=== PATIENT | female | born 1955 | race Caucasian/White ===

== ENCOUNTER 2016-04-22 08:25 | Inpatient (IN) | payer BC, OTHER ==
[2016-04-22] VITALS (8 sets, daily range): BP systolic 134–181; BP diastolic 78–86; PULSE 88–134; TEMP 36.4–37; O2SAT 93–100; BMI 46.9
[~2016-04-22] VITALS: Ht 162.6 cm; Wt 125.3 kg
[~2016-04-22 08:25] MED LIST: ALLO100T PO; ASPEC81 PO; ATOR-22 PO; ATV5 PO; BECL0.3A INH; CALC500T9 PO; CYCL10TA6 PO; CZR50 PO; DILT1TAB58 PO; ERGO1CAP35 PO; GLC/500 PO; GLUCTES; IPRASOL4 INH; LEVO50TA6 PO; LSX/40 PO; METO2.5T PO; MOME50SP5; NRN300 PO; PARO1TAB29 PO; POTA10CA28 PO; PRFINS INH; [UNRECOGNIZED DRUG - OTHER] NAE
[2016-04-22] MEDS ORDERED: ALBUT/IPRATROP 3MG/0.5MG NEB 3 ML VIAL INH ONE ×2 (10:00→11:45)
--- NOTE | 2016-04-22 10:11 | DIAGNOSTIC IMAGING REPORT ---
CHEST 2 VIEWS ROUTINE HISTORY: Cough. Short of breath. COMPARISON: Chest 02/29/2016. FINDINGS: No focal lung consolidations to suggest pneumonia. No evidence for pulmonary edema. Calcified left hilar lymph nodes are again noted. Left subclavian Port-A-Cath terminates in the proximal SVC. The heart is normal in size. No pleural effusions. No pneumothorax. Surgical clips at the epigastric region. IMPRESSION: No acute process. Electronically signed by: Darrius Sanchez M.D. 04/22/2016 10:09 AM Dictated Date/Time: 04/22/2016 10:08 AM
[2016-04-22 10:33] LABS: BASO % 0.3 %; BASO ABS # 0.03 K/uL (0-0.2); COMPLETE YES; EOS % 4.3 %; HEMATOCRIT 32.7 % (37-47); IG% 0.3 %; LYMPH % 21.4 %; LYMPH ABS # 1.97 K/uL (1.2-3.4); MEAN CELL VOLUME 89.8 fL (80-100); MEAN CORPUSCULAR HEMOGLOBIN 29.9 pg (25-34); MEAN CORPUSCULAR HGB CONC 33.3 g/dl (32-36); MEAN PLATELET VOLUME 10.1 fL (7.4-10.4); NEUT % 67.7 %; PLATELET COUNT 280 K/uL (130-400); RED BLOOD COUNT 3.64 M/uL (4.2-5.4)
[2016-04-22 10:51] LABS: BUN/CREATININE RATIO 25.4 (10-20); CALCIUM 8.8 mg/dl (8.5-10.1); CREATININE 1.1 mg/dl (0.60-1.20); POTASSIUM 2.7 mmol/L (3.5-5.1)
[2016-04-22 10:55] LABS: ALB/GLOB RATIO 1.1 (0.9-2)
[2016-04-22] MEDS ORDERED: SODIUM CHLORIDE 0.9% 1000ML 1,000 ML IV STA (11:40)
[2016-04-22] MEDS ORDERED: POTASSIUM CHLR 20 MEQ / WTR 20 MEQ in PREMIXED WATER 100 ML IV STA (11:40)
[2016-04-22] MEDS ORDERED: METHYLPREDNISOLONE IV 80 MG in SYRINGE 0 ML IV ONE ×2 (11:45→12:15)
[2016-04-22] MEDS ORDERED: POTASSIUM CHLR 20MEQ / WTR IV ONE (12:15)
--- NOTE | 2016-04-22 12:22 | EMERGENCY ROOM VISIT NOTE ---
ED Visit Note First contact with patient: 09:42 60-year-old female with shortness of breath was fully evaluated by Jimmy Asencio PA-C. Please see his note. I also independently evaluated the patient. She remains extremely short of breath despite albuterol treatment. The patient will require further evaluation by the hospitalist for extended evaluation and treatment in the hospital. The patient was awaiting admission and became extremely short of breath. The patient was further evaluated by the PA who called me to see the patient. She complained of extreme tightness in her throat. The patient was moved to room A1 because of her extreme shortness of breath. The patient was in atrial fibrillation at that time but despite her rapid rate she was given a racemic epi treatment which did help. The patient was also evaluated by Dr. Escobar. I reevaluated the patient multiple times while here in the ED. I believe the patient has some component of adult croup in addition to her asthma. I have personally spent greater than 35 minutes of critical care time in the direct management of this patient. This includes bedside care, interpretation of diagnostic studies, and testing, discussion with consultants, patient, and family members, and other required patient management activities. This 35 minutes is in excess of all separately billable procedures. IMPRESSION: COPD with Exacerbation Adult Croup Atrial Fibrillation
[2016-04-22] MEDS ORDERED: POTASSIUM CHLORIDE 10 MEQ TABCR PO STA (12:50)
[2016-04-22] MEDS ORDERED: POTASSIUM CHLORIDE 10 MEQ TABCR ONE ×2 (12:56→15:04)
[2016-04-22] MEDS ORDERED: MAGNESIUM HYDROXIDE SUSP 30 ML UDC PO PRN (13:00)
[2016-04-22] MEDS ORDERED: ALUMINUM/MAGNESIUM/SIMETH (MAALOX MAX) 30 ML UDC PO PRN (13:00)
[2016-04-22] MEDS ORDERED: ACETAMINOPHEN 325 MG TAB PO PRN (13:00)
[2016-04-22] MEDS ORDERED: ONDANSETRON INJ 2 MG/ML 2 ML VIAL IV PRN (13:00)
[2016-04-22] MEDS ORDERED: CYCLOBENZAPRINE HCL 10 MG TAB PO PRN (13:00)
--- NOTE | 2016-04-22 13:00 | History and Physical ---
History & Physical Date & Time of Service: Apr 22, 2016 at 12:59 Chief Complaint: Cough, Sob Primary Care Physician: Godfrey Batista PA-C History of Present Illness Source: patient Pt is a 60 yo female who presents to the ER with complaints of shortness of breath and cough that is present for the past 3 days. Pt reports progressively worse sob and a dry hacking cough. Pt states no fevers or chills, chest pain, runny nose, headaches, or other cold symptoms. Pt denies any sick contacts. Pt states compliance with her inhalers including QVAR , perforomist and nebulizer treatments which she states she has been using around the clock. Pt is not on any home O2. Pt has a hx of COPD in which she sees Dr Rubi. Last visit was roughly a few weeks ago. Upon arrival to ER, pt noted to be wheezing and given O2 via nasal cannula in addition to a duoneb treatment. Pt has been admitted several times in past few months for COPD/CHF exacerbations. Past Medical/Surgical History Medical Problems: (1) Asthma Status: Chronic (2) Benign hypertension Status: Chronic (3) Bronchitis Status: Chronic (4) Deep venous thrombosis Status: Chronic (5) Diabetes mellitus Status: Chronic (6) Pneumonia Status: Chronic (7) Pulmonary embolism Status: Chronic (8) Pulmonary emphysema Status: Chronic Family History Depression FH: gallbladder disease FH: heart disease FH: lung disease Hypertension Kidney stones Social History Smoking Status: Never Smoker Smokeless Tobacco Use: No Alcohol Use: none Drug Use: none Marital Status: Housing status: lives with family Occupational Status: retired Immunizations History of Influenza Vaccine: Yes Influenza Vaccine Date: Dec 26, 2012 History of Tetanus Vaccine?: Unknown History of Pneumococcal: Yes Pneumococcal Date: Aug 01, 2001 History of Hepatitis B Vaccine: Unknown Multi-Drug Resistant Organisms History of MDRO: Yes Type of MDRO: MRSA Allergies Coded Allergies: Sulfa Antibiotics (Verified Allergy, Intermediate, HIVES, RASH, 04/22/16) Oxybutynin (Verified Allergy, Mild, HIVES, 04/22/16) Adhesives (Verified Allergy, Unknown, skin irritation, 04/22/16) Cephalosporins (Verified Allergy, Unknown, CEFOXITIN-HIVES, TOLERATED ROCEPHIN 09/11/07, 04/22/16) Home Medications Scheduled Allopurinol (Zyloprim), 100 MG PO QAM Aspirin (Aspirin EC Low Dose), 81 MG PO QAM Atorvastatin (Lipitor), 20 MG PO HS Beclomethasone Dipropionate (Qvar), 2 PUFFS INH BID Calcium Carbonate-Vitamin D (Oysco 500+D), 2 TAB PO QAM Diltiazem Hcl Coated Beads (Cardizem La), 2 CAP PO QPM Ergocalciferol (Vitamin D Cap), 50,000 INTER.UNIT PO WK Formoterol Fumarate (Perforomist), 20 MCG INH BIDR Furosemide (Lasix), 40 MG PO BID Gabapentin (Gabapentin), 300 MG PO HS Levothyroxine Sodium (Levothyroxine Sodium), 1 TAB PO QAM Losartan Potassium (Losartan Potassium), 50 MG PO QAM Metformin Hcl (Glucophage), 2 TAB PO BID Metolazone (Zaroxolyn), 2.5 MG PO 3XWK Mometasone Furoate (Nasonex), 1 SPRAY NA QAM Paroxetine (Paxil), 40 MG PO QAM Potassium Chloride (Micro-K Ext Rel), 20 MEQ PO BID [Gentamicin Saline], 2 SPRAY GEOFF TID Scheduled PRN Cyclobenzaprine Hcl (Flexeril), 1 TAB PO TID PRN for Muscle Spasms Ipratropium-Albuterol (Duoneb), 1 TREATMENT INH Q4H PRN for Shortness of Breath Lorazepam (Lorazepam), 0.5 MG PO HS PRN for Anxiety Miscellaneous Medications Glucose Blood ([employer] Contour Blood Gluco) Review of Systems Constitutional: No chills, No fever Respiratory: + cough, + dyspnea at rest, + dyspnea on exertion, + shortness of breath, + wheezing, No sputum Cardiovascular: + edema, No chest pain, No orthopnea Abdomen: No diarrhea, No nausea, No pain, No vomiting Musculoskeletal: No joint pain, No muscle pain Genitourinary - Female: No dysuria, No urinary frequency, No urinary urgency Psychiatric: No anhedonism, No depression symptoms Integumentary: No itch, No rash Physical Exam Vital Signs Date Time Temp Pulse Resp B/P Pulse Ox O2 Delivery O2 Flow Rate FiO2 04/22/16 12:00 115 18 94 Nasal Cannula 2.0 04/22/16 11:59 116 26 156/80 90 Nasal Cannula 2.0 04/22/16 10:18 106 20 148/76 93 Nasal Cannula 2.0 04/22/16 10:15 89 18 98 Nasal Cannula 2.0 04/22/16 10:14 90 04/22/16 10:14 97 Nasal Cannula 04/22/16 09:21 97 Nasal Cannula 2.0 04/22/16 08:32 Room Air 04/22/16 08:29 36.8 101 18 172/72 96 Room Air General Appearance: WD/WN, no apparent distress, + obese Head: normocephalic, atraumatic Eyes: PERRL, EOMI Neck: supple, no adenopathy Respiratory/Chest: chest non-tender, + wheezing Cardiovascular: no gallop, no JVD, + tachycardia Abdomen/GI: non tender, soft Back: normal inspection, no CVA tenderness Extremities/Musculoskelatal: normal inspection, non-tender Neurologic/Psych: alert, oriented x 3 Skin: warm/dry, no rash Diagnostics Laboratory Results Results Past 24 Hours Test 04/22/16 10:15 04/22/16 12:50 Range/Units White Blood Count 9.20 4.8-10.8 K/uL Red Blood Count 3.64 4.2-5.4 M/uL Hemoglobin 10.9 12.0-16.0 g/dL Hematocrit 32.7 37-47 % Mean Corpuscular Volume 89.8 80-100 fL Mean Corpuscular Hemoglobin 29.9 25-34 pg Mean Corpuscular Hemoglobin Concent 33.3 32-36 g/dl Platelet Count 280 130-400 K/uL Mean Platelet Volume 10.1 7.4-10.4 fL Neutrophils (%) (Auto) 67.7 % Lymphocytes (%) (Auto) 21.4 % Monocytes (%) (Auto) 6.0 % Eosinophils (%) (Auto) 4.3 % Basophils (%) (Auto) 0.3 % Neutrophils # (Auto) 6.22 1.4-6.5 K/uL Lymphocytes # (Auto) 1.97 1.2-3.4 K/uL Monocytes # (Auto) 0.55 0.11-0.59 K/uL Eosinophils # (Auto) 0.40 0-0.5 K/uL Basophils # (Auto) 0.03 0-0.2 K/uL RDW Standard Deviation 44.5 36.4-46.3 fL RDW Coefficient of Variation 13.5 11.5-14.5 % Immature Granulocyte % (Auto) 0.3 % Immature Granulocyte # (Auto) 0.03 0.00-0.02 K/uL Sodium Level 140 136-145 mmol/L Potassium Level 2.7 3.5-5.1 mmol/L Chloride Level 94 98-107 mmol/L Carbon Dioxide Level 36 21-32 mmol/L Anion Gap 10.0 3-11 mmol/L Blood Urea Nitrogen 28 7-18 mg/dl Creatinine 1.10 0.60-1.20 mg/dl Est Creatinine Clear Calc Drug Dose 69.9 ml/min Estimated GFR () 62.8 Estimated GFR (Non- 54.1 BUN/Creatinine Ratio 25.4 10-20 Random Glucose 99 70-99 mg/dl Calcium Level 8.8 8.5-10.1 mg/dl Total Bilirubin 0.4 0.2-1 mg/dl Aspartate Amino Transf (AST/SGOT) 26 15-37 U/L Alanine Aminotransferase (ALT/SGPT) 29 12-78 U/L Alkaline Phosphatase 91 45-117 U/L Pro-B-Type Natriuretic Peptide 415 0-900 pg/ml Total Protein 6.9 6.4-8.2 gm/dl Albumin 3.6 3.4-5.0 gm/dl Globulin 3.3 2.5-4.0 gm/dl Albumin/Globulin Ratio 1.1 0.9-2 Influenza Type A Antigen Neg for Influ A NEG Influenza Type B Antigen Neg for Influ B NEG Impression Assessment and Plan 60 yo female who presents with worsening sob x 3 days Acute COPD exacerbation - Start on solu-medrol 60 TID - Duoneb q 4 h nebulizers - No indication for antibiotics at this time - Cont home inhalers and O2 therapy - Incentive spirometry - CXR did not determine any infiltrates or effusions Chronic diastolic CHF - Continue diuretics, no worsening edema or CXR findings to denote exacerbation - Daily weight, I/O monitoring CKD Stage III - Cr 1.1; currently at her baseline Type II Diabetes Mellitus - Start sliding scale Obstructive Sleep Apnea - Set up for nighttime BiPAP Hypothyroidism - Continue levothyroxine DVT prophylaxis - Heparin 5000 SC q8hr Code - Level I Code VTE Prophylaxis VTE Risk Assessment Done? Y/N: Yes Risk Level: Moderate
[2016-04-22] MEDS ORDERED: RACEPINEPHRINE 2.25% NEBU SOLN 0.5 ML VIAL INH STA (13:38)
[2016-04-22] MEDS ORDERED: DILTIAZEM BOLUS / DRIP IV STA (13:38)
[2016-04-22] MEDS ORDERED: GLUCOSE 40% GEL 15 GM TUBE PO PRN (13:45)
[2016-04-22] MEDS ORDERED: DEXTROSE 50% 50 ML SYR IV PRN (13:45)
[2016-04-22] MEDS ORDERED: GLUCOSE 10 TABS/TUBE PO PRN (13:45)
[2016-04-22] MEDS ORDERED: GLUCAGON FOR INJ 1 MG VIAL SQ PRN (13:45)
[2016-04-22] MEDS ORDERED: DILTIAZEM HCL 5 MG/ML 5 ML VIAL IV SCH (14:15)
[2016-04-22] MEDS: DILTIAZEM HCL INJ 125 MG in DEXTROSE 5% 100ML IV PRN ×3 (14:45→17:57)
--- NOTE | 2016-04-22 14:45 | Progress Note ---
Progress Note Shortly after initial evaluation, pt went into Afib with RVR and noted to have tightness in her throat. Pt was given epi and noted some improvement in breathing and throat tightness. Pt was placed on cardizem drip as well. Will hold off on albuterol tx a this time as pt has had elev HR and SOB. [facility] for further evaluation and care.
[2016-04-22] MEDS ORDERED: ALBUT/IPRATROP 3MG/0.5MG NEB 3 ML VIAL INH SCH (16:00)
[2016-04-22] MEDS ORDERED: NURSING VERBAL MED ORDER ONE (16:30)
[2016-04-22] MEDS: FUROSEMIDE 40 MG TAB PO SCH (16:34)
[2016-04-22] MEDS ORDERED: INSULIN ASPART 100 UNITS/ML 3 ML PEN SC ONE (17:00)
[2016-04-22] MEDS ORDERED: INSULIN GLARGINE SOLOSTAR 100 UNITS/ML 3 ML PEN SC ONE ×2 (17:00→21:15)
[2016-04-22] MEDS: INSULIN ASPART 100 UNITS/ML 3 ML PEN SC SCH ×2 (17:17→21:32)
[2016-04-22] MEDS: FORMOTEROL FUMA NEBULIZER SOLN 20 MCG/2 ML VIAL INH SCH (19:33)
[2016-04-22] MEDS ORDERED: DILTIAZEM HCL COATED BEADS PO SCH (21:00)
[2016-04-22] MEDS ORDERED: PHARMACY GLYCEMIC MGMT CONSULT PRN (21:09)
[2016-04-22] MEDS: BECLOMETHASONE DIP HFA 80 MCG 8.7G INH INH SCH (21:24)
[2016-04-22] MEDS: METHYLPREDNISOLONE IV 60 MG in SYRINGE 0 ML IV SCH (21:24)
[2016-04-22] MEDS: GABAPENTIN 300 MG CAP PO SCH (21:25)
[2016-04-22] MEDS: POTASSIUM CHLORIDE 10 MEQ TABCR PO SCH (21:26)
[2016-04-22] MEDS: ATORVASTATIN 20 MG TAB PO SCH (21:27)
[2016-04-22] MEDS: GUAIFENESIN 600 MG TABCR PO SCH (21:28)
[2016-04-22] MEDS: HEPARIN SOD 5000 UNIT/0.5 ML CARP SQ SCH (21:33)
[2016-04-23] VITALS (10 sets, daily range): BP systolic 122–156; BP diastolic 66–73; PULSE 75–105; TEMP 36.4–36.9; O2SAT 90–98; Ht 162.6 cm; Wt 125.3 kg
[2016-04-23] MEDS: INSULIN ASPART 100 UNITS/ML 3 ML PEN SC SCH ×6 (00:19→20:17)
[2016-04-23] MEDS: DILTIAZEM HCL INJ 125 MG in DEXTROSE 5% 100ML IV PRN ×2 (00:20→08:22)
[2016-04-23] MEDS: LORAZEPAM 0.5 MG TAB PO PRN ×2 (01:27→16:12)
[2016-04-23] MEDS: METHYLPREDNISOLONE IV 60 MG in SYRINGE 0 ML IV SCH ×2 (04:35→12:42)
[2016-04-23] MEDS: LEVOTHYROXINE 50 MCG TAB PO SCH (04:35)
[2016-04-23] MEDS: HEPARIN SOD 5000 UNIT/0.5 ML CARP SQ SCH ×3 (04:39→20:16)
[2016-04-23 06:45] LABS: BASO % 0.1 %; BASO ABS # 0.01 K/uL (0-0.2); COMPLETE YES; HEMATOCRIT 32.3 % (37-47); IG% 0.5 %; LYMPH % 12.8 %; LYMPH ABS # 1.95 K/uL (1.2-3.4); MEAN CELL VOLUME 88.5 fL (80-100); MEAN CORPUSCULAR HEMOGLOBIN 30.4 pg (25-34); MEAN CORPUSCULAR HGB CONC 34.4 g/dl (32-36); MEAN PLATELET VOLUME 10.2 fL (7.4-10.4); MONO % 1.1 %; NEUT % 85.5 %; PLATELET COUNT 300 K/uL (130-400); RED BLOOD COUNT 3.65 M/uL (4.2-5.4); WHITE BLOOD COUNT 15.26 K/uL (4.8-10.8)
[2016-04-23] MEDS: FORMOTEROL FUMA NEBULIZER SOLN 20 MCG/2 ML VIAL INH SCH ×2 (06:57→18:51)
[2016-04-23 07:21] LABS: BUN/CREATININE RATIO 22.8 (10-20); CALCIUM 9.2 mg/dl (8.5-10.1); POTASSIUM 3.3 mmol/L (3.5-5.1)
[2016-04-23 07:33] LABS: CREATININE 1.7 mg/dl (0.60-1.20)
[2016-04-23] MEDS: METOLAZONE 2.5 MG TAB PO SCH (07:41)
[2016-04-23] MEDS: GUAIFENESIN 600 MG TABCR PO SCH ×2 (07:41→19:56)
[2016-04-23] MEDS: ALLOPURINOL 100 MG TAB PO SCH (07:41)
[2016-04-23] MEDS: ASPIRIN 81 MG ECTAB PO SCH (07:41)
[2016-04-23] MEDS: POTASSIUM CHLORIDE 10 MEQ TABCR PO SCH ×2 (07:42→19:57)
[2016-04-23] MEDS: FUROSEMIDE 40 MG TAB PO SCH ×2 (07:42→16:13)
[2016-04-23] MEDS: LOSARTAN POTASSIUM 50 MG TAB PO SCH (07:42)
[2016-04-23] MEDS: PAROXETINE 20 MG TAB PO SCH (07:42)
[2016-04-23] MEDS: BECLOMETHASONE DIP HFA 80 MCG 8.7G INH INH SCH (07:43)
[2016-04-23] MEDS: INSULIN GLARGINE SOLOSTAR 100 UNITS/ML 3 ML PEN SC SCH ×2 (08:26→20:17)
--- NOTE | 2016-04-23 10:25 | Clinical Documentation Query ---
Dr. HO[facility] : CLINICAL DOCUMENTATION QUERY Patient is a 60 year old female admitted for an acute COPD exacerbation. Admission BUN, creatinine, and estimated GFR were 28 mg/dl, 1.10 mg/dl, and 54 ml/min, consistent with documented CKD stage 3. Repeat testing this a.m. demonstrated values of 39 mg/dl, 1.70 mg/dl, and 32 ml/min. In your clinical opinion is this patient being managed for: ( x ) Acute kidney failure ( ) Other explanation of clinical findings (Please Explain) ( ) Unable to determine (Please Define) ( ) Need to Discuss ( ) Not Agree The medical record reflects the following clinical findings, treatment, and risk factors. Clinical Indicators: Rise in serum creatinine in 24 hours with concomitant decline in estimated GFR by 40%. Treatment: Serial chemistries Risk Factors: Afib with RVR/reduced cardiac output, Lasix Please clarify and document your clinical opinion in the progress notes and discharge summary. Terms such as "probable", "suspected", "likely", "questionable", "possible", or "still to be ruled out" are acceptable. IF IN AGREEMENT, YOU MUST DOCUMENT ABOVE DIAGNOSTIC STATEMENT IN DAILY PROGRESS NOTES AND DISCHARGE SUMMARY. This document is not part of the patient's record. Thank You, Rigo Frias, DIPTI [phone]
[2016-04-23] MEDS ORDERED: BUDESONIDE 0.5 MG/2 ML VIAL (PULMICORT) INH ONE (11:20)
[2016-04-23] MEDS ORDERED: GUAIFENESIN 600 MG TABCR PO ONE (11:20)
[2016-04-23] MEDS ORDERED: POTASSIUM CHLR 20 MEQ / WTR 20 MEQ in PREMIXED WATER 100 ML IV STA (11:53)
--- NOTE | 2016-04-23 12:46 | Medical Student: [facility] ---
Med Student Progress Note Date of Service Apr 23, 2016. Subjective Pt is a 60 year old female with a history of diastolic CHF with EF 60-65% on echocardiogram, COPD, PE with IVC filter in place, and DM Type II who is admitted for dyspnea for the last 2-3 days. Pt reports that she has had continued dry cough and dyspnea throughout last night, but the dyspnea has improved somewhat. Cold air worsened her cough. She reports subjective fever and sweats, but no objective fever while admitted. She had one brief episode of L lower chest pain after coughing, which resolved spontaneously and she has had no further chest pain. She denies palpitations. She also c/o orthopnea, which she has chronically, requiring her to sleep in her Lazy Boy at home most nights. She has had mild leg swelling, at baseline, as well as some mild eyelid swelling. She c/o pounding frontal VILLA secondary to cough. She denies recent sick contacts.She reports being UTD on influenza and pneumonia vaccinations. She has had multiple recent admissions for CHF/COPD exacerbations, most recently in February, during which time she diuresed 7 L. She had been doing well on home Lasix 40 mg bid and metolazone 2.5 mg 3x/week (MWF), with no recent weight gain or increased leg swelling. She reports watching her fluid and salt intake at home. 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 Home Medications Scheduled Allopurinol (Zyloprim), 100 MG PO QAM Aspirin (Aspirin EC Low Dose), 81 MG PO QAM Atorvastatin (Lipitor), 20 MG PO HS Beclomethasone Dipropionate (Qvar), 2 PUFFS INH BID Calcium Carbonate-Vitamin D (Oysco 500+D), 2 TAB PO QAM Diltiazem Hcl Coated Beads (Cardizem La), 2 CAP PO QPM Ergocalciferol (Vitamin D Cap), 50,000 INTER.UNIT PO WK Formoterol Fumarate (Perforomist), 20 MCG INH BIDR Furosemide (Lasix), 40 MG PO BID Gabapentin (Gabapentin), 300 MG PO HS Levothyroxine Sodium (Levothyroxine Sodium), 1 TAB PO QAM Losartan Potassium (Losartan Potassium), 50 MG PO QAM Metformin Hcl (Glucophage), 2 TAB PO BID Metolazone (Zaroxolyn), 2.5 MG PO 3XWK Mometasone Furoate (Nasonex), 1 SPRAY NA QAM Paroxetine (Paxil), 40 MG PO QAM Potassium Chloride (Micro-K Ext Rel), 20 MEQ PO BID [Gentamicin Saline], 2 SPRAY GEOFF TID Scheduled PRN Cyclobenzaprine Hcl (Flexeril), 1 TAB PO TID PRN for Muscle Spasms Ipratropium-Albuterol (Duoneb), 1 TREATMENT INH Q4H PRN for Shortness of Breath Lorazepam (Lorazepam), 0.5 MG PO HS PRN for Anxiety Miscellaneous Medications Glucose Blood ([employer] Contour Blood Gluco) Review of Systems Constitutional: + see HPI Respiratory: + see HPI Cardiac: No palpitations Abdomen: No constipation, No diarrhea, No nausea, No pain, No vomiting All Other Systems: Reviewed and Negative Objective Vital Signs Date Time Temp Pulse Resp B/P Pulse Ox O2 Delivery O2 Flow Rate FiO2 04/23/16 08:00 Nasal Cannula 04/23/16 07:39 36.7 79 24 134/72 95 Nasal Cannula 3.0 Humidified Oxygen 04/23/16 06:57 77 18 94 Nasal Cannula 3.0 04/23/16 04:00 Nasal Cannula 04/23/16 03:36 36.4 84 20 149/72 92 Nasal Cannula 3.0 04/23/16 00:01 Nasal Cannula 04/22/16 23:58 37.0 96 20 134/86 93 Nasal Cannula 3.0 04/22/16 20:00 Nasal Cannula 04/22/16 19:33 105 20 96 Nasal Cannula 5.0 04/22/16 19:08 36.4 103 20 175/82 95 Nasal Cannula 6.0 04/22/16 15:30 36.9 88 22 181/78 97 Room Air 04/22/16 15:08 113 20 116/95 95 Nasal Cannula 6.0 04/22/16 14:47 112 22 132/92 94 Nasal Cannula 6.0 04/22/16 14:28 124 25 136/62 96 Nasal Cannula 6.0 04/22/16 14:01 132 28 117/80 95 Nasal Cannula 6.0 04/22/16 13:57 97 Nasal Cannula 7.0 04/22/16 13:48 134 22 100 Nasal Cannula 6.0 04/22/16 13:43 131 30 164/88 99 Non-Rebreather 15.0 04/22/16 12:55 94 Nasal Cannula 2.0 04/22/16 12:00 115 18 94 Nasal Cannula 2.0 04/22/16 11:59 116 26 156/80 90 Nasal Cannula 2.0 Physical Exam General Appearance: WD/WN, + pertinent finding (Pt is sleeping upon entering the room, awakens easily to voice. She becomes dyspneic with any movement. Frequent dry cough noted. Speaking in 4-5 word sentences. ) Eyes: bilateral eyes EOMI ENT: hearing grossly normal Neck: supple, no adenopathy Respiratory/Chest: chest non-tender, no respiratory distress, + pertinent finding (Inspiratory and expiratory wheezing in the upper lobes with prolonged expiratory phase. No rales or rhonchi. Decreased air movement. Port-A-Cath in place in L chest. ) Cardiovascular: regular rate, rhythm, no gallop, no JVD, no murmur Abdomen: normal bowel sounds, non tender, soft, + pertinent finding (Obese) Extremities: no calf tenderness, + pedal edema (1+ to mid tibia), + pertinent finding (Chronic venous stasis changes of BLE) Neurologic/Psychiatric: roller inspector II-XII nml as tested, no motor/sensory deficits, alert, oriented x 3 Skin: normal color, warm/dry, no rash Comments: EKG from 04/22/16 at 1329: Afib with RVR at 167 bpm. Normal QRS axis and transition. LBBB. ST depressions in I and V2-V6. No STEMI or Q waves. FINDINGS: No focal lung consolidations to suggest pneumonia. No evidence for pulmonary edema. Calcified left hilar lymph nodes are again noted. Left subclavian Port-A-Cath terminates in the proximal SVC. The heart is normal in size. No pleural effusions. No pneumothorax. Surgical clips at the epigastric region. IMPRESSION: No acute process. Laboratory Results Last 24 Hours Test 04/22/16 16:20 04/22/16 20:17 04/23/16 00:09 04/23/16 04:25 Bedside Glucose 415 mg/dl 357 mg/dl 336 mg/dl 304 mg/dl Test 04/23/16 06:20 04/23/16 06:42 White Blood Count 15.26 K/uL Red Blood Count 3.65 M/uL Hemoglobin 11.1 g/dL Hematocrit 32.3 % Mean Corpuscular Volume 88.5 fL Mean Corpuscular Hemoglobin 30.4 pg Mean Corpuscular Hemoglobin Concent 34.4 g/dl Platelet Count 300 K/uL Mean Platelet Volume 10.2 fL Neutrophils (%) (Auto) 85.5 % Lymphocytes (%) (Auto) 12.8 % Monocytes (%) (Auto) 1.1 % Eosinophils (%) (Auto) 0.0 % Basophils (%) (Auto) 0.1 % Neutrophils # (Auto) 13.06 K/uL Lymphocytes # (Auto) 1.95 K/uL Monocytes # (Auto) 0.17 K/uL Eosinophils # (Auto) 0.00 K/uL Basophils # (Auto) 0.01 K/uL RDW Standard Deviation 43.6 fL RDW Coefficient of Variation 13.4 % Immature Granulocyte % (Auto) 0.5 % Immature Granulocyte # (Auto) 0.07 K/uL Sodium Level 135 mmol/L Potassium Level 3.3 mmol/L Chloride Level 92 mmol/L Carbon Dioxide Level 31 mmol/L Anion Gap 12.0 mmol/L Blood Urea Nitrogen 39 mg/dl Creatinine 1.70 mg/dl Est Creatinine Clear Calc Drug Dose 45.2 ml/min Estimated GFR () 37.1 Estimated GFR (Non- 32.0 BUN/Creatinine Ratio 22.8 Random Glucose 250 mg/dl Calcium Level 9.2 mg/dl Bedside Glucose 278 mg/dl Medications Medications Administered Medications (Trade) Dose Ordered Sig/Jesus Route Start Time Stop Time Status Last Admin Dose Admin Albuterol/ Ipratropium (Duoneb) 12 ml ONE ONCE INH 04/22/16 10:00 04/22/16 10:04 DC 04/22/16 10:15 12 ML Albuterol/ Ipratropium 12 ml 12 ml ONE ONCE INH 04/22/16 11:45 04/22/16 11:46 DC 04/22/16 11:54 12 ML Sodium Chloride 1,000 ml @ 150 mls/hr Q6H40M STAT IV 04/22/16 11:40 04/22/16 15:38 DC 04/22/16 11:40 150 MLS/HR Potassium Chloride 20 meq/ Prmx 100 ml @ 50 mls/hr TODAY@1215 ONCE IV 04/22/16 12:15 04/22/16 14:14 DC 04/22/16 12:29 50 MLS/HR Methylprednisolone Sodium Succinate/ Syringe (Solu-Medrol IV/ Syringe) 1.28 ml @ 1.5 mls/min TODAY@1215 ONCE IV 04/22/16 12:15 04/22/16 12:16 DC 04/22/16 12:29 1.5 MLS/MIN Heparin Sodium (Porcine) (Heparin Sq 5000 Unit/0.5ml) 5,000 unit Q8 SQ 04/22/16 22:00 05/22/16 21:59 04/23/16 04:39 5,000 UNIT Ondansetron HCl (Zofran Inj) 4 mg Q6H PRN IV 04/22/16 13:00 05/22/16 12:59 04/22/16 17:13 4 MG Guaifenesin 600 mg 600 mg Q12 PO 04/22/16 21:00 05/22/16 20:59 04/23/16 07:41 600 MG Methylprednisolone Sodium Succinate/ Syringe (Solu-Medrol IV/ Syringe) 0.96 ml @ 1.5 mls/min Q8@0400,1200,2000 IV 04/22/16 20:00 05/22/16 19:59 04/23/16 04:35 1.5 MLS/MIN Allopurinol (Zyloprim Tab) 100 mg QAM PO 04/23/16 09:00 05/23/16 08:59 04/23/16 07:41 100 MG Aspirin (Ecotrin Tab) 81 mg QAM PO 04/23/16 09:00 05/23/16 08:59 04/23/16 07:41 81 MG Atorvastatin Calcium (Lipitor Tab) 20 mg HS PO 04/22/16 21:00 05/22/16 20:59 04/22/16 21:27 20 MG Beclomethasone Dipropionate (Qvar 80 Mcg Hfa Inhaler) 2 puffs BID INH 04/22/16 21:00 05/22/16 20:59 Future Hold 04/23/16 07:43 2 PUFFS Formoterol Fumarate (Perforomist 20MCG/2ML Neb Soln) 20 mcg BIDR INH 04/22/16 20:00 05/22/16 19:59 04/23/16 06:57 20 MCG Furosemide (Lasix tab) 40 mg BID17 PO 04/22/16 17:00 05/22/16 16:59 04/23/16 07:42 40 MG Gabapentin (Neurontin Cap) 300 mg HS PO 04/22/16 21:00 05/22/16 20:59 04/22/16 21:25 300 MG Levothyroxine Sodium (Synthroid Tab) 50 mcg DAILYBB PO 04/23/16 06:00 05/23/16 05:59 04/23/16 04:35 50 MCG Lorazepam (Ativan Tab) 0.5 mg HS PRN PO 04/22/16 13:00 05/22/16 12:59 04/23/16 01:27 0.5 MG Losartan Potassium (coZAAR TAB) 50 mg QAM PO 04/23/16 09:00 05/23/16 08:59 04/23/16 07:42 50 MG Metolazone (Zaroxolyn Tab) 2.5 mg MoWeFr@0830 PO 04/23/16 08:30 05/23/16 08:29 04/23/16 07:41 2.5 MG Paroxetine HCl (pAXil TAB) 40 mg QAM PO 04/23/16 09:00 05/23/16 08:59 04/23/16 07:42 40 MG Potassium Chloride (Klor-Con M10) 20 meq BID PO 04/22/16 21:00 05/22/16 20:59 04/23/16 07:42 20 MEQ Insulin Aspart (novoLOG ASPART) SLIDING SCALE If C... ACHS SC 04/22/16 16:15 05/22/16 16:14 04/23/16 08:25 20 UNITS Racepinephrine (Raccemic Epinephrine 2.25% 0.5ML Neb) 0.5 ml NOW STAT INH 04/22/16 13:38 04/22/16 13:40 DC 04/22/16 13:48 0.5 ML Diltiazem HCl 20 mg 20 mg TODAY@1415 IV 04/22/16 14:15 04/22/16 14:16 DC 04/22/16 14:30 20 MG Diltiazem HCl/ Dextrose (Cardizem Inj/D5 100ml) 125 ml @ 5 mls/hr Q24H PRN IV 04/22/16 14:15 05/22/16 14:14 04/23/16 08:22 5 MLS/HR Potassium Chloride (Klor-Con M10) 40 meq STK-MED ONCE .ROUTE 04/22/16 15:04 04/22/16 15:05 DC 04/22/16 15:07 40 MEQ Insulin Glargine (Lantus Solostar Pen) 10 unit NOW ONCE SC 04/22/16 17:00 04/22/16 17:01 DC 04/22/16 16:39 10 UNIT Insulin Aspart (novoLOG ASPART) 10 units NOW ONCE SC 04/22/16 17:00 04/22/16 17:01 DC 04/22/16 16:36 10 UNITS Insulin Glargine (Lantus Solostar Pen) 15 unit NOW ONCE SC 04/22/16 21:15 04/22/16 21:16 DC 04/22/16 21:32 15 UNIT Insulin Aspart (novoLOG ASPART) SLIDING SCALE TODAY@0000,0400 SC 04/23/16 00:00 04/23/16 04:01 DC 04/23/16 04:34 11 UNITS Insulin Glargine (Lantus Solostar Pen) 15 unit BID SC 04/23/16 09:00 05/23/16 08:59 04/23/16 08:26 15 UNIT Assessment and Plan Assessment and Plan: Pt is a 60 year old female with a history of diastolic CHF with EF 60-65% on echocardiogram, COPD, PE with IVC filter in place, and DM Type II who is admitted for dyspnea for the last 2-3 days. Exam is significant for coarse lung sounds with inspiratory and expiratory wheezing. No evidence to suggest fluid overload. She was on 6 L O2 NC last night, which has been decreased to 3 L, after which SpO2 has been stable around 92-95%. CXR showed no acute process and no evidence of PNA. Clinical picture is most consistent with COPD exacerbation. WBC is elevated today in the setting of Solu-Medrol. 1. COPD exacerbation - FEV1 during 03/28/16 pulmonology visit was 72%. - Continue Solu-Medrol. - Continue Duoneb Tx q4h. - Will Tx with pulmicourt nebulizer, as pt has significant cough and is likely not able to tolerate inhalers. - Will continue 3 L O2 NC. - Will Tx with Mucinex. - Continue incentive spirometry. 2. Diastolic HF - No evidence to suggest acute CHF exacerbation. Net I/O is +74 since admission, net -452 since yesterday. Cardiac catheterization from showed normal coronary arteries. - Will continue home diuretics, Lasix 40 mg bid and Metolazone (Zaroxolyn), 2.5 MG PO 3XWK. - Continue to monitor weight and I/O. 3. Atrial fibrillation w/ RVR - Pt converted to NSR with diltiazem drip. HR has been in the 70-80s in NSR. - Plan to wean off of diltiazem drip and initiate PO diltiazem. - Will repeat EKG. 4. Obstructive sleep apnea - Continue BIPAP at night. 5. Diabetes Mellitus, Type II - Blood sugar has been elevated as high as 336. - Will increase Lantus and continue Novolog sliding scale. 6. CKD, Stage III - Creatinine currently 1.7, up from her baseline of 1.1 7. Hypothyroidism -Continue levothyroxine 8. DVT prophylaxis - Heparin 5000 units SQ q8h DVT prophylaxis - Heparin 5000 SC q8hr
--- NOTE | 2016-04-23 14:12 | Pharmacy Progress Note ---
Glycemic Control Intl Consult Date of Service Apr 23, 2016. Scope Glycemic Pharmacist consulted by Dr Le on 04/22/16 for glycemic control and to write orders per [facility] inpatient glycemic control protocol Objective Weight (Kilograms): 124.000 Accuchecks BSG (last 24hrs): Test 04/22/16 16:20 04/22/16 20:17 04/23/16 00:09 04/23/16 04:25 Bedside Glucose 415 mg/dl (70-90) 357 mg/dl (70-90) 336 mg/dl (70-90) 304 mg/dl (70-90) Test 04/23/16 06:20 04/23/16 06:42 04/23/16 11:00 Random Glucose 250 mg/dl (70-99) Bedside Glucose 278 mg/dl (70-90) 322 mg/dl (70-90) Laboratory Data (last 24hrs) Test 04/23/16 06:20 Anion Gap 12.0 mmol/L BUN/Creatinine Ratio 22.8 Blood Urea Nitrogen 39 mg/dl Creatinine 1.70 mg/dl Potassium Level 3.3 mmol/L Sodium Level 135 mmol/L White Blood Count 15.26 K/uL Red Blood Count 3.65 M/uL Hemoglobin 11.1 g/dL Hematocrit 32.3 % Mean Corpuscular Volume 88.5 fL Mean Corpuscular Hemoglobin 30.4 pg Mean Corpuscular Hemoglobin Concent 34.4 g/dl Platelet Count 300 K/uL Mean Platelet Volume 10.2 fL Neutrophils (%) (Auto) 85.5 % Lymphocytes (%) (Auto) 12.8 % Monocytes (%) (Auto) 1.1 % Eosinophils (%) (Auto) 0.0 % Basophils (%) (Auto) 0.1 % Neutrophils # (Auto) 13.06 K/uL Lymphocytes # (Auto) 1.95 K/uL Monocytes # (Auto) 0.17 K/uL Eosinophils # (Auto) 0.00 K/uL Basophils # (Auto) 0.01 K/uL HbA1c 02/24/16 Hgb A1c 6.9 % Recent Pertinent Medications Outpatient Anti-diabetic Regimen: * Novolog pump, basal rate 1.2 units/hr, Metformin 1 Gm bid * A1c = 6.9 % 02/24/16 The patient is currently receiving: * Basal insulin: Lantus one-time doses of 10 units and 15 units * Correctional Insulin: Novolog Correction per scale ACHS, also BSG checks 00,04 Goal Range: Low 100 mg/dL - High 140 mg/dL Correction Factor: 15 mg/dL/unit * Prandial insulin: Per carb ratio of 1 unit per 6 grams CHO consumed * Oral Agents: none Risk Factors for Insulin Resistance: * Steroids: Solumedrol 80 mg x 1, then 60 mg q8h * Infection: no * Pressors: no * IVF: Cardizem drip mixed in D5W, to be dc'd this evening * Recent Surgery: no * Diet: type 1 diabetic * Mechanical Ventilation: no Assessment & Plan ASSESSMENT: * ADA & AACE recommend a goal blood sugar range 140-180 mg/dl for the majority of critically ill & non-critically ill patients. However, more stringent targets may be selected in individual cases. * 60 yo type 2 diabetic fairly well-controlled on Novolog pump and metformin. BSG's rising when pump turned off, and due to steroids. Will start basal insulin at a daily dose similar to her pump, and weight-based Novolog. PLAN FOR INPATIENT GLYCEMIC CONTROL: * Holding outpatient oral diabetes medications * Basal insulin with LANTUS 15 units SQ BID, give 1/2 dose if BSG is less than 100 * Correctional Insulin with NOVOLOG per scale ACHS or Q6hrs while NPO * Goal Range: Low 100 mg/dL - High 140 mg/dL * Correction Factor: 10 mg/dL/unit * Nutritional / Prandial insulin per carb ratio of 1 unit per 5 grams CHO consumed * Please note that the plan above was derived based on current level of insulin resistance and hospital stress. These recommendations are appropriate for inpatient admission only. Plan of care upon discharge will need to be reassessed to avoid potential outpatient hypo/hyperglycemia. Thank you.
--- NOTE | 2016-04-23 15:18 | Pulmonary Consultation ---
History General Date of Service: Apr 23, 2016. Stated Complaint: SOB, sore throat HPI The patient is a 60 year old female who presents to [facility] with complaints of SOB. The patient's primary care provider is Godfrey Batista PA-C. 60y/o female well know n to me presented to the ED with complaints of SOB and cough for 3 days. She notes a progression of her SOB and dry cough over those three says. She also notes increasing sore throat with associated dysphagia. After presenting to the emergency room she noted increasing shortness of breath associated with an episode of, "I think a want to ." This appears about the time she was noted to be in rapid atrial fibrillation with a rate of 167. During the hospital stay rhythm strip also showed a atrial fibrillation in the patient noted to have that time shortness of breath as well. Over the last 3-4 days she denies: Fever, chills, pleurisy, classic cardiac chest pain, productive sputum. [facility] she's been treated with budesonide nebulized, methylprednisolone IV, formoterol as well as Lasix. Out Patient Evaluation at [facility] (MD [place] Fuchs) No signs of PAH: combination diastolic heart failure, Obesity, mild COPD V/Q Lung Scan (03/01/2016) Low probability of pulmonary emboli Cardiac Catherization (02/01/2016) Dictated Pressures: My review of the tracing RA: 27 PCW: 52/55/46 PCW: 40-62 MPA: 59/39/49 MPA: 59/39/46 RV: 61/19/31 RV: 63/30/41 RA: / Ao: 133/74/100 LV: 148/16/30 148/26/67 (normal LVEDP: 3-12) PVR: [id number] (37-250) Significant past history: 1. Recurrent PE with IVC filter not on anticoagulation therapy 2. Previous inferior vena cava claudication 3. IVC Filter placement: 05/19/2012 Pulmonary function test 09/23/2014 FEV 1/FVC: 69% FEV1: 1.59/72% FVC: 2.31/86% T.63/84% FVC: 2.55/95% DLCO: 65% DLCO/VA: 122% CTA performed 01/02/2016 no signs of central emboli Bilateral lower extremity DVT Dopplers: 01/02/2016 -no signs of lower extremity DVTs Overnight pulse oximetry study: 01/05/2016 1. High assessed PO2: 98% 2. Low assessed PO2: 95% Bronchoscopy: 05/10/2012 1. Copious amounts of sputum for the right middle and right lower lobes 2. Right bronchial tree showing chronic inflammatory state 3. Copious mucopurulent sputum noted to be in the lingula and left lower lobe Stress Echo-cardiogram: 03/07/2015 1. Non-sustained VT/PVCs with elevated heart rates 2. Hypertensive response to infusion 3. [address] depression with elevated heart rates 4. Left ventricular ejection fraction: 60% Echocardiogram 02/29/2016 1. Left ventricular ejection fraction 60% 2. Diastolic dysfunction 3. Normal pulmonary arterial systolic pressure Chronic IVC filter complications: 1. Recurrent DVT 2. Post thrombotic syndrome 3. Occlusion of the vena cava 5 years 4. Recurrent pulmonary emboli Historian: patient, caregiver, EMS Review of Systems Constitutional: reports: weakness Eyes: reports: no symptoms, tearing ENT: reports: sore throat, throat swelling Cardiovascular: reports: chest tightness Respiratory: reports: shortness of breath, stridor, wheezing Gastrointestinal: reports: other (dysphagia) Genitourinary - Female: reports: no symptoms Musculoskeletal: reports: myalgias Integumentary: reports: no symptoms Neurologic: reports: no symptoms Psychiatric: reports: anxiety Endocrine: no symptoms Hematologic / Lymphatic: no symptoms Allergic / Immunologic: no symptoms Past Medical History Past Medical History: 1)Allergic rhinitis 2)Anticoagulant long-term use 3)Arthritis 4)Asthma (not based of PFT/Clinically) 5)COPD (FEV1: 72%) 6)Breast mass, left 7)Chronic diastolic heart failure 8)CKD stage III (Cr: 1.2) 9)Chronic sinusitis 10)Cor pulmonale 11)Depression 12)Diabetes mellitus 13)Diabetic autonomic neuropathy 14)Dyslipidemia 15)Edema 16)Gastroparesis 17)Gout 18)Hypertension 19)Hypothyroidism 20)Iron deficiency anemia 21)Lumbar canal stenosis 22)Lumbar radiculopathy 23)Meniscus tear 24)Nocturnal oxygen desaturation 25)Obesity 26)Obstructive sleep apnea (CPAP: 03/21) 27)Peptic ulcer 28)Pulmonary embolism 29)Pulmonary hypertension 30)Restless legs syndrome 31)Retinopathy 32)Vitamin D deficiency Past Medical History: asthma, deep vein thrombosis, depression, diabetes, hypertension, osteoarthritis, osteoporosis, pulmonary embolism, other Past Surgical History: 1)Anal Fissurectomy 2)Cholecystectomy 3)Colonoscopy For Polyp Removal 4)Hernia Repair 5)Hysterectomy 6)Inferior Vena Cava [place]ja Filter Placement 7)Repair Of Paraesophageal Hiatus Hernia 8)Shoulder Arthroplasty/ Total Shoulder Replacement 9)Tonsillectomy 10)Ankle Fracture 11)Tubal Ligation Past Surgical History: appendectomy, cholecystectomy, hysterectomy, orthopedic surgery, tonsillectomy, other Family History Depression FH: gallbladder disease FH: heart disease FH: lung disease Hypertension Kidney stones Social History Hx Tobacco Use In Past Year?: No Smoking Status: Never Smoker Alcohol: socially Marital status: Housing status: lives with family Occupational Status: retired Immunizations History of Influenza Vaccine: Yes Influenza Vaccine Date: Dec 26, 2012 History of Tetanus Vaccine?: Unknown History of Pneumococcal: Yes Pneumococcal Date: Aug 01, 2001 History of Hepatitis B Vaccine: Unknown History of MDRO History of MDRO: Yes Type of MDRO: MRSA Allergies Coded Allergies: Sulfa Antibiotics (Verified Allergy, Intermediate, HIVES, RASH, 04/22/16) Oxybutynin (Verified Allergy, Mild, HIVES, 04/22/16) Adhesives (Verified Allergy, Unknown, skin irritation, 04/22/16) Cephalosporins (Verified Allergy, Unknown, CEFOXITIN-HIVES, TOLERATED ROCEPHIN 09/11/07, 04/22/16) Current Medications Reported Home Medications Medications Dose Route/Sig Max Daily Dose Days Date Category Dose Instructions Lasix (Furosemide) 40 Mg Tab 40 Mg PO BID 03/04/16 Rx Zaroxolyn (Metolazone) 2.5 Mg Tab 2.5 Mg PO 3XWK 03/04/16 Rx take on Mon/Wed/Fri in the morning 30 minutes prior to morning Lasix dose for maximal effect Micro-K Ext Rel (Potassium Chloride) 10 Meq Capcr 20 Meq PO BID 03/04/16 Rx Gabapentin 300 Mg Cap 300 Mg PO HS 03/04/16 Rx Losartan Potassium 50 Mg Tab 50 Mg PO QAM 03/04/16 Rx CLOUD SYSTEMS Contour Blood Gluco (Glucose Blood) 1 Debby Debby 02/01/16 Reported Flexeril (Cyclobenzaprine Hcl) 10 Mg Tab 1 Tab PO TID PRN 30 02/01/16 Reported Lorazepam 0.5 Mg Tab 0.5 Mg PO HS PRN 01/10/16 Rx Perforomist (Formoterol Fumarate) 20 Mcg/2 Ml Nebu 20 Mcg INH BIDR 30 01/10/16 Rx Qvar (Beclomethasone Dipropionate) 80 Mcg/ Aer 2 Puffs INH BID 30 08/17/15 Reported Paxil (Paroxetine HCl) 40 Mg Tab 40 Mg PO QAM 08/17/15 Reported Oysco 500+D (Calcium Carbonate-Vitamin D) 1 Tab Tab 2 Tab PO QAM 08/17/15 Reported Glucophage (Metformin Hcl) 500 Mg Tab 2 Tab PO BID 08/17/15 Reported Levothyroxine Sodium 50 Mcg Tab 1 Tab PO QAM 90 08/17/15 Reported [Gentamicin Saline] 2 [place] GEOFF TID 08/17/15 Reported Vitamin D Cap (Ergocalciferol) 50,000 Interunit Cap 50,000 Inter.unit PO WK 08/17/15 Reported WEDNESDAYS Duoneb (Ipratropium-Albuterol) 3 Ml Nebu 1 Treatment INH Q4H PRN 08/17/15 Reported Zyloprim (Allopurinol) 100 Mg Tab 100 Mg PO QAM 08/17/15 Reported Aspirin EC Low Dose (Aspirin) 81 Mg Ectab 81 Mg PO QAM 30 03/09/15 Rx Cardizem La (Diltiazem Hcl Coated Beads) 120 Mg Tab 2 Cap PO QPM 03/07/15 Reported Nasonex (Mometasone Furoate) [place] 1 [place] NA QAM 09/08/14 Reported Lipitor (Atorvastatin Calcium) 20 Mg Tab 20 Mg PO HS 09/08/14 Reported Physical Physical Exam Vital Signs: Date Time Temp Pulse Resp B/P Pulse Ox O2 Delivery O2 Flow Rate FiO2 04/23/16 13:35 36.4 75 20 122/67 98 Nasal Cannula 3.0 Humidified Oxygen 04/23/16 12:00 Nasal Cannula 04/23/16 08:00 Nasal Cannula 04/23/16 07:39 36.7 79 24 134/72 95 Nasal Cannula 3.0 Humidified Oxygen 04/23/16 06:57 77 18 94 Nasal Cannula 3.0 04/23/16 04:00 Nasal Cannula 04/23/16 03:36 36.4 84 20 149/72 92 Nasal Cannula 3.0 04/23/16 00:01 Nasal Cannula 04/22/16 23:58 37.0 96 20 134/86 93 Nasal Cannula 3.0 04/22/16 20:00 Nasal Cannula 04/22/16 19:33 105 20 96 Nasal Cannula 5.0 04/22/16 19:08 36.4 103 20 175/82 95 Nasal Cannula 6.0 04/22/16 15:30 36.9 88 22 181/78 97 Room Air 04/22/16 15:08 113 20 116/95 95 Nasal Cannula 6.0 General Appearance: mild distress Head: NORMOCEPHALIC, ATRAUMATIC Eyes: PERRLA, NO DISCHARGE, EOMI, SCLERAE NORMAL ENT: tonsillar exudates, tonsillar erythema Neck: NORMAL RANGE OF MOTION, lateral tenderness, other (upper airway rhonchi not stridor) Respiratory: rhonchi, wheezing Cardiovasular: REGULAR RATE/RHYTHM, NORMAL S1S2, NO M/G/R Abdomen: NON TENDER, NORMAL BOWEL SOUNDS, NO REBOUND, NO MASSES, NO GUARDING, NO ORGANOMEGALY Genitourinary - Female: EXTERNAL GENITALIA NORMAL Back: NORMAL INSPECTION, NO MIDLINE TENDERNESS, NO CVA TENDERNESS, NO PARAVERTEBRAL TTP Upper Extremities: NO EDEMA Lower Extremities: edema Edema: Bilateral LE (1+) Pulses: carotid (R) (1+), carotid (L) (1+), dorsalis pedis (R) (1+), dorsalis pedis (L) (1+) Neuro: ALERT, ORIENTED x 3, NORMAL MOTOR EXAM, NORMAL SENSATION, NORMAL CEREBELLAR EXAM Reflexes: biceps (R) (2+), bicpes (L) (2+) Babinski Testing: right (downgoing), left (downgoing) Psychiatric: NORMAL AFFECT, NO SUICIDAL IDEATION Diagnostics Labs Results Past 24 Hours Test 04/22/16 16:20 04/22/16 20:17 04/23/16 00:09 04/23/16 04:25 Range/Units Bedside Glucose 415 357 336 304 70-90 mg/dl Test 04/23/16 06:20 04/23/16 06:42 04/23/16 11:00 Range/Units White Blood Count 15.26 4.8-10.8 K/uL Red Blood Count 3.65 4.2-5.4 M/uL Hemoglobin 11.1 12.0-16.0 g/dL Hematocrit 32.3 37-47 % Mean Corpuscular Volume 88.5 80-100 fL Mean Corpuscular Hemoglobin 30.4 25-34 pg Mean Corpuscular Hemoglobin Concent 34.4 32-36 g/dl Platelet Count 300 130-400 K/uL Mean Platelet Volume 10.2 7.4-10.4 fL Neutrophils (%) (Auto) 85.5 % Lymphocytes (%) (Auto) 12.8 % Monocytes (%) (Auto) 1.1 % Eosinophils (%) (Auto) 0.0 % Basophils (%) (Auto) 0.1 % Neutrophils # (Auto) 13.06 1.4-6.5 K/uL Lymphocytes # (Auto) 1.95 1.2-3.4 K/uL Monocytes # (Auto) 0.17 0.11-0.59 K/uL Eosinophils # (Auto) 0.00 0-0.5 K/uL Basophils # (Auto) 0.01 0-0.2 K/uL RDW Standard Deviation 43.6 36.4-46.3 fL RDW Coefficient of Variation 13.4 11.5-14.5 % Immature Granulocyte % (Auto) 0.5 % Immature Granulocyte # (Auto) 0.07 0.00-0.02 K/uL Sodium Level 135 136-145 mmol/L Potassium Level 3.3 3.5-5.1 mmol/L Chloride Level 92 98-107 mmol/L Carbon Dioxide Level 31 21-32 mmol/L Anion Gap 12.0 3-11 mmol/L Blood Urea Nitrogen 39 7-18 mg/dl Creatinine 1.70 0.60-1.20 mg/dl Est Creatinine Clear Calc Drug Dose 45.2 ml/min Estimated GFR () 37.1 Estimated GFR (Non- 32.0 BUN/Creatinine Ratio 22.8 10-20 Random Glucose 250 70-99 mg/dl Calcium Level 9.2 8.5-10.1 mg/dl Bedside Glucose 278 322 70-90 mg/dl Radiology Interpretation: CXR NORMAL EKG Atrial fibrillation rate 164 Impression Assessment and Plan 60-year-old female with multiple medical problems admitted for respiratory insufficiency, atrial fibrillation, pharyngitis: #1 ACOS: ATS standards patient has mild obstructive ventilatory disease with no signs of reversibility but clinically most likely has asthma. Suggest we switch to prednisone and taper over a 10 day window at this time. Also continue outpatient MDIs. #2 pulmonary emboli: Patient with previous history of pulmonary emboli and IVC filter in place. I she is currently in paroxysmal atrial fibrillation most likely acute in nature and is a high risk a she has IVC filter in place and little mobility suggest we initiate anticoagulation with factor Xa inhibitor. With discuss with pharmacy prior to initiation as patient has a decreased creatinine clearance. #3 pharyngitis: [place] antimicrobial guide suggest that we initiate Z-Rajiv at this time this patient has had paroxysmal atrial fibrillation mild ST depression recently well speak to primary team. #4 RACHELLE: Patient with a history of obstructive sleep apnea currently treated with BiPAP for obesity hypoventilation. We'll continue on BiPAP 03/21.
--- NOTE | 2016-04-23 17:49 | Family Medicine Progress Note ---
Progress Note Date of Service Apr 23, 2016. Subjective Pt evaluation today including: conversation w/ patient, physical exam, chart review, lab review Pain: None Voiding: no voiding problems, no incontinence Patient continues to have shortness of breath today No episode of feeling throat closing Feels she is trying to cough up phlegm but unable to No other acute events overnight Medications Current Inpatient Medications Medications (Trade) Dose Ordered Sig/Jesus Route Start Time Stop Time Status Last Admin Dose Admin Heparin Sodium (Porcine) (Heparin Sq 5000 Unit/0.5ml) 5,000 unit Q8 SQ 04/22/16 22:00 05/22/16 21:59 04/23/16 16:50 5,000 UNIT Acetaminophen (Tylenol Tab) 650 mg Q4H PRN PO 04/22/16 13:00 05/22/16 12:59 Al Hydrox/Mg Hydrox/Simethicone (Maalox Max Susp) 15 ml Q4H PRN PO 04/22/16 13:00 05/22/16 12:59 Magnesium Hydroxide (Milk Of Magnesia Susp) 30 ml Q12H PRN PO 04/22/16 13:00 05/22/16 12:59 Ondansetron HCl (Zofran Inj) 4 mg Q6H PRN IV 04/22/16 13:00 05/22/16 12:59 04/22/16 17:13 4 MG Guaifenesin 600 mg 600 mg Q12 PO 04/22/16 21:00 05/22/16 20:59 04/23/16 07:41 600 MG Methylprednisolone Sodium Succinate/ Syringe (Solu-Medrol IV/ Syringe) 0.96 ml @ 1.5 mls/min Q8@0400,1200,2000 IV 04/22/16 20:00 04/23/16 19:59 04/23/16 12:42 1.5 MLS/MIN Allopurinol (Zyloprim Tab) 100 mg QAM PO 04/23/16 09:00 05/23/16 08:59 04/23/16 07:41 100 MG Aspirin (Ecotrin Tab) 81 mg QAM PO 04/23/16 09:00 05/23/16 08:59 04/23/16 07:41 81 MG Atorvastatin Calcium (Lipitor Tab) 20 mg HS PO 04/22/16 21:00 05/22/16 20:59 04/22/16 21:27 20 MG Beclomethasone Dipropionate (Qvar 80 Mcg Hfa Inhaler) 2 puffs BID INH 04/22/16 21:00 05/22/16 20:59 Future Hold 04/23/16 07:43 2 PUFFS Cyclobenzaprine HCl (Flexeril Tab) 10 mg TID PRN PO 04/22/16 13:00 05/22/16 12:59 Formoterol Fumarate (Perforomist 20MCG/2ML Neb Soln) 20 mcg BIDR INH 04/22/16 20:00 05/22/16 19:59 04/23/16 06:57 20 MCG Furosemide (Lasix tab) 40 mg BID17 PO 04/22/16 17:00 05/22/16 16:59 04/23/16 16:13 40 MG Gabapentin (Neurontin Cap) 300 mg HS PO 04/22/16 21:00 05/22/16 20:59 04/22/16 21:25 300 MG Levothyroxine Sodium (Synthroid Tab) 50 mcg DAILYBB PO 04/23/16 06:00 05/23/16 05:59 04/23/16 04:35 50 MCG Lorazepam (Ativan Tab) 0.5 mg HS PRN PO 04/22/16 13:00 05/22/16 12:59 04/23/16 16:12 0.5 MG Losartan Potassium (coZAAR TAB) 50 mg QAM PO 04/23/16 09:00 05/23/16 08:59 04/23/16 07:42 50 MG Metolazone (Zaroxolyn Tab) 2.5 mg MoWeFr@0830 PO 04/23/16 08:30 05/23/16 08:29 04/23/16 07:41 2.5 MG Paroxetine HCl (pAXil TAB) 40 mg QAM PO 04/23/16 09:00 05/23/16 08:59 04/23/16 07:42 40 MG Potassium Chloride (Klor-Con M10) 20 meq BID PO 04/22/16 21:00 05/22/16 20:59 04/23/16 07:42 20 MEQ Insulin Aspart (novoLOG ASPART) SLIDING SCALE If C... ACHS SC 04/22/16 16:15 05/22/16 16:14 04/23/16 16:51 17 UNITS Glucose (Glucose 40% Gel) 15-30 GRAMS 15 GRAMS... UD PRN PO 04/22/16 13:45 05/22/16 13:44 Glucose (Glucose Chew Tab) 4-8 Tablets 4 Tabl... UD PRN PO 04/22/16 13:45 05/22/16 13:44 Dextrose (Dextrose 50% 50ML Syringe) 25-50ML OF 50% DW IV FOR... UD PRN IV 04/22/16 13:45 05/22/16 13:44 Glucagon 1 mg 1 mg UD PRN SQ 04/22/16 13:45 05/22/16 13:44 Diltiazem HCl/ Dextrose (Cardizem Inj/D5 100ml) 125 ml @ 5 mls/hr Q24H PRN IV 04/22/16 14:15 04/23/16 21:00 04/23/16 08:22 5 MLS/HR Miscellaneous Information (Consult Glycemic Management Pharmacy) 1 ea UD PRN N/A 04/22/16 21:09 05/22/16 21:08 Insulin Glargine (Lantus Solostar Pen) 15 unit BID SC 04/23/16 09:00 05/23/16 08:59 04/23/16 08:26 15 UNIT Budesonide (Pulmicort Respules 0.5MG/ 2ML Neb Soln) 0.5 mg BIDR INH 04/23/16 20:00 05/23/16 19:59 Guaifenesin (Mucinex Contr Rel Tab) 600 mg Q12 PO 04/23/16 21:00 05/23/16 20:59 Diltiazem HCl (TIAzac CAP) 360 mg HS PO 04/23/16 21:00 05/23/16 20:59 Miscellaneous 1 ea 1 ea ONE ONCE N/A 04/23/16 21:00 04/23/16 21:01 Methylprednisolone Sodium Succinate/ Syringe (Solu-Medrol IV/ Syringe) 0.64 ml @ 1.5 mls/min BID IV 04/23/16 21:00 05/23/16 20:59 Insulin Aspart (novoLOG ASPART) SLIDING SCALE If C... 0200 SC 04/24/16 02:00 04/24/16 02:01 Objective Vital Signs Date Time Temp Pulse Resp B/P Pulse Ox O2 Delivery O2 Flow Rate FiO2 04/23/16 16:03 105 18 90 Nasal Cannula 3.0 04/23/16 15:54 36.8 76 22 123/66 96 Nasal Cannula 4.0 Humidified Oxygen 04/23/16 13:35 36.4 75 20 122/67 98 Nasal Cannula 3.0 Humidified Oxygen 04/23/16 12:00 Nasal Cannula 04/23/16 08:00 Nasal Cannula 04/23/16 07:39 36.7 79 24 134/72 95 Nasal Cannula 3.0 Humidified Oxygen 04/23/16 06:57 77 18 94 Nasal Cannula 3.0 04/23/16 04:00 Nasal Cannula 04/23/16 03:36 36.4 84 20 149/72 92 Nasal Cannula 3.0 04/23/16 00:01 Nasal Cannula 04/22/16 23:58 37.0 96 20 134/86 93 Nasal Cannula 3.0 04/22/16 20:00 Nasal Cannula 04/22/16 19:33 105 20 96 Nasal Cannula 5.0 04/22/16 19:08 36.4 103 20 175/82 95 Nasal Cannula 6.0 Physical Exam General Appearance: WD/WN, no apparent distress, + obese (morbid) Eyes: normal inspection, EOMI ENT: hearing grossly normal Neck: supple, no JVD, + pertinent finding (marked soft tissue mass in neck) Respiratory/Chest: + wheezing, + pertinent finding (expiratory wheezing diffusely) Cardiovascular: regular rate, rhythm, no gallop, no murmur Abdomen: normal bowel sounds, non tender, soft Extremities: non-tender, no pedal edema Neurologic/Psychiatric: alert, normal mood/affect, oriented x 3 Skin: normal color, warm/dry, no rash Lymphatic: no adenopathy Laboratory Results Last 24 Hours Test 04/22/16 20:17 04/23/16 00:09 04/23/16 04:25 04/23/16 06:20 Bedside Glucose 357 mg/dl 336 mg/dl 304 mg/dl White Blood Count 15.26 K/uL Red Blood Count 3.65 M/uL Hemoglobin 11.1 g/dL Hematocrit 32.3 % Mean Corpuscular Volume 88.5 fL Mean Corpuscular Hemoglobin 30.4 pg Mean Corpuscular Hemoglobin Concent 34.4 g/dl Platelet Count 300 K/uL Mean Platelet Volume 10.2 fL Neutrophils (%) (Auto) 85.5 % Lymphocytes (%) (Auto) 12.8 % Monocytes (%) (Auto) 1.1 % Eosinophils (%) (Auto) 0.0 % Basophils (%) (Auto) 0.1 % Neutrophils # (Auto) 13.06 K/uL Lymphocytes # (Auto) 1.95 K/uL Monocytes # (Auto) 0.17 K/uL Eosinophils # (Auto) 0.00 K/uL Basophils # (Auto) 0.01 K/uL RDW Standard Deviation 43.6 fL RDW Coefficient of Variation 13.4 % Immature Granulocyte % (Auto) 0.5 % Immature Granulocyte # (Auto) 0.07 K/uL Sodium Level 135 mmol/L Potassium Level 3.3 mmol/L Chloride Level 92 mmol/L Carbon Dioxide Level 31 mmol/L Anion Gap 12.0 mmol/L Blood Urea Nitrogen 39 mg/dl Creatinine 1.70 mg/dl Est Creatinine Clear Calc Drug Dose 45.2 ml/min Estimated GFR () 37.1 Estimated GFR (Non- 32.0 BUN/Creatinine Ratio 22.8 Random Glucose 250 mg/dl Calcium Level 9.2 mg/dl Test 04/23/16 06:42 04/23/16 11:00 04/23/16 16:04 Bedside Glucose 278 mg/dl 322 mg/dl 212 mg/dl Assessment and Plan 60 yo female with acute COPD exacerbation. Acute exacerbation of ACOS (Asthma COPD overlap syndrome) - Patient noted to have multiple exacerbation requiring emergency visits - Patient to be weaned quickly off solumedrol due to hyperglycemia risks Will decrease dose to 40 BID PO today Will taper by 10 mg every 3 days - Continue Duoneb q 4 h nebulizers - Continue Formoterol - Patient unable to take deep breath. 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 - Incentive spirometry encouraged - Patient have significant hacking cough today - Will check or Pertussis and treat empirically with azithromycin Chronic diastolic CHF - Continue Lasix 40 mg BID - Continue Metolazone - No right side dysfunction on recent echo Atrial Fibrillation with RVR now back in NSR - Patient noted to have gone into Afib on arrival - Possibly related to epinephrine - Cardizem drip started and patient reverted to sinus Cardizem PO has been re-started - Would consider starting anticoagulation for stroke prevention SPARKLE on CKD Stage III - Cr 1.7 today, slightly elevated from baseline - Will continue to monitor daily BMP Type II Diabetes Mellitus - Start sliding scale - Lantus 15 BID - Patient glucose slowly trending down. - Dropped steroid dose which will hopefully help bring glucose down further - Will not change orders at this time. Will add 2 am glucose check for SSI cover to help with AM glucose Obstructive Sleep Apnea - Nighttime BiPAP Hypothyroidism - Continue levothyroxine Depression - Continue Paroxetine DVT prophylaxis - Heparin 5000 SC q8hr Code - Level I Code Disposition - Telemetry - PT/OT ordered Reviewed: Pt Seen/Exam by Me History cough +. Constitutional: denies: fever Respiratory: positive: cough, negative: short of breath Cardiovascular: denies chest pain Gastrointestinal/Abdominal: negative: abdominal pain General Appearance: no apparent distress (sitting in chair) Respiratory: no respiratory distress, decreased breath sounds, rhonchi Cardiovascular: regular rate, rhythm Neurologic/Psychiatric: alert, oriented x 3 Skin Characteristics: warm/dry Assessment/Plan I have reviewed the medical record and performed a history and physical examination of this patient today. I have discussed the case with Dr. Dow. The above note reflects my findings, conclusions, and recommendations.
--- NOTE | 2016-04-23 17:56 | CARDIOLOGY CONSULTATION REPORT ---
DATE OF CONSULTATION: 04/23/2016 REASON FOR CONSULTATION: New onset aFib with RVR. HISTORY OF PRESENT ILLNESS: Ms. Torres is a very pleasant 60-year-old morbidly obese white female with a history of severe COPD, asthma, cor pulmonale, obstructive sleep apnea on BIPAP, prior history of pulmonary embolism status post IVC filter, hypertension, dyslipidemia, longstanding type 2 diabetes mellitus, LV diastolic dysfunction, and likely a history of combined right sided and diastolic CHF, who presented acutely to [facility] on 04/22/2016 complaining of increased shortness of breath x3 days, dry cough, and a sensation that her throat was closing. She had been using her inhalers at home as well as nebulizer treatments. In the Emergency Room, she was noted to be markedly hypokalemic (serum magnesium level 2.7 mmol/liter), and had evidence of ongoing bronchospasm. The patient was treated with continuous nebulizers x2 hours, followed by epinephrine. Shortly, thereafter she went into rapid atrial fibrillation. The patient was started on diltiazem drip and subsequently converted back to a normal sinus rhythm on her own last evening at approximately 1930. She appears to have had a few brief episodes since that time, but no more sustained episodes. The patient underwent a negative dobutamine stress echocardiogram 09/28/2014. She had a repeat dobutamine stress echocardiogram February 2015 showing an LVEF of 60%, diastolic dysfunction, and no evidence of myocardial ischemia, 98% MPHR. Additionally, the patient had a cardiac catheterization on 02/01/2016. This showed normal coronary anatomy, right heart cath revealed a cardiac output by Thermodilution of 7.3 liters per minute. Pulmonary artery pressures 59/39/49. Pulmonary capillary wedge 52/55 and 46. RV pressure 61/19/31. MEDICATIONS: 1. NovoLog sliding scale insulin. 2. Guaifenesin 600 mg p.o. q. 12 hours. 3. Diltiazem drip. 4. Methylprednisolone 40 mg IV b.i.d. 5. Pulmicort Respules nebulizer solution b.i.d. 6. Allopurinol 100 mg q.a.m. 7. Aspirin 81 mg a day. 8. Cozaar 50 mg daily. 9. Paxil 40 mg daily. 10. Lantus insulin 15 units subcutaneus injection b.i.d. 11. Metolazone 2.5 mg every Saturday, Saturday, and Saturday. 12. Levothyroxine 50 mcg daily. 13. Subcutaneous heparin 5000 units subcutaneus injection q. 8 hours. 14. Lipitor 20 mg at bedtime. 15. Gabapentin 600 mg q. 12 hours. 16. KCL 20 mEq b.i.d. 17. DuoNeb nebulizer. 18. Tylenol p.r.n. 19. Maalox Max p.r.n. 20. Milk of magnesia p.r.n. 21. Zofran 4 mg IV q. 6 hours p.r.n. 22. Cyclobenzaprine 10 mg p.o. t.i.d. 23. Lorazepam 0.5 mg at bedtime p.r.n. ALLERGIES: 1. CEPHALOSPORINS. 2. OXYBUTYNIN. 3. SULFA. 4. ADHESIVES. PAST MEDICAL HISTORY: 1. Asthma/severe COPD. 2. Cor pulmonale. 3. Obstructive sleep apnea on BIPAP. 4. History of prior DVTs and pulmonary embolism status post IVC filter. 5. Longstanding type 2 diabetes mellitus since 1990. 6. Hypertension. 7. Dyslipidemia. 8. Morbid obesity. 9. DJD. 10. Normal coronary arteries on cardiac catheterization in January 2016. 11. Negative dobutamine stress echocardiograms 2014. 12. History of CHF, likely right sided and diastolic failure. 13. She specifically denies any history of myocardial infarction, CAD, rheumatic fever, or prior cardiac dysrhythmias. No history of stroke or mini stroke. 14. History of depression. 15. Diabetic polyneuropathy. 16. Hypothyroidism on replacement. 17. History of iron deficiency anemia. 18. Chronic renal insufficiency. 19. LV diastolic dysfunction. 20. History of anal fissurectomy. 21. History of cholecystectomy. 22. History of complete colonoscopy for polyp removal. 23. History of hernia repair. 24. History of hysterectomy. 25. IVC filter placement. 26. History of repair of paraesophageal hiatal hernia. 27. History of a total shoulder arthroplasty. 28. Status post tonsillectomy. 29. History of ankle fracture. 30. History of tubal ligation. FAMILY HISTORY: Significant for asthma, heart disease, hypertension, and mini strokes. PHYSICAL EXAMINATION: VITAL SIGNS: Temperature 36.4 degrees Celsius, pulse is 75 and regular, respiratory rate is 20, blood pressure is 122/67, and SpO2 is 98% on 3 liters of oxygen via nasal cannula, humidified. GENERAL: Morbidly obese white female, in no acute distress. HEENT: Head is atraumatic and normocephalic. EOMs intact. Sclerae are anicteric. Facies symmetric. No perioral cyanosis. Mucous membranes are moist. NECK: Without thyromegaly, adenopathy or JVD. Carotids upstrokes are +2 bilaterally without obvious bruits. Jugular venous pressure was very difficult to evaluate due to body habitus. No obvious JVD. CHEST AND LUNGS: With bronchial breath sounds, prolonged expiratory phase with inspiratory and expiratory wheezes noted. CARDIOVASCULAR: S1 and S2 are regular, distant, without obvious murmur, gallop, or rub. PMI is nonpalpable. No lifts, heaves, or thrills. No abdominal aortic or renal bruits. ABDOMINAL: Bowel sounds present. No masses, organomegaly or tenderness. EXTREMITIES: No clubbing or cyanosis. Trace pitting edema bilaterally to mid tibia. Pigmentation changes consistent with chronic venous insufficiency. NEUROLOGIC: The patient is awake, alert and oriented. Pleasant and cooperative. Answers questions appropriately. Speech is clear. Normal movement in all 4 extremities. Gait pattern not assessed. Telemetry monitoring currently shows a normal sinus rhythm. EKG on 04/22/2016 at 13:29 shows rapid atrial fibrillation with a V rate of 165 beats per minute, inferolateral ST-segment depression is noted, nonspecific intraventricular conduction delay, appears to be an incomplete RBBB as evidence by RSR' complex in lead V1. LABORATORIES: White blood cell count is 15.26, hemoglobin is 11.1 g/dL, hematocrit 32.3%, and platelet count 300,000. Sodium is 135 mmol/L, potassium 3.3 mmol/L, BUN is 39 mg/dL and 1.70 mg/dL, random glucose is 322 mg/dL. Serum magnesium level 1.9 mg/dL on admission. Influenza A and influenza B are negative. ASSESSMENT: 1. New onset Atrial Fibrillation with rapid ventricular rate, likely precipitated by the stress of acute illness, continuous nebulizers with beta agonist and a dose of epinephrine in the presence of marked hypokalemia (serum potassium level 2.7 mmol/L). 2. She has reverted back to a normal sinus rhythm. 3. History of cor pulmonale, right side heart failure, also left ventricular diastolic dysfunction. 4. Normal coronary anatomy on cardiac catheterization, January 2016. 5. Negative dobutamine stress echos x2, 2014. 6. Morbid obesity. 7. Obstructive sleep apnea on BIPAP. 8. History of prior deep vein thrombosis and pulmonary embolism status post inferior vena cava filter. 9. Severe chronic obstructive pulmonary disease/asthma. 10. Longstanding type 2 diabetes mellitus. 11. Hypertension. 12. Dyslipidemia. 13. Diagnoses as mentioned above. PLAN: 1. The patient has reverted back to a normal sinus rhythm. 2. I had a very long discussion with the patient today regarding what atrial fibrillation is, the risk associated with atrial fibrillation, and treatment strategies. We have also discussed the likely triggers for this episode including acute illness, marked hypokalemia, beta agonist nebulizers and a dose of epinephrine. 3. Discussed management strategies including residential anticoagulation. At this point, it is not indicated solely for her atrial fibrillation, but Dr. Rubi has a variety of reasons for restarting her on this -- including prior history of DVT and PE, IVC filter, etc. She will be started on Xarelto. 4. Recommend increasing Diltiazem CD to 360 mg each evening at bedtime. 5. Based on her pulmonary status, beta blockers are not an option at this point. 6. Continue giving supplemental potassium to correct her underlying hypokalemia. 7. Ongoing treatment of underlying respiratory illness. 8. We will continue to follow along while hospitalized. 9. We will make arrangements for her to see Dr. Villa in our [place] office. The patient was scheduled to see him tomorrow, but she will be unable to make that appointment due to her current hospitalization. RADHA
[2016-04-23] MEDS ORDERED: AZITHROMYCIN 250 MG TAB PO ONE (18:00)
[2016-04-23] MEDS ORDERED: NURSING VERBAL MED ORDER ONE (18:00)
[2016-04-23] MEDS: GUAIFENESIN/CODEINE 100MG/10MG 5ML UDC PO PRN (18:46)
[2016-04-23] MEDS: ALBUT/IPRATROP 3MG/0.5MG NEB 3 ML VIAL INH SCH (18:52)
[2016-04-23] MEDS: BUDESONIDE 0.5 MG/2 ML VIAL (PULMICORT) INH SCH (18:52)
[2016-04-23] MEDS ORDERED: LORAZEPAM 0.5 MG TAB PO PRN (19:00)
[2016-04-23] MEDS: DILTIAZEM HCL 120 MG EXT REL CAP PO SCH (19:56)
[2016-04-23] MEDS: GABAPENTIN 300 MG CAP PO SCH (19:58)
[2016-04-23] MEDS: ATORVASTATIN 20 MG TAB PO SCH (19:58)
[2016-04-23] MEDS ORDERED: [UNRECOGNIZED DRUG - REMARK] ONE (21:00)
[2016-04-23] MEDS ORDERED: GUAIFENESIN 600 MG TABCR PO SCH (21:00)
[2016-04-23] MEDS ORDERED: METHYLPREDNISOLONE IV 40 MG in SYRINGE 0 ML IV SCH (21:00)
[2016-04-24] VITALS (14 sets, daily range): BP systolic 119–164; BP diastolic 67–87; PULSE 72–84; TEMP 36.3–37.1; O2SAT 93–98
[2016-04-24] MEDS: ALBUT/IPRATROP 3MG/0.5MG NEB 3 ML VIAL INH SCH ×3 (01:20→11:18)
[2016-04-24] MEDS: GUAIFENESIN/CODEINE 100MG/10MG 5ML UDC PO PRN ×2 (01:27→20:33)
[2016-04-24] MEDS ORDERED: INSULIN ASPART 100 UNITS/ML 3 ML PEN SC SCH (02:00)
[2016-04-24] MEDS: LEVOTHYROXINE 50 MCG TAB PO SCH (05:56)
[2016-04-24] MEDS: HEPARIN SOD 5000 UNIT/0.5 ML CARP SQ SCH ×2 (06:03→14:37)
[2016-04-24] MEDS: FORMOTEROL FUMA NEBULIZER SOLN 20 MCG/2 ML VIAL INH SCH ×2 (07:15→18:56)
[2016-04-24] MEDS: BUDESONIDE 0.5 MG/2 ML VIAL (PULMICORT) INH SCH ×2 (07:15→18:56)
[2016-04-24 07:31] LABS: BASO ABS # 0.01 K/uL (0-0.2); COMPLETE YES; HEMATOCRIT 30.4 % (37-47); IG% 0.4 %; LYMPH % 10.2 %; LYMPH ABS # 2.12 K/uL (1.2-3.4); MEAN CELL VOLUME 89.1 fL (80-100); MEAN CORPUSCULAR HEMOGLOBIN 29.6 pg (25-34); MEAN CORPUSCULAR HGB CONC 33.2 g/dl (32-36); MEAN PLATELET VOLUME 10.2 fL (7.4-10.4); MONO % 3.8 %; NEUT % 85.6 %; PLATELET COUNT 281 K/uL (130-400); RED BLOOD COUNT 3.41 M/uL (4.2-5.4); WHITE BLOOD COUNT 20.81 K/uL (4.8-10.8)
[2016-04-24] MEDS: GUAIFENESIN 600 MG TABCR PO SCH ×2 (07:58→19:29)
[2016-04-24] MEDS: PAROXETINE 20 MG TAB PO SCH (07:58)
[2016-04-24] MEDS: ALLOPURINOL 100 MG TAB PO SCH (07:59)
[2016-04-24] MEDS: ASPIRIN 81 MG ECTAB PO SCH (07:59)
[2016-04-24] MEDS: LOSARTAN POTASSIUM 50 MG TAB PO SCH (08:00)
[2016-04-24] MEDS: POTASSIUM CHLORIDE 10 MEQ TABCR PO SCH ×2 (08:00→19:29)
[2016-04-24] MEDS: AZITHROMYCIN 250 MG TAB PO SCH (08:00)
[2016-04-24] MEDS: FUROSEMIDE 40 MG TAB PO SCH ×2 (08:01→17:33)
[2016-04-24 08:02] LABS: CALCIUM 8.9 mg/dl (8.5-10.1); CREATININE 1.4 mg/dl (0.60-1.20); POTASSIUM 3.4 mmol/L (3.5-5.1)
[2016-04-24] MEDS: INSULIN ASPART 100 UNITS/ML 3 ML PEN SC SCH ×4 (08:07→20:29)
[2016-04-24] MEDS: INSULIN GLARGINE SOLOSTAR 100 UNITS/ML 3 ML PEN SC SCH ×2 (08:08→20:29)
[2016-04-24] MEDS ORDERED: POTASSIUM CHLR 20 MEQ / WTR 20 MEQ in PREMIXED WATER 100 ML IV SCH (10:00)
--- NOTE | 2016-04-24 10:12 | CARDIOLOGY PROGRESS NOTE ---
DATE: 04/24/2016 HISTORY OF PRESENT ILLNESS: Mrs. Torres was admitted recently with an acute exacerbation of COPD/asthma, acute pharyngitis, and a persistent cough and a sensation that her throat was closing. She was using her inhalers and nebulizers at home. In the Emergency Room, she was noted to be markedly hypokalemic with a serum potassium level of 2.7 mmol/L, and had ongoing evidence of bronchospasm. She was treated with continuous nebulizers x2 hours, followed by a dose of epinephrine. Shortly thereafter, she went into rapid atrial fibrillation. The patient converted back to a normal sinus rhythm on 04/22/2016 at 1930. Thereafter, she had a couple of brief episodes of atrial fibrillation, but it has truly settled out. The patient continues to have a lot of coughing, and required a breathing treatment during the nighttime. She denies any chest pain, heaviness, tightness, or pressure. Still feels somewhat short of breath and is wheezing. She does note some brief episodes of palpitations, particularly after paroxysms of cough. However, these are very brief episodes. She denies any severe near syncope. No orthopnea or PND. PHYSICAL EXAMINATION: VITAL SIGNS: Temperature is 37.1 degrees Celsius, pulse is 76 and regular, respiratory rate is 20 and unlabored, blood pressure is 164/88 and SPO2 is 94% on 4 liters of oxygen via nasal cannula. I's and O's -600 mL overnight. GENERAL: The patient is in no acute distress. HEENT: Head is atraumatic, normocephalic. EOMs intact. Sclerae are anicteric. Facies symmetric. No perioral cyanosis. Mucous membranes moist. NECK: Without thyromegaly, adenopathy or JVD. JVP is very difficult to assess, however, does not appear to be elevated. CHEST AND LUNGS: With bronchial breath sounds, prolonged expiratory phase with both inspiratory and expiratory wheezes noted. CARDIOVASCULAR: S1 and S2 are regular, distant, without obvious murmur, gallop or rub. PMI is nonpalpable. No lifts, heaves, or thrills. No abdominal, aortic or renal bruits. ABDOMEN: Bowel sounds present. EXTREMITIES: With trace pitting edema to the mid tibia. NEUROLOGIC: The patient is awake, alert and oriented. Pleasant and cooperative. Answers questions appropriately. Speech is clear. She is sitting upright in the bedside chair. Current telemetry monitoring reveals normal sinus rhythm. LABORATORIES: White blood cell count is 20.81. Hemoglobin 10.1 g/dl, hematocrit 30.4%, platelet count is 281,000. Sodium is 136 mmol/L, potassium 3.4 mmol/L. BUN is 56 mg/dL. Creatinine 1.40 mg/dL. Random glucose 256 mg/dL. Pertussis PCRs are pending. ASSESSMENT: 1. New onset rapid Atrial Fibrillation, likely secondary to the stress of acute illness, hypokalemia, continuous beta agonist nebulizers x2 hours, followed by a dose of epinephrine. 2. Chronic obstructive pulmonary disease/asthma with exacerbation. 3. Obstructive sleep apnea, on BiPAP. 4. History of prior pulmonary embolism status post inferior vena cava filter. 5. Hypertension. 6. Dyslipidemia. 7. Type 2 diabetes mellitus. 8. Left ventricular diastolic dysfunction. 9. History of combined right-sided and diastolic congestive heart failure, appears to be compensated. PLAN: 1. Continued treatment of underlying respiratory illness. 2. Continue supplemental oxygen and nocturnal BiPAP. 3. Her episode of atrial fibrillation resolved, she has had a few brief runs since then, but they are becoming less frequent. 4. Continue oral Diltiazem CD 360 mg at bedtime. 5. Beta blockers contraindicated due to her underlying respiratory status. 6. The patient has been started on anticoagulation per Dr. Rubi for multiple reasons, including history of PE, IVC filter, and paroxysmal atrial fibrillation. 7. Continue to work towards correction of hypokalemia. 8. We will continue to follow along while hospitalized. The patient will then establish followup care with Dr. Villa in our [place] office. RADHA
--- NOTE | 2016-04-24 13:18 | Pharmacy Progress Note ---
Glycemic Control: Progress Nt Date of Service Apr 24, 2016. Scope Glycemic Pharmacist consulted by Dr Le on 04/22/16 for glycemic control and to write orders per [facility] inpatient glycemic control protocol. Objective Accuchecks BSG (last 24hrs): Test 04/23/16 16:04 04/23/16 20:01 04/24/16 02:04 04/24/16 06:47 Bedside Glucose 212 mg/dl (70-90) 364 mg/dl (70-90) 271 mg/dl (70-90) 267 mg/dl (70-90) Test 04/24/16 06:48 04/24/16 11:08 Random Glucose 256 mg/dl (70-99) Bedside Glucose 294 mg/dl (70-90) Laboratory Data (last 24hrs) Test 04/24/16 06:48 Anion Gap 11.0 mmol/L BUN/Creatinine Ratio 40.0 Blood Urea Nitrogen 56 mg/dl Creatinine 1.40 mg/dl Potassium Level 3.4 mmol/L Sodium Level 136 mmol/L White Blood Count 20.81 K/uL Red Blood Count 3.41 M/uL Hemoglobin 10.1 g/dL Hematocrit 30.4 % Mean Corpuscular Volume 89.1 fL Mean Corpuscular Hemoglobin 29.6 pg Mean Corpuscular Hemoglobin Concent 33.2 g/dl Platelet Count 281 K/uL Mean Platelet Volume 10.2 fL Neutrophils (%) (Auto) 85.6 % Lymphocytes (%) (Auto) 10.2 % Monocytes (%) (Auto) 3.8 % Eosinophils (%) (Auto) 0.0 % Basophils (%) (Auto) 0.0 % Neutrophils # (Auto) 17.81 K/uL Lymphocytes # (Auto) 2.12 K/uL Monocytes # (Auto) 0.79 K/uL Eosinophils # (Auto) 0.00 K/uL Basophils # (Auto) 0.01 K/uL Recent Pertinent Medications Outpatient Anti-diabetic Regimen: * Novolog pump, basal rate 1.2 units/hr, Metformin 1 Gm bid * A1c = 6.9 % 02/24/16 The patient is currently receiving: * Basal insulin: Lantus 15 units every 12 hours * Correctional Insulin: Novolog Correction per scale ACHS, also BSG checks ,04 Goal Range: Low 100 mg/dL - High 140 mg/dL Correction Factor: 10 mg/dL/unit * Prandial insulin: Per carb ratio of 1 unit per 5 grams CHO consumed Risk Factors for Insulin Resistance: * Steroids * Diet Assessment & Plan ASSESSMENT: * 04/23/16: 60 yo type 2 diabetic fairly well-controlled on Novolog pump and metformin. BSG's rising when pump turned off, and due to steroids. Will start basal insulin at a daily dose similar to her pump, and weight-based Novolog. * 04/24/16: Pt received 125 units of insulin over the past 24 hours. BSGs remain in the high 200's. IV steroids cut and PO prednisone given this AM. Despite change in steroids, BSGs continue to remain elevated. Plan will be to tighten Novolog and increase Lantus. We may need to back off tomorrow but have to get BSGs under control today. * ADA & AACE recommend a goal blood sugar range 140-180 mg/dl for the majority of critically ill & non-critically ill patients. However, more stringent targets may be selected in individual cases. PLAN FOR INPATIENT GLYCEMIC CONTROL: * Increase to LANTUS 20 units SQ BID * Tighten Correctional Insulin with NOVOLOG per scale ACHS * Goal Range: Low 100 mg/dL - High 140 mg/dL * Correction Factor: 10 mg/dL/unit * Nutritional / Prandial insulin per carb ratio of 1 unit per 3 grams CHO consumed * Please note that the plan above was derived based on current level of insulin resistance and hospital stress. These recommendations are appropriate for inpatient admission only. Plan of care upon discharge will need to be reassessed to avoid potential outpatient hypo/hyperglycemia. Thank you.
--- NOTE | 2016-04-24 14:17 | Pulmonology Progress Note ---
Pulmonary Progress Note Date of Service Apr 24, 2016. Attending Dr. Jp Rubi Subjective Patient notably still short of breath but appears to be with coughing episodes she notes associated with tachycardia. Objective Patient is to Using accessory muscles and review of telemetry tracings does suggest episode of atrial fibrillation last evening. Vital signs: Patient's tachypnea during our conversation minimally using accessory muscles Vital signs Heart rate: 72-105 Respiratory rate:16-20 SaO2: 90-97 (4Lnc-BiPAP) MAXIMUM TEMPERATURE: 36.9 Respiratory: Minimal air movement with expiratory wheezing appreciated Cardiac: S1-S2 distant heart sounds regular rhythm/rate Extremities: 2+ pitting edema bilateral lower WBC count 21,000 Creatinine: 1.4 BUN:: 56 Glucose: 294 Assessment & Plan 60-year-old female with RACHELLE/OHPV, diastolic dysfunction, respiratory insufficiency, pharyngitis/bronchitis and new onset atrial fibrillation/ paradoxical: #1ACOS: At this time we'll continue current steroid dosing, continue budesonide nebulizers, and I've switched albuterol to Xopenex at this time with continuation of Atrovent. #2 pulmonary emboli: Patient continues to have episodes of paradoxical atrial fibrillation. Once again believe she is high risk for pulmonary embolization with IVC filter in place and decreased motion/moving chronically. She has been placed on factor Xa inhibitor. We'll continue to monitor. #3 pharyngitis: Patient on day 2 of Z-Rajiv with decreasing pharyngitis. #4 RACHELLE: Patient with a history of obstructive sleep apnea/OHV the we'll continue BiPAP at 12/7 Data Medications: Current Inpatient Medications Medications (Trade) Dose Ordered Sig/Jesus Route Start Time Stop Time Status Last Admin Dose Admin Heparin Sodium (Porcine) (Heparin Sq 5000 Unit/0.5ml) 5,000 unit Q8 SQ 04/22/16 22:00 05/22/16 21:59 04/24/16 06:03 5,000 UNIT Acetaminophen (Tylenol Tab) 650 mg Q4H PRN PO 04/22/16 13:00 05/22/16 12:59 Al Hydrox/Mg Hydrox/Simethicone (Maalox Max Susp) 15 ml Q4H PRN PO 04/22/16 13:00 05/22/16 12:59 Magnesium Hydroxide (Milk Of Magnesia Susp) 30 ml Q12H PRN PO 04/22/16 13:00 05/22/16 12:59 Ondansetron HCl (Zofran Inj) 4 mg Q6H PRN IV 04/22/16 13:00 05/22/16 12:59 04/22/16 17:13 4 MG Guaifenesin (Mucinex Contr Rel Tab) 600 mg Q12 PO 04/22/16 21:00 05/22/16 20:59 04/24/16 07:58 600 MG Allopurinol (Zyloprim Tab) 100 mg QAM PO 04/23/16 09:00 05/23/16 08:59 04/24/16 07:59 100 MG Aspirin (Ecotrin Tab) 81 mg QAM PO 04/23/16 09:00 05/23/16 08:59 04/24/16 07:59 81 MG Atorvastatin Calcium (Lipitor Tab) 20 mg HS PO 04/22/16 21:00 05/22/16 20:59 04/23/16 19:58 20 MG Beclomethasone Dipropionate (Qvar 80 Mcg Hfa Inhaler) 2 puffs BID INH 04/22/16 21:00 05/22/16 20:59 Future Hold 04/23/16 07:43 2 PUFFS Cyclobenzaprine HCl (Flexeril Tab) 10 mg TID PRN PO 04/22/16 13:00 05/22/16 12:59 04/24/16 07:59 10 MG Formoterol Fumarate (Perforomist 20MCG/2ML Neb Soln) 20 mcg BIDR INH 04/22/16 20:00 05/22/16 19:59 04/24/16 07:15 20 MCG Furosemide (Lasix tab) 40 mg BID17 PO 04/22/16 17:00 05/22/16 16:59 04/24/16 08:01 40 MG Gabapentin (Neurontin Cap) 300 mg HS PO 04/22/16 21:00 05/22/16 20:59 04/23/16 19:58 300 MG Levothyroxine Sodium (Synthroid Tab) 50 mcg DAILYBB PO 04/23/16 06:00 05/23/16 05:59 04/24/16 05:56 50 MCG Losartan Potassium (coZAAR TAB) 50 mg QAM PO 04/23/16 09:00 05/23/16 08:59 04/24/16 08:00 50 MG Metolazone (Zaroxolyn Tab) 2.5 mg MoWeFr@0830 PO 04/23/16 08:30 05/23/16 08:29 04/23/16 07:41 2.5 MG Paroxetine HCl (pAXil TAB) 40 mg QAM PO 04/23/16 09:00 05/23/16 08:59 04/24/16 07:58 40 MG Potassium Chloride (Klor-Con M10) 20 meq BID PO 04/22/16 21:00 05/22/16 20:59 04/24/16 08:00 20 MEQ Insulin Aspart (novoLOG ASPART) SLIDING SCALE If C... ACHS SC 04/22/16 16:15 05/22/16 16:14 04/24/16 12:22 36 UNITS Glucose (Glucose 40% Gel) 15-30 GRAMS 15 GRAMS... UD PRN PO 04/22/16 13:45 05/22/16 13:44 Glucose (Glucose Chew Tab) 4-8 Tablets 4 Tabl... UD PRN PO 04/22/16 13:45 05/22/16 13:44 Dextrose (Dextrose 50% 50ML Syringe) 25-50ML OF 50% DW IV FOR... UD PRN IV 04/22/16 13:45 05/22/16 13:44 Glucagon (Glucagon Inj) 1 mg UD PRN SQ 04/22/16 13:45 05/22/16 13:44 Miscellaneous Information (Consult Glycemic Management Pharmacy) 1 ea UD PRN N/A 04/22/16 21:09 05/22/16 21:08 Budesonide (Pulmicort Respules 0.5MG/ 2ML Neb Soln) 0.5 mg BIDR INH 04/23/16 20:00 05/23/16 19:59 04/24/16 07:15 0.5 MG Diltiazem HCl (TIAzac CAP) 360 mg HS PO 04/23/16 21:00 05/23/16 20:59 04/23/16 19:56 360 MG Prednisone (PredniSONE TAB) 40 mg DAILY PO 04/24/16 09:00 05/24/16 08:59 04/24/16 07:59 40 MG Azithromycin (Zithromax Tab) 250 mg QAM PO 04/24/16 09:00 04/27/16 09:01 04/24/16 08:00 250 MG Codeine Phosphate/ Guaifenesin (Robitussin-AC Sugar Free Syrup) 5 ml Q6H PRN PO 04/23/16 18:30 05/23/16 18:29 04/24/16 01:27 5 ML Lorazepam (Ativan Tab) 0.5 mg Q6H PRN PO 04/23/16 19:00 05/23/16 18:59 Albuterol/ Ipratropium (Duoneb) 3 ml QIDR INH 04/23/16 20:00 05/23/16 19:59 04/24/16 11:18 3 ML Insulin Glargine (Lantus Solostar Pen) 20 unit BID SC 04/24/16 09:00 05/24/16 08:59 04/24/16 08:08 20 UNIT Insulin Aspart (novoLOG ASPART) SLIDING SCALE If C... 0200 SC 04/25/16 02:00 05/25/16 01:59 I & O: 24-Hour Column 04/24/16 08:00 Intake Total 2035 ml Output Total 2065 ml Balance -30 ml Vital Signs: Date Time Temp Pulse Resp B/P Pulse Ox O2 Delivery O2 Flow Rate FiO2 04/24/16 12:23 36.5 78 16 126/72 97 3.0 04/24/16 12:00 Nasal Cannula 3.0 04/24/16 11:18 75 18 95 Nasal Cannula 4.0 04/24/16 08:00 Nasal Cannula 3.0 04/24/16 07:36 37.1 76 20 164/87 94 4.0 04/24/16 07:15 72 18 95 Nasal Cannula 3.0 04/24/16 04:00 Nasal Cannula 3.0 04/24/16 03:56 36.8 72 20 152/81 93 BiPAP 04/24/16 01:40 84 94 3.0 04/24/16 01:20 84 18 94 Nasal Cannula 3.0 04/23/16 23:59 Nasal Cannula 3.0 04/23/16 23:59 36.9 79 20 130/68 95 Nasal Cannula 3.0 04/23/16 22:37 80 94 3.0 04/23/16 20:00 Nasal Cannula 4.0 Humidified Oxygen 04/23/16 19:43 36.8 79 20 156/73 93 Nasal Cannula Humidified Oxygen 04/23/16 18:52 76 18 94 Nasal Cannula 3.0 04/23/16 16:03 105 18 90 Nasal Cannula 3.0 04/23/16 16:00 Nasal Cannula 4.0 Humidified Oxygen 04/23/16 15:54 36.8 76 22 123/66 96 Nasal Cannula 4.0 Humidified Oxygen Laboratory Results: Last 24 Hours Test 04/23/16 16:04 04/23/16 20:01 04/24/16 02:04 04/24/16 06:47 Bedside Glucose 212 mg/dl 364 mg/dl 271 mg/dl 267 mg/dl Test 04/24/16 06:48 04/24/16 11:08 White Blood Count 20.81 K/uL Red Blood Count 3.41 M/uL Hemoglobin 10.1 g/dL Hematocrit 30.4 % Mean Corpuscular Volume 89.1 fL Mean Corpuscular Hemoglobin 29.6 pg Mean Corpuscular Hemoglobin Concent 33.2 g/dl Platelet Count 281 K/uL Mean Platelet Volume 10.2 fL Neutrophils (%) (Auto) 85.6 % Lymphocytes (%) (Auto) 10.2 % Monocytes (%) (Auto) 3.8 % Eosinophils (%) (Auto) 0.0 % Basophils (%) (Auto) 0.0 % Neutrophils # (Auto) 17.81 K/uL Lymphocytes # (Auto) 2.12 K/uL Monocytes # (Auto) 0.79 K/uL Eosinophils # (Auto) 0.00 K/uL Basophils # (Auto) 0.01 K/uL RDW Standard Deviation 44.4 fL RDW Coefficient of Variation 13.8 % Immature Granulocyte % (Auto) 0.4 % Immature Granulocyte # (Auto) 0.08 K/uL Sodium Level 136 mmol/L Potassium Level 3.4 mmol/L Chloride Level 95 mmol/L Carbon Dioxide Level 30 mmol/L Anion Gap 11.0 mmol/L Blood Urea Nitrogen 56 mg/dl Creatinine 1.40 mg/dl Est Creatinine Clear Calc Drug Dose 54.7 ml/min Estimated GFR () 46.9 Estimated GFR (Non- 40.5 BUN/Creatinine Ratio 40.0 Random Glucose 256 mg/dl Calcium Level 8.9 mg/dl Bedside Glucose 294 mg/dl
[2016-04-24] MEDS ORDERED: LEVALBUTEROL 1.25MG/0.5ML NEB INH PRN (15:00)
[2016-04-24] MEDS ORDERED: LEVALBUTEROL/IPRATROPIUM NEB INH SCH ×2 (15:00)
[2016-04-24] MEDS ORDERED: RIVAROXABAN 10 MG TAB PO ONE (18:31)
--- NOTE | 2016-04-24 18:50 | Family Medicine Progress Note ---
Progress Note Date of Service Apr 24, 2016. Subjective Pt evaluation today including: conversation w/ patient, physical exam, chart review, lab review Pain: Pain under ribs PO Intake: Good Voiding: no voiding problems, no incontinence Teary this morning Afraid of her prognosis as her father at age 60 Feels her breathing is improving slightly Throat not as sore as yesterday Medications Current Inpatient Medications Medications (Trade) Dose Ordered Sig/Jesus Route Start Time Stop Time Status Last Admin Dose Admin Heparin Sodium (Porcine) (Heparin Sq 5000 Unit/0.5ml) 5,000 unit Q8 SQ 04/22/16 22:00 05/22/16 21:59 04/24/16 14:37 5,000 UNIT Acetaminophen (Tylenol Tab) 650 mg Q4H PRN PO 04/22/16 13:00 05/22/16 12:59 Al Hydrox/Mg Hydrox/Simethicone (Maalox Max Susp) 15 ml Q4H PRN PO 04/22/16 13:00 05/22/16 12:59 Magnesium Hydroxide (Milk Of Magnesia Susp) 30 ml Q12H PRN PO 04/22/16 13:00 05/22/16 12:59 Ondansetron HCl (Zofran Inj) 4 mg Q6H PRN IV 04/22/16 13:00 05/22/16 12:59 04/22/16 17:13 4 MG Guaifenesin (Mucinex Contr Rel Tab) 600 mg Q12 PO 04/22/16 21:00 05/22/16 20:59 04/24/16 07:58 600 MG Allopurinol (Zyloprim Tab) 100 mg QAM PO 04/23/16 09:00 05/23/16 08:59 04/24/16 07:59 100 MG Aspirin (Ecotrin Tab) 81 mg QAM PO 04/23/16 09:00 05/23/16 08:59 04/24/16 07:59 81 MG Atorvastatin Calcium (Lipitor Tab) 20 mg HS PO 04/22/16 21:00 05/22/16 20:59 04/23/16 19:58 20 MG Beclomethasone Dipropionate (Qvar 80 Mcg Hfa Inhaler) 2 puffs BID INH 04/22/16 21:00 05/22/16 20:59 Future Hold 04/23/16 07:43 2 PUFFS Cyclobenzaprine HCl (Flexeril Tab) 10 mg TID PRN PO 04/22/16 13:00 05/22/16 12:59 04/24/16 07:59 10 MG Formoterol Fumarate (Perforomist 20MCG/2ML Neb Soln) 20 mcg BIDR INH 04/22/16 20:00 05/22/16 19:59 04/24/16 07:15 20 MCG Furosemide (Lasix tab) 40 mg BID17 PO 04/22/16 17:00 05/22/16 16:59 04/24/16 17:33 40 MG Gabapentin (Neurontin Cap) 300 mg HS PO 04/22/16 21:00 05/22/16 20:59 04/23/16 19:58 300 MG Levothyroxine Sodium (Synthroid Tab) 50 mcg DAILYBB PO 04/23/16 06:00 05/23/16 05:59 04/24/16 05:56 50 MCG Losartan Potassium (coZAAR TAB) 50 mg QAM PO 04/23/16 09:00 05/23/16 08:59 04/24/16 08:00 50 MG Metolazone (Zaroxolyn Tab) 2.5 mg MoWeFr@0830 PO 04/23/16 08:30 05/23/16 08:29 04/23/16 07:41 2.5 MG Paroxetine HCl (pAXil TAB) 40 mg QAM PO 04/23/16 09:00 05/23/16 08:59 04/24/16 07:58 40 MG Potassium Chloride (Klor-Con M10) 20 meq BID PO 04/22/16 21:00 05/22/16 20:59 04/24/16 08:00 20 MEQ Insulin Aspart (novoLOG ASPART) SLIDING SCALE If C... ACHS SC 04/22/16 16:15 05/22/16 16:14 04/24/16 17:37 23 UNITS Glucose (Glucose 40% Gel) 15-30 GRAMS 15 GRAMS... UD PRN PO 04/22/16 13:45 05/22/16 13:44 Glucose (Glucose Chew Tab) 4-8 Tablets 4 Tabl... UD PRN PO 04/22/16 13:45 05/22/16 13:44 Dextrose (Dextrose 50% 50ML Syringe) 25-50ML OF 50% DW IV FOR... UD PRN IV 04/22/16 13:45 05/22/16 13:44 Glucagon (Glucagon Inj) 1 mg UD PRN SQ 04/22/16 13:45 05/22/16 13:44 Miscellaneous Information (Consult Glycemic Management Pharmacy) 1 ea UD PRN N/A 04/22/16 21:09 05/22/16 21:08 Budesonide (Pulmicort Respules 0.5MG/ 2ML Neb Soln) 0.5 mg BIDR INH 04/23/16 20:00 05/23/16 19:59 04/24/16 07:15 0.5 MG Diltiazem HCl (TIAzac CAP) 360 mg HS PO 04/23/16 21:00 05/23/16 20:59 04/23/16 19:56 360 MG Prednisone (PredniSONE TAB) 40 mg DAILY PO 04/24/16 09:00 05/24/16 08:59 04/24/16 07:59 40 MG Azithromycin (Zithromax Tab) 250 mg QAM PO 04/24/16 09:00 04/27/16 09:01 04/24/16 08:00 250 MG Codeine Phosphate/ Guaifenesin (Robitussin-AC Sugar Free Syrup) 5 ml Q6H PRN PO 04/23/16 18:30 05/23/16 18:29 04/24/16 01:27 5 ML Lorazepam (Ativan Tab) 0.5 mg Q6H PRN PO 04/23/16 19:00 05/23/16 18:59 Insulin Glargine (Lantus Solostar Pen) 20 unit BID SC 04/24/16 09:00 05/24/16 08:59 04/24/16 08:08 20 UNIT Insulin Aspart (novoLOG ASPART) SLIDING SCALE If C... 0200 SC 04/25/16 02:00 05/25/16 01:59 Levalbuterol (Xopenex 1.25MG/ 0.5ML Neb) 1.25 mg Q2H PRN INH 04/24/16 15:00 05/24/16 14:[address] [place] (Atrovent 0.02% 0.5MG/2.5ML Neb) 0.5 mg Q6R INH 04/24/16 21:00 05/24/16 20:59 Levalbuterol (Xopenex 1.25MG/ 0.5ML Neb) 1.25 mg Q6R INH 04/24/16 21:00 05/24/16 20:59 Rivaroxaban (Xarelto Tab) 20 mg QDD PO 04/25/16 16:45 05/25/16 16:44 UNV Rivaroxaban (Xarelto Tab) 20 mg 1831 ONCE PO 04/24/16 18:31 04/24/16 18:32 UNV Objective Vital Signs Date Time Temp Pulse Resp B/P Pulse Ox O2 Delivery O2 Flow Rate FiO2 04/24/16 16:00 Nasal Cannula 3.0 04/24/16 15:22 36.5 84 20 119/67 96 Nasal Cannula 4.0 Humidified Oxygen 04/24/16 12:23 36.5 78 16 126/72 97 3.0 04/24/16 12:00 Nasal Cannula 3.0 04/24/16 11:18 75 18 95 Nasal Cannula 4.0 04/24/16 08:00 Nasal Cannula 3.0 04/24/16 07:36 37.1 76 20 164/87 94 4.0 04/24/16 07:15 72 18 95 Nasal Cannula 3.0 04/24/16 04:00 Nasal Cannula 3.0 04/24/16 03:56 36.8 72 20 152/81 93 BiPAP 04/24/16 01:40 84 94 3.0 04/24/16 01:20 84 18 94 Nasal Cannula 3.0 04/23/16 23:59 Nasal Cannula 3.0 04/23/16 23:59 36.9 79 20 130/68 95 Nasal Cannula 3.0 04/23/16 22:37 80 94 3.0 04/23/16 20:00 Nasal Cannula 4.0 Humidified Oxygen 04/23/16 19:43 36.8 79 20 156/73 93 Nasal Cannula Humidified Oxygen 04/23/16 18:52 76 18 94 Nasal Cannula 3.0 Physical Exam General Appearance: WD/WN, + mild distress (tearful) Eyes: normal inspection, EOMI ENT: hearing grossly normal Neck: supple, no adenopathy, no JVD Respiratory/Chest: lungs clear, no respiratory distress, + pertinent finding ( improved wheezing but remains present bilaterally) Cardiovascular: regular rate, rhythm, no gallop, no murmur Abdomen: normal bowel sounds, non tender, soft Extremities: non-tender, no pedal edema Neurologic/Psychiatric: alert, normal mood/affect, oriented x 3 Skin: normal color, warm/dry, no rash Lymphatic: no adenopathy Laboratory Results Last 24 Hours Test 04/23/16 20:01 04/24/16 02:04 04/24/16 06:47 04/24/16 06:48 Bedside Glucose 364 mg/dl 271 mg/dl 267 mg/dl White Blood Count 20.81 K/uL Red Blood Count 3.41 M/uL Hemoglobin 10.1 g/dL Hematocrit 30.4 % Mean Corpuscular Volume 89.1 fL Mean Corpuscular Hemoglobin 29.6 pg Mean Corpuscular Hemoglobin Concent 33.2 g/dl Platelet Count 281 K/uL Mean Platelet Volume 10.2 fL Neutrophils (%) (Auto) 85.6 % Lymphocytes (%) (Auto) 10.2 % Monocytes (%) (Auto) 3.8 % Eosinophils (%) (Auto) 0.0 % Basophils (%) (Auto) 0.0 % Neutrophils # (Auto) 17.81 K/uL Lymphocytes # (Auto) 2.12 K/uL Monocytes # (Auto) 0.79 K/uL Eosinophils # (Auto) 0.00 K/uL Basophils # (Auto) 0.01 K/uL RDW Standard Deviation 44.4 fL RDW Coefficient of Variation 13.8 % Immature Granulocyte % (Auto) 0.4 % Immature Granulocyte # (Auto) 0.08 K/uL Sodium Level 136 mmol/L Potassium Level 3.4 mmol/L Chloride Level 95 mmol/L Carbon Dioxide Level 30 mmol/L Anion Gap 11.0 mmol/L Blood Urea Nitrogen 56 mg/dl Creatinine 1.40 mg/dl Est Creatinine Clear Calc Drug Dose 54.7 ml/min Estimated GFR () 46.9 Estimated GFR (Non- 40.5 BUN/Creatinine Ratio 40.0 Random Glucose 256 mg/dl Calcium Level 8.9 mg/dl Test 04/24/16 11:08 04/24/16 15:45 Bedside Glucose 294 mg/dl 182 mg/dl Assessment and Plan 60 yo female with acute COPD exacerbation with concurrent asthma. Subjectively notes minimal change in her conditions. Acute exacerbation of ACOS (Asthma COPD overlap syndrome) - Patient noted to have multiple exacerbation requiring emergency visits - Patient on PO taper of Solu-medrol 40 mg PO today; 30 mg starts tomorrow - Stop Duoneb Per Dr. Rubi nebs changed to Xopenex and Atrovent nebs - Continue Formoterol and Pulmicort nebulizers - Incentive spirometry encouraged - Pertussis PCR pending Anxiety - Patient get concurrent anxiety attacks with SOB; makes SOB worse and cycle repeats - Ativan was on HS; will make q6h pRN - Will monitor closely due to concurrent use with SSRI Chronic diastolic CHF - Based on initial - Continue Lasix 40 mg BID - Continue Metolazone M, W, F - Daily standing weights before food - Daily I/O monitoring Atrial Fibrillation with RVR - Resolved; patient in NSR - Triggers to precipitate: acute illness (COPD), epinephrine - Possibly related to epinephrine - Resumed PO Cardizem - Patient to be started on Xarelto due to high risk of DVT/PE; will provide added stroke prophylaxis for Atrial fibrillation SPARKLE on CKD Stage III - Cr 1.4 improved from 1.7 yesterday - Will continue to monitor daily BMP Type II Diabetes Mellitus - Pharmacy consult appreciated - Lantus increased to 20 BID - Sliding scale parameters: Goal 140-180: CF 10; Carb ratio 3 - Attempting to wean down steroids quickly - Patient noted to have incorrect diet (had type I DM diet instead of type 2); diet changed Obstructive Sleep Apnea - Nighttime BiPAP Hypothyroidism - Continue levothyroxine Mild Hypokalemia - K 3.4 today - 20 mEq KCL IV today Depression - Continue Paroxetine DVT prophylaxis - Patient has previous history of DVT/PE and is high risk for recurrence - Should be anticoagulated in outpatient setting for future prevention - Will start Xarelto 20 mg with meals and stop Heparin Code - Level I Code Disposition - Telemetry - PT/OT ordered Reviewed: Pt Seen/Exam by Me Constitutional: denies: fever Respiratory: positive: short of breath Cardiovascular: denies chest pain Gastrointestinal/Abdominal: negative: abdominal pain General Appearance: no apparent distress Respiratory: no respiratory distress, decreased breath sounds Cardiovascular: regular rate, rhythm Gastrointestinal: normal bowel sounds, non tender, soft Neurologic/Psychiatric: alert, oriented x 3, other (anxious) Skin Characteristics: warm/dry Assessment/Plan I have reviewed the medical record and performed a history and physical examination of this patient today. I have discussed the case with Dr. Dow. The above note reflects my findings, conclusions, and recommendations.
[2016-04-24] MEDS: LEVALBUTEROL 1.25MG/0.5ML NEB INH SCH (18:57)
[2016-04-24] MEDS: IPRATROPIUM BROMIDE NEB SOLN 0.02% 2.5 ML VIAL INH SCH (18:57)
[2016-04-24] MEDS: GABAPENTIN 300 MG CAP PO SCH (19:29)
[2016-04-24] MEDS: ATORVASTATIN 20 MG TAB PO SCH (19:29)
[2016-04-24] MEDS: DILTIAZEM HCL 120 MG EXT REL CAP PO SCH (20:25)
[2016-04-25] VITALS (12 sets, daily range): BP systolic 153–184; BP diastolic 72–83; PULSE 73–116; TEMP 36.5–36.8; O2SAT 92–97
[2016-04-25] MEDS ORDERED: INSULIN ASPART 100 UNITS/ML 3 ML PEN SC SCH (02:00)
[2016-04-25] MEDS: LEVALBUTEROL 1.25MG/0.5ML NEB INH SCH ×3 (02:08→20:39)
[2016-04-25] MEDS: IPRATROPIUM BROMIDE NEB SOLN 0.02% 2.5 ML VIAL INH SCH ×3 (02:08→20:39)
[2016-04-25] MEDS: LEVOTHYROXINE 50 MCG TAB PO SCH (05:22)
[2016-04-25 06:40] LABS: BASO % 0.1 %; BASO ABS # 0.02 K/uL (0-0.2); COMPLETE YES; HEMATOCRIT 30.5 % (37-47); IG% 0.5 %; LYMPH % 27.1 %; LYMPH ABS # 4.48 K/uL (1.2-3.4); MEAN CORPUSCULAR HEMOGLOBIN 29.8 pg (25-34); MEAN CORPUSCULAR HGB CONC 33.1 g/dl (32-36); MONO % 7.1 %; NEUT % 65.2 %; PLATELET COUNT 278 K/uL (130-400); RED BLOOD COUNT 3.39 M/uL (4.2-5.4); WHITE BLOOD COUNT 16.56 K/uL (4.8-10.8)
[2016-04-25 07:06] LABS: BUN/CREATININE RATIO 42.4 (10-20); CALCIUM 9.1 mg/dl (8.5-10.1); CREATININE 1.1 mg/dl (0.60-1.20); POTASSIUM 2.9 mmol/L (3.5-5.1)
[2016-04-25] MEDS: FORMOTEROL FUMA NEBULIZER SOLN 20 MCG/2 ML VIAL INH SCH ×2 (07:25→20:38)
[2016-04-25] MEDS: BUDESONIDE 0.5 MG/2 ML VIAL (PULMICORT) INH SCH ×2 (07:25→20:38)
[2016-04-25] MEDS: GUAIFENESIN 600 MG TABCR PO SCH ×2 (08:56→20:54)
[2016-04-25] MEDS: FUROSEMIDE 40 MG TAB PO SCH ×2 (08:56→17:24)
[2016-04-25] MEDS: AZITHROMYCIN 250 MG TAB PO SCH (08:57)
[2016-04-25] MEDS: POTASSIUM CHLORIDE 10 MEQ TABCR PO SCH ×2 (08:57→20:54)
[2016-04-25] MEDS: LOSARTAN POTASSIUM 50 MG TAB PO SCH (08:58)
[2016-04-25] MEDS: PAROXETINE 20 MG TAB PO SCH (08:59)
[2016-04-25] MEDS: ASPIRIN 81 MG ECTAB PO SCH (08:59)
[2016-04-25] MEDS: ALLOPURINOL 100 MG TAB PO SCH (09:00)
[2016-04-25] MEDS: METOLAZONE 2.5 MG TAB PO SCH (09:00)
[2016-04-25] MEDS: INSULIN ASPART 100 UNITS/ML 3 ML PEN SC SCH ×4 (09:04→20:57)
[2016-04-25] MEDS: INSULIN GLARGINE SOLOSTAR 100 UNITS/ML 3 ML PEN SC SCH ×2 (09:05→20:58)
--- NOTE | 2016-04-25 10:14 | Medical Student: [facility] ---
Med Student Progress Note Date of Service Apr 25, 2016. Subjective Pt evaluation today including: conversation w/ patient, physical exam, chart review, lab review, review of studies Voiding: no voiding problems [address] [place] [address] Pt is a 60 year old female with a history of diastolic CHF with EF 60-65% on echocardiogram, COPD, PE with IVC filter in place, and DM Type II who is admitted for dyspnea and cough. Pt reports that she has had continued dry cough and dyspnea throughout last night, but it is improved this morning. She states that the cough and dyspnea seem to worsen in the evenings. She reports some palpitations secondary to cough, but none otherwise. No chest pain. She also c/ o orthopnea, which she has chronically, requiring her to sleep in her Lazy Boy at home most nights. She has had mild leg swelling, which she has had at baseline. She also c/o dry mouth and white patches on her tongue. She has been rinsing her mouth out after breathing treatments. Home Medications Scheduled Allopurinol (Zyloprim), 100 MG PO QAM Aspirin (Aspirin EC Low Dose), 81 MG PO QAM Atorvastatin (Lipitor), 20 MG PO HS Beclomethasone Dipropionate (Qvar), 2 PUFFS INH BID Calcium Carbonate-Vitamin D (Oysco 500+D), 2 TAB PO QAM Diltiazem Hcl Coated Beads (Cardizem La), 2 CAP PO QPM Ergocalciferol (Vitamin D Cap), 50,000 INTER.UNIT PO WK Formoterol Fumarate (Perforomist), 20 MCG INH BIDR Furosemide (Lasix), 40 MG PO BID Gabapentin (Gabapentin), 300 MG PO HS Levothyroxine Sodium (Levothyroxine Sodium), 1 TAB PO QAM Losartan Potassium (Losartan Potassium), 50 MG PO QAM Metformin Hcl (Glucophage), 2 TAB PO BID Metolazone (Zaroxolyn), 2.5 MG PO 3XWK Mometasone Furoate (Nasonex), 1 SPRAY NA QAM Paroxetine (Paxil), 40 MG PO QAM Potassium Chloride (Micro-K Ext Rel), 20 MEQ PO BID [Gentamicin Saline], 2 SPRAY GEOFF TID Scheduled PRN Cyclobenzaprine Hcl (Flexeril), 1 TAB PO TID PRN for Muscle Spasms Ipratropium-Albuterol (Duoneb), 1 TREATMENT INH Q4H PRN for Shortness of Breath Lorazepam (Lorazepam), 0.5 MG PO HS PRN for Anxiety Miscellaneous Medications Glucose Blood (Privlo Contour Blood Gluco) Review of Systems Constitutional: + see HPI Respiratory: + see HPI Cardiac: No chest pain. Abdomen: No constipation, No diarrhea, No nausea, No pain, No vomiting All Other Systems: Reviewed and Negative Objective Vital Signs Date Time Temp Pulse Resp B/P Pulse Ox O2 Delivery O2 Flow Rate FiO2 04/25/16 09:17 87 22 184/83 92 Nasal Cannula 4.0 04/25/16 04:23 36.5 75 22 163/72 92 BiPAP 4.0 04/25/16 04:00 92 BiPAP 04/25/16 02:09 78 96 4.0 04/25/16 02:08 78 18 96 BiPAP/CPAP 4.0 04/25/16 00:01 94 BiPAP 04/24/16 23:43 36.4 77 21 142/76 94 BiPAP 4.0 04/24/16 22:54 80 98 4.0 04/24/16 22:45 81 18 96 Nasal Cannula 4.0 04/24/16 20:00 98 Nasal Cannula 4.0 Humidified Oxygen 04/24/16 19:13 36.3 78 20 133/73 98 Nasal Cannula 4.0 Humidified Oxygen 04/24/16 18:57 82 18 96 Nasal Cannula 4.0 04/24/16 16:00 Nasal Cannula 3.0 04/24/16 15:22 36.5 84 20 119/67 96 Nasal Cannula 4.0 Humidified Oxygen 04/24/16 12:23 36.5 78 16 126/72 97 3.0 04/24/16 12:00 Nasal Cannula 3.0 04/24/16 11:18 75 18 95 Nasal Cannula 4.0 Physical Exam General Appearance: WD/WN, no apparent distress, + pertinent finding (Pt is sitting comfortably in bed, speaking in full sentences. NC in place with 4 L O2. Frequent dry cough noted. ) Eyes: bilateral eyes PERRL, bilateral eyes normal inspection ENT: hearing grossly normal, pharynx normal, + pertinent finding (Dry mucous membranes with some thin white plaque on the tongue. No posterior pharyngeal erythema or exudates. Hoarse voice. ) Neck: supple, no JVD, trachea midline Respiratory/Chest: no respiratory distress, no accessory muscle use, + pertinent finding (Diffuse inspiratory and expiratory wheeze with prolonged expiratory phase. Bibasilar rales. Rhonchi in upper lobes, which cleared with cough. Moderate air movement. ) Cardiovascular: regular rate, rhythm, no gallop, no JVD, no murmur, + pertinent finding (Trace edema in BLE. ) Abdomen: normal bowel sounds, non tender, soft, + pertinent finding (Obese) Extremities: + pertinent finding (Trace edema in BLE. ) Neurologic/Psychiatric: no motor/sensory deficits, alert, normal mood/affect, oriented x 3 Skin: normal color, warm/dry Laboratory Results Last 24 Hours Test 04/24/16 11:08 04/24/16 15:45 04/24/16 20:10 04/25/16 01:56 Bedside Glucose 294 mg/dl 182 mg/dl 166 mg/dl 131 mg/dl Test 04/25/16 06:21 04/25/16 06:22 White Blood Count 16.56 K/uL Red Blood Count 3.39 M/uL Hemoglobin 10.1 g/dL Hematocrit 30.5 % Mean Corpuscular Volume 90.0 fL Mean Corpuscular Hemoglobin 29.8 pg Mean Corpuscular Hemoglobin Concent 33.1 g/dl Platelet Count 278 K/uL Mean Platelet Volume 10.0 fL Neutrophils (%) (Auto) 65.2 % Lymphocytes (%) (Auto) 27.1 % Monocytes (%) (Auto) 7.1 % Eosinophils (%) (Auto) 0.0 % Basophils (%) (Auto) 0.1 % Neutrophils # (Auto) 10.81 K/uL Lymphocytes # (Auto) 4.48 K/uL Monocytes # (Auto) 1.17 K/uL Eosinophils # (Auto) 0.00 K/uL Basophils # (Auto) 0.02 K/uL RDW Standard Deviation 45.6 fL RDW Coefficient of Variation 13.8 % Immature Granulocyte % (Auto) 0.5 % Immature Granulocyte # (Auto) 0.08 K/uL Sodium Level 140 mmol/L Potassium Level 2.9 mmol/L Chloride Level 98 mmol/L Carbon Dioxide Level 32 mmol/L Anion Gap 10.0 mmol/L Blood Urea Nitrogen 47 mg/dl Creatinine 1.10 mg/dl Est Creatinine Clear Calc Drug Dose 70.3 ml/min Estimated GFR () 62.8 Estimated GFR (Non- 54.1 BUN/Creatinine Ratio 42.4 Random Glucose 137 mg/dl Calcium Level 9.1 mg/dl Bedside Glucose 140 mg/dl Medications Medications Administered Medications (Trade) Dose Ordered Sig/Jesus Route Start Time Stop Time Status Last Admin Dose Admin Albuterol/ Ipratropium (Duoneb) 12 ml ONE ONCE INH 04/22/16 10:00 04/22/16 10:04 DC 04/22/16 10:15 12 ML Albuterol/ Ipratropium 12 ml 12 ml ONE ONCE INH 04/22/16 11:45 04/22/16 11:46 DC 04/22/16 11:54 12 ML Sodium Chloride 1,000 ml @ 150 mls/hr Q6H40M STAT IV 04/22/16 11:40 04/22/16 15:38 DC 04/22/16 11:40 150 MLS/HR Potassium Chloride 20 meq/ Prmx 100 ml @ 50 mls/hr TODAY@1215 ONCE IV 04/22/16 12:15 04/22/16 14:14 DC 04/22/16 12:29 50 MLS/HR Methylprednisolone Sodium Succinate/ Syringe (Solu-Medrol IV/ Syringe) 1.28 ml @ 1.5 mls/min TODAY@1215 ONCE IV 04/22/16 12:15 04/22/16 12:16 DC 04/22/16 12:29 1.5 MLS/MIN Heparin Sodium (Porcine) (Heparin Sq 5000 Unit/0.5ml) 5,000 unit Q8 SQ 04/22/16 22:00 05/22/16 21:59 Future Hold 04/24/16 14:37 5,000 UNIT Ondansetron HCl (Zofran Inj) 4 mg Q6H PRN IV 04/22/16 13:00 05/22/16 12:59 04/22/16 17:13 4 MG Guaifenesin 600 mg 600 mg Q12 PO 04/22/16 21:00 05/22/16 20:59 04/25/16 08:56 600 MG Methylprednisolone Sodium Succinate/ Syringe (Solu-Medrol IV/ Syringe) 0.96 ml @ 1.5 mls/min Q8@0400,1200,2000 IV 04/22/16 20:00 04/23/16 19:59 DC 04/23/16 12:42 1.5 MLS/MIN Allopurinol (Zyloprim Tab) 100 mg QAM PO 04/23/16 09:00 05/23/16 08:59 04/25/16 09:00 100 MG Aspirin (Ecotrin Tab) 81 mg QAM PO 04/23/16 09:00 05/23/16 08:59 04/25/16 08:59 81 MG Atorvastatin Calcium (Lipitor Tab) 20 mg HS PO 04/22/16 21:00 05/22/16 20:59 04/24/16 19:29 20 MG Beclomethasone Dipropionate (Qvar 80 Mcg Hfa Inhaler) 2 puffs BID INH 04/22/16 21:00 05/22/16 20:59 Future Hold 04/23/16 07:43 2 PUFFS Cyclobenzaprine HCl (Flexeril Tab) 10 mg TID PRN PO 04/22/16 13:00 05/22/16 12:59 04/24/16 07:59 10 MG Formoterol Fumarate (Perforomist 20MCG/2ML Neb Soln) 20 mcg BIDR INH 04/22/16 20:00 05/22/16 19:59 04/24/16 18:56 20 MCG Furosemide (Lasix tab) 40 mg BID17 PO 04/22/16 17:00 05/22/16 16:59 04/25/16 08:56 40 MG Gabapentin (Neurontin Cap) 300 mg HS PO 04/22/16 21:00 05/22/16 20:59 04/24/16 19:29 300 MG Levothyroxine Sodium (Synthroid Tab) 50 mcg DAILYBB PO 04/23/16 06:00 05/23/16 05:59 04/25/16 05:22 50 MCG Lorazepam (Ativan Tab) 0.5 mg HS PRN PO 04/22/16 13:00 04/23/16 18:40 DC 04/23/16 16:12 0.5 MG Losartan Potassium (coZAAR TAB) 50 mg QAM PO 04/23/16 09:00 05/23/16 08:59 04/25/16 08:58 50 MG Metolazone (Zaroxolyn Tab) 2.5 mg MoWeFr@0830 PO 04/23/16 08:30 05/23/16 08:29 04/25/16 09:00 2.5 MG Paroxetine HCl (pAXil TAB) 40 mg QAM PO 04/23/16 09:00 05/23/16 08:59 04/25/16 08:59 40 MG Potassium Chloride (Klor-Con M10) 20 meq BID PO 04/22/16 21:00 05/22/16 20:59 04/25/16 08:57 20 MEQ Insulin Aspart (novoLOG ASPART) SLIDING SCALE If C... ACHS SC 04/22/16 16:15 05/22/16 16:14 04/25/16 09:04 18 UNITS Racepinephrine (Raccemic Epinephrine 2.25% 0.5ML Neb) 0.5 ml NOW STAT INH 04/22/16 13:38 04/22/16 13:40 DC 04/22/16 13:48 0.5 ML Diltiazem HCl 20 mg 20 mg TODAY@1415 IV 04/22/16 14:15 04/22/16 14:16 DC 04/22/16 14:30 20 MG Diltiazem HCl/ Dextrose (Cardizem Inj/D5 100ml) 125 ml @ 5 mls/hr Q24H PRN IV 04/22/16 14:15 04/23/16 21:00 DC 04/23/16 08:22 5 MLS/HR Potassium Chloride (Klor-Con M10) 40 meq STK-MED ONCE .ROUTE 04/22/16 15:04 04/22/16 15:05 DC 04/22/16 15:07 40 MEQ Insulin Glargine (Lantus Solostar Pen) 10 unit NOW ONCE SC 04/22/16 17:00 04/22/16 17:01 DC 04/22/16 16:39 10 UNIT Insulin Aspart (novoLOG ASPART) 10 units NOW ONCE SC 04/22/16 17:00 04/22/16 17:01 DC 04/22/16 16:36 10 UNITS Insulin Glargine (Lantus Solostar Pen) 15 unit NOW ONCE SC 04/22/16 21:15 04/22/16 21:16 DC 04/22/16 21:32 15 UNIT Insulin Aspart (novoLOG ASPART) SLIDING SCALE TODAY@0000,0400 SC 04/23/16 00:00 04/23/16 04:01 DC 04/23/16 04:34 11 UNITS Insulin Glargine (Lantus Solostar Pen) 15 unit BID SC 04/23/16 09:00 04/24/16 07:50 DC 04/23/16 20:17 15 UNIT Budesonide (Pulmicort Respules 0.5MG/ 2ML Neb Soln) 0.5 mg BIDR INH 04/23/16 20:00 05/23/16 19:59 04/24/16 18:56 0.5 MG Guaifenesin 600 mg 600 mg 1120 ONCE PO 04/23/16 11:20 04/23/16 11:53 DC 04/23/16 12:42 600 MG Potassium Chloride/Prmx (Kcl 20 Meq / Wtr/Premixed Water) 100 ml @ 50 mls/hr NOW STAT IV 04/23/16 11:53 04/23/16 13:52 DC 04/23/16 12:42 50 MLS/HR Diltiazem HCl (TIAzac CAP) 360 mg HS PO 04/23/16 21:00 05/23/16 20:59 04/24/16 20:25 360 MG Miscellaneous (Stop Order) 1 ea ONE ONCE N/A 04/23/16 21:00 04/23/16 21:01 DC 04/23/16 19:56 1 EA Insulin Aspart (novoLOG ASPART) SLIDING SCALE If C... 0200 OH 04/24/16 02:00 04/24/16 02:01 DC 04/24/16 02:48 14 UNITS Prednisone (PredniSONE TAB) 40 mg DAILY PO 04/24/16 09:00 04/25/16 08:41 DC 04/24/16 07:59 40 MG Azithromycin (Zithromax Tab) 500 mg NOW ONCE PO 04/23/16 18:00 04/23/16 18:01 DC 04/23/16 19:33 500 MG Azithromycin (Zithromax Tab) 250 mg QAM PO 04/24/16 09:00 04/27/16 09:01 04/25/16 08:57 250 MG Codeine Phosphate/ Guaifenesin (Robitussin-AC Sugar Free Syrup) 5 ml Q6H PRN PO 04/23/16 18:30 05/23/16 18:29 04/24/16 20:33 5 ML Albuterol/ Ipratropium (Duoneb) 3 ml QIDR INH 04/23/16 20:00 04/24/16 14:04 DC 04/24/16 11:18 3 ML Insulin Glargine 20 unit 20 unit BID SC 04/24/16 09:00 05/24/16 08:59 04/25/16 09:05 20 UNIT Potassium Chloride/Prmx (Kcl 20 Meq / Wtr/Premixed Water) 100 ml @ 50 mls/hr TODAY@1000 IV 04/24/16 10:00 04/24/16 11:59 DC 04/24/16 10:18 50 MLS/HR Levalbuterol (Xopenex 1.25MG/ 0.5ML Neb) 1.25 mg Q2H PRN INH 04/24/16 15:00 05/24/16 14:59 04/24/16 22:45 1.25 MG Ipratropium Converse (Atrovent 0.02% 0.5MG/2.5ML Neb) 0.5 mg Q6R INH 04/24/16 21:00 05/24/16 20:59 04/25/16 02:08 0.5 MG Levalbuterol (Xopenex 1.25MG/ 0.5ML Neb) 1.25 mg Q6R INH 04/24/16 21:00 05/24/16 20:59 04/25/16 02:08 1.25 MG Rivaroxaban (Xarelto Tab) 20 mg 1831 ONCE PO 04/24/16 18:31 04/24/16 18:37 DC 04/24/16 19:26 20 MG Assessment and Plan Assessment and Plan: Pt is a 60 year old female with a history of diastolic CHF with EF 60-65% on echocardiogram, COPD, PE with IVC filter in place, and DM Type II who is admitted for dyspnea for the last 2-3 days. Exam is significant for coarse lung sounds with inspiratory and expiratory wheezing, prolonged expiratory phase, and bibasilar rales. SpO2 has been 92-96% on 4 L O2. CXR showed no acute process and no evidence of PNA. Clinical picture is most consistent with COPD exacerbation. WBC is elevated today in the setting of Solu-Medrol. 1. COPD exacerbation - FEV1 during 03/28/16 pulmonology visit was 72%. Pulmonology has seen the pt and added a pertussis test, which is pending, and also recommended azithromycin to Tx for pharyngitis, which was added. - Pt was started oral Prednisone, which we will continue and taper at d/c. - Continue Duoneb Tx q4h. - Continue Pulmicourt nebulizer, as pt has significant cough and is likely not able to tolerate inhalers. - Will continue 4 L O2 NC. Will evaluate for need for home O2 prior to d/c. - Will Tx with Mucinex. - Continue incentive spirometry. 2. Diastolic HF - Net I/O is -1150 since yesterday. Cardiac catheterization from 02/01/16 showed normal coronary arteries. - Will continue home diuretics, Lasix 40 mg bid and Metolazone (Zaroxolyn), 2.5 MG PO 3XWK. - Continue to monitor weight and I/O. 3. Atrial fibrillation w/ RVR - HR has been in the 70-80s in NSR with occasional PAC/PVCs on telemetry. No sustained Afib. Cardiology has seen the pt and feels that the Afib was likely secondary to receiving epinephrine and breathing treatments. - Continue diltiazem 360 mg PO. - Given the patients multiple risk factors for pulmonary emboli, including her IVC filter, pulmonology and cardiology recommended starting anticoagulation with Xarelto, which was added. 4. Obstructive sleep apnea - Continue BIPAP at night. 5. Diabetes Mellitus, Type II - Blood sugar improved yesterday to the mid-upper 100s. - Will continue Lantus and Novolog sliding scale. 6. Hypokalemia with K of 2.9. Will replace. 7. CKD, Stage III - Creatinine improved to 1.1. Continue to monitor. 8. Hypothyroidism -Continue levothyroxine 9. DVT prophylaxis - Heparin 5000 units SQ q8h 10. White patches on tongue are likely secondary to dehydration as mucous membranes are dry. Since the pt has been receiving inhaled steroids, will cover for thrush with oral fluconazole 200 mg for 7-14 days.
[2016-04-25] MEDS: POTASSIUM CHLR 20 MEQ / WTR 20 MEQ in PREMIXED WATER 100 ML IV SCH ×2 (10:28→12:46)
[2016-04-25] MEDS ORDERED: COUGH DROP (SUGAR FREE) LOZ 24 LOZ/1 BOX PO PRN (12:00)
[2016-04-25 12:27] LABS: ESTIMATED AVERAGE GLUCOSE 154 mg/dl; HA1C FLAG Normal (Normal)
--- NOTE | 2016-04-25 13:31 | Pharmacy Progress Note ---
Glycemic Control: Progress Nt Date of Service Apr 25, 2016. Scope Glycemic Pharmacist consulted by Dr Le on 04/22/16 for glycemic control and to write orders per [facility] inpatient glycemic control protocol. Objective Accuchecks BSG (last 24hrs): Test 04/24/16 15:45 04/24/16 20:10 04/25/16 01:56 04/25/16 06:21 Bedside Glucose 182 mg/dl (70-90) 166 mg/dl (70-90) 131 mg/dl (70-90) Random Glucose 137 mg/dl (70-99) Test 04/25/16 06:22 04/25/16 11:27 Bedside Glucose 140 mg/dl (70-90) 203 mg/dl (70-90) Laboratory Data (last 24hrs) Test 04/25/16 06:21 Anion Gap 10.0 mmol/L BUN/Creatinine Ratio 42.4 Blood Urea Nitrogen 47 mg/dl Creatinine 1.10 mg/dl Hemoglobin A1c 7.0 % Potassium Level 2.9 mmol/L Sodium Level 140 mmol/L White Blood Count 16.56 K/uL Red Blood Count 3.39 M/uL Hemoglobin 10.1 g/dL Hematocrit 30.5 % Mean Corpuscular Volume 90.0 fL Mean Corpuscular Hemoglobin 29.8 pg Mean Corpuscular Hemoglobin Concent 33.1 g/dl Platelet Count 278 K/uL Mean Platelet Volume 10.0 fL Neutrophils (%) (Auto) 65.2 % Lymphocytes (%) (Auto) 27.1 % Monocytes (%) (Auto) 7.1 % Eosinophils (%) (Auto) 0.0 % Basophils (%) (Auto) 0.1 % Neutrophils # (Auto) 10.81 K/uL Lymphocytes # (Auto) 4.48 K/uL Monocytes # (Auto) 1.17 K/uL Eosinophils # (Auto) 0.00 K/uL Basophils # (Auto) 0.02 K/uL HbA1c: Test 04/25/16 06:21 Hemoglobin A1c 7.0 % (4.5-5.6) H Recent Pertinent Medications Outpatient Anti-diabetic Regimen: * Novolog pump, basal rate 1.2 units/hr, Metformin 1 Gm bid * A1c = 7.0 % 04/25/16 The patient is currently receiving: * Basal insulin: Lantus 20 units SQ bid * Correctional Insulin: Novolog Correction per scale ACHS, also BSG check 02 Goal Range: Low 100 mg/dL - High 140 mg/dL Correction Factor: 10 mg/dL/unit * Prandial insulin: Per carb ratio of 1 unit per 3 grams CHO consumed * Oral Agents: none Risk Factors for Insulin Resistance: * Steroids: Prednisone 40 mg on 04/24, decrease to 30 mg daily on 04/25 * Infection: on Zithromax po * IVF: no * Diet: type 2 diabetic AHA Assessment & Plan ASSESSMENT: * ADA & AACE recommend a goal blood sugar range 140-180 mg/dl for the majority of critically ill & non-critically ill patients. However, more stringent targets may be selected in individual cases. 04/23/16 * 60 yo type 2 diabetic fairly well-controlled on Novolog pump and metformin. BSG's rising when pump turned off, and due to steroids. Will start basal insulin at a daily dose similar to her pump, and weight-based Novolog. 04/25/16 * Patient used 142 units of insulin on 04/24. FBS in goal range and BSG's trending down. Renal function is back to baseline. Discussed with Dr. Dow- on previous admission, metformin was helpful in controlling blood sugars, so will restart home dose, and loosen Novolog correction and carb ratio. We may need to decrease insulin further as prednisone is tapered. PLAN FOR INPATIENT GLYCEMIC CONTROL: * Restart Metformin 1000 mg po bid w/meals * Continuing basal insulin with LANTUS 20 units SQ BID, give 1/2 dose if BSG is less than 100 * Correctional Insulin with NOVOLOG per scale ACHS or Q6hrs while NPO * Goal Range: Low 100 mg/dL - High 140 mg/dL * Changing Correction Factor to 15 mg/dL/unit * Changing carb ratio to 1 unit per 5 grams CHO consumed DISCHARGE RECOMMENDATIONS: Patient was reasonably well-controlled (A1c of 7%) on previous Novolog pump settings and metformin. Consider restarting these if no high dose steroids are needed. Followup with outpatient provider for dosage adjustments. * Please note that the plan above was derived based on current level of insulin resistance and hospital stress. These recommendations are appropriate for inpatient admission only. Plan of care upon discharge will need to be reassessed to avoid potential outpatient hypo/hyperglycemia. Thank you.
[2016-04-25 14:58] LABS: BUN/CREATININE RATIO 41.7 (10-20); CALCIUM 9.2 mg/dl (8.5-10.1); CREATININE 1.2 mg/dl (0.60-1.20); POTASSIUM 4.8 mmol/L (3.5-5.1)
--- NOTE | 2016-04-25 16:29 | CARDIOLOGY PROGRESS NOTE ---
DATE: 04/25/2016 TIME: 1514 p.m. SUBJECTIVE: Ms. Torres was evaluated earlier this morning at approximately 9:00 a.m. She states that her breathing was poor last evening but it has improved today. She did receive some extra breathing treatments overnight. She was noted to be in atrial fibrillation with rapid ventricular response upon presentation. She spontaneously converted to sinus rhythm and is currently in sinus rhythm at the time of my evaluation earlier today. For her atrial fibrillation, she has been placed on Xarelto for stroke risk reduction. At home, she had been taking diltiazem 240 mg daily and this has been increased to 360 mg daily. Upon further questioning, she admits that she did have a few episodes of palpitations as an outpatient prior to her presentation. They were short lived, lasting only a few minutes but felt as though her heart was racing. They felt the same as when she presented this hospitalization. She was also noted to have profound hypokalemia with potassium of 2.7 upon presentation and magnesium of 1.9. Her last TSH was 2 months ago and it was normal at 2.73. She denies chest pain, syncope, near syncope, further palpitations or worsening edema. She denies bleeding. OBJECTIVE: VITAL SIGNS: Temperature 36.5 degrees, heart rate 78 beats per minute, respiration rate 18, blood pressure 163/72 mmHg, oxygen saturation 96% on 3 liters per nasal cannula. I's and O's negative 1.1 liters yesterday. Weight 125.3 kg. GENERAL: In no acute distress. She was alert. NECK: Thick but no appreciable JVD. CARDIAC EXAM: No ventricular heave. Heart sounds overall were distant but appear to be normal with an audible S1 and S2. There were no audible murmurs, rubs or gallops. LUNGS: There was bilateral wheezing throughout. ABDOMEN: Obese, soft, nontender, nondistended. Normoactive bowel sounds. EXTREMITIES: Trace bilateral lower extremity edema. No cyanosis. PSYCHIATRIC: Affect appears appropriate. MEDICATIONS: Include aspirin 81 mg daily, Lipitor 20 mg at bedtime, azithromycin 250 mg p.o. daily, Pulmicort, diltiazem 360 mg p.o. at bedtime, formoterol inhaler twice daily, Lasix 40 mg p.o. b.i.d., Xarelto 20 mg daily, Xopenex nebulizer treatments, losartan 50 mg daily, metformin 1000 mg p.o. b.i.d., Zaroxolyn 2.5 mg Saturday, Saturday and Saturday, Paxil 40 mg q.a.m., potassium chloride 20 mEq p.o. b.i.d., prednisone 30 mg daily. Telemetry personally reviewed. No significant arrhythmias since her initial atrial fibrillation episode which was more sustained. No ventricular arrhythmia. DATA: Today's labs demonstrated a sodium of 140, potassium 2.9, BUN 47, creatinine 1.1, hemoglobin A1c of 7. White blood cell count 16.56, hemoglobin 10.1, platelets 278. Chest x-ray report upon presentation, reported no acute process. Presenting ECG was personally reviewed, demonstrating atrial fibrillation with rapid ventricular response at 167 beats per minute. Inferior and anterior ST depression and T-wave abnormality. Chart reviewed. Pulmonology is following, Dr. Rubi. He is treating her for acute pulmonary issues. ASSESSMENT AND PLAN: 1. Paroxysmal atrial fibrillation with rapid ventricular response: She is currently in sinus rhythm. We discussed treatment strategies. For now, it appears as though her rate controlling medication in the form of diltiazem has been increased from 240 mg to 360 mg during this inpatient hospital stay. Certainly with her acute pulmonary issues and profound hypokalemia, this may have helped trigger atrial fibrillation; however, she appears to have had some symptomatic episodes as an outpatient, suspicious for further atrial fibrillation. Recommend close monitoring of her electrolytes and correction as appropriate. If she has recurrent episodes, would consider antiarrhythmic therapy. Agree with anticoagulation for stroke risk reduction. Xarelto has been chosen by other providers. This is a reasonable choice. 2. Chronic diastolic congestive heart failure: She has been evaluated by pulmonology and cardiology in the form of coronary angiography in the past, as well has been evaluated [place] [facility] cardiac catheterization at that point demonstrated a significantly elevated pulmonary capillary wedge pressure and also elevated pulmonary pressures, which may have been secondary to left heart failure. Currently, she appears to be reasonably well compensated from a heart failure standpoint. Continue current outpatient regimen of diuretic therapy. At some point, it may be prudent with her hypokalemia, if this cannot be easily controlled with supplements, may be able to add spironolactone, if potassium supplementation is difficult to manage. Low sodium diet and daily weights recommended. 3. Hypokalemia: Supplementation is being performed by the hospitalist service. If this becomes difficult or challenging, could also add spironolactone as part of her diuretic regimen. 4. Hypertension. If she remains hypertensive, can increase losartan to 100 mg daily. In the future if no contraindications from a pulmonary standpoint, beta juan therapy can also be instituted which also may help with her atrial fibrillation rate control strategy. These have not been initiated at this time and she is still actively wheezing and Dr. Rubi has mentioned that she clinically may have asthma. Therefore, no beta blockers are used at this time. 5. Prior concern of cor pulmonale: She has been evaluated at [facility] [place] and was felt to have chronic diastolic left heart failure. Several echo reports were reviewed here and then there was no reported right ventricular systolic dysfunction or dilation. Therefore, at this time would not classify her as having cor pulmonale, but rather chronic diastolic CHF based on available data at this time for review. 6. Disposition: Cardiology will continue to follow. The patient's care has been discussed with Dr. Dow.
--- NOTE | 2016-04-25 16:32 | Family Medicine Progress Note ---
Progress Note Date of Service Apr 25, 2016. Subjective Pt evaluation today including: conversation w/ patient, physical exam, chart review, lab review Pain: Throat is still sore Voiding: no voiding problems, no incontinence Doesn't feel well today Notes that throat continues to bother her Continues to have non-productive dry cough Eating and drinking without difficulties No voiding issues Additional Comments: Review of systems otherwise negative. Medications Current Inpatient Medications Medications (Trade) Dose Ordered Sig/Jesus Route Start Time Stop Time Status Last Admin Dose Admin Heparin Sodium (Porcine) (Heparin Sq 5000 Unit/0.5ml) 5,000 unit Q8 SQ 04/22/16 22:00 05/22/16 21:59 Future Hold 04/24/16 14:37 5,000 UNIT Acetaminophen (Tylenol Tab) 650 mg Q4H PRN PO 04/22/16 13:00 05/22/16 12:59 Al Hydrox/Mg Hydrox/Simethicone (Maalox Max Susp) 15 ml Q4H PRN PO 04/22/16 13:00 05/22/16 12:59 Magnesium Hydroxide (Milk Of Magnesia Susp) 30 ml Q12H PRN PO 04/22/16 13:00 05/22/16 12:59 Ondansetron HCl (Zofran Inj) 4 mg Q6H PRN IV 04/22/16 13:00 05/22/16 12:59 04/22/16 17:13 4 MG Guaifenesin (Mucinex Contr Rel Tab) 600 mg Q12 PO 04/22/16 21:00 05/22/16 20:59 04/25/16 08:56 600 MG Allopurinol (Zyloprim Tab) 100 mg QAM PO 04/23/16 09:00 05/23/16 08:59 04/25/16 09:00 100 MG Aspirin (Ecotrin Tab) 81 mg QAM PO 04/23/16 09:00 05/23/16 08:59 04/25/16 08:59 81 MG Atorvastatin Calcium (Lipitor Tab) 20 mg HS PO 04/22/16 21:00 05/22/16 20:59 04/24/16 19:29 20 MG Beclomethasone Dipropionate (Qvar 80 Mcg Hfa Inhaler) 2 puffs BID INH 04/22/16 21:00 05/22/16 20:59 Future Hold 04/23/16 07:43 2 PUFFS Cyclobenzaprine HCl (Flexeril Tab) 10 mg TID PRN PO 04/22/16 13:00 05/22/16 12:59 04/24/16 07:59 10 MG Formoterol Fumarate (Perforomist 20MCG/2ML Neb Soln) 20 mcg BIDR INH 04/22/16 20:00 05/22/16 19:59 04/25/16 07:25 20 MCG Furosemide (Lasix tab) 40 mg BID17 PO 04/22/16 17:00 05/22/16 16:59 04/25/16 08:56 40 MG Gabapentin (Neurontin Cap) 300 mg HS PO 04/22/16 21:00 05/22/16 20:59 04/24/16 19:29 300 MG Levothyroxine Sodium (Synthroid Tab) 50 mcg DAILYBB PO 04/23/16 06:00 05/23/16 05:59 04/25/16 05:22 50 MCG Losartan Potassium (coZAAR TAB) 50 mg QAM PO 04/23/16 09:00 05/23/16 08:59 04/25/16 08:58 50 MG Metolazone (Zaroxolyn Tab) 2.5 mg MoWeFr@0830 PO 04/23/16 08:30 05/23/16 08:29 04/25/16 09:00 2.5 MG Paroxetine HCl (pAXil TAB) 40 mg QAM PO 04/23/16 09:00 05/23/16 08:59 04/25/16 08:59 40 MG Potassium Chloride (Klor-Con M10) 20 meq BID PO 04/22/16 21:00 05/22/16 20:59 04/25/16 08:57 20 MEQ Insulin Aspart (novoLOG ASPART) SLIDING SCALE If C... ACHS SC 04/22/16 16:15 05/22/16 16:14 04/25/16 12:48 10 UNITS Glucose (Glucose 40% Gel) 15-30 GRAMS 15 GRAMS... UD PRN PO 04/22/16 13:45 05/22/16 13:44 Glucose (Glucose Chew Tab) 4-8 Tablets 4 Tabl... UD PRN PO 04/22/16 13:45 05/22/16 13:44 Dextrose (Dextrose 50% 50ML Syringe) 25-50ML OF 50% DW IV FOR... UD PRN IV 04/22/16 13:45 05/22/16 13:44 Glucagon (Glucagon Inj) 1 mg UD PRN SQ 04/22/16 13:45 05/22/16 13:44 Miscellaneous Information (Consult Glycemic Management Pharmacy) 1 ea UD PRN N/A 04/22/16 21:09 05/22/16 21:08 Budesonide (Pulmicort Respules 0.5MG/ 2ML Neb Soln) 0.5 mg BIDR INH 04/23/16 20:00 05/23/16 19:59 04/25/16 07:25 0.5 MG Diltiazem HCl (TIAzac CAP) 360 mg HS PO 04/23/16 21:00 05/23/16 20:59 04/24/16 20:25 360 MG Azithromycin (Zithromax Tab) 250 mg QAM PO 04/24/16 09:00 04/27/16 09:01 04/25/16 08:57 250 MG Lorazepam (Ativan Tab) 0.5 mg Q6H PRN PO 04/23/16 19:00 05/23/16 18:59 Insulin Glargine (Lantus Solostar Pen) 20 unit BID SC 04/24/16 09:00 05/24/16 08:59 04/25/16 09:05 20 UNIT Levalbuterol (Xopenex 1.25MG/ 0.5ML Neb) 1.25 mg Q2H PRN INH 04/24/16 15:00 05/24/16 14:59 04/24/16 22:45 1.25 MG Ipratropium [place] (Atrovent 0.02% 0.5MG/2.5ML Neb) 0.5 mg Q6R INH 04/24/16 21:00 05/24/16 20:59 04/25/16 02:08 0.5 MG Levalbuterol (Xopenex 1.25MG/ 0.5ML Neb) 1.25 mg Q6R INH 04/24/16 21:00 05/24/16 20:59 04/25/16 02:08 1.25 MG Rivaroxaban (Xarelto Tab) 20 mg QDD PO 04/25/16 16:45 05/25/16 16:44 Prednisone (PredniSONE TAB) 30 mg DAILY PO 04/25/16 09:00 05/25/16 08:59 04/25/16 10:27 30 MG Metformin HCl (Glucophage Tab) 1,000 mg BIDM PO 04/25/16 16:45 05/25/16 16:44 Menthol (Nice Lissa) 1 lissa Q1H PRN PO 04/25/16 12:00 05/25/16 11:59 Hydrocodone Bit/ Homatropine Methylb (Hycodan Syrup) 5 ml Q6H PRN PO 04/25/16 12:00 05/09/16 11:59 Objective Vital Signs Date Time Temp Pulse Resp B/P Pulse Ox O2 Delivery O2 Flow Rate FiO2 04/25/16 16:00 Nasal Cannula 4.0 04/25/16 15:43 36.7 77 20 154/80 95 Nasal Cannula 4.0 04/25/16 12:00 Nasal Cannula 4.0 04/25/16 11:29 36.8 73 18 153/83 97 Nasal Cannula 4.0 Humidified Oxygen 04/25/16 09:17 87 22 184/83 92 Nasal Cannula 4.0 04/25/16 08:00 Nasal Cannula 4.0 04/25/16 07:25 78 18 96 Nasal Cannula 3.0 04/25/16 04:23 36.5 75 22 163/72 92 BiPAP 4.0 04/25/16 04:00 92 BiPAP 04/25/16 02:09 78 96 4.0 04/25/16 02:08 78 18 96 BiPAP/CPAP 4.0 04/25/16 00:01 94 BiPAP 04/24/16 23:43 36.4 77 21 142/76 94 BiPAP 4.0 04/24/16 22:54 80 98 4.0 04/24/16 22:45 81 18 96 Nasal Cannula 4.0 04/24/16 20:00 98 Nasal Cannula 4.0 Humidified Oxygen 04/24/16 19:13 36.3 78 20 133/73 98 Nasal Cannula 4.0 Humidified Oxygen 04/24/16 18:57 82 18 96 Nasal Cannula 4.0 Physical Exam General Appearance: WD/WN, no apparent distress, + obese Eyes: normal inspection, EOMI ENT: hearing grossly normal Neck: supple, no adenopathy, no JVD Respiratory/Chest: no respiratory distress, + pertinent finding (expiratory wheezing; no focal crackles; difficulty taking deep breath so auscutation difficult) Cardiovascular: regular rate, rhythm, no gallop, no murmur Abdomen: normal bowel sounds, non tender, soft Extremities: non-tender, no pedal edema Neurologic/Psychiatric: alert, normal mood/affect, oriented x 3 Skin: normal color, warm/dry, no rash Lymphatic: no adenopathy Laboratory Results Last 24 Hours Test 04/24/16 20:10 04/25/16 01:56 04/25/16 06:21 04/25/16 06:22 Bedside Glucose 166 mg/dl 131 mg/dl 140 mg/dl White Blood Count 16.56 K/uL Red Blood Count 3.39 M/uL Hemoglobin 10.1 g/dL Hematocrit 30.5 % Mean Corpuscular Volume 90.0 fL Mean Corpuscular Hemoglobin 29.8 pg Mean Corpuscular Hemoglobin Concent 33.1 g/dl Platelet Count 278 K/uL Mean Platelet Volume 10.0 fL Neutrophils (%) (Auto) 65.2 % Lymphocytes (%) (Auto) 27.1 % Monocytes (%) (Auto) 7.1 % Eosinophils (%) (Auto) 0.0 % Basophils (%) (Auto) 0.1 % Neutrophils # (Auto) 10.81 K/uL Lymphocytes # (Auto) 4.48 K/uL Monocytes # (Auto) 1.17 K/uL Eosinophils # (Auto) 0.00 K/uL Basophils # (Auto) 0.02 K/uL RDW Standard Deviation 45.6 fL RDW Coefficient of Variation 13.8 % Immature Granulocyte % (Auto) 0.5 % Immature Granulocyte # (Auto) 0.08 K/uL Sodium Level 140 mmol/L Potassium Level 2.9 mmol/L Chloride Level 98 mmol/L Carbon Dioxide Level 32 mmol/L Anion Gap 10.0 mmol/L Blood Urea Nitrogen 47 mg/dl Creatinine 1.10 mg/dl Est Creatinine Clear Calc Drug Dose 70.3 ml/min Estimated GFR () 62.8 Estimated GFR (Non- 54.1 BUN/Creatinine Ratio 42.4 Random Glucose 137 mg/dl Estimated Average Glucose 154 mg/dl Hemoglobin A1c 7.0 % Calcium Level 9.1 mg/dl Test 04/25/16 11:27 04/25/16 14:19 Bedside Glucose 203 mg/dl Sodium Level 137 mmol/L Potassium Level 4.8 mmol/L Chloride Level 97 mmol/L Carbon Dioxide Level 30 mmol/L Anion Gap 10.0 mmol/L Blood Urea Nitrogen 50 mg/dl Creatinine 1.20 mg/dl Est Creatinine Clear Calc Drug Dose 64.5 ml/min Estimated GFR () 56.5 Estimated GFR (Non- 48.7 BUN/Creatinine Ratio 41.7 Random Glucose 199 mg/dl Calcium Level 9.2 mg/dl Assessment and Plan 60 yo female with acute COPD exacerbation with concurrent asthma. Continues to have dry hacking cough at this time. Throat feels very irritated. Currently maintains new daytime oxygen dependency, we continue to attempt to wean down. Acute exacerbation of ACOS (Asthma COPD overlap syndrome) - Patient noted to have multiple exacerbation requiring emergency visits - Patient on PO taper of Solu-Medrol: starts 30 mg today and tomorrow, then 20 mg x 2 days, then 10 mg x 2 days, then stop - Continue Xopenex and Atrovent Nebs - Continue Formoterol and Pulmicort nebulizers - Incentive spirometry encouraged Acute Hacking Cough - Pertussis PCR pending - Patient Robitussin without relief - Have started Hycodan - Started sugar-free cough drops Anxiety - Cyclical anxiety that occurs with SOB, worsens SOB further - Ativan was on HS; will make q6h pRN; will continue to monitor concurrent use of Paxil Chronic diastolic CHF - Continue Lasix 40 mg BID - Continue Metolazone M, W, F - Daily standing weights I/Os Cumulative fluid balance is negative 1.6 L; continue to follow daily Atrial Fibrillation with RVR converted back to NSR - Resolved; patient had 1 second of Afib but otherwise unremarkable - Patient does not palpitations on when coughing, but no apparent events on monitor - Cardizem dose increased to 360 HS - Further cardiology recommendations appreciated for long-term management - At this time, rhythm has been stable on telemetry and we will transfer to med/ surg to continue care - Patient to be started on Xarelto due to high risk of DVT/PE; will provide added stroke prophylaxis for Atrial fibrillation SPARKLE on CKD Stage III - Cr 1.1 today, continues to improve, patient at baseline - Will continue to monitor daily BMP Type II Diabetes Mellitus - Pharmacy consult appreciated - Continue Lantus 20 BID; sliding scale paramters: Goal 100-140; CF 15; Carb ratio 5 - Discussed with pharmacist today. Historically, pharmacy has noted good Metformin sensitivity. Given improvement in Cr we can re-start her today - Continue steroid taper to reduce post-prandial insulin requirements Obstructive Sleep Apnea - Continue Nighttime BiPAP Hypothyroidism - Continue levothyroxine Hypokalemia - K 2.9 today; no events on monitor noted - Continues 20 K supplements PO BID - Given additoinal 40 mEq of KCl IV today - Repeat PM potassium improved to 4.8 - Will repeat tomorrow Depression - Continue Paroxetine DVT prophylaxis - Started on Xarelto Code - Level I Code Disposition - Will transfer today to med/surg - PT/OT ordered Continued [facility] stay due to: other (continues to have difficulty breathing) Discharge planning: uncertain Reviewed: Pt Seen/Exam by Me History breathing better Constitutional: denies: fever Respiratory: positive: cough, negative: short of breath Cardiovascular: denies chest pain Gastrointestinal/Abdominal: negative: abdominal pain General Appearance: no apparent distress Respiratory: no respiratory distress, wheezing (anterior lung field) Cardiovascular: regular rate, rhythm Neurologic/Psychiatric: alert, oriented x 3 Assessment/Plan I have reviewed the medical record and performed a history and physical examination of this patient today. I have discussed the case with Dr. Dow. The above note reflects my findings, conclusions, and recommendations.
[2016-04-25] MEDS ORDERED: RIVAROXABAN 10 MG TAB PO SCH (16:45)
[2016-04-25] MEDS: METFORMIN HCL 500 MG TAB PO SCH (17:24)
[2016-04-25 20:40] LABS: BORDETELLA PERTUSSIS SOURCE Swab
[2016-04-25] MEDS: HYDROCODONE/HOMATROPINE SYRUP 5MG/1.5MG 5ML UDP PO PRN (20:51)
[2016-04-25] MEDS: DILTIAZEM HCL 120 MG EXT REL CAP PO SCH (20:54)
[2016-04-25] MEDS: ATORVASTATIN 20 MG TAB PO SCH (20:54)
[2016-04-25] MEDS: GABAPENTIN 300 MG CAP PO SCH (20:54)
[2016-04-26] VITALS (9 sets, daily range): BP systolic 114–159; BP diastolic 68–89; PULSE 74–84; TEMP 36–36.9; O2SAT 93–98
[2016-04-26] MEDS: IPRATROPIUM BROMIDE NEB SOLN 0.02% 2.5 ML VIAL INH SCH ×3 (01:52→14:05)
[2016-04-26] MEDS: LEVALBUTEROL 1.25MG/0.5ML NEB INH SCH ×3 (01:52→14:05)
[2016-04-26 05:50] LABS: HEMATOCRIT 31.7 % (37-47); MEAN CELL VOLUME 89.3 fL (80-100); MEAN CORPUSCULAR HEMOGLOBIN 29.6 pg (25-34); MEAN CORPUSCULAR HGB CONC 33.1 g/dl (32-36); MEAN PLATELET VOLUME 10.1 fL (7.4-10.4); PLATELET COUNT 281 K/uL (130-400); RED BLOOD COUNT 3.55 M/uL (4.2-5.4); WHITE BLOOD COUNT 15.57 K/uL (4.8-10.8)
[2016-04-26 06:20] LABS: BUN/CREATININE RATIO 40.2 (10-20); CALCIUM 8.9 mg/dl (8.5-10.1); CREATININE 1.1 mg/dl (0.60-1.20); POTASSIUM 3.1 mmol/L (3.5-5.1)
[2016-04-26] MEDS: LEVOTHYROXINE 50 MCG TAB PO SCH (06:26)
[2016-04-26 06:34] LABS: BASO % 0.2 %; BASO ABS # 0.03 K/uL (0-0.2); COMPLETE YES; EOS % 0.3 %; IG% 0.9 %; LYMPH % 32.9 %; LYMPH ABS # 5.13 K/uL (1.2-3.4); MONO % 7.5 %; NEUT % 58.2 %
[2016-04-26] MEDS ORDERED: HydrALAZINE HCL 20 MG/ML VIAL IV. ONE (07:16)
[2016-04-26] MEDS: BUDESONIDE 0.5 MG/2 ML VIAL (PULMICORT) INH SCH (07:17)
[2016-04-26] MEDS: FORMOTEROL FUMA NEBULIZER SOLN 20 MCG/2 ML VIAL INH SCH (07:17)
[2016-04-26] MEDS ORDERED: HydrALAZINE HCL 20 MG/ML VIAL IV. PRN (07:30)
[2016-04-26] MEDS: MAGNESIUM SULFATE 1GM / D5W 1 GM in PREMIXED IN D5W 100 ML IV SCH ×2 (08:55→10:38)
[2016-04-26] MEDS: HYDROCODONE/HOMATROPINE SYRUP 5MG/1.5MG 5ML UDP PO PRN (08:56)
[2016-04-26] MEDS: LOSARTAN POTASSIUM 50 MG TAB PO SCH (08:57)
[2016-04-26] MEDS: ASPIRIN 81 MG ECTAB PO SCH (08:57)
[2016-04-26] MEDS: ALLOPURINOL 100 MG TAB PO SCH (08:57)
[2016-04-26] MEDS: AZITHROMYCIN 250 MG TAB PO SCH (08:59)
[2016-04-26] MEDS: GUAIFENESIN 600 MG TABCR PO SCH (08:59)
[2016-04-26] MEDS: PAROXETINE 20 MG TAB PO SCH (08:59)
[2016-04-26] MEDS ORDERED: POTASSIUM CHLORIDE 10 MEQ TABCR PO SCH (09:00)
[2016-04-26] MEDS: METFORMIN HCL 500 MG TAB PO SCH ×2 (09:00→16:49)
[2016-04-26] MEDS: INSULIN ASPART 100 UNITS/ML 3 ML PEN SC SCH ×2 (09:08→12:09)
[2016-04-26] MEDS: INSULIN GLARGINE SOLOSTAR 100 UNITS/ML 3 ML PEN SC SCH (09:09)
[2016-04-26] MEDS: FUROSEMIDE 40 MG TAB PO SCH ×2 (09:13→16:49)
--- NOTE | 2016-04-26 09:20 | CARDIOLOGY PROGRESS NOTE ---
DATE: 04/26/2016 TIME: 8:56 a.m. SUBJECTIVE: Mrs. Torres feels as though her breathing is stable compared to yesterday, but overall improved throughout her hospital stay. She is still coughing and does have chest discomfort when coughing along the left sternal border. She also had some nausea with coughing. She denies syncope, near syncope or recurrent palpitations. She believes that her swelling is stable. No bleeding, other than some epistaxis related to her nasal cannula. OBJECTIVE: VITAL SIGNS: Temperature 36.7 degrees, heart rate 74 beats per minute, respiration rate 18, blood pressure 114/71 mmHg, oxygen saturation 97% on room air according to the chart. Other recent charting suggested 97% on 3 liters nasal cannula. I's and O's negative 1.9 liters yesterday, negative 1.4 liters so far today. Today's weight is pending. GENERAL: No acute distress. She is alert. NECK: Thick, but no appreciable JVD sitting upright. CARDIAC EXAMINATION: No ventricular heave, regular, normal S1, S2, no audible murmurs, rubs or gallops. LUNGS: Expiratory wheezing bilateral lung jorge. ABDOMEN: Obese, soft, nontender, nondistended. Normoactive bowel sounds. EXTREMITIES: Trace bilateral lower extremity edema. No cyanosis. PSYCHIATRIC: Affect appears appropriate. CHEST: Tender to palpation along the left sternal border reproducing her chest discomfort as described above. MEDICATIONS: Include aspirin 81 mg daily, Lipitor 20 mg at bedtime, azithromycin 250 mg daily, diltiazem 360 mg p.o. at bedtime, Lasix 40 mg p.o. b.i.d., metolazone 2.5 mg every Saturday, Saturday, Saturday, Metformin 1000 mg p.o. b.i.d., losartan 50 mg daily, inhalers, potassium chloride 20 mEq p.o. b.i.d., prednisone 30 mg daily, Xarelto 20 mg daily. LABORATORIES: White blood cell count is 15.57, hemoglobin 10.5, platelets 281. Sodium 140, potassium 3.1, BUN 44, creatinine 1.1. Chart reviewed. ASSESSMENT AND PLAN: 1. Paroxysmal atrial fibrillation with rapid ventricular response: For now, rate control strategy is being implemented. Diltiazem has been increased from her home dose to a total dose of 360 mg daily. Ideally would like to use beta blockers in place of calcium channel blockers, but she does have an asthma component and is actively wheezing and therefore, no beta blockers at this time. 2. We also have discussed rhythm control strategy if she has recurrent episodes. She also had profound hypokalemia upon presentation. Continue anticoagulation for stroke risk reduction. 3. Chronic diastolic congestive heart failure: She is diuresing nicely and therefore, would continue her current outpatient regimen. Low sodium diet. Daily weights. Strict I's and O's. Renal function remains stable despite significant diuresis over the past few days. 4. Hypokalemia: Potassium supplementation will be increased today to 40 mEq twice daily. She remains hypokalemic on 20 mEq twice daily. Could also consider spironolactone if necessary in the future. 5. Hypertension: Blood pressure this morning better, but has been hypertensive at times. Can increase losartan to 100 mg daily if necessary. Blood pressure may continue to improve as well. Would continue diuresis. 6. Asthma/chronic obstructive pulmonary disease: This is being addressed and treated by Pulmonology and primary service. 7. Chest pain: Her chest pain is atypical and appears to be musculoskeletal. It is not consistent with ischemic heart disease. She has no coronary artery disease on recent cardiac catheterization and her chest pain occurs with palpation and coughing. No further cardiac evaluation necessary for this at this time. 8. Disposition: Cardiology will continue to follow.
--- NOTE | 2016-04-26 09:41 | Pulmonology Progress Note ---
Pulmonary Progress Note Date of Service Apr 26, 2016. Attending Dr. Jp Rubi Subjective Patient doing well this morning and notes she is close to her baseline pulmonary status. Objective Were able to have a long conversation is a patient was sitting at side of her bed holding herself up with no signs of excessive work of breathing. No A-fib events Vital signs: reviewed Respiratory: No accessory muscles use, minimal wheezing on expiration Cardiac: S1-S2 distant heart sounds regular rhythm/rate Extremities: 2+ pitting edema bilateral lower Assessment & Plan 60-year-old female with RACHELLE/OHPV, diastolic dysfunction, respiratory insufficiency, pharyngitis/bronchitis and new onset atrial fibrillation/ paradoxical: #1 ACOS: Current pulmonary medications: prednisone with a 10 day joseph after d/c Atrovent/Xopenex Nebs Pulmicort Mucinex #2 electrolytes: Hypokalemia mild. We'll replace magnesium and recheck potassium levels later in the day #3 Pulmonary Emboli: multiple risk factors for re-current PE at this time will need to continue Xarelto and f/u with pulmonary and anti-coagulation clinic #4 Pharyngitis/Bronchitis: Patient on day 3 of 5 for Z-Rajiv. Patient has had vocal cord interventions in the past and have notable for 7 months. I believe she is at a baseline level and risk of pertussis as low. Would continue on current treatment would not initiate actual treatment for pertussis at this time. #4 RACHELLE: Patient with a history of obstructive sleep apnea/OHV the we'll continue BiPAP at 12/7 5# A-Fib: Intermittent A. fib events most likely secondary to acute processes has been stable over the last 36 hours by telemetry. Currently followed by cardiology. 6# Discharge: After rechecking potassium levels would suggest discharge 7# pulmonary hypertension: Patient is group 2 and group 3 pulmonary hypertension no medical intervention for PAH should be initiated. Data Medications: Current Inpatient Medications Medications (Trade) Dose Ordered Sig/Jesus Route Start Time Stop Time Status Last Admin Dose Admin Acetaminophen (Tylenol Tab) 650 mg Q4H PRN PO 04/22/16 13:00 05/22/16 12:59 Al Hydrox/Mg Hydrox/Simethicone (Maalox Max Susp) 15 ml Q4H PRN PO 04/22/16 13:00 05/22/16 12:59 Magnesium Hydroxide (Milk Of Magnesia Susp) 30 ml Q12H PRN PO 04/22/16 13:00 05/22/16 12:59 Ondansetron HCl (Zofran Inj) 4 mg Q6H PRN IV 04/22/16 13:00 05/22/16 12:59 04/22/16 17:13 4 MG Guaifenesin (Mucinex Contr Rel Tab) 600 mg Q12 PO 04/22/16 21:00 05/22/16 20:59 04/26/16 08:59 600 MG Allopurinol (Zyloprim Tab) 100 mg QAM PO 04/23/16 09:00 05/23/16 08:59 04/26/16 08:57 100 MG Aspirin (Ecotrin Tab) 81 mg QAM PO 04/23/16 09:00 05/23/16 08:59 04/26/16 08:57 81 MG Atorvastatin Calcium (Lipitor Tab) 20 mg HS PO 04/22/16 21:00 05/22/16 20:59 04/25/16 20:54 20 MG Beclomethasone Dipropionate (Qvar 80 Mcg Hfa Inhaler) 2 puffs BID INH 04/22/16 21:00 05/22/16 20:59 Future Hold 04/23/16 07:43 2 PUFFS Cyclobenzaprine HCl (Flexeril Tab) 10 mg TID PRN PO 04/22/16 13:00 05/22/16 12:59 04/24/16 07:59 10 MG Formoterol Fumarate (Perforomist 20MCG/2ML Neb Soln) 20 mcg BIDR INH 04/22/16 20:00 05/22/16 19:59 04/26/16 07:17 20 MCG Furosemide (Lasix tab) 40 mg BID17 PO 04/22/16 17:00 05/22/16 16:59 04/26/16 09:13 40 MG Gabapentin (Neurontin Cap) 300 mg HS PO 04/22/16 21:00 05/22/16 20:59 04/25/16 20:54 300 MG Levothyroxine Sodium (Synthroid Tab) 50 mcg DAILYBB PO 04/23/16 06:00 05/23/16 05:59 04/26/16 06:26 50 MCG Losartan Potassium (coZAAR TAB) 50 mg QAM PO 04/23/16 09:00 05/23/16 08:59 04/26/16 08:57 50 MG Metolazone (Zaroxolyn Tab) 2.5 mg MoWeFr@0830 PO 04/23/16 08:30 05/23/16 08:29 04/25/16 09:00 2.5 MG Paroxetine HCl (pAXil TAB) 40 mg QAM PO 04/23/16 09:00 05/23/16 08:59 04/26/16 08:59 40 MG Insulin Aspart (novoLOG ASPART) SLIDING SCALE If C... ACHS SC 04/22/16 16:15 05/22/16 16:14 04/26/16 09:08 13 UNITS Glucose (Glucose 40% Gel) 15-30 GRAMS 15 GRAMS... UD PRN PO 04/22/16 13:45 05/22/16 13:44 Glucose (Glucose Chew Tab) 4-8 Tablets 4 Tabl... UD PRN PO 04/22/16 13:45 05/22/16 13:44 Dextrose (Dextrose 50% 50ML Syringe) 25-50ML OF 50% DW IV FOR... UD PRN IV 04/22/16 13:45 05/22/16 13:44 Glucagon (Glucagon Inj) 1 mg UD PRN SQ 04/22/16 13:45 05/22/16 13:44 Miscellaneous Information (Consult Glycemic Management Pharmacy) 1 ea UD PRN N/A 04/22/16 21:09 05/22/16 21:08 Budesonide (Pulmicort Respules 0.5MG/ 2ML Neb Soln) 0.5 mg BIDR INH 04/23/16 20:00 05/23/16 19:59 04/26/16 07:17 0.5 MG Diltiazem HCl (TIAzac CAP) 360 mg HS PO 04/23/16 21:00 05/23/16 20:59 04/25/16 20:54 360 MG Azithromycin (Zithromax Tab) 250 mg QAM PO 04/24/16 09:00 04/27/16 09:01 04/26/16 08:59 250 MG Lorazepam (Ativan Tab) 0.5 mg Q6H PRN PO 04/23/16 19:00 05/23/16 18:59 Insulin Glargine (Lantus Solostar Pen) 20 unit BID SC 04/24/16 09:00 05/24/16 08:59 04/26/16 09:09 20 UNIT Levalbuterol (Xopenex 1.25MG/ 0.5ML Neb) 1.25 mg Q2H PRN INH 04/24/16 15:00 05/24/16 14:59 04/24/16 22:45 1.25 MG Ipratropium [place] (Atrovent 0.02% 0.5MG/2.5ML Neb) 0.5 mg Q6R INH 04/24/16 21:00 05/24/16 20:59 04/26/16 01:52 0.5 MG Levalbuterol (Xopenex 1.25MG/ 0.5ML Neb) 1.25 mg Q6R INH 04/24/16 21:00 05/24/16 20:59 04/26/16 01:52 1.25 MG Rivaroxaban (Xarelto Tab) 20 mg QDD PO 04/25/16 16:45 05/25/16 16:44 04/25/16 17:23 20 MG Prednisone (PredniSONE TAB) 30 mg DAILY PO 04/25/16 09:00 05/25/16 08:59 04/26/16 08:58 30 MG Metformin HCl (Glucophage Tab) 1,000 mg BIDM PO 04/25/16 16:45 05/25/16 16:44 04/26/16 09:00 1,000 MG Menthol (Nice Lissa) 1 lissa Q1H PRN PO 04/25/16 12:00 05/25/16 11:59 Hydrocodone Bit/ Homatropine Methylb (Hycodan Syrup) 5 ml Q6H PRN PO 04/25/16 12:00 05/09/16 11:59 04/26/16 08:56 5 ML Heparin Sodium (Porcine) (Heparin 100 Unit/ml 5ml Flush) 5 ml PRN PRN IV 04/26/16 05:45 05/26/16 05:44 Hydralazine HCl 10 mg 10 mg Q4H PRN IV. 04/26/16 07:30 05/26/16 07:29 Magnesium Sulfate/ Prmx (Magnesium Sulfate/Premixed D5W) 100 ml @ 100 mls/hr Q1H IV 04/26/16 08:30 04/26/16 10:29 04/26/16 08:55 100 MLS/HR Potassium Chloride (Klor-Con M10) 40 meq BID PO 04/26/16 09:00 05/26/16 08:59 I & O: 24-Hour Column 04/26/16 08:00 Intake Total 1262 ml Output Total 3400 ml Balance -2138 ml Vital Signs: Date Time Temp Pulse Resp B/P Pulse Ox O2 Delivery O2 Flow Rate FiO2 04/26/16 07:53 36.7 74 18 114/71 97 Room Air 04/26/16 07:28 Nasal Cannula 2.0 04/26/16 07:10 84 18 97 Nasal Cannula 3.0 04/26/16 01:59 80 18 94 BiPAP/CPAP 4.0 04/26/16 00:20 36.9 75 20 159/89 96 04/26/16 00:00 Nasal Cannula 2.0 04/25/16 22:05 78 97 2.0 04/25/16 20:39 116 18 96 Nasal Cannula 4.0 04/25/16 20:00 Nasal Cannula 4.0 04/25/16 18:34 Nasal Cannula 4.0 04/25/16 18:34 36.5 82 20 173/74 95 4.0 04/25/16 16:00 Nasal Cannula 4.0 04/25/16 15:43 36.7 77 20 154/80 95 Nasal Cannula 4.0 04/25/16 12:00 Nasal Cannula 4.0 04/25/16 11:29 36.8 73 18 153/83 97 Nasal Cannula 4.0 Humidified Oxygen Laboratory Results: Last 24 Hours Test 04/25/16 11:27 04/25/16 14:19 04/25/16 16:13 04/25/16 20:34 Bedside Glucose 203 mg/dl 219 mg/dl 240 mg/dl Sodium Level 137 mmol/L Potassium Level 4.8 mmol/L Chloride Level 97 mmol/L Carbon Dioxide Level 30 mmol/L Anion Gap 10.0 mmol/L Blood Urea Nitrogen 50 mg/dl Creatinine 1.20 mg/dl Est Creatinine Clear Calc Drug Dose 64.5 ml/min Estimated GFR () 56.5 Estimated GFR (Non- 48.7 BUN/Creatinine Ratio 41.7 Random Glucose 199 mg/dl Calcium Level 9.2 mg/dl Test 04/26/16 05:28 04/26/16 07:24 White Blood Count 15.57 K/uL Red Blood Count 3.55 M/uL Hemoglobin 10.5 g/dL Hematocrit 31.7 % Mean Corpuscular Volume 89.3 fL Mean Corpuscular Hemoglobin 29.6 pg Mean Corpuscular Hemoglobin Concent 33.1 g/dl Platelet Count 281 K/uL Mean Platelet Volume 10.1 fL Neutrophils (%) (Auto) 58.2 % Lymphocytes (%) (Auto) 32.9 % Monocytes (%) (Auto) 7.5 % Eosinophils (%) (Auto) 0.3 % Basophils (%) (Auto) 0.2 % Neutrophils # (Auto) 9.06 K/uL Lymphocytes # (Auto) 5.13 K/uL Monocytes # (Auto) 1.16 K/uL Eosinophils # (Auto) 0.05 K/uL Basophils # (Auto) 0.03 K/uL RDW Standard Deviation 45.2 fL RDW Coefficient of Variation 13.7 % Immature Granulocyte % (Auto) 0.9 % Immature Granulocyte # (Auto) 0.14 K/uL Blood Smear Review Red Blood Cell Morphology Unremarkable Sodium Level 140 mmol/L Potassium Level 3.1 mmol/L Chloride Level 97 mmol/L Carbon Dioxide Level 34 mmol/L Anion Gap 9.0 mmol/L Blood Urea Nitrogen 44 mg/dl Creatinine 1.10 mg/dl Est Creatinine Clear Calc Drug Dose 70.3 ml/min Estimated GFR () 62.8 Estimated GFR (Non- 54.1 BUN/Creatinine Ratio 40.2 Random Glucose 117 mg/dl Calcium Level 8.9 mg/dl Bedside Glucose 126 mg/dl
--- NOTE | 2016-04-26 14:11 | Pharmacy Progress Note ---
Glycemic: Assessment & Plan Date of Service Apr 26, 2016. Assessment & Plan The patient received 142 units of insulin on 04/24, 93 unit om 04/26. BSGs ranging 117-257 mg/dl over the past 24hrs. FBS within goal range- will continue same basal insulin. Metformin has been restarted, and prednisone dose decreased. She had 2 bags of Mag sulfate mixed in D5W this morning, and lunch sugar was elevated. Will tighten carb ratio slightly for today, but may need to loosen again as steroid is tapered. * Basal insulin: Lantus 20 units every 12 hours, give 1/2 dose if BSG is less than 100 * Correctional Insulin: Novolog Correction per scale ACHS Goal Range: Low 100 mg/dL - High 140 mg/dL Correction Factor: 15 mg/dL/unit * Prandial insulin: Per carb ratio of 1 unit per 4 grams CHO consumed BSGs continue to improve, no other changes needed to inpatient regimen at this time. Pharmacy will continue to monitor patient daily and write orders per [facility] inpatient glycemic control protocol. Thanks. * Please note that the plan above was derived based on current level of insulin resistance and hospital stress. These recommendations are appropriate for inpatient admission only. Plan of care upon discharge will need to be reassessed to avoid potential outpatient hypo/hyperglycemia.
[2016-04-26] MEDS ORDERED: HYCUDL5 PO (14:53)
[2016-04-26] MEDS ORDERED: TZCSR120 PO (14:53)
[2016-04-26] MEDS ORDERED: PRED10TA PO (14:53)
[2016-04-26] MEDS ORDERED: GFNSR600 PO (14:53)
[2016-04-26] MEDS ORDERED: ZTHM250 PO (14:53)
[2016-04-26] MEDS ORDERED: XRL10 PO (14:53)
--- NOTE | 2016-04-26 15:04 | Discharge Instructions ---
Discharge Instructions Admission Reason for Admission: SOB Discharge Discharge Diagnosis / Problem: Cough, Asthma/COPD overlap syndrome Discharge Goals Goal(s): Decrease discomfort, Improve function, Increase independence, Improve disease control Activity Recommendations Activity Limitations: resume your previous activity Lifting Limitations: gradually increase as tolerated Exercise/Sports Limitations: gradually increase as tolerated May Resume Sexual Activity: when tolerated Shower/Bathe: no limitations Driving or Machine Use: no limitations . Instructions / Follow-Up Instructions / Follow-Up You came to [facility] because of shortness of breath and having a severe sore throat and cough. We checked an x-ray which was fortunately negative. You did need a dose of epinephrine in the ED because of concern that your airway may be closing, but fortunately, this did not happen. Unfortunately, you had atrial fibrillation when you initially arrived but we started an IV drip of Cardizem which corrected this. Our cardiologists followed you in the hospital and have increased your home dose of Cardizem to [address] Villa will see you in the office after you are discharged to discuss further plans regarding this. Regarding your cough, you had a dry cough for 4 days. We treated you with nebulizers. Dr. Rubi followed along and ordered checked you whooping cough so we have started you on antibiotics (Azithromycin) to treat it. Fortunately, it was negative but because you only have 1 more day of treatment after you go home, we recommend you complete the full course. We have also started a short burst of steroids (Prednisone) which you will complete at home. We also started you on a blood thinner called Coumadin because of your history of deep vein thrombosis and pulmonary embolism. Our navigator will coordinate with you how to have regular lab work done so that we can get the right dose for you. Please watch for signs of bleeding and call your primary care physician if you have bleeding that you are unable to stop by regular means including application of pressure. Fortunately, your cough improved with nebulizer treatments. We will also prescribe you a short course of Hycodan to help you get over the hump of the cough. We will also prescribe you On the day of your discharge, your potassium was slightly low so we gave you supplemental potassium and will check the potassium before you leave. We recommend you get a repeat potassium in 1 week to ensure that it is stable. Regarding your diabetes, we will be discharging you on your regular home regimen. However, steroids can make your sugars high, so please keep checking your blood sugars regularly. The dosing of steroids will be tapered quickly so your blood sugars should improve with this. If your symptoms fail to improve, acutely worsen, please seek medical attention immediately by either calling your primary care provider or going to your nearest emergency department. Otherwise, please see your primary care provider in 3-5 days to ensure that your symptoms continue to improve. It was a pleasure to be involved in your care and we wish you all the best. Current Hospital Diet Patient's current hospital diet: AHA Diet (Heart Healthy), Diabetes Type 2 Diet Discharge Diet Recommended Diet: Low Sodium Diet (2gm Na), Diabetes Type 2 Diet Pending Studies Studies pending at discharge: no Laboratory Results Hemoglobin A1c Test 04/25/16 06:21 Range/Units Estimated Average Glucose 154 mg/dl Hemoglobin A1c 7.0 H 4.5-5.6 % Lipid Panel Test 02/24/16 11:00 Range/Units Triglycerides Level 120 0-150 mg/dl Cholesterol Level 101 0-200 mg/dl HDL Cholesterol 45 mg/dl Cholesterol/HDL Ratio 2.2 LDL Cholesterol, Calculated 32 mg/dl Medical Emergencies . Who to Call and When: Medical Emergencies: If at any time you feel your situation is an emergency, please call 911 immediately. . Non-Emergent Contact Non-Emergency issues call your: Primary Care Provider Call Non-Emergent contact if: temperature is above 101 . . "Provider Documentation" section prepared by Jaya Dow. VTE Core Measure Inpt VTE Proph given/why not?: Other Anticoagulation (Xarelto)
--- NOTE | 2016-04-26 15:32 | Medical Student: [facility] ---
Med Student Progress Note Date of Service Apr 26, 2016. Subjective Pt evaluation today including: conversation w/ patient, physical exam, chart review, lab review, review of studies [facility] Pt is a 60 year old female with a history of diastolic CHF with EF 60-65% on echocardiogram, COPD, PE with IVC filter in place, and DM Type II who is admitted for dyspnea and cough. Pt reports that she has had continued dry cough and dyspnea throughout last night, but it is much improved. She has had some chest pain, abdominal pain, and nausea secondary to coughing. She feels that the Hycodan cough syrup has helped with her cough. She denied palpitations. She also c/o orthopnea, which she has chronically, requiring her to sleep in her Lazy Boy at home most nights. She has had mild leg swelling, which she has had at baseline. Home Medications Scheduled Allopurinol (Zyloprim), 100 MG PO QAM Aspirin (Aspirin EC Low Dose), 81 MG PO QAM Atorvastatin (Lipitor), 20 MG PO HS Beclomethasone Dipropionate (Qvar), 2 PUFFS INH BID Calcium Carbonate-Vitamin D ([place] 500+D), 2 TAB PO QAM Diltiazem Hcl Coated Beads (Cardizem La), 2 CAP PO QPM Ergocalciferol (Vitamin D Cap), 50,000 INTER.UNIT PO WK Formoterol Fumarate (Perforomist), 20 MCG INH BIDR Furosemide (Lasix), 40 MG PO BID Gabapentin (Gabapentin), 300 MG PO HS Levothyroxine Sodium (Levothyroxine Sodium), 1 TAB PO QAM Losartan Potassium (Losartan Potassium), 50 MG PO QAM Metformin Hcl (Glucophage), 2 TAB PO BID Metolazone (Zaroxolyn), 2.5 MG PO 3XWK Mometasone Furoate (Nasonex), 1 SPRAY NA QAM Paroxetine (Paxil), 40 MG PO QAM Potassium Chloride (Micro-K Ext Rel), 20 MEQ PO BID [Gentamicin Saline], 2 SPRAY GEOFF TID Scheduled PRN Cyclobenzaprine Hcl (Flexeril), 1 TAB PO TID PRN for Muscle Spasms Ipratropium-Albuterol (Duoneb), 1 TREATMENT INH Q4H PRN for Shortness of Breath Lorazepam (Lorazepam), 0.5 MG PO HS PRN for Anxiety Miscellaneous Medications Glucose Blood (YOGITECH Contour Blood Gluco) Review of Systems Constitutional: + see HPI Respiratory: + see HPI Cardiac: + See HPI. . Abdomen: No vomiting. See HPI. All Other Systems: Reviewed and Negative Objective Vital Signs Date Time Temp Pulse Resp B/P Pulse Ox O2 Delivery O2 Flow Rate FiO2 04/26/16 14:05 80 18 98 Room Air 04/26/16 12:50 81 93 Room Air 04/26/16 11:00 93 1.0 04/26/16 07:53 36.7 74 18 114/71 97 Room Air 04/26/16 07:28 Nasal Cannula 2.0 04/26/16 07:10 84 18 97 Nasal Cannula 3.0 04/26/16 01:59 80 18 94 BiPAP/CPAP 4.0 04/26/16 00:20 36.9 75 20 159/89 96 04/26/16 00:00 Nasal Cannula 2.0 04/25/16 22:05 78 97 2.0 04/25/16 20:39 116 18 96 Nasal Cannula 4.0 04/25/16 20:00 Nasal Cannula 4.0 04/25/16 18:34 Nasal Cannula 4.0 04/25/16 18:34 36.5 82 20 173/74 95 4.0 04/25/16 16:00 Nasal Cannula 4.0 04/25/16 15:43 36.7 77 20 154/80 95 Nasal Cannula 4.0 Physical Exam General Appearance: WD/WN, no apparent distress, + pertinent finding (Pt is sitting up in bed speaking in full sentences. ) Eyes: bilateral eyes EOMI, bilateral eyes PERRL ENT: hearing grossly normal, pharynx normal Neck: no JVD, no carotid bruits, trachea midline Respiratory/Chest: no respiratory distress, no accessory muscle use, + pertinent finding (Tenderness to palpation over the sternum and L chest. Good air movement. Expiratory wheezes and prolonged expiratory phase. Scant bibasilar rales. ) Cardiovascular: regular rate, rhythm, no gallop, no JVD, no murmur, + pertinent finding (Trace edema BLE. ) Abdomen: normal bowel sounds, non tender, soft Extremities: no calf tenderness, normal capillary refill, + pedal edema (Trace in BLE) Neurologic/Psychiatric: temperature control inspector II-XII nml as tested, no motor/sensory deficits, alert, normal mood/affect, oriented x 3 Skin: normal color, warm/dry, no rash Laboratory Results Last 24 Hours Test 04/25/16 16:13 04/25/16 20:34 04/26/16 05:28 04/26/16 07:24 Bedside Glucose 219 mg/dl 240 mg/dl 126 mg/dl White Blood Count 15.57 K/uL Red Blood Count 3.55 M/uL Hemoglobin 10.5 g/dL Hematocrit 31.7 % Mean Corpuscular Volume 89.3 fL Mean Corpuscular Hemoglobin 29.6 pg Mean Corpuscular Hemoglobin Concent 33.1 g/dl Platelet Count 281 K/uL Mean Platelet Volume 10.1 fL Neutrophils (%) (Auto) 58.2 % Lymphocytes (%) (Auto) 32.9 % Monocytes (%) (Auto) 7.5 % Eosinophils (%) (Auto) 0.3 % Basophils (%) (Auto) 0.2 % Neutrophils # (Auto) 9.06 K/uL Lymphocytes # (Auto) 5.13 K/uL Monocytes # (Auto) 1.16 K/uL Eosinophils # (Auto) 0.05 K/uL Basophils # (Auto) 0.03 K/uL RDW Standard Deviation 45.2 fL RDW Coefficient of Variation 13.7 % Immature Granulocyte % (Auto) 0.9 % Immature Granulocyte # (Auto) 0.14 K/uL Blood Smear Review Red Blood Cell Morphology Unremarkable Sodium Level 140 mmol/L Potassium Level 3.1 mmol/L Chloride Level 97 mmol/L Carbon Dioxide Level 34 mmol/L Anion Gap 9.0 mmol/L Blood Urea Nitrogen 44 mg/dl Creatinine 1.10 mg/dl Est Creatinine Clear Calc Drug Dose 70.3 ml/min Estimated GFR () 62.8 Estimated GFR (Non- 54.1 BUN/Creatinine Ratio 40.2 Random Glucose 117 mg/dl Calcium Level 8.9 mg/dl Magnesium Level 2.1 mg/dl Test 04/26/16 11:31 04/26/16 14:45 Bedside Glucose 257 mg/dl Medications Medications Administered Medications (Trade) Dose Ordered Sig/Jesus Route Start Time Stop Time Status Last Admin Dose Admin Albuterol/ Ipratropium (Duoneb) 12 ml ONE ONCE INH 04/22/16 10:00 04/22/16 10:04 DC 04/22/16 10:15 12 ML Albuterol/ Ipratropium 12 ml 12 ml ONE ONCE INH 04/22/16 11:45 04/22/16 11:46 DC 04/22/16 11:54 12 ML Sodium Chloride 1,000 ml @ 150 mls/hr Q6H40M STAT IV 04/22/16 11:40 04/22/16 15:38 DC 04/22/16 11:40 150 MLS/HR Potassium Chloride 20 meq/ Prmx 100 ml @ 50 mls/hr TODAY@1215 ONCE IV 04/22/16 12:15 04/22/16 14:14 DC 04/22/16 12:29 50 MLS/HR Methylprednisolone Sodium Succinate/ Syringe (Solu-Medrol IV/ Syringe) 1.28 ml @ 1.5 mls/min TODAY@1215 ONCE IV 04/22/16 12:15 04/22/16 12:16 DC 04/22/16 12:29 1.5 MLS/MIN Heparin Sodium (Porcine) (Heparin Sq 5000 Unit/0.5ml) 5,000 unit Q8 SQ 04/22/16 22:00 04/26/16 08:14 DC 04/24/16 14:37 5,000 UNIT Ondansetron HCl (Zofran Inj) 4 mg Q6H PRN IV 04/22/16 13:00 05/22/16 12:59 04/22/16 17:13 4 MG Guaifenesin 600 mg 600 mg Q12 PO 04/22/16 21:00 05/22/16 20:59 04/26/16 08:59 600 MG Methylprednisolone Sodium Succinate/ Syringe (Solu-Medrol IV/ Syringe) 0.96 ml @ 1.5 mls/min Q8@0400,1200,2000 IV 04/22/16 20:00 04/23/16 19:59 DC 04/23/16 12:42 1.5 MLS/MIN Allopurinol (Zyloprim Tab) 100 mg QAM PO 04/23/16 09:00 05/23/16 08:59 04/26/16 08:57 100 MG Aspirin (Ecotrin Tab) 81 mg QAM PO 04/23/16 09:00 05/23/16 08:59 1/12/17 08:57 81 MG Atorvastatin Calcium (Lipitor Tab) 20 mg HS PO 04/22/16 21:00 05/22/16 20:59 04/25/16 20:54 20 MG Beclomethasone Dipropionate (Qvar 80 Mcg Hfa Inhaler) 2 puffs BID INH 04/22/16 21:00 05/22/16 20:59 Future Hold 04/23/16 07:43 2 PUFFS Cyclobenzaprine HCl (Flexeril Tab) 10 mg TID PRN PO 04/22/16 13:00 05/22/16 12:59 04/24/16 07:59 10 MG Formoterol Fumarate (Perforomist 20MCG/2ML Neb Soln) 20 mcg BIDR INH 04/22/16 20:00 05/22/16 19:59 04/26/16 07:17 20 MCG Furosemide (Lasix tab) 40 mg BID17 PO 04/22/16 17:00 05/22/16 16:59 04/26/16 09:13 40 MG Gabapentin (Neurontin Cap) 300 mg HS PO 04/22/16 21:00 05/22/16 20:59 04/25/16 20:54 300 MG Levothyroxine Sodium (Synthroid Tab) 50 mcg DAILYBB PO 04/23/16 06:00 05/23/16 05:59 04/26/16 06:26 50 MCG Lorazepam (Ativan Tab) 0.5 mg HS PRN PO 04/22/16 13:00 04/23/16 18:40 DC 04/23/16 16:12 0.5 MG Losartan Potassium (coZAAR TAB) 50 mg QAM PO 04/23/16 09:00 05/23/16 08:59 04/26/16 08:57 50 MG Metolazone (Zaroxolyn Tab) 2.5 mg MoWeFr@0830 PO 04/23/16 08:30 05/23/16 08:29 04/25/16 09:00 2.5 MG Paroxetine HCl (pAXil TAB) 40 mg QAM PO 04/23/16 09:00 05/23/16 08:59 04/26/16 08:59 40 MG Potassium Chloride (Klor-Con M10) 20 meq BID PO 04/22/16 21:00 04/26/16 08:56 DC 04/25/16 20:54 20 MEQ Insulin Aspart (novoLOG ASPART) SLIDING SCALE If C... ACHS SC 04/22/16 16:15 05/22/16 16:14 04/26/16 12:09 20 UNITS Racepinephrine (Raccemic Epinephrine 2.25% 0.5ML Neb) 0.5 ml NOW STAT INH 04/22/16 13:38 04/22/16 13:40 DC 04/22/16 13:48 0.5 ML Diltiazem HCl 20 mg 20 mg TODAY@1415 IV 04/22/16 14:15 04/22/16 14:16 DC 04/22/16 14:30 20 MG Diltiazem HCl/ Dextrose (Cardizem Inj/D5 100ml) 125 ml @ 5 mls/hr Q24H PRN IV 04/22/16 14:15 04/23/16 21:00 DC 04/23/16 08:22 5 MLS/HR Potassium Chloride (Klor-Con M10) 40 meq STK-MED ONCE .ROUTE 04/22/16 15:04 04/22/16 15:05 DC 04/22/16 15:07 40 MEQ Insulin Glargine (Lantus Solostar Pen) 10 unit NOW ONCE SC 04/22/16 17:00 04/22/16 17:01 DC 04/22/16 16:39 10 UNIT Insulin Aspart (novoLOG ASPART) 10 units NOW ONCE SC 04/22/16 17:00 04/22/16 17:01 DC 04/22/16 16:36 10 UNITS Insulin Glargine (Lantus Solostar Pen) 15 unit NOW ONCE SC 04/22/16 21:15 04/22/16 21:16 DC 04/22/16 21:32 15 UNIT Insulin Aspart (novoLOG ASPART) SLIDING SCALE TODAY@0000,0400 SC 04/23/16 00:00 04/23/16 04:01 DC 04/23/16 04:34 11 UNITS Insulin Glargine (Lantus Solostar Pen) 15 unit BID SC 04/23/16 09:00 04/24/16 07:50 DC 04/23/16 20:17 15 UNIT Budesonide (Pulmicort Respules 0.5MG/ 2ML Neb Soln) 0.5 mg BIDR INH 04/23/16 20:00 05/23/16 19:59 04/26/16 07:17 0.5 MG Guaifenesin 600 mg 600 mg 1120 ONCE PO 04/23/16 11:20 04/23/16 11:53 DC 04/23/16 12:42 600 MG Potassium Chloride/Prmx (Kcl 20 Meq / Wtr/Premixed Water) 100 ml @ 50 mls/hr NOW STAT IV 04/23/16 11:53 04/23/16 13:52 DC 04/23/16 12:42 50 MLS/HR Diltiazem HCl (TIAzac CAP) 360 mg HS PO 04/23/16 21:00 05/23/16 20:59 04/25/16 20:54 360 MG Miscellaneous (Stop Order) 1 ea ONE ONCE N/A 04/23/16 21:00 04/23/16 21:01 DC 04/23/16 19:56 1 EA Insulin Aspart (novoLOG ASPART) SLIDING SCALE If C... 0200 SC 04/24/16 02:00 04/24/16 02:01 DC 04/24/16 02:48 14 UNITS Prednisone (PredniSONE TAB) 40 mg DAILY PO 04/24/16 09:00 04/25/16 08:41 DC 04/24/16 07:59 40 MG Azithromycin (Zithromax Tab) 500 mg NOW ONCE PO 04/23/16 18:00 04/23/16 18:01 DC 04/23/16 19:33 500 MG Azithromycin (Zithromax Tab) 250 mg QAM PO 04/24/16 09:00 04/27/16 09:01 04/26/16 08:59 250 MG Codeine Phosphate/ Guaifenesin (Robitussin-AC Sugar Free Syrup) 5 ml Q6H PRN PO 04/23/16 18:30 04/25/16 12:03 DC 04/24/16 20:33 5 ML Albuterol/ Ipratropium (Duoneb) 3 ml QIDR INH 04/23/16 20:00 04/24/16 14:04 DC 04/24/16 11:18 3 ML Insulin Glargine 20 unit 20 unit BID SC 04/24/16 09:00 04/26/16 13:53 DC 04/26/16 09:09 20 UNIT Potassium Chloride/Prmx (Kcl 20 Meq / Wtr/Premixed Water) 100 ml @ 50 mls/hr TODAY@1000 IV 04/24/16 10:00 04/24/16 11:59 DC 04/24/16 10:18 50 MLS/HR Levalbuterol (Xopenex 1.25MG/ 0.5ML Neb) 1.25 mg Q2H PRN INH 04/24/16 15:00 05/24/16 14:59 04/24/16 22:45 1.25 MG Ipratropium [place] (Atrovent 0.02% 0.5MG/2.5ML Neb) 0.5 mg Q6R INH 04/24/16 21:00 05/24/16 20:59 04/26/16 14:05 0.5 MG Levalbuterol (Xopenex 1.25MG/ 0.5ML Neb) 1.25 mg Q6R INH 04/24/16 21:00 05/24/16 20:59 04/26/16 14:05 1.25 MG Rivaroxaban (Xarelto Tab) 20 mg QDD PO 04/25/16 16:45 05/25/16 16:44 04/25/16 17:23 20 MG Rivaroxaban (Xarelto Tab) 20 mg 1831 ONCE PO 04/24/16 18:31 04/24/16 18:37 DC 04/24/16 19:26 20 MG Prednisone 30 mg 30 mg DAILY PO 04/25/16 09:00 05/25/16 08:59 04/26/16 08:58 30 MG Potassium Chloride/Prmx (Kcl 20 Meq / Wtr/Premixed Water) 100 ml @ 50 mls/hr TODAY@0900,1100 IV 04/25/16 09:00 04/25/16 12:59 DC 04/25/16 12:46 50 MLS/HR Metformin HCl (Glucophage Tab) 1,000 mg BIDM PO 04/25/16 16:45 05/25/16 16:44 04/26/16 09:00 1,000 MG Hydrocodone Bit/ Homatropine Methylb (Hycodan Syrup) 5 ml Q6H PRN PO 04/25/16 12:00 05/09/16 11:59 04/26/16 08:56 5 ML Heparin Sodium (Porcine) 5 ml 5 ml PRN PRN IV 04/26/16 05:45 05/26/16 05:44 04/26/16 12:05 5 ML Magnesium Sulfate/ Prmx (Magnesium Sulfate/Premixed D5W) 100 ml @ 100 mls/hr Q1H IV 04/26/16 08:30 04/26/16 10:29 DC 04/26/16 10:38 100 MLS/HR Potassium Chloride (Klor-Con M10) 40 meq BID PO 04/26/16 09:00 05/26/16 08:59 04/26/16 09:47 40 MEQ Assessment and Plan Assessment and Plan: Pt is a 60 year old female with a history of diastolic CHF with EF 60-65% on echocardiogram, COPD, PE with IVC filter in place, and DM Type II who is admitted for dyspnea. Overall, her symptoms and exam are much improved, but still with expiratory wheezing and prolonged expiratory phase. CXR showed no acute process and no evidence of PNA. WBC is elevated today in the setting of Solu-Medrol. Sputum culture is negative. Clinical picture is most consistent with COPD exacerbation. - COPD exacerbation - SpO2 has been 94-96% on 4 L O2. FEV1 during 03/28/16 pulmonology visit was 72%. - Pt was started oral Prednisone, which we will continue and taper at d/c. -- Patient on PO taper of Solu-Medrol: starts 30 mg today and tomorrow, then 20 mg x 2 days, then 10 mg x 2 days, then stop - Continue Xopenex and Atrovent Nebs - Continue Formoterol and Pulmicort nebulizers - As pt has been breathing more comfortably and has been stable on 4 L O2, will plan to wean off of oxygen and assess ambulatory SpO2 to determine any need for home oxygen. - Continue incentive spirometry. - Cough - Pertussis is negative. - Pt was switched from Robitussin to Hycodan cough syrup with some relief. - Will treat with sugar free cough drops. Pharyngitis - - Continue Tx with azithromycin per Pulmonology recommendation. Diastolic HF - Net I/O is -1887 since yesterday. Cardiac catheterization from showed normal coronary arteries. - Will continue home diuretics, Lasix 40 mg bid and Metolazone (Zaroxolyn), 2.5 MG PO 3XWK. - Continue to monitor weight and I/O. Atrial fibrillation w/ RVR - HR has been in the 70-80s in NSR. No sustained Afib. Cardiology has seen the pt and feels that the Afib was likely secondary to receiving epinephrine and breathing treatments. - Continue diltiazem 360 mg PO. - Given the patients multiple risk factors for pulmonary emboli, including her IVC filter, pulmonology and cardiology recommended starting anticoagulation with Xarelto, which was added. Obstructive sleep apnea - Continue BIPAP at night. Diabetes Mellitus, Type II - Blood sugar has been mostly in the mid 200s since yesterday. - Will continue Lantus 20 units bid and Novolog sliding scale. Hypokalemia with K of 3.1 yesterday in the setting of diuresis. - Will continue to replace K as well as give Mg to minimize renal K loss. - Continue to monitor BMP. CKD, Stage III - Creatinine improved to . Continue to monitor. Hypothyroidism -Continue levothyroxine DVT prophylaxis - Heparin 5000 units SQ q8h Will plan for discharge home later today if K level normalizes and she is able to tolerate ambulation without desaturating. Continued [facility] stay due to: other (continues to have difficulty breathing) Discharge planning: home, uncertain
[2016-04-26] MEDS ORDERED: WARF5TAB90 PO (16:06)
[2016-04-26] MEDS ORDERED: WARFARIN SOD 5 MG TAB PO ONE (16:30)
[2016-04-26 16:40] LABS: INR 1.1 (0.9-1.1); PARTIAL THROMBOPLASTIN RATIO 1.1; PROTHROMBIN TIME (PATIENT) 11.6 SECONDS (9.0-12.0)
--- NOTE | 2016-04-26 17:21 | Discharge Summary ---
Discharge Summary Admission Date: Apr 22, 2016 at 12:48 Discharge Date: Apr 26, 2016 Discharge Disposition: Home Principal Diagnosis: Asthma, COPD Overlap Syndrome Problems/Secondary Diagnoses: COPD, CHF, CKD 3, Type 2 Diabetes Mellitus Immunizations: Have You Had Influenza Vaccine: Yes Influenza Vaccine Date: Dec 26, 2012 History of Tetanus Vaccine?: Unknown History of Pneumococcal: Yes Pneumococcal Date: Aug 01, 2001 History of Hepatitis B Vaccine: Unknown (Jaya Dow MD) Medication Reconciliation New Medications: Prednisone Tab (Prednisone) 10 Mg Tab 10 MG PO DAILY, #8 TAB Please take as directed: - Take 2 tabs (20 mg) for 2 days, then - Take 1 tab (10 mg) for 2 days, then STOP Warfarin Sodium (Coumadin) 5 Mg Tab 1 TAB PO DAILY for 10 Days, #10 TAB 1 Refill Azithromycin (Azithromycin) 250 Mg Tab 250 MG PO QAM for 1 Day, #1 TAB Diltiazem HCl (Taztia Xt) 120 Mg Capcr 360 MG PO HS for 30 Days, #90 CAP Guaifenesin Ext Rel (Mucinex Ext Rel) 600 Mg Tabcr 600 MG PO Q12 for 7 Days, #14 TAB Hydrocodone/Homatropine (Hydromet 5-1.5 mg/5Ml) 5 Ml/Cup Syrp 5 ML PO Q6H PRN for Cough for 5 Days, #100 ML Continued Medications: Allopurinol (Zyloprim) 100 Mg Tab 100 MG PO QAM, TAB Aspirin (Aspirin EC Low Dose) 81 Mg Ectab 81 MG PO QAM for 30 Days, 6 Refills Atorvastatin (Lipitor) 20 Mg Tab 20 MG PO HS, TAB Beclomethasone Dipropionate (Qvar) 80 Mcg/ Aer 2 PUFFS INH BID for 30 Days, #8.7 GM 5 Refills Calcium Carbonate-Vitamin D (Oysco 500+D) 1 Tab Tab 2 TAB PO QAM Cyclobenzaprine Hcl (Flexeril) 10 Mg Tab 1 TAB PO TID PRN for Muscle Spasms for 30 Days, #90 TAB Ergocalciferol (Vitamin D Cap) 50,000 Interunit Cap 97983 INTER.UNIT PO WK, CAP [place] Formoterol Fumarate (Perforomist) 20 Mcg/2 Ml Nebu 20 MCG INH BIDR for 30 Days, #60 AMP Furosemide (Lasix) 40 Mg Tab 40 MG PO BID, #60 TAB 3 Refills Gabapentin (Gabapentin) 300 Mg Cap 300 MG PO HS, #30 CAP 3 Refills Glucose Blood (Vikram Contour Blood Gluco) 1 Debby Debby Ipratropium-Albuterol (Duoneb) 3 Ml Nebu 1 TREATMENT INH Q4H PRN for Shortness of Breath, INHA Levothyroxine Sodium (Levothyroxine Sodium) 50 Mcg Tab 1 TAB PO QAM for 90 Days, #90 TAB 3 Refills Lorazepam (Lorazepam) 0.5 Mg Tab 0.5 MG PO HS PRN for Anxiety, #10 TAB Losartan Potassium (Losartan Potassium) 50 Mg Tab 50 MG PO QAM, #30 TAB 3 Refills Metformin Hcl (Glucophage) 500 Mg Tab 2 TAB PO BID, TAB Metolazone (Zaroxolyn) 2.5 Mg Tab 2.5 MG PO 3XWK, #20 TAB 3 Refills take on Mon/Wed/Fri in the morning 30 minutes prior to morning Lasix dose for maximal effect Mometasone Furoate (Nasonex) [place] 1 SPRAY NA QAM, BTL Paroxetine (Paxil) 40 Mg Tab 40 MG PO QAM, TAB Potassium Chloride (Micro-K Ext Rel) 10 Meq Capcr 20 MEQ PO BID, #120 TABS 3 Refills [Gentamicin Saline] () 2 SPRAY GEOFF TID Discontinued Medications: Diltiazem Hcl Coated Beads (Cardizem La) 120 Mg Tab 2 CAP PO QPM, #30 Discharge Exam Review of systems negative unless stated in the hospital course. (Jaya Dow MD) Review of Systems: Constitutional: No fever Respiratory: + cough (much improved), No shortness of breath Cardiovascular: No chest pain Abdomen: No nausea, No pain, No vomiting Physical Exam: General Appearance: no apparent distress Respiratory/Chest: + wheezing (anteriorly) Cardiovascular: regular rate, rhythm Abdomen / GI: normal bowel sounds, non tender, soft Neurologic/Psychiatric: alert, oriented x 3 Skin: warm/dry (Martha Mcelroy M.D.) Hospital Course This is 60 year old female with a complex medical history including the following: - Asthma/COPD overlap syndrome - systolic CHF - CKD stage 3 - Type 2 diabetes mellitus. - Previous History of DVT/PE She presented to the ED with complaints of shortness of breath and sore throat. There was initial concern for compromise of airway, after which she received a dose of epinephrine. She also went into Atrial Fibrillation. She was admitted to telemetry and a Cardizem drip was initiated, after which she converted back to sinus rhythm. Cardiology was consulted and her home Cardizem dose was increased to 360 mg PO HS In addition, she had a severe dry hacking cough, concerning for pertussis. She was started on a 5 day course of Azithromycin. PCR was ordered and fortunately negative. On discharge she was precribed Mucinex and 5 days of Hycodan. She was reviewed by pulmonology for her asthma/overlap syndrome. It was recommended to start anticoagulation given her history of DVT/PE. She was started on Xarelto in the hospital with a view to have her continue this as an outpatient. At the time of discharge, cost of Xarelto was an issue and we had opted for Coumadin instead. At this time goal is for pharmacy anticoagulation clinic to manage her. However , she has to drive 1 hour to get labs done, especially in the initial phases of stabilizing her INR within a range of 2-3. She was offered a local PCP who did INR monitoring but ultimately refused because she did not like them. As such her anticoagulation is to be assumed by a provider in [place]. A request for the [facility] pharmacy is pending and will be followed-up on. She has follow-up appointment with Dr. Jaya Dow and Dr. Jp Rubi on May 04, 2016. Cardiology Appointment is pending. This includes examination of the patient, discharge planning, medication reconciliation, and communication with other providers. (Jaya Dow MD) I have reviewed the medical record and performed a history and physical examination of this patient today. I have discussed the case with Dr. Dow. The above note reflects my findings, conclusions, and recommendations. Total Time Spent: Greater than 30 minutes (40) (Martha Mcelroy M.D.) Discharge Instructions Please refer to the electronic Patient Visit Report (Discharge Instructions) for additional information. (Jaya Dow MD) Additional Copies To Avery Villa MD; Jp Rubi MD
[2016-04-26] MEDS ORDERED: INSULIN GLARGINE SOLOSTAR 100 UNITS/ML 3 ML PEN SC SCH (21:00)
--- NOTE | 2016-04-29 11:01 | EDITING REQUIRED CODING QUERY ---
CONGESTIVE HEART FAILURE To Promote full compliance with coding requirements relating to patient care, physician participation is requested in all cases of stone hand uncertainty. Please assist us with the following questions. Dr. Mcelroy, Conflicting diagnoses of Congestive Heart Failure is documented in the patient's medical record. To accurately code this diagnosis and to compare patient severity, we ask that you specify the type of heart failure by placing an X within the parenthesis (x). SYSTOLIC HEART FAILURE ( ) Acute ( ) Chronic ( ) Acute on Chronic ( ) Rheumatic ( ) Unknown DIASTOLIC HEART FAILURE ( ) Acute (x ) Chronic ( ) Acute on Chronic ( ) Rheumatic ( ) Unknown COMBINED SYSTOLIC AND DIASTOLIC HEART FAILURE ( ) Acute ( ) Chronic ( ) Acute on Chronic ( ) Rheumatic ( ) Unknown Thank you for your time, JONATHON Purvis, ANIMAL PATHOLOGY TEACHER
--- NOTE | 2016-05-08 20:41 | EMERGENCY ROOM VISIT NOTE ---
History First contact with patient: 09:42 Chief Complaint: COUGH Stated Complaint: COUGH, SOB Nursing Triage Summary: cough, headache, congestion for the past 3-4 days History of Present Illness The patient is a 60 year old white female who presents to the Emergency Room with complaints of shortness of breath and cough that is present for the last 3- 4 days. She has underlying COPD and has chronic shortness of breath. Her symptoms 7 worse for the last few days. Her notes that she is wheezing more than normal. She does have a nebulizer at home and has been using this without improvement. She denies any fevers or chills. No sweats. She has not seen her PCP. Patient was admitted this past December and February for shortness of breath exacerbations. No chest pain. No nausea or vomiting. She denies any other cold symptoms. She does use oxygen daily. She also thinks her feet are little more swollen than usual. Review of Systems REVIEW OF SYSTEM: HEENT: No dizziness, visual problems, hearing loss, or tinnitus. There is no difficulty swallowing and no oral lesions are present. LYMPH: No adenopathy. PULMONARY: No sputum production or hemoptysis. CARDIOVASCULAR: No chest pain, palpitations. GASTROINTESTINAL: No diarrhea, constipation, nausea, vomiting, or abdominal pain. GENITOURINARY: No dysuria, frequency, urgency or nocturia. NEUROLOGIC: No weakness, muscle tenderness, epilepsy or history of neurological problems. MUSCULOSKELETAL: No history of joint tenderness/swelling. No history of arthritis or arthralgias. SKIN: No rashes or lesions. PSYCHIATRIC: No history of depression or mental illness. ENDOCRINE: No history of thyroid disorders, or abnormal hair growth. Past Medical/Surgical History Medical Problems: (1) abdominal wall hematoma (2) Asthma (3) Benign hypertension (4) Bronchitis (5) Chest pain (6) Congestive heart failure (7) Deep venous thrombosis (8) Diabetes mellitus (9) Pneumonia (10) Pulmonary embolism (11) Pulmonary emphysema (12) SOB (shortness of breath) Family History Depression FH: gallbladder disease FH: heart disease FH: lung disease Hypertension Kidney stones Social History Smoking Status: Never Smoker Smokeless Tobacco Use: No Alcohol Use: none Drug Use: none Marital Status: Housing Status: lives with family Occupation Status: retired Current/Historical Medications Scheduled Allopurinol (Zyloprim), 100 MG PO QAM Aspirin (Aspirin EC Low Dose), 81 MG PO QAM Atorvastatin (Lipitor), 20 MG PO HS Azithromycin (Azithromycin), 250 MG PO QAM Beclomethasone Dipropionate (Qvar), 2 PUFFS INH BID Calcium Carbonate-Vitamin D (Oysco 500+D), 2 TAB PO QAM Diltiazem HCl (Taztia Xt), 360 MG PO HS Ergocalciferol (Vitamin D Cap), 50,000 INTER.UNIT PO WK Formoterol Fumarate (Perforomist), 20 MCG INH BIDR Furosemide (Lasix), 40 MG PO BID Gabapentin (Gabapentin), 300 MG PO HS Guaifenesin Ext Rel (Mucinex Ext Rel), 600 MG PO Q12 Levothyroxine Sodium (Levothyroxine Sodium), 1 TAB PO QAM Losartan Potassium (Losartan Potassium), 50 MG PO QAM Metformin Hcl (Glucophage), 2 TAB PO BID Metolazone (Zaroxolyn), 2.5 MG PO 3XWK Mometasone Furoate (Nasonex), 1 SPRAY NA QAM Paroxetine (Paxil), 40 MG PO QAM Potassium Chloride (Micro-K Ext Rel), 20 MEQ PO BID Prednisone Tab (Prednisone), 10 MG PO DAILY Warfarin Sodium (Coumadin), 1 TAB PO DAILY [Gentamicin Saline], 2 SPRAY GEOFF TID Scheduled PRN Cyclobenzaprine Hcl (Flexeril), 1 TAB PO TID PRN for Muscle Spasms Hydrocodone/Homatropine (Hydromet 5-1.5 mg/5Ml), 5 ML PO Q6H PRN for Cough Ipratropium-Albuterol (Duoneb), 1 TREATMENT INH Q4H PRN for Shortness of Breath Lorazepam (Lorazepam), 0.5 MG PO HS PRN for Anxiety Miscellaneous Medications Glucose Blood ([employer] Contour Blood Gluco) Allergies Coded Allergies: Sulfa Antibiotics (Verified Allergy, Intermediate, HIVES, RASH, 04/22/16) Oxybutynin (Verified Allergy, Mild, HIVES, 04/22/16) Adhesives (Verified Allergy, Unknown, skin irritation, 04/22/16) Cephalosporins (Verified Allergy, Unknown, CEFOXITIN-HIVES, TOLERATED ROCEPHIN 09/11/07, 04/22/16) Physical Exam Vital Signs Date Time Temp Pulse Resp B/P Pulse Ox O2 Delivery O2 Flow Rate FiO2 04/22/16 10:18 106 20 148/76 93 Nasal Cannula 2.0 04/22/16 10:15 89 18 98 Nasal Cannula 2.0 04/22/16 10:14 90 04/22/16 10:14 97 Nasal Cannula 04/22/16 09:21 97 Nasal Cannula 2.0 04/22/16 08:32 Room Air 04/22/16 08:29 36.8 101 18 172/72 96 Room Air Physical Exam Gen.: Well-developed, well-nourished, obese middle-aged white female, having obvious respiratory difficulty. No acute distress. Sitting on a bed. Alert and oriented. Skin:Warm and dry with good turgor. No rashes or lesions. No ecchymosis or erythema. The patient is not diaphoretic. No abrasions. HEENT : Normocephalic atraumatic. Eyes PERRLA, EOMI. No conjunctiva or scleral injection. Nares patent bilaterally without turbinate enlargement. No significant drainage. No epistaxis. Oropharynx without erythema or exudate. Uvula midline, oral mucosa moist. No lesions present. Heart: Heart irregularly irregular. No MGR. Peripheral pulses are 2+. Lungs: Lungs have inspiratory and expiratory wheezing to auscultation. No crackles or rhonchi. Fair air movement. The patient is unable to take a deep breath. Abdomen: Abdomen was inspected, auscultated, and palpated. Obese. Bowel sounds present x 4. Soft, nontender to palpation. No hepato-splenomegaly. Musculoskeletal: Gross motor function of the upper and lower extremities is intact and unremarkable. Mild peripheral edema in the ankles and feet. Neurologic: Gross sensation is intact across the upper and lower extremities by soft touch. Medical Decision & Procedures ER Provider Diagnostic Interpretation: Chest x-ray obtained today was read by radiology as unremarkable for acute process. She does have calcified left hilar lymph nodes. No evidence for pulmonary edema. No consolidations to suggest pneumonia. Laboratory Results 04/22/16 10:15 Red Blood Count 3.64, Mean Corpuscular Volume 89.8, Mean Corpuscular Hemoglobin 29.9, Mean Corpuscular Hemoglobin Concent 33.3, Mean Platelet Volume 10.1, Neutrophils (%) (Auto) 67.7, Lymphocytes (%) (Auto) 21.4, Monocytes (%) (Auto) 6.0, Eosinophils (%) (Auto) 4.3, Basophils (%) (Auto) 0.3, Neutrophils # (Auto) 6.22, Lymphocytes # (Auto) 1.97, Monocytes # (Auto) 0.55, Eosinophils # (Auto) 0.40, Basophils # (Auto) 0.03 04/22/16 10:15 Test 04/22/16 10:15 White Blood Count 9.20 K/uL (4.8-10.8) Red Blood Count 3.64 M/uL (4.2-5.4) Hemoglobin 10.9 g/dL (12.0-16.0) Hematocrit 32.7 % (37-47) Mean Corpuscular Volume 89.8 fL (80-100) Mean Corpuscular Hemoglobin 29.9 pg (25-34) Mean Corpuscular Hemoglobin Concent 33.3 g/dl (32-36) Platelet Count 280 K/uL (130-400) Mean Platelet Volume 10.1 fL (7.4-10.4) Neutrophils (%) (Auto) 67.7 % Lymphocytes (%) (Auto) 21.4 % Monocytes (%) (Auto) 6.0 % Eosinophils (%) (Auto) 4.3 % Basophils (%) (Auto) 0.3 % Neutrophils # (Auto) 6.22 K/uL (1.4-6.5) Lymphocytes # (Auto) 1.97 K/uL (1.2-3.4) Monocytes # (Auto) 0.55 K/uL (0.11-0.59) Eosinophils # (Auto) 0.40 K/uL (0-0.5) Basophils # (Auto) 0.03 K/uL (0-0.2) RDW Standard Deviation 44.5 fL (36.4-46.3) RDW Coefficient of Variation 13.5 % (11.5-14.5) Immature Granulocyte % (Auto) 0.3 % Immature Granulocyte # (Auto) 0.03 K/uL (0.00-0.02) Anion Gap 10.0 mmol/L (3-11) Est Creatinine Clear Calc Drug Dose 69.9 ml/min Estimated GFR () 62.8 Estimated GFR (Non- 54.1 BUN/Creatinine Ratio 25.4 (10-20) Calcium Level 8.8 mg/dl (8.5-10.1) Total Bilirubin 0.4 mg/dl (0.2-1) Aspartate Amino Transf (AST/SGOT) 26 U/L (15-37) Alanine Aminotransferase (ALT/SGPT) 29 U/L (12-78) Alkaline Phosphatase 91 U/L (45-117) Pro-B-Type Natriuretic Peptide 415 pg/ml (0-900) Total Protein 6.9 gm/dl (6.4-8.2) Albumin 3.6 gm/dl (3.4-5.0) Globulin 3.3 gm/dl (2.5-4.0) Albumin/Globulin Ratio 1.1 (0.9-2) Influenza Type A Antigen Neg for Influ A (NEG) Influenza Type B Antigen Neg for Influ B (NEG) CBC, chem panel, influenza swab, and BNP were obtained. CBC shows mild anemia. Chem panel shows hypokalemia at 2.7 and chronic renal insufficiency. BNP is normal. Influenza swab was negative. Medications Administered Medications (Trade) Dose Ordered Sig/Jesus Route Start Time Stop Time Status Last Admin Dose Admin Albuterol/ Ipratropium (Duoneb) 12 ml ONE ONCE INH 04/22/16 10:00 04/22/16 10:04 DC 04/22/16 10:15 12 ML 1 hour DuoNeb, potassium chloride 20 meq IV, 1 L normal sterile saline at 150 ML per hour ED Course Patient was educated regarding today's findings. Conservative care measures were discussed. IV was established. Labs were obtained. She was given a one hour DuoNeb nebulizer treatment. Chest x-ray was also obtained. Patient was initially feeling somewhat better but remained short of breath. We did discuss admission, as she has required admission a few times per year for shortness of breath. Patient was in agreement. Hospitalist service was consulted. While waiting for admission to the floor, she became extremely short of breath. I was asked to see the patient by the nursing staff. She had extreme tightness in her throat. Auscultation revealed continued wheezing both inspiratory and expiratory. She was tachypneic. I did have Dr. Kovacs see the patient and he assumed her care and she was moved to room A1. She was noted to be in atrial fibrillation. She did receive racemic epinephrine despite her atrial fibrillation, and her breathing was noted to improve. Her tightness in her throat also improved. She was eventually admitted to the hospitalist service. Medical Decision Possibility of asthma exacerbation, COPD exacerbation, bronchitis, pneumonia, adult croup, influenza, and other viral illness was considered. Impression Primary Impression: SOB (shortness of breath) Additional Impression: Hypokalemia Departure Information Prescriptions Warfarin Sodium (COUMADIN) 5 Mg Tab 1 TAB PO DAILY for 10 Days, #10 TAB 1 Refill Prov: Jaya Dow MD 04/26/16 Hydrocodone/Homatropine (Hydromet 5-1.5 mg/5Ml) 5 Ml/Cup Syrp 5 ML PO Q6H Y for Cough for 5 Days, #100 ML Prov: Jaya Dow MD 04/26/16 Prednisone Tab (PREDNISONE) 10 Mg Tab 10 MG PO DAILY, #8 TAB Please take as directed: - Take 2 tabs (20 mg) for 2 days, then - Take 1 tab (10 mg) for 2 days, then STOP Prov: Jaya Dow MD 04/26/16 Diltiazem HCl (Taztia Xt) 120 Mg Capcr 360 MG PO HS for 30 Days, #90 CAP Prov: Jaya Dow MD 04/26/16 Guaifenesin Ext Rel (MUCINEX EXT REL) 600 Mg Tabcr 600 MG PO Q12 for 7 Days, #14 TAB Prov: Jaya Dow MD 04/26/16 Azithromycin (Azithromycin) 250 Mg Tab 250 MG PO QAM for 1 Day, #1 TAB Prov: Jaya Dow MD 04/26/16 Referrals Godfrey Batista PA-C (PCP) Forms HOME CARE DOCUMENTATION FORM, IMPORTANT VISIT INFORMATION Patient Instructions A Signature Page, My [facility]
[2016-05-29] MEDS ORDERED: GABA-113 PO (08:36)
[2016-05-29] MEDS ORDERED: PRFINS (08:36)
[2016-05-29] MEDS ORDERED: LOSA50TA6 PO (08:36)
[2016-05-29] MEDS ORDERED: LORA-741 PO (08:36)
[2016-05-29] MEDS ORDERED: POTA20TA16 PO (08:36)
[2016-05-29] MEDS ORDERED: WARF7.5T4 PO (08:36)
[2016-05-29] MEDS ORDERED: METO2.5T PO (08:36)
[2016-05-29] MEDS ORDERED: DEXT1TAB50 PO (08:36)
[2016-05-29] MEDS ORDERED: ASPI81TA28 PO (08:36)
[2016-05-29] MEDS ORDERED: FRS/40 PO (08:36)
[2016-05-29] MEDS ORDERED: DILT120T3 (08:36)
[2016-05-29] MEDS ORDERED: WARF5TAB7 PO (08:36)
[2016-12-10] MEDS ORDERED: INSPMPNVLG (13:42)
[2016-12-10] MEDS ORDERED: DILT-115 PO (13:42)
[2016-12-10] MEDS ORDERED: LISI40TA PO (13:42)
[2016-12-10] MEDS ORDERED: [UNRECOGNIZED DRUG - OTHER] PO (13:42)
[2016-12-10] MEDS ORDERED: OXYC-57 PO (13:42)
[2016-12-10] MEDS ORDERED: SPIR50TA2 PO (13:43)
== END 2016-04-26 16:50 | disposition home or self-care (01) | DRG 191 ==
LOC: ENRESERVDT → ENRESERVTM → C.EDB 08:27 → UNDOADMIN 12:48 → C.2T 12:48 → C.MS2W 04-25 18:26
PROVIDERS: ADMIT Hospitalist; ATTEND Family Medicine
DX: J44.1 Chronic obstructive pulmonary disease with (acute) exacerbation (principal); J45.901 Unspecified asthma with (acute) exacerbation; I13.0 Hypertensive heart and chronic kidney disease with heart failure and stage 1 through stage 4 chronic kidney disease, or unspecified chronic kidney disease; E66.2 Morbid (severe) obesity with alveolar hypoventilation; Z68.42 Body mass index [BMI] 45.0-49.9, adult; N17.9 Acute kidney failure, unspecified; I50.32 Chronic diastolic (congestive) heart failure; I48.0 Paroxysmal atrial fibrillation; E87.6 Hypokalemia; I27.2 Other secondary pulmonary hypertension; R06.89 Other abnormalities of breathing; R07.89 Other chest pain; R05 Cough; J02.9 Acute pharyngitis, unspecified; N18.3 Chronic kidney disease, stage 3 (moderate); E11.22 Type 2 diabetes mellitus with diabetic chronic kidney disease; E78.5 Hyperlipidemia, unspecified; E03.9 Hypothyroidism, unspecified; M81.0 Age-related osteoporosis without current pathological fracture; M10.9 Gout, unspecified; F41.9 Anxiety disorder, unspecified; F32.9 Major depressive disorder, single episode, unspecified; Z99.89 Dependence on other enabling machines and devices; Z95.828 Presence of other vascular implants and grafts; Z86.14 Personal history of Methicillin resistant Staphylococcus aureus infection; Z86.711 Personal history of pulmonary embolism; Z86.718 Personal history of other venous thrombosis and embolism; Z96.619 Presence of unspecified artificial shoulder joint; Z79.82 Long term (current) use of aspirin; Z79.51 Long term (current) use of inhaled steroids; Z79.84 Long term (current) use of oral hypoglycemic drugs; Z79.899 Other long term (current) drug therapy

== ENCOUNTER → 2016-04-27 | Outpatient (CLI) | payer BC ==
[~2016-04-27] MED LIST changes: +ASPI81TA28 PO; +DEXT1TAB50 PO; +DILT-113 PO; +DILT-115 PO; +DILT120T3; -DILT1TAB58 PO; +ERGO500037 PO; +FORM1NEB INH; +FRS/40 PO; +GABA-113 PO; +GFNSR600 PO; +HYCUDL5 PO; +INSPMPNVLG; +LISI40TA PO; +LORA-741 PO; +LOSA50TA6 PO; +MOME6000 NAE; +NRN400 PO; +OXYC-57 PO; +POTA-74 PO; +POTA20TA16 PO; +PRED10TA PO; +PRFINS; +QVRINH80 INH; +SPIR50TA2 PO; +TZCSR120 PO; +WARF10TA4 PO; +WARF5TAB7 PO; +WARF5TAB90 PO; +WARF7.5T4 PO; +ZTHM250 PO; +[UNRECOGNIZED DRUG - OTHER] PO
[2016-04-27 14:17] LABS: PROTHROMBIN TIME (PATIENT) 10.4 SECONDS (9.0-12.0)
== END | disposition home or self-care (01) ==
LOC: C.LABMFLN 10:51
PROVIDERS: ATTEND Student in an Organized Health Care Education/Training Program
DX: Z51.81 Encounter for therapeutic drug level monitoring (principal); Z79.01 Long term (current) use of anticoagulants

== ENCOUNTER → 2016-05-07 | Outpatient (CLI) | payer BC ==
[2016-05-07 13:33] LABS: BLOOD UREA NITROGEN 18 mg/dl (7-18); BUN/CREATININE RATIO 16.3 (10-20); CALCIUM 9.6 mg/dl (8.5-10.1); CARBON DIOXIDE 35 mmol/L (21-32); CHLORIDE 98 mmol/L (98-107); GLUCOSE 208 mg/dl (70-99); POTASSIUM 3.1 mmol/L (3.5-5.1); SODIUM 139 mmol/L (136-145)
[2016-05-07 13:40] LABS: ESTIMATED AVERAGE GLUCOSE 157 mg/dl; HA1C FLAG Normal (Normal)
== END | disposition home or self-care (01) ==
LOC: C.LABMFLN 10:36
PROVIDERS: ATTEND Family Medicine
DX: I27.81 Cor pulmonale (chronic) (principal); Z79.01 Long term (current) use of anticoagulants; I50.32 Chronic diastolic (congestive) heart failure; N18.3 Chronic kidney disease, stage 3 (moderate); E11.43 Type 2 diabetes mellitus with diabetic autonomic (poly)neuropathy; E03.9 Hypothyroidism, unspecified

== ENCOUNTER → 2016-05-28 | Outpatient (CLI) | payer BC ==
[2016-05-28 13:00] LABS: URINE APPEARANCE CLEAR (CLEAR); URINE BILIRUBIN NEG (NEG); URINE COLOR YELLOW; URINE NITRITE NEG (NEG); URINE SPECIFIC GRAVITY 1.016 (1.000-1.030); UROBILINOGEN NEG (NEG)
[2016-05-28 13:03] LABS: MANUAL MICROSCOPIC REQUIRED? NO; REVIEW REQ? NO
[2016-05-28 13:19] LABS: BLOOD UREA NITROGEN 24 mg/dl (7-18); BUN/CREATININE RATIO 23.5 (10-20); CALCIUM 9.2 mg/dl (8.5-10.1); CARBON DIOXIDE 33 mmol/L (21-32); CHLORIDE 98 mmol/L (98-107); GLUCOSE 170 mg/dl (70-99); PHOSPHORUS 2.2 mg/dl (2.5-4.9); POTASSIUM 3.1 mmol/L (3.5-5.1); SODIUM 140 mmol/L (136-145)
[2016-05-28 13:31] LABS: URINE PROTIEN/CREAT RATIO 0.1 (0-0.2); URINE TOTAL PROTEIN 8.3 mg/dl (0-11.9)
== END | disposition home or self-care (01) ==
LOC: C.LABMFLN 09:11
PROVIDERS: ATTEND Family Medicine
DX: N18.3 Chronic kidney disease, stage 3 (moderate) (principal); E55.9 Vitamin D deficiency, unspecified; Z51.81 Encounter for therapeutic drug level monitoring; I26.99 Other pulmonary embolism without acute cor pulmonale; Z79.01 Long term (current) use of anticoagulants

== ENCOUNTER → 2016-05-29 | Outpatient (CLI) | payer BC ==
--- NOTE | 2016-06-05 11:15 | CODING QUERY MEDICAL NECESSITY ---
SUPPORTING DIAGNOSIS NEEDED Dr. Lombardo, A supporting diagnosis is required for the test/procedure performed on this patient in order for us to be reimbursed by the patient's insurance. Please provide a supporting diagnosis for the following test/procedure listed below next to the test name along with your signature. *If there is no additional diagnosis for this patient that would support the following test/procedure please document that below next to the test/procedure. Test(s)/Procedure(s) that require a supporting diagnosis: * ([id number]) DXA BONE DENSITY, AXIAL DIAGNOSIS: DATE OF SERVICE: 05/29/16 Provider Signature: Date: Thank you Chris Guerin [facility] Information Management Once completed, please kindly fax back to [phone] For questions please call [phone]
== END | disposition home or self-care (01) ==
LOC: C.MAMM 09:22
PROVIDERS: ATTEND Family Medicine
DX: Z13.820 Encounter for screening for osteoporosis (principal)

== ENCOUNTER → 2016-06-06 | Outpatient (CLI) | payer BC ==
[~2016-06-06] VITALS: Ht 157.5 cm; Wt 120.7 kg
[~2016-06-06] MED LIST changes: -ASPEC81 PO; -ATV5 PO; -CZR50 PO; -GFNSR600 PO; -GLUCTES; -HYCUDL5 PO; -LSX/40 PO; -NRN300 PO; -POTA10CA28 PO; -PRED10TA PO; -PRFINS INH; -TZCSR120 PO; -WARF5TAB90 PO; -ZTHM250 PO
[2016-06-06 11:12] VITALS: BP 160/84; PULSE 88; Ht 157.5 cm; Wt 120.7 kg
== END | disposition home or self-care (01) ==
LOC: C.NEUR 10:50
PROVIDERS: ATTEND Internal Medicine Pulmonary Disease
DX: G47.33 Obstructive sleep apnea (adult) (pediatric) (principal); G25.81 Restless legs syndrome

== ENCOUNTER → 2016-06-11 | Outpatient (CLI) | payer BC ==
[2016-06-11 13:44] LABS: THYROID STIMULATING HORMONE 1.37 uIu/ml (0.300-4.500)
[2016-06-11 14:23] LABS: ESTIMATED AVERAGE GLUCOSE 160 mg/dl; HA1C FLAG Normal (Normal)
== END | disposition home or self-care (01) ==
LOC: C.LABMFLN 11:15
PROVIDERS: ATTEND Internal Medicine Endocrinology, Diabetes & Metabolism
DX: E03.9 Hypothyroidism, unspecified (principal); E11.9 Type 2 diabetes mellitus without complications

== ENCOUNTER 2016-06-16 23:11 | Emergency (ER) | payer BC ==
[~2016-06-16] VITALS: Ht 160 cm; Wt 122.8 kg
[~2016-06-16 23:11] MED LIST changes: -DILT-113 PO; -DILT-115 PO; -ERGO500037 PO; -FORM1NEB INH; -INSPMPNVLG; -LISI40TA PO; -MOME6000 NAE; -NRN400 PO; -OXYC-57 PO; -POTA-74 PO; -QVRINH80 INH; -SPIR50TA2 PO; -WARF10TA4 PO; -[UNRECOGNIZED DRUG - OTHER] PO
[2016-06-16 23:12] VITALS: TEMP 36.4; Ht 160 cm; Wt 122.8 kg
[2016-06-16] MEDS ORDERED: LABETALOL HCL IV 5 MG/ML 20ML IV STA (23:46)
[2016-06-17 00:15] LABS: HEMATOCRIT 42.8 % (37-47); MEAN CELL VOLUME 88.4 fL (80-100); MEAN CORPUSCULAR HGB CONC 33.9 g/dl (32-36); MEAN PLATELET VOLUME 10.1 fL (7.4-10.4); PLATELET COUNT 182 K/uL (130-400); RED BLOOD COUNT 4.84 M/uL (4.2-5.4)
[2016-06-17 00:31] LABS: BLOOD UREA NITROGEN 39 mg/dl (7-18); BUN/CREATININE RATIO 24.4 (10-20); CARBON DIOXIDE 35 mmol/L (21-32); CHLORIDE 96 mmol/L (98-107); GLUCOSE 142 mg/dl (70-99); MAGNESIUM 1.7 mg/dl (1.8-2.4); POTASSIUM 3.1 mmol/L (3.5-5.1); SODIUM 140 mmol/L (136-145)
[2016-06-17] MEDS ORDERED: DILT-113 PO (00:32)
[2016-06-17] MEDS ORDERED: FRS/40 PO (00:34)
[2016-06-17] MEDS ORDERED: INSPMPNVLG (00:36)
[2016-06-17 00:43] LABS: INR 1.9 (0.9-1.1); PROTHROMBIN TIME (PATIENT) 21.2 SECONDS (9.0-12.0)
[2016-06-17] MEDS ORDERED: FORM1NEB INH (00:54)
[2016-06-17 00:55] LABS: PARTIAL THROMBOPLASTIN RATIO 4.4
[2016-06-17] MEDS ORDERED: LOSARTAN POTASSIUM 50 MG TAB PO STA (01:04)
[2016-06-17 01:07] LABS: URINE APPEARANCE CLEAR (CLEAR); URINE BILIRUBIN NEG (NEG); URINE COLOR YELLOW; URINE NITRITE NEG (NEG); URINE PH 5.5 (4.5-7.5); URINE SPECIFIC GRAVITY 1.017 (1.000-1.030); UROBILINOGEN NEG (NEG); ZZUR CULT IF INDIC CLEAN CATCH NO
[2016-06-17 01:08] LABS: MANUAL MICROSCOPIC REQUIRED? NO; REVIEW REQ? YES
[2016-06-17 01:12] LABS: ALKALINE PHOSPHATASE 88 U/L (45-117); ALT/SGPT 26 U/L (12-78); AST/SGOT 17 U/L (15-37)
[2016-06-17 01:27] LABS: URINE EPITHELIAL CELL AUTO 20-30 /lpf (0-5)
[2016-06-17] MEDS ORDERED: LOSA50TA6 PO (01:36)
--- NOTE | 2016-06-17 01:37 | EMERGENCY ROOM VISIT NOTE ---
History Report prepared by Clarissa: Gauri Vallejo Under the Supervision of: Dr. Aniket Downing M.D. First contact with patient: 23:17 Chief Complaint: HYPERTENSION Stated Complaint: HIGH BP History of Present Illness The patient is a 60 year old female who presents to the Emergency Room with complaints of persistent hypertension with onset one week ago. Along with the hypertension, the patient has had a headache for one week. The headache has been intermittent throughout the week but today it started to be worse and lasted throughout the whole day. The patient monitors her blood pressure daily, and her home nurse noticed that her blood pressure had been high all week. They tried contacting the patients doctors without success. The patient was taken off of Lisinopril in December 2015. The patient is not on home oxygen but is on Bi-PAP when she sleeps. The patient notes that she fell one week ago, but she does not believe that she hit her head. She denies chest pain, shortness of breath, numbness, tingling, weakness, nausea, vomiting, fever, hitting her head, neck stiffness. Source of History: patient Onset: 1 week Position: other (global ) Quality: other (hypertension) Timing: other (persistent) Associated Symptoms: + headache, No SOB, No chest pain, No fevers, No nausea , No numbness, No vomiting, No weakness Note: She denies tingling, hitting her head, neck stiffness. Review of Systems See HPI for pertinent positives & negatives. A total of 10 systems reviewed and were otherwise negative. Past Medical & Surgical Medical Problems: (1) abdominal wall hematoma (2) Asthma (3) Benign hypertension (4) Bronchitis (5) Chest pain (6) Congestive heart failure (7) Deep venous thrombosis (8) Diabetes mellitus (9) Pneumonia (10) Pulmonary embolism (11) Pulmonary emphysema (12) SOB (shortness of breath) Family History Depression FH: gallbladder disease FH: heart disease FH: lung disease Hypertension Kidney stones Social History Smoking Status: Never Smoker Drug Use: none Marital Status: Occupation Status: retired Current/Historical Medications Scheduled Allopurinol (Zyloprim), 100 MG PO QAM Aspirin (Aspirin Ec), 81 MG PO DAILY Atorvastatin (Lipitor), 20 MG PO HS Beclomethasone Dipropionate (Qvar), 2 PUFFS INH BID Calcium Carbonate-Vitamin D ([place] 500+D), 2 TAB PO QAM Diltiazem Hcl Ext Rel (Tiazac), 360 MG PO HS Ergocalciferol (Vitamin D Cap), 50,000 INTER.UNIT PO WK Furosemide (Lasix), 80 MG PO QAM Furosemide (Lasix), 40 MG PO QPM Gabapentin (Neurontin), 300 MG PO HS Insulin Aspart (novoLOG INSULIN PUMP ), 1 EA N/A UD Levothyroxine Sodium (Levothyroxine Sodium), 50 MCG PO QAM Losartan Potassium (Cozaar), 1 TAB PO DAILY Metformin Hcl (Glucophage), 1,000 MG PO BIDM Metolazone (Zaroxolyn), 2.5 MG PO DAILY Mometasone Furoate (Nasonex), 1 SPRAY NA QAM Paroxetine (Paxil), 40 MG PO QAM Potassium Ext Rel (Klor-Con), 20 MEQ PO BID Warfarin Sod (Jantoven), 7.5 MG PO 3XWK Warfarin Sod (Jantoven), 5 MG PO 4XWK Scheduled PRN Cyclobenzaprine Hcl (Flexeril), 1 TAB PO TID PRN for Muscle Spasms Formoterol Fumarate (Perforomist), 2 ML INH Q12 PRN for SOB/Wheezing Ipratropium-Albuterol (Duoneb), 1 TREATMENT INH Q4H PRN for Shortness of Breath Allergies Coded Allergies: Sulfa Antibiotics (Verified Allergy, Intermediate, HIVES, RASH, 05/29/16) Oxybutynin (Verified Allergy, Mild, HIVES, 05/29/16) Adhesives (Verified Allergy, Unknown, skin irritation, 05/29/16) Cephalosporins (Verified Allergy, Unknown, CEFOXITIN-HIVES, TOLERATED ROCEPHIN 09/11/07, 05/29/16) Physical Exam Vital Signs Date Time Temp Pulse Resp B/P Pulse Ox O2 Delivery O2 Flow Rate FiO2 06/17/16 01:47 70 20 136/79 98 06/17/16 00:40 75 22 127/92 95 Room Air 06/17/16 00:24 75 18 147/63 94 Room Air 06/16/16 23:45 66 22 180/94 94 Room Air 06/16/16 23:12 36.4 83 20 196/90 94 Room Air Physical Exam GENERAL: Patient is chronically unwell appearing and in minimal distress. HEENT: No acute trauma, normocephalic atraumatic, mucous membranes moist, no nasal congestion, no scleral icterus. NECK: No stridor, no adenopathy, no meningismus, trachea is midline. LUNGS: No dyspnea. Clear to auscultation and equal bilaterally. No wheeze, no rhonchi. HEART: Regular rate and rhythm. No murmurs, rubs, gallops appreciated. ABDOMEN: Soft, nontender, bowel sounds positive, no masses appreciated, no peritonitis. BACK: No midline tenderness, no CVA tenderness EXTREMITIES: Normal motion all extremities, no cyanosis, no edema. NEUROLOGIC: Alert and oriented, no acute motor or sensory deficits, no focal weakness, cranial nerves grossly intact. SKIN: No rash, no jaundice, no diaphoresis. Medical Decision & Procedures ER Provider Diagnostic Interpretation: X ray results and stated below per my interpretation. Other radiology results and stated below per my review and radiologist interpretation: CT Head: No acute intracranial hemorrhage. No evidence of intracranial mass, extra-axial fluid collection, or hydrocephalus. Visualized paranasal sinuses and mastoid air cells are clear. Radiologist: Aniket Cheung MD Chest: 1 view: No infiltrate, no effusion, normal cardiac border. Laboratory Results 06/17/16 00:00 06/17/16 00:00 Test 06/17/16 00:00 06/17/16 00:45 Red Blood Count 4.84 M/uL (4.2-5.4) Mean Corpuscular Volume 88.4 fL (80-100) Mean Corpuscular Hemoglobin 30.0 pg (25-34) Mean Corpuscular Hemoglobin Concent 33.9 g/dl (32-36) RDW Standard Deviation 48.8 fL (36.4-46.3) RDW Coefficient of Variation 15.0 % (11.5-14.5) Mean Platelet Volume 10.1 fL (7.4-10.4) Prothrombin Time 21.2 SECONDS (9.0-12.0) Prothromb Time International Ratio 1.9 (0.9-1.1) Activated Partial Thromboplast Time 114.4 SECONDS (21.0-31.0) Partial Thromboplastin Ratio 4.4 Anion Gap 9.0 mmol/L (3-11) Est Creatinine Clear Calc Drug Dose 47.0 ml/min Estimated GFR () 39.9 Estimated GFR (Non- 34.4 BUN/Creatinine Ratio 24.4 (10-20) Calcium Level 9.0 mg/dl (8.5-10.1) Magnesium Level 1.7 mg/dl (1.8-2.4) Total Bilirubin 0.2 mg/dl (0.2-1) Direct Bilirubin < 0.1 mg/dl (0-0.2) Aspartate Amino Transf (AST/SGOT) 17 U/L (15-37) Alanine Aminotransferase (ALT/SGPT) 26 U/L (12-78) Alkaline Phosphatase 88 U/L (45-117) Troponin I < 0.015 ng/ml (0-0.045) Pro-B-Type Natriuretic Peptide 399 pg/ml (0-900) Total Protein 6.7 gm/dl (6.4-8.2) Albumin 3.5 gm/dl (3.4-5.0) Urine Color YELLOW Urine Appearance CLEAR (CLEAR) Urine pH 5.5 (4.5-7.5) Urine Specific [place] 1.017 (1.000-1.030) Urine Protein NEG (NEG) Urine Glucose (UA) NEG (NEG) Urine Ketones TRACE (NEG) Urine Occult Blood NEG (NEG) Urine Nitrite NEG (NEG) Urine Bilirubin NEG (NEG) Urine Urobilinogen NEG (NEG) Urine Leukocyte Esterase MODERATE (NEG) Urine WBC (Auto) 5-10 /hpf (0-5) Urine RBC (Auto) 0-4 /hpf (0-4) Urine Hyaline Casts (Auto) 1-5 /lpf (0-5) Urine Epithelial Cells (Auto) 20-30 /lpf (0-5) Urine Bacteria (Auto) NEG (NEG) Laboratory results as reviewed by me. Medications Administered Medications (Trade) Dose Ordered Sig/Jesus Route Start Time Stop Time Status Last Admin Dose Admin Labetalol HCl (Normodyne IV) 10 mg NOW STAT IV 06/16/16 23:46 06/16/16 23:47 DC 06/16/16 23:46 10 MG Losartan Potassium (coZAAR TAB) 50 mg NOW STAT PO 06/17/16 01:04 06/17/16 01:05 DC 06/17/16 01:04 50 MG Heparin Sodium (Porcine) (Heparin 100 Unit/ml 5ml Flush) 5 ml STK-MED ONCE .ROUTE 06/17/16 01:40 06/17/16 01:43 DC 06/17/16 01:40 5 ML ECG Indication: other (hypertension) Rate (beats per minute): 77 Rhythm: sinus rhythm Findings: PAC, no acute ischemic change Comparison ECG Date: 04/26/2016 Change: no significant change ED Course 2318: The patient was evaluated in room A2. The patient was first evaluated by the medical student. A complete history and physical exam was performed. 2346: Labetalol HCl 10 mg IV 0103: I reevaluated the patient; she is feeling much better. Her blood pressure is 150/90. 0104: Losartan Potassium 50 mg PO 0130: Reevaluated the patient; she is feeling better and her blood pressure was 130/70. Discussed results and discharge instructions: She verbalized understanding and agreement. The patient is ready for discharge. Medical Decision Differential: Benign Hypertension, Hypertensive Urgency/Emergency, Cardiovascular Pathology, Endocrine, Metabolic/Electrolyte, Renal Disease, Endorgan Damage, amongst other pathologies entertained. Very pleasant 60 yr old female brought in for evaluation of HTN and headache. Is on Coumadin with recent fall so CT head done which fortunately was negative. Given IV labetalol with resolution of headache and improvement in blood pressure. CXR clear, UA more contaminant than infectious, and labs look OK other than PTT elevated. Suspect PTT elevation if from line not having been fully cleared of heparin prior to lab draw as she has no new bleeding, no medications to affect this, and labs look good. Mild renal insufficiency similar to previous labs, and likely secondary to now being on lasix. Will just have her have this repeated as outpatient. Sounds like Losartan ran out and wasn't refilled by PCP. As she previously tolerated this during inpatient stay I feel it is reasonable to start this med again, especially if it was controlling BP well. EKG looks good and no evidence of ischemia nor trop elevation. She is stable, feeling well and wants to go home. Discussed symptoms return. Impression Primary Impression: Hypertension Additional Impressions: Headache Renal insufficiency, mild Elevated partial thromboplastin time (PTT) Scribe Attestation The scribe's documentation has been prepared under my direction and personally reviewed by me in its entirety. I confirm that the note above accurately reflects all work, treatment, procedures, and medical decision making performed by me. Departure Information Dispostion Home / Self-Care Prescriptions Losartan Potassium (COZAAR) 50 Mg Tab 1 TAB PO DAILY for 30 Days, #30 TAB 5 Refills Prov: Aniket Downing M.D. 06/17/16 Referrals Scott Lombardo M.D. (PCP) Patient Instructions ED Hypertension Conf Out Of Control, My [facility] Additional Instructions Please follow up with your primary care provider to discuss having repeat labs done for your Kidney function and PTT rechecked. Return at any time if worsening symptoms or other concerns. Problem Qualifiers Primary Impression: Hypertension Hypertension type: essential hypertension Qualified Codes: I10 - Essential ( primary) hypertension Additional Impressions: Headache Headache type: unspecified Headache chronicity pattern: acute headache Intractability: not intractable Qualified Codes: R51 - Headache
[2016-06-17 01:47] VITALS: BP 136/79; PULSE 70; O2SAT 98
--- NOTE | 2016-06-17 06:07 | DIAGNOSTIC IMAGING REPORT ---
HEAD CT NONCONTRAST CT DOSE: 614.27 mGy.cm HISTORY: Mental status change headache with being on Coumadin TECHNIQUE: Multiaxial CT images of the head were performed without the use of intravenous contrast. Comparison: 01/03/2016 Findings: The paranasal sinuses and mastoid air cells are clear. The calvarium and skull base are intact. The ventricles and sulci are within normal limits. There is no mass, hematoma, midline shift, or acute infarct. Impression: No acute intracranial abnormality. Electronically signed by: Mitchell Wallace M.D. 06/17/2016 6:05 AM Dictated Date/Time: 06/17/2016 6:04 AM
--- NOTE | 2016-06-17 06:12 | DIAGNOSTIC IMAGING REPORT ---
CHEST ONE VIEW PORTABLE CLINICAL HISTORY: hypertension, generalized weakness dyspnea COMPARISON STUDY: 04/22/2016 FINDINGS: Central catheter ends. Cava. Lungs are clear. Diaphragms smooth. IMPRESSION: No acute process. Electronically signed by: Mitchell Wallace M.D. 06/17/2016 6:11 AM Dictated Date/Time: 06/17/2016 6:10 AM
[2016-12-10] MEDS ORDERED: INSPMPNVLG (13:42)
[2016-12-10] MEDS ORDERED: OXYC-57 PO (13:42)
[2016-12-10] MEDS ORDERED: DILT-115 PO (13:42)
[2016-12-10] MEDS ORDERED: [UNRECOGNIZED DRUG - OTHER] PO (13:42)
[2016-12-10] MEDS ORDERED: LISI40TA PO (13:42)
[2016-12-10] MEDS ORDERED: SPIR50TA2 PO (13:43)
== END 2016-06-17 01:51 | disposition home or self-care (01) ==
LOC: C.EDB 23:12 → C.EDA 06-17 01:51
DX: I10 Essential (primary) hypertension (principal); R51 Headache; R79.1 Abnormal coagulation profile; N28.9 Disorder of kidney and ureter, unspecified; J45.909 Unspecified asthma, uncomplicated; Z79.82 Long term (current) use of aspirin; Z79.899 Other long term (current) drug therapy; E11.9 Type 2 diabetes mellitus without complications; Z79.01 Long term (current) use of anticoagulants; Z79.4 Long term (current) use of insulin

== ENCOUNTER → 2016-07-03 | Outpatient (CLI) | payer BC, OTHER ==
[~2016-07-03] MED LIST changes: -DEXT1TAB50 PO; +DILT-113 PO; +DILT-115 PO; -DILT120T3; +ERGO500037 PO; +FORM1NEB INH; +INSPMPNVLG; +LISI40TA PO; -LORA-741 PO; +LVNIS100 SC; +MOME6000 NAE; +NRN400 PO; +OXYC-57 PO; +POTA-74 PO; -PRFINS; +QVRINH80 INH; +SPIR50TA2 PO; +WARF10TA4 PO; -[UNRECOGNIZED DRUG - OTHER] NAE; +[UNRECOGNIZED DRUG - OTHER] PO
--- NOTE | 2016-07-03 14:24 | DIAGNOSTIC IMAGING REPORT ---
BONE SCAN 3PHASE WHOLE BODY CLINICAL HISTORY: Lytic lesion in the left iliac bone. COMPARISON STUDY: Bone scan dated 03/07/2015, conventional radiographic evaluation of the feet performed January 2015 FINDINGS: The patient was injected with 27.5 mCi of technetium 99 M MDP. A vascular sequence centered on the pelvis was performed. Flow appears symmetric. Blood pool images are unremarkable. Three-hour delayed whole body images were acquired. These were submitted with spot camera images of the pelvis in the anterior posterior projections. There is a thoracic scoliosis. Pelvic activity is unremarkable. Foci of increased activity at the lumbosacral junction are felt to be degenerative. There are foci of increased activity involving both knees likely arthritic. There are foci of increased activity involving both feet, likely arthritic. IMPRESSION: 1. No scintigraphic evidence of metastatic disease 2. No foci of abnormal activity within the pelvis 3. Foci of increased activity within the knees and feet, felt to be on a degenerative/arthritic basis Electronically signed by: Louis Dennis M.D. 07/03/2016 2:23 PM Dictated Date/Time: 07/03/2016 2:15 PM
== END | disposition home or self-care (01) ==
LOC: C.NUCL 09:27
PROVIDERS: ATTEND Family Medicine
DX: M89.9 Disorder of bone, unspecified (principal); R93.7 Abnormal findings on diagnostic imaging of other parts of musculoskeletal system

== ENCOUNTER → 2016-07-17 | Outpatient (CLI) | payer BC, OTHER ==
[~2016-07-17] MED LIST changes: +ALL300 PO; +DILT180C50 PO; +FERR325T18 PO; +FRRG PO; +IPRA1AER2 INH; +LOSA50TA54 PO; +MOME200A INH; +MORP-157 PO; +POTA-65 PO
[2016-07-17 13:44] LABS: BLOOD UREA NITROGEN 26 mg/dl (7-18); BUN/CREATININE RATIO 26.6 (10-20); CALCIUM 9.5 mg/dl (8.5-10.1); CARBON DIOXIDE 37 mmol/L (21-32); CHLORIDE 95 mmol/L (98-107); CREATININE 0.98 mg/dl (0.60-1.20); GLUCOSE 136 mg/dl (70-99); POTASSIUM 3.2 mmol/L (3.5-5.1); SODIUM 138 mmol/L (136-145)
== END | disposition home or self-care (01) ==
LOC: C.LABMFLN 13:28
PROVIDERS: ATTEND Family Medicine
DX: E87.6 Hypokalemia (principal); N17.9 Acute kidney failure, unspecified

== ENCOUNTER → 2016-08-29 | Outpatient (CLI) | payer BC ==
[~2016-08-29] VITALS: Ht 154.9 cm; Wt 121.8 kg
[2016-08-29 12:20] VITALS: BP 120/70; PULSE 94; Ht 154.9 cm; Wt 121.8 kg
== END | disposition home or self-care (01) ==
LOC: C.NEUR 10:44
PROVIDERS: ATTEND Internal Medicine Pulmonary Disease
DX: G47.33 Obstructive sleep apnea (adult) (pediatric) (principal); G25.81 Restless legs syndrome

== ENCOUNTER → 2016-09-03 | Outpatient (CLI) | payer BC ==
[2016-09-03 13:33] LABS: ESTIMATED AVERAGE GLUCOSE 148 mg/dl; HA1C FLAG Normal (Normal)
[2016-09-03 15:00] LABS: BLOOD UREA NITROGEN 26 mg/dl (7-18); BUN/CREATININE RATIO 27.5 (10-20); CALCIUM 9.1 mg/dl (8.5-10.1); CARBON DIOXIDE 32 mmol/L (21-32); CHLORIDE 101 mmol/L (98-107); CREATININE 0.95 mg/dl (0.60-1.20); GLUCOSE 98 mg/dl (70-99); POTASSIUM 3.9 mmol/L (3.5-5.1); SODIUM 142 mmol/L (136-145)
== END | disposition home or self-care (01) ==
LOC: C.LABMFLN 11:40
PROVIDERS: ATTEND Family Medicine
DX: E11.9 Type 2 diabetes mellitus without complications (principal); E87.6 Hypokalemia

== ENCOUNTER → 2016-10-15 | Outpatient (CLI) | payer BC ==
[~2016-10-15] MED LIST changes: -FERR325T18 PO
[2016-10-15 18:39] LABS: THYROID STIMULATING HORMONE 1.53 uIu/ml (0.300-4.500)
== END | disposition home or self-care (01) ==
LOC: C.LABMFLN 12:54
PROVIDERS: ATTEND Family Medicine
DX: I10 Essential (primary) hypertension (principal)

== ENCOUNTER → 2016-11-06 | Outpatient (CLI) | payer BC ==
[2016-11-06 15:35] LABS: URINE APPEARANCE CLEAR (CLEAR); URINE BILIRUBIN NEG (NEG); URINE COLOR YELLOW; URINE NITRITE NEG (NEG); URINE PH 7.5 (4.5-7.5); URINE SPECIFIC GRAVITY 1.013 (1.000-1.030); UROBILINOGEN NEG (NEG)
[2016-11-06 15:39] LABS: MANUAL MICROSCOPIC REQUIRED? NO; REVIEW REQ? NO
== END | disposition home or self-care (01) ==
LOC: C.LABSPEC 14:38
PROVIDERS: ATTEND Obstetrics & Gynecology
DX: N39.498 Other specified urinary incontinence (principal)

== ENCOUNTER 2016-11-09 15:35 | Emergency (ER) | payer BC ==
[~2016-11-09] VITALS: Ht 154.9 cm; Wt 124.3 kg
[~2016-11-09 15:35] MED LIST changes: -ALL300 PO; -DILT-115 PO; -DILT180C50 PO; -ERGO500037 PO; -FRRG PO; -IPRA1AER2 INH; -LISI40TA PO; -LOSA50TA54 PO; -LVNIS100 SC; -MOME200A INH; -MOME6000 NAE; -MORP-157 PO; -NRN400 PO; -OXYC-57 PO; -POTA-65 PO; -POTA-74 PO; -QVRINH80 INH; -SPIR50TA2 PO; -WARF10TA4 PO; -[UNRECOGNIZED DRUG - OTHER] PO
[2016-11-09 15:38] VITALS: TEMP 36.8; Ht 154.9 cm; Wt 124.3 kg
[2016-11-09] MEDS ORDERED: MoRPHine SULFATE 4 MG/ML 1 ML CARP\\VIAL IV STA (15:54)
[2016-11-09] MEDS: PROPARACAINE HCL 0.5% OP SOLN 15 ML BTL OP STA ×2 (15:54→16:19)
--- NOTE | 2016-11-09 15:54 | EMERGENCY ROOM VISIT NOTE ---
History First contact with patient: 15:42 Chief Complaint: FALL Stated Complaint: FALL OUT OF BED;HIT LEFT EYE History of Present Illness The patient is a 61 year old female who presents to the Emergency Room via private vehicle with complaints of "fell out of bed, hit left eye. The patient states that earlier today, at approximately 6:30 AM, she was in bed, wearing her BiPAP when she fell to the floor, striking the left corner of the nightstand against her forehead/left thigh region. She states that she may have lost consciousness, and does not remember the event well. Throughout the day she has developed a severe headache in the left frontal region as well as left eye pain. There is been a yellow scant drainage from the left eye. There is also blurred vision. She rates the pain as a 10/10. She denies any chest pain, shortness of breath, fevers, chills. Her tetanus is up-to-date. She states that she has fallen getting out of bed about 4 times in the past year. Review of Systems A complete 10-point Review of Systems was discussed with the patient, with pertinent positives and negatives listed in the History of Present Illness. All remaining Review of Systems questions can be considered negative unless otherwise specified. Past Medical/Surgical History Medical Problems: (1) abdominal wall hematoma (2) Asthma (3) Benign hypertension (4) Bronchitis (5) Chest pain (6) Congestive heart failure (7) Deep venous thrombosis (8) Diabetes mellitus (9) Pneumonia (10) Pulmonary embolism (11) Pulmonary emphysema (12) SOB (shortness of breath) Family History Depression FH: gallbladder disease FH: heart disease FH: lung disease Hypertension Kidney stones Social History Smoking Status: Never Smoker Drug Use: none Marital Status: Occupation Status: retired Current/Historical Medications Scheduled Allopurinol (Zyloprim), 100 MG PO QAM Aspirin (Aspirin Ec), 81 MG PO DAILY Atorvastatin (Lipitor), 20 MG PO HS Beclomethasone Dip (Qvar), 2 PUFFS INH BID Calcium Carbonate-Vitamin D (Oysco 500+D), 2 TAB PO QAM Diltiazem Hcl Ext Rel (Tiazac), 360 MG PO HS Ergocalciferol (Vitamin D 16144 Unit), 50,000 UNIT PO WK Furosemide (Lasix), 80 MG PO QAM Furosemide (Lasix), 40 MG PO QPM Gabapentin (Gabapentin), 400 MG PO TID Insulin Aspart (novoLOG INSULIN PUMP ), 1 EA N/A UD Levothyroxine Sodium (Levothyroxine Sodium), 50 MCG PO QAM Losartan Potassium (Cozaar), 1 TAB PO DAILY Metformin Hcl (Glucophage), 1,000 MG PO BIDM Metolazone (Zaroxolyn), 2.5 MG PO BID Mometasone Furoate (Nasal) (Mometasone Furoate), 1 SPRAY GEOFF DAILY Paroxetine (Paxil), 40 MG PO QAM Potassium Chloride (Potassium Chloride Er), 30 MEQ PO TID Warfarin Sod (Jantoven), 7.5 MG PO 4XWK Warfarin Sod (Jantoven), 10 MG PO MWF Scheduled PRN Cyclobenzaprine Hcl (Flexeril), 1 TAB PO TID PRN for Muscle Spasms Formoterol Fumarate (Perforomist), 2 ML INH Q12 PRN for SOB/Wheezing Ipratropium-Albuterol (Duoneb), 1 TREATMENT INH Q4H PRN for Shortness of Breath Physical Exam Vital Signs Date Time Temp Pulse Resp B/P (MAP) Pulse Ox O2 Delivery O2 Flow Rate FiO2 11/09/16 17:21 61 138/83 96 11/09/16 16:16 63 11/09/16 15:38 36.8 70 18 164/110 95 Room Air Physical Exam VITAL SIGNS - Vital signs and nursing notes were reviewed. Stable. She is hypertensive at 164/100. GENERAL -61-year-old female appearing her stated age. Communicates well with provider and answers questions appropriately. SKIN - Gross examination of the entire body surface demonstrates 2 lacerations to the body surface. These lacerations will not not require repair. There is left orbital ecchymosis noted. HEAD - Normocephalic, Atraumatic. No Mendiola's Sign or Raccoon's Eyes. No depressed skull fractures palpable. EYES - PERRL with EOMI bilaterally. There is subconjunctival hemorrhage noted in the left lateral field. There is also edema and ecchymosis around the left eye. Negative Vitaly sign, no hyphema. EARS - No deformities of external structures noted on gross examination bilaterally. No hemotympanum present. No tympanic perforation noted. Handle of malleus, umbo, cone of light, pars tensa/flaccid all easily visualized. NOSE - Midline and without cyanosis. No epistaxis or clear watery discharge noted. Septum midline without deviation. No septal hematoma noted. No overlying ecchymosis noted. MOUTH/OROPHARYNX - Without perioral cyanosis. Tongue midline with equal elevation of palate bilaterally. No blood noted in the oropharynx. No tonsillar hypertrophy, erythema, or exudates noted. No dental fractures noted. NECK - no tenderness to palpation over the cervical spinous processes. No cervical paraspinal muscle tenderness noted. LUNGS - Chest wall symmetric without accessory muscle use, intercostals retractions, or central cyanosis. Normal vesicular breath sounds CTA B/L. No wheezes, rales, or rhonchi appreciated. CARDIAC - RRR with S1/S2. No murmur, rubs, or gallops appreciated. EXTREMITIES - No gross deformities noted of the extremities. There is tenderness to palpation over the left anterior knee a location of an abrasion there is no bony tenderness.+5/5 strength noted in UE/LE bilaterally. NEUROLOGIC - Cranial nerves II through XII grossly intact. Sensory intact to light touch throughout. PSYCH - A&Ox3 and cooperates fully with examiner. Pt is very pleasant and interacts well with examiner. Slit Lamp Examination was performed of the left eye(s). Alcaine drops were applied to the affected eye(s) for proper anesthetization. The affected eye(s) were stained with Fluorescein stain to precipitate adequate visualization of any conjunctival/scleral excoriations or ulcers. The patient's face was comfortably rested on the chin guard of the slit lamp apparatus. The lights were dimmed and the affected eye(s) were thoroughly examined under microscopy using the blue light. Punctate uptake was present in the inferior, lateral anterior portions of the conjunctiva and was sitting punctate abrasions, with a larger abrasion of the superior field. No abrasion over the iris. Negative Vitaly sign. There is left subconjunctival hemorrhage. Additionally, the eye(s ) were examined under microscopy using the regular light. Close examination revealed subjectively hemorrhage. Patient tolerated the procedure well and no complications were met. Medical Decision & Procedures ER Provider Diagnostic Interpretation: [~ rep ct add3]] FACIAL BONES-MXILLOFAC WITHOUT CT DOSE: 662.82 mGycm HISTORY: Trauma Fall, anticoagulated, left eye trauma/head pain TECHNIQUE: Multiaxial CT images of the maxillofacial region were performed and reformatted in the coronal plane without the use of contrast. A dose lowering technique was utilized adhering to the principles of ALARA. COMPARISON: 03/25/2007 FINDINGS: The visualized cervical spine, skull base, pterygoid plates, nasal bones, lamina papyracea, orbital floors, mandible, and zygomatic arches are intact. No fractures. The orbits are unremarkable. Mild chronic sinus change including bilateral antral window placement IMPRESSION: No acute abnormality of the maxillofacial region. Minimal soft tissue edema left periorbital region The above report was generated using voice recognition software. It may contain grammatical, syntax or spelling errors. Electronically signed by: Mitchell Wallace M.D. 11/09/2016 5:19 PM Dictated Date/Time: 11/09/2016 5:16 PM HEAD WITHOUT CONTRAST (CT) CT DOSE: 720.95 mGycm HISTORY: Trauma Fall, anticoagulated, left eye trauma/head pain TECHNIQUE: Multiaxial CT images of the head were performed without the use of intravenous contrast. A dose lowering technique was utilized adhering to the principles of ALARA. Comparison: 06/17/2016 Findings: The paranasal sinuses and mastoid air cells are clear. The calvarium and skull base are intact. The ventricles and sulci are within normal limits. There is no mass, hematoma, midline shift, or acute infarct. Impression: No acute intracranial abnormality. The above report was generated using voice recognition software. It may contain grammatical, syntax or spelling errors. Electronically signed by: Mitchell Wallace M.D. 11/09/2016 5:13 PM Dictated Date/Time: 11/09/2016 5:12 PM Laboratory Results Test 11/09/16 16:16 Bedside Hemoglobin 11.2 g/dl (12.0-16.0) Bedside Hematocrit 33 % (37-47) Bedside Sodium 136 mEq/L (135-144) Bedside Potassium 3.4 mEq/L (3.3-5.0) Bedside Chloride 90 mEq/L (101-112) Bedside Total CO2 35 mEq/l (24-31) Anion Gap 15.0 mmol/L (16-25) Bedside Blood Urea Nitrogen 35 mg/dl (7-18) Bedside Creatinine 1.3 mg/dl (0.6-1.3) Bedside Glucose (other) 100 mg/dl (70-99) Bedside Ionized Calcium (Nancy) 1.09 mmol/l (1.12-1.32) Medications Administered Medications (Trade) Dose Ordered Sig/Jesus Route Start Time Stop Time Status Last Admin Dose Admin Acetaminophen (Tylenol Tab) 500 mg NOW STAT PO 11/09/16 16:04 11/09/16 16:06 DC 11/09/16 16:19 500 MG ED Course Complete and thorough evaluation was performed and C1. Medicine was a ministered. CT scans were performed. Corneal abrasion noted. Stable for outpatient management. Medical Decision Patient was seen and evaluated in the emergency department in room C1. After obtaining a thorough history and physical examination, the above workup was performed and a decision was made to obtain a CT scan the patient's head and face. Her INR today was found on 0.6. She states that when she was seen by her family doctor on Saturday, it was 1.0. She's been on increased regimen of Coumadin/warfarin over a two-week period help decrease this. She will see her family doctor to have this repeated. I believe this is appropriate. She is slightly anemic here on her blood work, and has elevated bicarbonate and anion gap. I suspect this is likely secondary to her COPD. She is to follow up regarding this. On examination she appears to have a corneal abrasion, and a subconjunctival hemorrhage. For this I will treat this with Ciloxan eyedrops. She is to follow-up with Dr. Piedra, her [facility] doctor as well as your family doctor by calling them first thing Saturday morning. CT scans were negative for acute process. Her wounds were cleansed and dressed with a bacitracin dressing. No acute process other than the corneal abrasion. She was educated upon worrisome symptoms which to return, had questions by discharge , and was discharged home in good condition. EKG is improved. Normal sinus rhythm. Rate of 64 bpm, without ectopy or ischemic change. In the evaluation and treatment of this patient, the following differential diagnoses were considered: Concussion, Contrecoup Injury, Brain Tumor, Depression, Encephalitis, Hypothyroidism, Meningitis, CVA, TIA, Migraine, Cluster Headache, Intracranial Abnormality, Intracranial Hemorrhage, Subdural Hematoma, Subarachnoid Hemorrhage, Hydrocephalus. She is to follow up regarding her injuries today. Blood Pressure Screening Patient's blood pressure: Elevated blood pressure Blood pressure disposition: Elevated BP felt to be situational, Referred to PCP Impression Primary Impression: Fall Additional Impressions: Contusion of multiple sites Corneal abrasion Departure Information Dispostion Home / Self-Care Condition GOOD Referrals Scott Lombardo M.D. (PCP) Patient Instructions My [facility] Additional Instructions You have been treated in the Emergency Department today for your Corneal Abrasion. You have been prescribed Ciloxan eye drops. This is an antibiotic which will help to prevent an infection from developing in your affected eye. You should use 2 drops in the affected eye every 4 hours while awake for 5 days. For pain control, you can use the following [id number] medicines (if >12 yo): - Regular strength (325mg/tab) Tylenol (acetaminophen) 2 tabs every 4-6 hours as needed. Do not exceed 12 tablets in a 24 hour period. Avoid taking more than 3 grams (3000 mg) of Tylenol per day. This includes any other sources of acetaminophen you may take on a regular basis. You should relax in a quiet, dark place for the rest of the day. You should wear sunglasses while outside for the next few days until your eyes are not as sensitive to the light. You should schedule a follow-up appointment in 2-3 days with your Primary Care Provider or established Eye Doctor (Parking Lot Attendant) for further evaluation and treatment of your Corneal Abrasion. (Dr. Piedra) Please call your family doctor to schedule follow-up sooner as possible regarding your blood work today, as well as your low blood pressure. Your hemoglobin was low at 11.2. Your CO2 was high at 35, BUN was high at 35, and other slight abnormalities of which are better assessed on basic blood work with your family doctor. Please notify them to schedule follow-up. Your INR today is 1.6. Return to the Emergency Department if your current symptoms worsen despite treatment course outlined above, or if you develop any of the following symptoms : intractable pain, visual disturbances, loss of vision, increased redness, swelling, drainage, or if you develop a fever. Please return to the emergency department with new/concerning symptoms. Problem Qualifiers
[2016-11-09] MEDS ORDERED: ACETAMINOPHEN 500 MG TAB PO STA (16:04)
[2016-11-09 16:27] LABS: ISTAT CREATININE 1.3 mg/dl (0.6-1.3); ISTAT HEMOGLOBIN 11.2 g/dl (12.0-16.0); ISTAT IONIZED CALCIUM 1.09 mmol/l (1.12-1.32)
[2016-11-09] MEDS ORDERED: QVRINH80 INH (16:48)
[2016-11-09] MEDS ORDERED: ERGO500037 PO (16:48)
[2016-11-09] MEDS ORDERED: WARF10TA4 PO (16:48)
[2016-11-09] MEDS ORDERED: MOME6000 NAE (16:48)
[2016-11-09] MEDS ORDERED: NRN400 PO (16:49)
[2016-11-09] MEDS ORDERED: POTA-74 PO (16:49)
--- NOTE | 2016-11-09 17:15 | DIAGNOSTIC IMAGING REPORT ---
HEAD WITHOUT CONTRAST (CT) CT DOSE: 720.95 mGycm HISTORY: Trauma Fall, anticoagulated, left eye trauma/head pain TECHNIQUE: Multiaxial CT images of the head were performed without the use of intravenous contrast. A dose lowering technique was utilized adhering to the principles of ALARA. Comparison: 06/17/2016 Findings: The paranasal sinuses and mastoid air cells are clear. The calvarium and skull base are intact. The ventricles and sulci are within normal limits. There is no mass, hematoma, midline shift, or acute infarct. Impression: No acute intracranial abnormality. The above report was generated using voice recognition software. It may contain grammatical, syntax or spelling errors. Electronically signed by: Mitchell Wallace M.D. 11/09/2016 5:13 PM Dictated Date/Time: 11/09/2016 5:12 PM
--- NOTE | 2016-11-09 17:21 | DIAGNOSTIC IMAGING REPORT ---
FACIAL BONES-MXILLOFAC WITHOUT CT DOSE: 662.82 mGycm HISTORY: Trauma Fall, anticoagulated, left eye trauma/head pain TECHNIQUE: Multiaxial CT images of the maxillofacial region were performed and reformatted in the coronal plane without the use of contrast. A dose lowering technique was utilized adhering to the principles of ALARA. COMPARISON: 03/25/2007 FINDINGS: The visualized cervical spine, skull base, pterygoid plates, nasal bones, lamina papyracea, orbital floors, mandible, and zygomatic arches are intact. No fractures. The orbits are unremarkable. Mild chronic sinus change including bilateral antral window placement IMPRESSION: No acute abnormality of the maxillofacial region. Minimal soft tissue edema left periorbital region The above report was generated using voice recognition software. It may contain grammatical, syntax or spelling errors. Electronically signed by: Mitchell Wallace M.D. 11/09/2016 5:19 PM Dictated Date/Time: 11/09/2016 5:16 PM
--- NOTE | 2016-11-09 17:45 | EMERGENCY ROOM VISIT NOTE ---
ED Visit Note First contact with patient: 15:42 This Patient was discussed with the physician Banquet Houseperson, Aureliano Jack PA-C. The pertinent historical and physical exam findings were confirmed. I agree with the studies ordered and with the interpretations of these studies. I agree with the disposition and care plan.
[2016-11-09] MEDS ORDERED: CIPROFLOXACIN HCL 0.3% OP SOLN 2.5 ML BTL OP STA (17:47)
[2016-11-09 18:25] VITALS: BP 140/89; PULSE 70; O2SAT 97
[2016-12-10] MEDS ORDERED: DILT-115 PO (13:42)
[2016-12-10] MEDS ORDERED: INSPMPNVLG (13:42)
[2016-12-10] MEDS ORDERED: [UNRECOGNIZED DRUG - OTHER] PO (13:42)
[2016-12-10] MEDS ORDERED: LISI40TA PO (13:42)
[2016-12-10] MEDS ORDERED: OXYC-57 PO (13:42)
[2016-12-10] MEDS ORDERED: SPIR50TA2 PO (13:43)
[2017-01-19] MEDS ORDERED: MORP-157 PO (19:59)
[2017-01-19] MEDS ORDERED: OXYC-57 PO (19:59)
[2017-01-19] MEDS ORDERED: FRRG PO (19:59)
== END 2016-11-09 18:48 | disposition home or self-care (01) ==
LOC: C.EDB 15:36 → C.EDC 18:48
DX: T14.8 Other injury of unspecified body region (principal); S05.02XA Injury of conjunctiva and corneal abrasion without foreign body, left eye, initial encounter; W06.XXXA Fall from bed, initial encounter; J45.909 Unspecified asthma, uncomplicated; I10 Essential (primary) hypertension; I50.9 Heart failure, unspecified; E11.9 Type 2 diabetes mellitus without complications; I26.99 Other pulmonary embolism without acute cor pulmonale; Z82.49 Family history of ischemic heart disease and other diseases of the circulatory system; Z79.82 Long term (current) use of aspirin; Z79.4 Long term (current) use of insulin; Z79.01 Long term (current) use of anticoagulants

== ENCOUNTER → 2016-11-23 | Outpatient (CLI) | payer BC ==
[~2016-11-23] MED LIST changes: +ALL300 PO; -BECL0.3A INH; +DILT-115 PO; +DILT180C50 PO; -ERGO1CAP35 PO; +ERGO500037 PO; +FRRG PO; -GABA-113 PO; +IPRA1AER2 INH; +LISI40TA PO; +LOSA50TA54 PO; +LVNIS100 SC; +MOME200A INH; -MOME50SP5; +MOME6000 NAE; +MORP-157 PO; +NRN400 PO; +OXYC-57 PO; +POTA-65 PO; +POTA-74 PO; -POTA20TA16 PO; +QVRINH80 INH; +SPIR50TA2 PO; +WARF10TA4 PO; -WARF5TAB7 PO; +[UNRECOGNIZED DRUG - OTHER] PO
[2016-11-23 13:45] LABS: URINE APPEARANCE CLEAR (CLEAR); URINE BILIRUBIN NEG (NEG); URINE COLOR YELLOW; URINE NITRITE NEG (NEG); URINE SPECIFIC GRAVITY 1.011 (1.000-1.030); UROBILINOGEN NEG (NEG)
[2016-11-23 13:53] LABS: MANUAL MICROSCOPIC REQUIRED? NO; REVIEW REQ? NO
[2016-11-23 14:20] LABS: BLOOD UREA NITROGEN 38 mg/dl (7-18); BUN/CREATININE RATIO 31.5 (10-20); CALCIUM 9.4 mg/dl (8.5-10.1); CARBON DIOXIDE 35 mmol/L (21-32); CHLORIDE 96 mmol/L (98-107); GLUCOSE 99 mg/dl (70-99); POTASSIUM 2.9 mmol/L (3.5-5.1); SODIUM 138 mmol/L (136-145)
[2016-11-23 14:23] LABS: URINE PROTIEN/CREAT RATIO 0.3 (0-0.2); URINE TOTAL PROTEIN 6.1 mg/dl (0-11.9)
--- NOTE | 2016-11-29 11:19 | CODING QUERY MEDICAL NECESSITY ---
CQSUPPORTING DIAGNOSIS NEEDED A supporting diagnosis is required for the test/procedure performed on this patient in order for us to be reimbursed by the patient's insurance. Please provide a supporting diagnosis for the following test/procedure listed below next to the test name along with your signature. *If there is no additional diagnosis for this patient that would support the following test/procedure please document that below next to the test/procedure. Test(s)/Procedure(s) that require a supporting diagnosis: DOS 11/23/16 URINE CULTURE Provider Signature: Date: Thank you Jacquie Medrano [employer] Information Management Once completed, please kindly fax back to [phone] For questions please call [phone]
== END | disposition home or self-care (01) ==
LOC: C.LABMFLN 10:43
PROVIDERS: ATTEND Internal Medicine Nephrology
DX: M70.62 Trochanteric bursitis, left hip (principal); N18.3 Chronic kidney disease, stage 3 (moderate); R30.0 Dysuria

== ENCOUNTER → 2016-11-26 | Outpatient (CLI) | payer BC ==
[2016-11-26 13:33] LABS: BLOOD UREA NITROGEN 27 mg/dl (7-18); BUN/CREATININE RATIO 30.4 (10-20); CALCIUM 8.9 mg/dl (8.5-10.1); CARBON DIOXIDE 33 mmol/L (21-32); CHLORIDE 103 mmol/L (98-107); CREATININE 0.89 mg/dl (0.60-1.20); GLUCOSE 114 mg/dl (70-99); MAGNESIUM 1.9 mg/dl (1.8-2.4); SODIUM 140 mmol/L (136-145)
[2016-11-26 13:34] LABS: PHOSPHORUS 2.6 mg/dl (2.5-4.9)
== END | disposition home or self-care (01) ==
LOC: C.LAB1850 11:31
PROVIDERS: ATTEND Internal Medicine Nephrology
DX: E87.6 Hypokalemia (principal); Z79.01 Long term (current) use of anticoagulants; I26.99 Other pulmonary embolism without acute cor pulmonale; Z51.81 Encounter for therapeutic drug level monitoring

== ENCOUNTER → 2016-11-28 | Outpatient (CLI) | payer BC ==
[2016-11-28 13:32] LABS: BASO % 0.3 %; BASO ABS # 0.05 K/uL (0-0.2); COMPLETE YES; EOS % 1.3 %; HEMATOCRIT 33.2 % (37-47); IG% 0.4 %; LYMPH % 22.6 %; LYMPH ABS # 3.27 K/uL (1.2-3.4); MEAN CELL VOLUME 94.3 fL (80-100); MEAN CORPUSCULAR HEMOGLOBIN 29.8 pg (25-34); MEAN CORPUSCULAR HGB CONC 31.6 g/dl (32-36); MONO % 7.8 %; NEUT % 67.6 %; PLATELET COUNT 320 K/uL (130-400); RED BLOOD COUNT 3.52 M/uL (4.2-5.4); WHITE BLOOD COUNT 14.48 K/uL (4.8-10.8)
[2016-11-28 13:36] LABS: INR 1.8 (0.9-1.1); PROTHROMBIN TIME (PATIENT) 20.1 SECONDS (9.0-12.0)
== END | disposition home or self-care (01) ==
LOC: C.LABMFLN 11:49
PROVIDERS: ATTEND Physician Assistant
DX: R53.83 Other fatigue (principal); R06.02 Shortness of breath

== ENCOUNTER → 2016-12-03 | Outpatient (CLI) | payer BC ==
--- NOTE | 2016-12-03 09:54 | DIAGNOSTIC IMAGING REPORT ---
LUMBAR SPINE W/O CONTRAST CLINICAL HISTORY: 61 years-old Female presenting with RADICULOPATHY, no history of cancer, no previous surgery, no known injury, pain in the left buttock radiating down the left leg for 4 weeks, uses a cane to walk since 2004. TECHNIQUE: Multisequence, multiplanar MR imaging of the lumbar spine was performed without the use of intravenous contrast. IV contrast: None. COMPARISON: 08/12/2015. FINDINGS: Localizer images: Unremarkable. Straightening of normal lumbar lordosis as on prior exam. Vertebral bodies maintain normal height, alignment, and bone marrow signal intensity. Minimal bony edema noted eccentrically in the right pedicle of L5 and associated with the right zygapophyseal joint at L5-S1. Mild intervertebral disc desiccation at L2-3 and L5-S1, although disc heights are maintained. No significant disc bulges. Left greater than right facet arthropathy at L5-S1. This results in mild bilateral neural foraminal narrowing. No spinal canal narrowing. Spinal cord ends in good position at the inferior endplate of L1. Cauda equina normal. Paraspinal soft tissues normal. IMPRESSION: Focal degenerative change at L5-S1, where there is facet arthropathy. Bony edema associated with the right facet joint at L5-S1 is most likely degenerative in etiology. Mild bilateral neural foraminal narrowing at L5-S1. No significant spinal canal narrowing. Electronically signed by: Jani Gomez M.D. 12/03/2016 9:53 AM Dictated Date/Time: 12/03/2016 9:47 AM
== END | disposition home or self-care (01) ==
LOC: C.MRI 08:45
PROVIDERS: ATTEND Family Medicine
DX: M54.16 Radiculopathy, lumbar region (principal); M47.817 Spondylosis without myelopathy or radiculopathy, lumbosacral region

== ENCOUNTER 2017-01-18 08:10 | Inpatient (IN) | payer BC, OTHER ==
[2016-12-10 13:48] VITALS: BMI 51.0
--- NOTE | 2016-12-10 14:33 | PAT Medication Instructions ---
Service Date Dec 10, 2016. Current Home Medication List Allopurinol (Zyloprim), 100 MG PO QAM Aspirin (Aspirin Ec), 81 MG PO QAM Atorvastatin (Lipitor), 20 MG PO HS Beclomethasone Dip (Qvar), 2 PUFFS INH BID PRN for PRN Calcium Carbonate-Vitamin D (Oysco 500+D), 2 TAB PO QAM Cyclobenzaprine Hcl (Flexeril), 1 TAB PO TID PRN for Muscle Spasms Diltiazem Hcl Ext Rel (Tiazac), 240 MG PO HS Ergocalciferol (Vitamin D 77265 Unit), 50,000 UNIT PO WK Formoterol Fumarate (Perforomist), 2 ML INH Q12 PRN for SOB/Wheezing Furosemide (Lasix), 40 MG PO BID Gabapentin (Gabapentin), 400 MG PO TID Insulin Aspart (novoLOG INSULIN PUMP ), 1 EA N/A UD Ipratropium-Albuterol (Duoneb), 1 TREATMENT INH Q4H PRN for Shortness of Breath Levothyroxine Sodium (Levothyroxine Sodium), 50 MCG PO QAM Lisinopril (Prinivil), 40 MG PO QAM Metformin Hcl (Glucophage), 1,000 MG PO BIDM Mometasone Furoate (Nasal) (Mometasone Furoate), 1 SPRAY GEOFF QAM Oxycodone/Acetaminophen 5MG/325MG (Percocet 5MG/325MG), 1 TABLET PO Q6H PRN for Pain Paroxetine (Paxil), 40 MG PO QAM Potassium Chloride (Potassium Chloride Er), 30 MEQ PO BID Spironolactone (Aldactone), 50 MG PO QAM Warfarin Sod (Jantoven), 7.5 MG PO QPM Medication Instructions For Your Scheduled Surgery Check with surgeon/prescribing physician for instructions: Warfarin Sod (Jantoven), 7.5 MG PO QPM - Continue as directed: Ergocalciferol (Vitamin D 19977 Unit), 50,000 UNIT PO WK (Saturday) - Hold the following medications 48 hours prior to surgery: Metformin Hcl (Glucophage), 1,000 MG PO BIDM Calcium Carbonate-Vitamin D (Oysco 500+D), 2 TAB PO QAM Cyclobenzaprine Hcl (Flexeril), 1 TAB PO TID PRN for Muscle Spasms Furosemide (Lasix), 40 MG PO BID Lisinopril (Prinivil), 40 MG PO QAM Potassium Chloride (Potassium Chloride Er), 30 MEQ PO BID - Take the following medications the morning of surgery with a sip of water: Allopurinol (Zyloprim), 100 MG PO QAM Aspirin (Aspirin Ec), 81 MG PO QAM Spironolactone (Aldactone), 50 MG PO QAM Paroxetine (Paxil), 40 MG PO QAM Mometasone Furoate (Nasal) (Mometasone Furoate), 1 SPRAY GEOFF QAM Oxycodone/Acetaminophen 5MG/325MG (Percocet 5MG/325MG), 1 TABLET PO Q6H PRN for Pain (okay to take up to 4 hours prior to surgery if needed) Gabapentin (Gabapentin), 400 MG PO TID Ipratropium-Albuterol (Duoneb), 1 TREATMENT INH Q4H PRN for Shortness of Breath (if needed) Levothyroxine Sodium (Levothyroxine Sodium), 50 MCG PO QAM Formoterol Fumarate (Perforomist), 2 ML INH Q12 PRN for SOB/Wheezing (if needed ) Beclomethasone Dip (Qvar), 2 PUFFS INH BID PRN for PRN (if needed) - Take the following medications as scheduled the night before surgery: Atorvastatin (Lipitor), 20 MG PO HS Potassium Chloride (Potassium Chloride Er), 30 MEQ PO BID Oxycodone/Acetaminophen 5MG/325MG (Percocet 5MG/325MG), 1 TABLET PO Q6H PRN for Pain (if needed) Gabapentin (Gabapentin), 400 MG PO TID Ipratropium-Albuterol (Duoneb), 1 TREATMENT INH Q4H PRN for Shortness of Breath (if needed) Furosemide (Lasix), 40 MG PO BID Formoterol Fumarate (Perforomist), 2 ML INH Q12 PRN for SOB/Wheezing (if needed ) Diltiazem Hcl Ext Rel (Tiazac), 240 MG PO HS Cyclobenzaprine Hcl (Flexeril), 1 TAB PO TID PRN for Muscle Spasms (if needed) Beclomethasone Dip (Qvar), 2 PUFFS INH BID PRN for PRN (if needed) - For Insulin Dependent Diabetic patients: Test blood sugar A.M. of surgery. Insulin Aspart (novoLOG INSULIN PUMP ), Keep set at basal setting (no bolus or sliding scale) If you have any questions please call us at [phone] or [phone] or [phone]
[2016-12-10 14:54] LABS: BASO % 0.5 %; BASO ABS # 0.06 K/uL (0-0.2); COMPLETE YES; EOS % 2.6 %; HEMATOCRIT 33.1 % (37-47); IG% 0.3 %; LYMPH % 20.5 %; LYMPH ABS # 2.67 K/uL (1.2-3.4); MEAN CELL VOLUME 91.4 fL (80-100); MEAN CORPUSCULAR HEMOGLOBIN 30.7 pg (25-34); MEAN CORPUSCULAR HGB CONC 33.5 g/dl (32-36); MEAN PLATELET VOLUME 9.9 fL (7.4-10.4); NEUT % 69.1 %; PLATELET COUNT 276 K/uL (130-400); RED BLOOD COUNT 3.62 M/uL (4.2-5.4); WHITE BLOOD COUNT 13.01 K/uL (4.8-10.8)
[2016-12-10 15:24] LABS: PARTIAL THROMBOPLASTIN RATIO 1.7; PROTHROMBIN TIME (PATIENT) 33.2 SECONDS (9.0-12.0)
[2016-12-11 05:52] LABS: ESTIMATED AVERAGE GLUCOSE 134 mg/dl; HA1C FLAG Normal (Normal)
--- NOTE | 2017-01-11 23:45 | HISTORY & PHYSICAL EXAMINATION ---
DATE OF ADMISSION: 01/18/2017 CHIEF COMPLAINT: Left knee pain. HISTORY OF PRESENT ILLNESS: She is a 61-year-old female with multiple underlying medical comorbidities, who now presents for surgical treatment of her left knee. She has got a long history of bilateral knee pain and discomfort. We actually had her scheduled to replace her left knee about a year ago. She got ill and we had to cancel. She wanted to wait until this fall. She continues to be bothered by knee pain. She uses a cane to get around. She does have a history of knee arthroscopy in the past, done at [facility] without much relief. She does have pretty significant limiting asthma, managed by Dr. Hein. She is having more and more trouble getting around and it take mores energy, gets tired easier. She would like to have her left knee fixed. PAST MEDICAL HISTORY: 1. Hypertension. 2. Congestive heart failure. 3. Asthma/COPD. 4. 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 5. Sleep apnea. 6. Anxiety, depression. 7. Diabetes. 8. Anemia. 9. Chronic obesity with BMI of 51. 10. Gastroesophageal reflux disease. 11. Hiatal hernia. PAST SURGICAL HISTORY: Previous surgeries include: 1. Hiatal hernia surgery. 2. Fissure removed from the bowel. 3. Hernia repair. 4. Ankle ORIF. 5. Ankle arthrodesis. ALLERGIES: SULFA. CURRENT MEDICINES: Include: 1. Allopurinol 100 mg a day. 2. Aspirin 81 mg a day. 3. Atorvastatin 20 mg. 4. Insulin. 5. Cyclobenzaprine 10 mg 3 times a day. 6. Diltiazem ER 120 mg 2 capsules at night. 7. DuoNeb every 4 hours p.r.n. 8. Ergocalciferol once a day. 9. Furosemide 20 mg twice a day. 10. Klor-Con 10 mEq twice a day. 11. Levothyroxine 50 mcg once a day. 12. Lisinopril 200 mg twice a day. 13. Metformin 500 mg 2 tablets twice a day. 14. Nasonex in each nostril daily. 15. NovoLog insulin. 16. Oxycodone/Tylenol. 17. Os-Mao 500 mg twice a day. 18. Paroxetine 40 mg a day. 19. Perforomist inhaler nebulizer. 20. Prednisone 5 mg a day. SOCIAL HISTORY: This is a 61-year-old female. She is from the [facility]. FAMILY HISTORY: Noncontributory. REVIEW OF SYSTEMS: Significant asthma and COPD. She is managed by Dr. Hein. She has multiple other comorbidities as per her past medical history. She does have a history of DVT and got an IVC filter in place. PHYSICAL EXAMINATION: GENERAL: Shows a pleasant elderly female. HEENT: Benign. NECK: Supple. No lymphadenopathy. LUNGS: Clear to auscultation. HEART: Has a regular rate and rhythm. ABDOMEN: Soft, nontender, nondistended. EXTREMITIES: Grossly neurovascularly intact except as follows: Examination of the left knee reveals the patient walks with a limp. She is using a walking aid. She has fairly neutral alignment to her knee. Range of motion is 5-120. No instability. X-RAYS: X-rays of the left knee were reviewed. It shows advanced left knee medial compartment DJD. She has got complete loss of her medial joint space. She has some subchondral sclerosis. ASSESSMENT: A 61-year-old female with advanced bilateral knee pain and degenerative joint disease, left side worse than the right. Multiple comorbidities, but she would like to have her knee replaced. PLAN: We are going to take her to the operating room and do a left total knee replacement. The risks and benefits of this procedure were explained to the patient including but not limited to DVT, PE, , infection, neurological injury, vascular injury, bleeding problem, pain, limited range of motion, stiffness, failure to relieve symptoms, incomplete relief of symptoms, need for further surgery in the future, fracture, leg length inequality, nerve palsy, need for further surgery, etc. The patient understands and desires to proceed. Informed consent was obtained. We did talk about holding lisinopril the morning of surgery and the metformin 2 days preop. She will need a stat PT and INR on admission. She is not on enough prednisone to warrant stress doses, at least as per the most recent recommendations. We will have Dr. Hein follower her in the hospital. She will plan to be discharged to home using [facility] home health program. RADHA
[~2017-01-18] VITALS: Ht 154.9 cm; Wt 121.7 kg
[2017-01-18] VITALS (7 sets, daily range): BP systolic 132–160; BP diastolic 69–105; PULSE 70–81; TEMP 36.4–36.8; O2SAT 94–99; Ht 154.9 cm; Wt 121.7 kg
[~2017-01-18 08:10] MED LIST changes: +ACETAMINOPHEN 500 MG TAB PO SCH; -ALL300 PO; +BUPIVACAINE 0.25% 30 ML VIAL ONE; +BUPIVACAINE 0.5 % 5 MG/1 ML PF 10ML VIAL ONE; +BUPIVACAINE LIPOSOME 266 MG, BUPIVACAINE/EPINEPHRINE INJ 50 ML, SODIUM CHLORIDE 0.9% PF... INFIL SCH; -DILT-113 PO; -DILT180C50 PO; +FAMOTIDINE 20 MG TAB PO SCH; -FRRG PO; +GABAPENTIN 300 MG CAP PO SCH; -IPRA1AER2 INH; +LACTATED RINGER'S 1000ML 1,000 ML IV SCH; +LACTATED RINGER'S 1000ML 500 ML IV ONE; +LACTATED RINGER'S 1000ML IV SCH; -LOSA50TA54 PO; -LOSA50TA6 PO; -LVNIS100 SC; -METO2.5T PO; +METOCLOPRAMIDE HCL 10 MG TAB PO SCH; -MOME200A INH; -MORP-157 PO; -POTA-65 PO; +SCOPOLAMINE 1.5 MG TDSY TD SCH; +VANCOMYCIN INJ 1,750 MG in SODIUM CHLORIDE 0.9% 500ML 500 ML IV SCH; -WARF10TA4 PO; -[UNRECOGNIZED DRUG - OTHER] PO
--- NOTE | 2017-01-18 08:54 | History & Physical Bridge Note ---
H&P Re-Evaluation Bridge Note: I have examined the patient, reviewed the History & Physical and in the interval since the performance of the History & Physical I have noted the following changes of clinical significance: No changes noted
[2017-01-18] MEDS ORDERED: LVNIS100 SC (09:07)
[2017-01-18] MEDS ORDERED: MIDAZOLAM HCL 1 MG/ML 2ML VIAL ONE (09:22)
[2017-01-18] MEDS ORDERED: LIDOCAINE HCL 2% 2 ML VIAL (20MG/ML) ONE (09:23)
[2017-01-18] MEDS ORDERED: FENTANYL CITRATE INJ 50 MCG/1 ML 2 ML VIAL ONE (09:23)
[2017-01-18 09:45] LABS: PROTHROMBIN TIME (PATIENT) 10.7 SECONDS (9.0-12.0)
[2017-01-18] MEDS ORDERED: PROPOFOL IV EMULSION 10 MG/ML 20 ML VIAL IV ONE (10:06)
[2017-01-18] MEDS ORDERED: ONDANSETRON INJ 2 MG/ML 2 ML VIAL ONE (10:06)
[2017-01-18] MEDS ORDERED: KETOROLAC TROMETHAMINE 30 MG/ML VIAL IV. PRN (10:15)
[2017-01-18] MEDS ORDERED: PHENYLEPHRINE 100MCG/ML 5ML SYR IV PRN (10:15)
[2017-01-18] MEDS ORDERED: EpHEDrine SULFATE INJ 50 MG/ML AMP IV PRN (10:15)
[2017-01-18] MEDS ORDERED: ATROPINE SULFATE 0.1 MG/ML 5ML SYR IV PRN (10:15)
[2017-01-18] MEDS ORDERED: ONDANSETRON INJ 2 MG/ML 2 ML VIAL IV PRN ×2 (10:15→12:45)
[2017-01-18] MEDS ORDERED: HYDROmorphone INJ 2 MG/ML SYR/VIAL IV PRN (10:15)
[2017-01-18] MEDS ORDERED: SODIUM CHLORIDE 0.9% PF 50 ML VIAL ONE (10:28)
[2017-01-18] MEDS ORDERED: BUPIVACAINE/EPINEPHRINE 0.25% 1:200,000 30 ML VIAL ONE (10:28)
[2017-01-18] MEDS ORDERED: VANCOMYCIN HCL 1000MG/20ML VIAL ONE (10:29)
[2017-01-18] MEDS ORDERED: BACITRACIN 50000 UNIT VIAL ONE (10:29)
[2017-01-18] MEDS ORDERED: BUPIVACAINE LIPOSOME 1/3% 266 MG/20 ML VIAL INFIL ONE (10:29)
[2017-01-18] MEDS ORDERED: ALBUTEROL HFA INHALER 8.5 GM INH ONE (12:10)
--- NOTE | 2017-01-18 12:33 | [facility] Post Operative Brief Note ---
Immediate Operative Summary Operative Date Jan 18, 2017. Pre-Operative Diagnosis Left Knee Degenerative Joint disease Post-Operative Diagnosis Same as preop Procedure(s) Performed Left Total Knee Arthroplasty Surgeon Dr. Cody Simulation Engineer Surgeon(s) Florin Cortes PA-C Estimated Blood Loss 50 cc Findings Left Knee DJD Fluids (cc crystalloids) 550 cc Specimens A. Left Knee Bone and Tissue Drains None Anesthesia Spinal Complication(s) None Disposition Recovery Room / PACU
[2017-01-18] MEDS ORDERED: BISACODYL 10 MG SUPP PR PRN (12:45)
[2017-01-18] MEDS ORDERED: NovoLOG INSULIN PUMP SCH (12:45)
[2017-01-18] MEDS ORDERED: MoRPHine SULFATE 2 MG/ML CARP IV PRN (12:45)
[2017-01-18] MEDS ORDERED: ZOLPIDEM TARTRATE 5 MG TAB PO PRN (12:45)
[2017-01-18] MEDS ORDERED: CYCLOBENZAPRINE HCL 10 MG TAB PO PRN (12:45)
[2017-01-18] MEDS ORDERED: DiphenhydrAMINE HCL 50 MG/ML VIAL IV PRN (12:45)
[2017-01-18] MEDS ORDERED: FORMOTEROL FUMA NEBULIZER SOLN 20 MCG/2 ML VIAL INH PRN (12:45)
[2017-01-18] MEDS ORDERED: METOCLOPRAMIDE HCL INJ 5 MG/ML 2 ML VIAL IV PRN (12:45)
[2017-01-18] MEDS ORDERED: MAGNESIUM HYDROXIDE SUSP 30 ML UDC PO PRN (12:45)
[2017-01-18] MEDS ORDERED: ALBUT/IPRATROP 3MG/0.5MG NEB 3 ML VIAL INH PRN (12:45)
[2017-01-18] MEDS ORDERED: ALUMINUM/MAGNESIUM/SIMETH (MAALOX MAX) 30 ML UDC PO PRN (12:45)
[2017-01-18] MEDS ORDERED: BECLOMETHASONE DIP HFA 80 MCG 8.7G INH INH PRN (12:45)
--- NOTE | 2017-01-18 13:12 | Anesthesiology Progress Note ---
Anesthesia Post Op Note Date & Time Jan 18, 2017 at 13:12 Vital Signs Pain Intensity: 0 Vital Signs Past 12 Hours Date Time Temp Pulse Resp B/P (MAP) Pulse Ox O2 Delivery O2 Flow Rate FiO2 01/18/17 13:00 74 16 135/62 99 Nasal Cannula 2 01/18/17 12:50 71 16 137/58 100 Oxymask 10 01/18/17 12:42 36.1 70 16 147/65 100 Oxymask 10 01/18/17 09:09 36.8 74 20 154/89 96 Room Air Notes Mental Status: alert / awake / arousable, participated in evaluation Pt Amnestic to Procedure: Yes Nausea / Vomiting: adequately controlled Pain: adequately controlled Airway Patency, RR, SpO2: stable & adequate BP & HR: stable & adequate Hydration State: stable & adequate Neuraxial Anesthesia: was administered, sensory block is resolving Anesthetic Complications: no major complications apparent
--- NOTE | 2017-01-18 13:25 | DIAGNOSTIC IMAGING REPORT ---
LEFT KNEE 2 VIEWS History: Left total knee arthroplasty. Degenerative arthritis. Postop. FINDINGS: The patient is status post a left total knee arthroplasty. The hardware is intact. No fracture or dislocation. Skin robert are in place. IMPRESSION: Left total knee arthroplasty. No evidence for hardware complication. Electronically signed by: Darrius Sanchez M.D. 01/18/2017 1:24 PM Dictated Date/Time: 01/18/2017 1:23 PM
[2017-01-18] MEDS ORDERED: GABAPENTIN 400 MG CAP PO SCH (14:00)
[2017-01-18] MEDS ORDERED: DEXTROSE 50% 50 ML SYR IV PRN (15:00)
[2017-01-18] MEDS ORDERED: GLUCAGON FOR INJ 1 MG VIAL SQ PRN (15:00)
[2017-01-18] MEDS ORDERED: GLUCOSE 40% GEL 15 GM TUBE PO PRN (15:00)
[2017-01-18] MEDS ORDERED: GLUCOSE 10 TABS/TUBE PO PRN (15:00)
--- NOTE | 2017-01-18 15:20 | OPERATIVE REPORT ---
DATE OF OPERATION: 01/18/2017 SURGEON: Jorge Cody MD GLOVE FORMER: RENETTA Bautista PREOPERATIVE DIAGNOSIS: Left knee degenerative joint disease. POSTOPERATIVE DIAGNOSIS: Same. PROCEDURE PERFORMED: Left cemented posterior stabilized total knee arthroplasty. COMPLICATIONS: None. ESTIMATED BLOOD LOSS: 50 mL. FLUID REPLACEMENT: 550 mL crystalloid fluid replacement. ANESTHESIA: Spinal with adductor canal block. DRAINS: None. SPECIMENS: Left knee sent for pathology. TOURNIQUET TIME: 66 minutes at 350 mmHg. OPERATIVE INDICATIONS: The patient is a 61-year-old female with multiple comorbidities, who has had a long history of bilateral knee pain and discomfort. We had actually scheduled for knee replacement in the past, but she canceled due to medical issues. She has now elected to proceed with knee arthroplasty. She has been medically optimized. OPERATIVE FINDINGS: Operative findings revealed advanced left knee DJD. She had grade 4 [id number] disease primarily in the medial compartment. Not much in the way of eburnation. Moderate-sized knee effusion. Diffuse osteopenia throughout. OPERATIVE IMPLANTS: Operative implants consisted of: 1. Biomet Vanguard size 62.5 left posterior stabilized femoral component. 2. Biomet size 67 tibial tray. 3. A 10-mm posterior stabilized polyethylene insert. 4. A 28 x 8 all poly patella. OPERATIVE PROCEDURE: The patient was taken to the operating room, identified and placed on the operating table in the supine position. All contact areas were appropriately padded. IV antibiotics were provided by anesthesia team. A spinal anesthetic and adductor canal block had been provided in the holding area. Lopez catheter was placed in sterile fashion. Left thigh tourniquet was then placed and left lower extremity was then prepped and draped in the usual sterile fashion. The left leg was elevated and exsanguinated with Esmarch and tourniquet was placed at 300 mmHg. I did end up increasing the tourniquet pressure to 350 later in the case due to bleeding. An anterior approach to the left knee was then performed through a longitudinal incision centered over the patella. Sharp dissection was carried out through the subcutaneous tissues down to the level of the extensor mechanism. A medial parapatellar arthrotomy incision was made. Some subperiosteal dissection was carried out medially. The fat pad was resected from beneath the patellar tendon. The lateral patellofemoral ligament was released. The patella was everted and knee was flexed. The osteophytes were taken off the distal femur. The ACL and PCL were then released from the distal femur and the tibia subluxated anteriorly. The external tibial alignment jig was then placed in the anterior face of the tibia. I could not really get a position well, so I elected to use the intramedullary guide. We had to get the new tray open for that, so I went to preparing the femur. The distal femur was entered with a sharp drill. Intramedullary guide was placed. A left 5-degree valgus cutting guide was placed. Distal femoral cutting block was pinned in place and the distal femoral cut was made to take an additional 3 mm of bone off the distal femur. The femur was then sized to a size 62.5. We did downsize this slightly. The AP cutting block was pinned parallel to the epicondylar axis, which was 5 degrees of external rotation. The anterior cut, anterior chamfer, posterior cut, and posterior chamfer cuts were made. Box cutting guide was placed and adjusted slightly lateral and the box cut was made. The knee was flexed. At this point, we had intramedullary guide. I did remove the intercondylar eminence. I then opened the canal and placed the purnima down the tibia. Upon doing this, we ran into some hardware from a previous ankle fusion. I could not get a good alignment with the IM canal, so I elected to use an external tibial alignment jig. The external tibial alignment jig was then placed in the anterior face of the tibia. At this point, I could get better exposure, so, I was able to position it more appropriately. It was adjusted 14 mm medially. Proximal tibial cut was made to take about 2-3 mm of bone from the most deficient aspect of the medial tibial plateau. The tibia was sized to a size 67. The tibia was then prepared for the tibial tray. I then flexed the knee. The remnants of the medial and lateral meniscus were excised. The osteophytes were taken off the posterior aspect of the femur. Trial femoral component was placed. Tibial tray was pinned in place and the knee was trialed and a 10-mm insert fit most appropriately. Attention was then drawn to the patella. The patella was cleaned of all soft tissues. Patella thickness measured 20 mm in thickness and it was cut down to 12. It was sized to a size 28 patella. Lug holes were drilled for the 28 patella. Lateral osteophyte was removed. Patella button was placed. Knee was taken through range of motion and the patella tracked nicely with no thumbs test. Attention was then drawn toward placement of the permanent components. All trial components were removed. Bone plug was placed in the distal femur to limit blood loss. A double batch of Palacos G cement was mixed. I did add an additional gram of vancomycin due to her diabetes and multiple comorbidities. A left size 62.5 posterior stabilized femoral component, size 67 tibial tray, a 10-mm polyethylene insert, and a 28 x 8 all poly patella were then cemented in place. Knee was brought out into full extension until cement hardened. A final cement check was then performed. Pericapsular tissues were injected with a total of 100 mL of a combination of 20 mL of Exparel, 30 mL of normal saline, and 50 mL of 0.25% Marcaine with epinephrine. The tourniquet was then let down for final tourniquet time of 66 minutes. Hemostasis was assured with use of electrocautery. The wound was once again irrigated. The extensor mechanism was then closed with a combination of #1 PDS suture and #1 Vicryl suture in a [id number] fashion. The extensor mechanism was checked and found to be intact. The subcutaneous tissues were then closed with 2-0 Dexon suture in a buried interrupted fashion. Skin was closed skin robert. Leg was then cleaned and dried and a sterile dressing of Xeroform, 4 x 4, sterile cast padding and an Sam bandage were applied. The patient then transferred to the recovery room in stable condition. The patient tolerated the procedure well with no complications. All needle and sponge counts were correct at the end of the operation. I attest to the content of the Intraoperative Record and any orders documented therein. Any exceptions are noted below. MTDD
--- NOTE | 2017-01-18 15:22 | PROGRESS NOTE ---
DATE: 01/18/2017 DATE: 01/18/2017 SUBJECTIVE: A 61-year-old white female postop from a left knee replacement. She is doing well. Not having any pain yet. Denies any chest pain or shortness of breath. Not feeling dizzy or lightheaded. OBJECTIVE: VITAL SIGNS: Temperature 36.5. Vital signs stable. PHYSICAL EXAMINATION: GENERAL: Reveals a healthy pleasant, middle-aged female. She is sitting up in bed and talking to her . She looks quite comfortable. LUNGS: Clear to auscultation. HEART: Regular rate and rhythm. ABDOMEN: Soft, nontender, nondistended. EXTREMITIES: Grossly neurovascularly intact except as follows: Examination of the left lower extremity reveals the leg to be well aligned. Dressing is clean, dry and intact. She can dorsiflex and plantarflex her foot appropriately. She is neurologically intact. X-RAYS: X-rays of the left knee from recovery room reviewed. It shows a left cemented posterior stabilized total knee arthroplasty. Components looked to be in good position. No signs of problems. ASSESSMENT: A 61-year-old female with multiple medical comorbidities postop from a left knee replacement, doing well. Pain is controlled. She is neurologically intact. PLAN: 1. DVT prophylaxis including thigh-high TEDs, SCDs. We will put her back on her Coumadin. She does have an IVC filter in place. 2. PT/OT. She can weightbear as tolerated. Left total knee protocol. 3. Pain control. Doing well with current pain regimen. 4. IV antibiotics x24 hours. 5. Diabetes. We will put her on sliding scale insulin coverage. 6. Medical management. We have consulted Dr. Hein to assist in medical management and pulmonary care. 7. Disposition. She is hoping to be discharged to a care home facility for a brief rehab stay once recovered.
[2017-01-18] MEDS ORDERED: POTA-65 PO (15:32)
[2017-01-18] MEDS ORDERED: ALL300 PO (15:32)
[2017-01-18] MEDS ORDERED: NRN400 PO (15:32)
[2017-01-18] MEDS ORDERED: DILT180C50 PO (15:32)
[2017-01-18] MEDS ORDERED: PHARMACY GLYCEMIC MGMT CONSULT PRN (15:45)
[2017-01-18] MEDS ORDERED: IPRA1AER2 INH (15:45)
[2017-01-18] MEDS ORDERED: LOSA50TA54 PO (15:45)
[2017-01-18] MEDS ORDERED: MOME200A INH (15:45)
[2017-01-18] MEDS: OXYCODONE HCL IR 5 MG TAB (IMMEDIATE RELEASE) PO PRN (15:51)
[2017-01-18] MEDS: SODIUM CHLORIDE 0.9% 1000ML 1,000 ML IV SCH ×2 (15:55→22:19)
[2017-01-18] MEDS ORDERED: INSULIN HUMAN REGULAR SC SCH (16:00)
[2017-01-18] MEDS ORDERED: HydrALAZINE HCL 20 MG/ML VIAL IV. PRN (16:00)
[2017-01-18] MEDS ORDERED: WARFARIN SOD 5 MG TAB PO ONE (16:00)
[2017-01-18] MEDS: CHECK SCOPOLAMINE PATCH PLACEMENT SCH (16:02)
[2017-01-18] MEDS: KETOROLAC TROMETHAMINE 30 MG/ML VIAL IV. SCH ×2 (16:05→22:19)
[2017-01-18] MEDS: ACETAMINOPHEN 500 MG TAB PO SCH ×2 (16:06→22:31)
--- NOTE | 2017-01-18 16:06 | Medical Consult ---
Consultation Date of Consultation: Jan 18, 2017. Attending Physician: Jorge Cody M.D. Reason for Consultation: Medical management History of Present Illness This is a 61 y/o female with a history of HTN, HLD, diastolic CHF, paroxysmal a- fib, h/o DVT/PE, DM II, diabetic neuropathy, COPD, asthma, iron deficiency anemia, CKD stage III, anxiety and depression, hypothyroidism, gout and GERD who presents s/p left TKA with Dr. Cody on 01/18 for medical management. The patient reports feeling well postoperatively. She does state that she is beginning to feel pain in the left knee. She is tolerating a PO diet without difficulty. A Lopez catheter is in place. She has not yet passed gas or had a bowel movement postoperatively. The patient denies fevers, chills, sweats, chest pain, palpitations, claudication, cough, wheezing, shortness of breath, nausea, vomiting, abdominal pain, dysuria, hematuria, urinary retention, paralysis, weakness, numbness and tingling. Past Medical/Surgical History HTN HLD Diastolic CHF Paroxysmal a-fib H/o DVT and PE DM II Diabetic neuropathy COPD Asthma PAULA CKD stage III Anxiety and depression Hypothyroidism Gout GERD Family History Depression FH: gallbladder disease FH: heart disease FH: lung disease Hypertension Kidney stones Social History Smoking Status: Never Smoker Smokeless Tobacco Use: No Alcohol Use: none Drug Use: none Marital Status: Housing Status: lives with significant other Occupation Status: disabled Allergies Coded Allergies: Sulfa Antibiotics (Verified Allergy, Intermediate, HIVES, RASH, 01/18/17) Oxybutynin (Verified Allergy, Mild, HIVES, 01/18/17) Adhesives (Verified Allergy, Unknown, skin irritation, 01/18/17) Cephalosporins (Verified Allergy, Unknown, CEFOXITIN-HIVES, TOLERATED ROCEPHIN 09/11/07, 01/18/17) Current Inpatient Medications Current Inpatient Medications Medications (Trade) Dose Ordered Sig/Jesus Route Start Time Stop Time Status Last Admin Dose Admin Miscellaneous (Remove Transderm-Scop Patch) 1 ea Q72H N/A 01/21/17 06:00 01/21/17 06:01 Miscellaneous Information (Check Scopolamine Patch Placement) 1 ea QS N/A 01/18/17 16:00 01/21/17 05:59 Ondansetron HCl (Zofran Inj) 4 mg ONE PRN IV 01/18/17 10:15 01/18/17 16:00 Atropine Sulfate (Atropine Sulfate 0.1MG/Ml Inj) 0.5 mg Q1M PRN IV 01/18/17 10:15 01/18/17 16:00 Ephedrine Sulfate (EpHEDrine SULFATE INJ) 5 mg Q5M PRN IV 01/18/17 10:15 01/18/17 16:00 Ketorolac Tromethamine (Toradol Inj) 15 mg ONE PRN IV. 01/18/17 10:15 01/18/17 16:00 Hydromorphone HCl (Dilaudid Inj) 0.25 mg Q5M PRN IV 01/18/17 10:15 01/18/17 16:00 Phenylephrine HCl (Art-Synephrine 500MCG/5ML Syr) 100 mcg Q5M PRN IV 01/18/17 10:15 01/18/17 16:00 Sodium Chloride 1,000 ml @ 100 mls/hr Q10H IV 01/18/17 12:33 01/19/17 12:32 Vancomycin HCl 1750 mg/Sodium Chloride 535 ml @ 200 mls/hr Q12H IV 01/18/17 21:00 01/18/17 23:41 Oxycodone HCl (Roxicodone Immediate Rel Tab) 1 TABLET FOR PAIN RATING... Q4H PRN PO 01/18/17 12:45 02/01/17 12:44 01/18/17 15:51 10 MG Morphine Sulfate (MoRPHine SULFATE INJ) 2 mg Q1H PRN IV 01/18/17 12:45 02/01/17 12:44 Acetaminophen (Tylenol Tab) 1,000 mg Q8 PO 01/18/17 16:00 02/17/17 15:59 Magnesium Hydroxide (Milk Of Magnesia Susp) 30 ml Q6H PRN PO 01/18/17 12:45 02/17/17 12:44 Bisacodyl (Dulcolax Supp) 10 mg DAILY PRN [place] 01/18/17 12:45 02/17/17 12:44 Senna (Senokot Tab) 17.2 mg HS PO 01/18/17 21:00 02/17/17 20:59 Docusate Sodium (coLACE CAP) 100 mg BID PO 01/18/17 21:00 02/17/17 20:59 Diphenhydramine HCl (Benadryl Cap) 25 mg Q8H PRN PO 01/18/17 12:45 02/17/17 12:44 Diphenhydramine HCl (Benadryl Inj) 25 mg Q8H PRN IV 01/18/17 12:45 02/17/17 12:44 Al Hydrox/Mg Hydrox/Simethicone (Maalox Max Susp) 15 ml Q4H PRN PO 01/18/17 12:45 02/17/17 12:44 Zolpidem Tartrate (Ambien Tab) 5 mg HSZ PRN PO 01/18/17 12:45 02/17/17 12:44 Multivitamins (Multivitamin Tab) 1 tab QAM PO 01/19/17 09:00 02/18/17 08:59 Ondansetron HCl (Zofran Inj) 4 mg Q6H PRN IV 01/18/17 12:45 02/17/17 12:44 Metoclopramide HCl (Reglan Inj) 10 mg Q6H PRN IV 01/18/17 12:45 02/17/17 12:44 Ferrous Gluconate (Ferrous Gluconate Tab) 324 mg TIDM PO 01/18/17 17:45 02/17/17 17:59 Pantoprazole Sodium (Protonix Tab) 40 mg QAM PO 01/19/17 09:00 02/18/17 08:59 Tapentadol (Nucynta Er Tab) 50 mg Q12 PO 01/18/17 21:00 02/17/17 20:59 Ketorolac Tromethamine (Toradol Inj) 30 mg Q6H IV. 01/18/17 16:00 01/20/17 15:59 Allopurinol (Zyloprim Tab) 100 mg QAM PO 01/19/17 09:00 02/18/17 08:59 Aspirin (Ecotrin Tab) 81 mg QAM PO 01/19/17 09:00 02/18/17 08:59 Atorvastatin Calcium (Lipitor Tab) 20 mg HS PO 01/18/17 21:00 02/17/17 20:59 Beclomethasone Dipropionate (Qvar 80 Mcg Hfa Inhaler) 2 puffs BID PRN INH 01/18/17 12:45 02/17/17 12:44 Cyclobenzaprine HCl (Flexeril Tab) 10 mg TID PRN PO 01/18/17 12:45 02/17/17 12:44 Diltiazem HCl (TIAzac CAP) 240 mg HS PO 01/18/17 21:00 02/17/17 20:59 Ergocalciferol (Vitamin D Cap) 50,000 interunit We@0900 PO 01/23/17 09:00 02/22/17 08:59 Formoterol Fumarate (Perforomist 20MCG/2ML Neb Soln) 40 mcg Q12 PRN INH 01/18/17 12:45 02/17/17 12:44 Furosemide (Lasix Tab) 40 mg BID17 PO 01/18/17 17:00 02/17/17 16:59 Gabapentin (Neurontin Cap) 400 mg TID PO 01/18/17 14:00 02/17/17 13:59 Albuterol/ Ipratropium (Duoneb) 3 ml Q4H PRN INH 01/18/17 12:45 02/17/17 12:44 Levothyroxine Sodium (Synthroid Tab) 50 mcg DAILYBB PO 01/19/17 06:00 02/18/17 05:59 Paroxetine HCl (pAXil TAB) 40 mg QAM PO 01/19/17 09:00 02/18/17 08:59 Spironolactone (Aldactone Tab) 50 mg QAM PO 01/19/17 09:00 02/18/17 08:59 Calcium/Vitamin D (Caltrate Plus Tab) 2 tab QAM PO 01/19/17 09:00 02/18/17 08:59 Fluticasone Propionate (Flonase Nasal [place]) 1 sprays QAM GEOFF 01/19/17 09:00 02/18/17 08:59 Potassium Chloride (Klor-Con M10) 30 meq BID PO 01/18/17 21:00 02/17/17 20:59 Warfarin Sodium (Coumadin Tab) 10 mg DAILY@16 ONCE PO 01/18/17 16:00 01/18/17 16:01 Glucose (Glucose 40% Gel) 15-30 GRAMS 15 GRAMS... UD PRN PO 01/18/17 15:00 02/17/17 14:59 Glucose (Glucose Chew Tab) 4-8 Tablets 4 Tabl... UD PRN PO 01/18/17 15:00 02/17/17 14:59 Dextrose (Dextrose 50% 50ML Syringe) 25-50ML OF 50% DW IV FOR... UD PRN IV 01/18/17 15:00 02/17/17 14:59 Glucagon (Glucagon Inj) 1 mg UD PRN SQ 01/18/17 15:00 02/17/17 14:59 Miscellaneous Information (Consult Glycemic Management Pharmacy) 1 ea UD PRN N/A 01/18/17 15:45 02/17/17 15:44 Review of Systems See HPI for pertinent positives and negatives. All other systems reviewed and negative. Physical Exam Date Time Temp Pulse Resp B/P (MAP) Pulse Ox O2 Delivery O2 Flow Rate FiO2 01/18/17 13:35 36.5 75 16 157/69 (98) 98 Nasal Cannula 2.0 01/18/17 13:35 Nasal Cannula 01/18/17 13:35 98 Nasal Cannula 2.0 01/18/17 13:20 36.2 77 16 146/77 97 Nasal Cannula 2 01/18/17 13:10 36.2 76 16 129/64 98 Nasal Cannula 2 01/18/17 13:00 74 16 135/62 99 Nasal Cannula 2 01/18/17 12:50 71 16 137/58 100 Oxymask 10 01/18/17 12:42 36.1 70 16 147/65 100 Oxymask 10 01/18/17 09:09 36.8 74 20 154/89 96 Room Air General appearance: +Morbidly obese. Well-developed, well-nourished, no apparent distress Head: Normocephalic, atraumatic Eyes: Normal inspection, PERRL, EOMI ENT: Normal ENT inspection, hearing grossly normal, pharynx normal Neck: Supple, no JVD, trachea midline Respiratory/Chest: Lungs clear to auscultation, normal breath sounds, no respiratory distress Cardiovascular: Regular rate & rhythm, no gallop, no murmur Abdomen/GI: Normal bowel sounds, non-tender, soft Extremities/Musculoskeletal: +LLE wrapped in marbella bandage. Normal inspection, no calf tenderness, no pedal edema Neurological/Psych: Alert, normal mood/affect, oriented x 3 Skin: Normal color, warm/dry, no rash Laboratory Results Last 24 Hours Test 01/18/17 08:58 01/18/17 09:13 01/18/17 12:47 01/18/17 14:08 Bedside Glucose 157 mg/dl 137 mg/dl 155 mg/dl Prothrombin Time 10.7 SECONDS Prothromb Time International Ratio 1.0 Activated Partial Thromboplast Time 26.8 SECONDS Partial Thromboplastin Ratio 1.0 Test 01/18/17 14:32 Assessment & Plan 61 y/o female with a history of HTN, HLD, diastolic CHF, paroxysmal a-fib, h/o DVT/PE, DM II, diabetic neuropathy, COPD, asthma, iron deficiency anemia, CKD stage III, anxiety and depression, hypothyroidism, gout and GERD who presents s/ p left TKA with Dr. Cody on 01/18 for medical management. S/p L TKA--POD #0 -Pain management, DVT prophylaxis, and PT/OT as per primary team -AVSS HTN--stable -Hold losartan until renal function checked/stable -Cover with hydralazine 10 mg IV q6h prn SBP >180 HLD -Continue Lipitor 20 mg PO hs Diastolic CHF--stable, no acute exacerbation -Hold Lasix for now -Continue KCl 20 mEq PO TID -Pt had been taking spironolactone but states it is "on hold" for now until her PCP decides to restart Paroxysmal a-fib, h/o DVT/PE--stable, NSR -Continue diltiazem 180 mg PO BID -Warfarin per ortho DM II--last HgbA1c checked 12/10/16 was 6.3 -Hold metformin -Insulin sliding scale. Pt takes Novolog 60-80 units via insulin pump. Does not currently have pump. [facility] has consulted pharmacy for glycemic control -Check BSGs q ac and qhs Diabetic neuropathy -Continue gabapentin 400 mg PO qam and 800 mg PO hs COPD, asthma -Pt started on prednisone taper by PCP, one day remaining -Continue Prednisone 10 mg PO qd. Pt already took today, last dose due 01/19 -Continue Dulera BID, Combivent QID, and Qvar BID prn PAULA--baseline hbg - -CBC pending -Continue ferrous gluconate 324 mg PO TIDM CKD stage III--baseline creatinine 0.9 -PRP pending -Hold losartan, Lasix until labs are back Anxiety, depression -Continue paroxetine 40 mg PO qd Hypothyroidism -Continue Synthroid 50 mcg PO qd Gout -Continue allopurinol 300 mg PO qd GERD -Protonix 40 mg PO qd Code Status -Level I, FULL RESUSCITATION STATUS Thank you for this consultation. We will continue to follow. Reviewed: Pt Seen/Exam by Me History Pt is doing well post-op. She does have pain related to her L knee, but manageable. No issues with PO. She has been finishing a steroid taper for her asthma and no SOB. No chest pain. States she has a lot of mouth pain related to thrush. She has been on swish and swallow since Saturday. Agree with HPI/ROS as noted. General Appearance: no apparent distress, obese Eye Exam: bilateral eye normal inspection, bilateral eye EOMI Ears, Nose, Throat: hearing grossly normal Neck: supple Respiratory: normal breath sounds, no respiratory distress Cardiovascular: normal peripheral pulses, regular rate, rhythm Gastrointestinal: non tender, soft Extremities: non-tender, no pedal edema Neurologic/Psychiatric: alert, normal mood/affect, oriented x 3 Skin Characteristics: normal color, warm/dry Assessment/Plan Agree with plan as outlined above Miscommunication with pt regarding insulin pump, she will have this tomorrow SSI for now Nystatin for thrush Doing well post-op Hx of DVT and IVC filter, on coumadin Resume coumadin when able as per ortho
--- NOTE | 2017-01-18 16:19 | Pharmacy Progress Note ---
Glycemic Control Intl Consult Date of Service Jan 18, 2017. Scope Glycemic Pharmacist consulted by Dr Cody on 01/18/17 for glycemic control and to write orders per [facility] inpatient glycemic control protocol Objective Weight (Kilograms): 121.700 Accuchecks BSG (last 24hrs): Test 01/18/17 08:58 01/18/17 12:47 01/18/17 14:08 01/18/17 15:45 Bedside Glucose 157 mg/dl (70-90) 137 mg/dl (70-90) 155 mg/dl (70-90) Laboratory Data (last 24hrs) Test 01/18/17 15:45 Recent Pertinent Medications Outpatient Anti-diabetic Regimen: * Novolog Pump ~60-80 units per day per MD * Spoke with pt; similar settings over the last year but will need to clarify via outpatient records if possible * A1c = 6.3 % 11/2016 Risk Factors for Insulin Resistance: * Recent Surgery * Diet * Patient has been on PO steroids leading into this admission Assessment & Plan ASSESSMENT: * 61 yo T2D F admitted s/p L TKA, POD #0 * BSGs through the morning and in the OR have been stable * Pt disconnected pump [employer] and is unaware of home settings - she does however have good glycemic control as evidenced by A1c * We have taken care of her during past admissions in which she received similar to wt based basal bolus regimen * Per MD - pt takes 60-80 units of insulin per day * My plan will be to initiate Lantus with dinner as pump as been off and continue BID in the morning * Start Novolog - add overnight checks to avoid any hypo/hyperglycemia- pt agreeable for first 24 hours * Goal range will be similar to outpatient control PLAN FOR INPATIENT GLYCEMIC CONTROL: * Hold outpatient oral diabetes medications * Basal insulin with LANTUS 40 units X 1 * Continue 20 units BID in the AM * Correctional Insulin with NOVOLOG per scale ACHS + 00,04 * Goal Range: Low 110 mg/dL - High 140 mg/dL * Correction Factor: 15 mg/dL/unit * Nutritional / Prandial insulin per carb ratio of 1 unit per 5 grams CHO consumed * Please note that the plan above was derived based on current level of insulin resistance and hospital stress. These recommendations are appropriate for inpatient admission only. Plan of care upon discharge will need to be reassessed to avoid potential outpatient hypo/hyperglycemia. Thank you.
[2017-01-18] MEDS ORDERED: INSULIN GLARGINE SOLOSTAR 100 UNITS/ML 3 ML PEN SC ONE (16:30)
[2017-01-18] MEDS ORDERED: FUROSEMIDE 40 MG TAB PO SCH (17:00)
[2017-01-18 17:16] LABS: HEMATOCRIT 31.2 % (37-47); MEAN PLATELET VOLUME 10.5 fL (7.4-10.4); PLATELET COUNT 247 K/uL (130-400); RED BLOOD COUNT 3.32 M/uL (4.2-5.4); WHITE BLOOD COUNT 17.38 K/uL (4.8-10.8)
[2017-01-18] MEDS: NYSTATIN SUSP 500,000 U/5 ML UDC PO SCH ×2 (17:34→20:49)
[2017-01-18 17:35] LABS: BUN/CREATININE RATIO 19.9 (10-20); CALCIUM 8.4 mg/dl (8.5-10.1); CREATININE 1.2 mg/dl (0.60-1.20); POTASSIUM 3.7 mmol/L (3.5-5.1)
[2017-01-18] MEDS: INSULIN ASPART 100 UNITS/ML 3 ML PEN SC SCH ×3 (18:36→23:37)
[2017-01-18] MEDS: FERROUS GLUCONATE 324 MG TAB PO SCH (18:37)
[2017-01-18] MEDS: TAPENTADOL ER 50 MG TABCR PO SCH (20:46)
[2017-01-18] MEDS: GABAPENTIN 400 MG CAP PO SCH (20:49)
[2017-01-18] MEDS: POTASSIUM CHLORIDE 20 MEQ TABCR PO SCH (20:51)
[2017-01-18] MEDS: DILTIAZEM HCL 180 MG CAPCR PO SCH (20:51)
[2017-01-18] MEDS: SENNA 8.6 MG TAB PO SCH (20:52)
[2017-01-18] MEDS: DOCUSATE SODIUM 100 MG CAP PO SCH (20:53)
[2017-01-18] MEDS: ATORVASTATIN 20 MG TAB PO SCH (20:54)
[2017-01-18] MEDS ORDERED: POTASSIUM CHLORIDE 10 MEQ TABCR PO SCH (21:00)
[2017-01-18] MEDS ORDERED: VANCOMYCIN INJ 1,750 MG in SODIUM CHLORIDE 0.9% 500ML 500 ML IV SCH (21:00)
[2017-01-18] MEDS ORDERED: DILTIAZEM HCL 120 MG EXT REL CAP PO SCH (21:00)
[2017-01-19] VITALS (7 sets, daily range): BP systolic 115–160; BP diastolic 73–82; PULSE 72–85; TEMP 36.5–36.9; O2SAT 92–98
[2017-01-19] MEDS: CHECK SCOPOLAMINE PATCH PLACEMENT SCH ×3 (00:12→15:43)
[2017-01-19] MEDS: KETOROLAC TROMETHAMINE 30 MG/ML VIAL IV. SCH ×4 (04:13→22:23)
[2017-01-19] MEDS: INSULIN ASPART 100 UNITS/ML 3 ML PEN SC SCH ×5 (04:20→21:52)
[2017-01-19] MEDS: LEVOTHYROXINE 50 MCG TAB PO SCH (05:36)
[2017-01-19] MEDS: ACETAMINOPHEN 500 MG TAB PO SCH ×3 (05:37→21:42)
[2017-01-19 07:11] LABS: HEMATOCRIT 25.1 % (37-47); MEAN CELL VOLUME 93.3 fL (80-100); MEAN CORPUSCULAR HEMOGLOBIN 30.9 pg (25-34); MEAN CORPUSCULAR HGB CONC 33.1 g/dl (32-36); MEAN PLATELET VOLUME 10.3 fL (7.4-10.4); PLATELET COUNT 197 K/uL (130-400); RED BLOOD COUNT 2.69 M/uL (4.2-5.4); WHITE BLOOD COUNT 12.72 K/uL (4.8-10.8)
[2017-01-19 07:17] LABS: PROTHROMBIN TIME (PATIENT) 11.1 SECONDS (9.0-12.0)
[2017-01-19 07:48] LABS: BUN/CREATININE RATIO 22.8 (10-20); CALCIUM 8.5 mg/dl (8.5-10.1); CREATININE 1.3 mg/dl (0.60-1.20); POTASSIUM 4.6 mmol/L (3.5-5.1)
--- NOTE | 2017-01-19 08:35 | PROGRESS NOTE ---
DATE: 01/19/2017 DATE: 01/19/2017 SUBJECTIVE: A 61-year-old white female postop day 1 from a left knee replacement. She is doing quite well. Does not report any real significant pain. She is getting around reasonably well. No chest pain or shortness of breath. Not feeling dizzy or lightheaded. OBJECTIVE: VITAL SIGNS: Temperature 36.7. Vital signs stable. PHYSICAL EXAMINATION: GENERAL: Reveals a pleasant, middle-aged female. She was walking out of the bathroom when I visited her this morning. She was walking quite well with a walker. EXTREMITIES: Examination of the left leg reveals the leg to be well aligned. Dressing is clean, dry and intact. She can dorsiflex and plantarflex her foot appropriately. She is neurologically intact. LABORATORY DATA: Hemoglobin 8.3. Hematocrit 25.1. Her INR is 1.0. Electrolytes are stable. Creatinine just slightly elevated. ASSESSMENT: A 61-year-old white female with multiple medical comorbidities postop day 1 from a left knee replacement. Clinically she is doing excellent. She is anemic, but really without symptoms. Creatinine is just slightly elevated, likely due to fluid status. PLAN: 1. DVT prophylaxis including thigh-high TEDs, SCDs, and back on her Coumadin. 2. PT/OT. She can weightbear as tolerated. Left total knee protocol. 3. Pain control. Doing well with current pain regimen. Really not having much pain. 4. Slightly elevated creatinine. We will continue to follow this along with her hemoglobin. Encourage oral fluid intake. 5. Medical management as per the medicine service. 6. Disposition. She was [facility] planning [facility] a [facility] facility. She is getting around pretty well and I am not sure she will qualify. We will see how therapy goes.
[2017-01-19] MEDS ORDERED: ALLOPURINOL 100 MG TAB PO SCH (09:00)
[2017-01-19] MEDS ORDERED: SPIRONOLACTONE 25 MG TAB PO SCH (09:00)
[2017-01-19] MEDS: SODIUM CHLORIDE 0.9% 1000ML 1,000 ML IV SCH (09:22)
[2017-01-19] MEDS: DOCUSATE SODIUM 100 MG CAP PO SCH ×2 (09:22→21:42)
[2017-01-19] MEDS: FLUTICASONE PROPIONATE NA SPR 16 GM BTL NAE SCH (09:23)
[2017-01-19] MEDS: FERROUS GLUCONATE 324 MG TAB PO SCH ×3 (09:23→18:15)
[2017-01-19] MEDS: CALCIUM 600MG + VIT D 400 IU TAB PO SCH (09:24)
[2017-01-19] MEDS: ASPIRIN 81 MG ECTAB PO SCH (09:24)
[2017-01-19] MEDS: POTASSIUM CHLORIDE 20 MEQ TABCR PO SCH ×3 (09:26→21:44)
[2017-01-19] MEDS: MULTIVITAMIN TAB PO SCH (09:26)
[2017-01-19] MEDS: NYSTATIN SUSP 500,000 U/5 ML UDC PO SCH ×4 (09:26→21:47)
[2017-01-19] MEDS: PAROXETINE 20 MG TAB PO SCH (09:27)
[2017-01-19] MEDS: GABAPENTIN 400 MG CAP PO SCH ×2 (09:27→22:23)
[2017-01-19] MEDS: PANTOprazole SOD 40 MG TAB PO SCH (09:28)
[2017-01-19] MEDS: ALLOPURINOL 300 MG TAB PO SCH (09:28)
[2017-01-19] MEDS: DILTIAZEM HCL 180 MG CAPCR PO SCH ×2 (09:29→21:38)
[2017-01-19] MEDS: INSULIN GLARGINE SOLOSTAR 100 UNITS/ML 3 ML PEN SC SCH ×2 (09:39→21:50)
[2017-01-19] MEDS: TAPENTADOL ER 50 MG TABCR PO SCH ×2 (09:40→21:41)
[2017-01-19] MEDS ORDERED: WARFARIN SOD 10 MG TAB PO ONE (16:00)
[2017-01-19] MEDS ORDERED: FRRG PO (19:59)
[2017-01-19] MEDS ORDERED: MORP-157 PO (19:59)
[2017-01-19] MEDS ORDERED: OXYC-57 PO (19:59)
--- NOTE | 2017-01-19 20:03 | Discharge Instructions ---
Discharge Instructions Date of Service Jan 19, 2017. Admission Reason for Admission: Left Knee Degenerative Joint Disease Discharge Discharge Diagnosis / Problem: Left Knee Replacement Discharge Goals Goal(s): Decrease discomfort, Improve function, Increase independence, Improve disease control, Therapeutic intervention Activity Recommendations Activity Limitations: per Instructions/Follow-up section Weightbearing Status: Left weightbearing . Instructions / Follow-Up Instructions / Follow-Up ACTIVITY RECOMMENDATIONS: Physical Therapy: * You will go to physical therapy three times each week for four to six weeks after your surgery in order to regain your knee range of motion and to retrain your knee to work properly. * It is just as important to make sure you are getting your knee perfectly straight as it is to regain your knee bend. * Taking a pain pill an hour before therapy can help you have a more productive and comfortable therapy session. Home Exercise: * You were shown a series of exercises (heel props, heel slides, etc.) in the hospital. Do these exercises three to four times each day including the exercises you were shown in physical therapy. Walking: * Get up and walk several times each day. For the first four weeks, try not to stand or walk for more than one hour at a time. If you do stand or walk for more than one hour, you will not hurt anything, but your knee and leg will likely swell. * As you feel comfortable, you may change from the walker or crutches to a cane and then to independent walking. MEDICATIONS: New Medicine: * You will likely be taking one or more of these medications: 1. MS Contin - A long-acting pain medication. Take 1 tablet twice a day for the first ten days to decrease your baseline level of pain. 2. Oxycodone - A quick and shorter-acting pain medication. Take one to two tablets every four to six hours to lessen your pain. 3. Iron Sulfate - Take three times each day for the month after surgery to help you replace the blood lost during surgery. 4. Coumadin - Thins your blood to lessen the chance of forming a blood clot. * The most common side effects of pain medicine and iron are nausea and constipation. If nausea or constipation is too much of a problem or if you have any questions about your new medicines or doses, call [facility] at . We will try to help you manage these issues. VERY IMPORTANT TO READ AND REVIEW" Pain: * The immediate post-operative period after knee replacement surgery is often quite painful. * You are given a prescription for pain medicine. You should take it, as directed, when you need it, especially before physical therapy and before going to bed. Pain that interferes with sleep is very common and can last several months. * You will likely need pain medicine for the first four to six weeks. It will not stop all of the pain. The pain will lessen and as you feel better, you may change to milder pain medicine such as Tylenol. * The most common side effects of pain medicine are nausea and constipation, so don't take more than you need. SPECIAL CARE INSTRUCTIONS: TEDs/Elastic Stockings: * The white elastic stockings help limit swelling and prevent blood clots from forming in your legs. The more you wear them, the more they work. * Wear them for six weeks after knee replacement surgery and four weeks after partial knee replacement. Prevention of Infection: * Take antibiotics one hour before any dental cleaning, dental work, urological procedure, gastrointestinal procedure or any invasive surgery in order to prevent your new joint from getting infected. * You may get the antibiotics from the doctor performing the procedure or you may call our office at before and we will call in a prescription to the pharmacy of your choice. Things to Watch For: * Drainage from the incision site that occurs more than one week after your surgery. * Severely increased knee/leg pain or swelling. * Increased redness at the incision site. * Fever above 102 degrees Fahrenheit. * Unusual chest pain or shortness of breath. * Unusual pain or burning with urination. Call [facility] at with any of the above problems or if you have any questions about your medicines or recovery. FOLLOW UP VISIT: Make an appointment to see your doctor for approximately two weeks after surgery for a progress check and staple removal by calling the office at . Current Hospital Diet Patient's current hospital diet: Diabetes Type 2 Diet Discharge Diet Recommended Diet: Diabetes Type 2 Diet Procedures Procedures Performed: Left Total Knee Arthroplasty Pending Studies Studies pending at discharge: no Laboratory Results Hemoglobin A1c Test 12/10/16 14:33 Range/Units Estimated Average Glucose 134 mg/dl Hemoglobin A1c 6.3 H 4.5-5.6 % Medical Emergencies . Who to Call and When: Medical Emergencies: If at any time you feel your situation is an emergency, please call 911 immediately. . Non-Emergent Contact Non-Emergency issues call your: Surgeon . "Provider Documentation" section prepared by Jorge Cody. . VTE Core Measure Inpt VTE Proph given/why not?: Warfarin (Coumadin), Adelso Giles, SCD's
[2017-01-19] MEDS: SENNA 8.6 MG TAB PO SCH (21:38)
[2017-01-19] MEDS: ATORVASTATIN 20 MG TAB PO SCH (22:30)
[2017-01-20] MEDS: CHECK SCOPOLAMINE PATCH PLACEMENT SCH ×2 (00:16→09:10)
[2017-01-20] MEDS: KETOROLAC TROMETHAMINE 30 MG/ML VIAL IV. SCH ×2 (04:34→09:20)
[2017-01-20] MEDS: LEVOTHYROXINE 50 MCG TAB PO SCH (05:47)
[2017-01-20] MEDS: OXYCODONE HCL IR 5 MG TAB (IMMEDIATE RELEASE) PO PRN (05:48)
[2017-01-20] MEDS: ACETAMINOPHEN 500 MG TAB PO SCH (05:49)
[2017-01-20 06:42] VITALS: BP 122/75; PULSE 74; TEMP 36.4; O2SAT 91
[2017-01-20 06:49] LABS: INR 1.2 (0.9-1.1); PROTHROMBIN TIME (PATIENT) 13.1 SECONDS (9.0-12.0)
[2017-01-20 07:16] LABS: BUN/CREATININE RATIO 22.3 (10-20); CALCIUM 9.2 mg/dl (8.5-10.1); CREATININE 1.4 mg/dl (0.60-1.20); POTASSIUM 4.3 mmol/L (3.5-5.1)
[2017-01-20 07:25] LABS: HEMATOCRIT 25.5 % (37-47); MEAN CELL VOLUME 93.1 fL (80-100); MEAN CORPUSCULAR HEMOGLOBIN 29.9 pg (25-34); MEAN CORPUSCULAR HGB CONC 32.2 g/dl (32-36); MEAN PLATELET VOLUME 10.4 fL (7.4-10.4); PLATELET COUNT 209 K/uL (130-400); RED BLOOD COUNT 2.74 M/uL (4.2-5.4); WHITE BLOOD COUNT 16.01 K/uL (4.8-10.8)
--- NOTE | 2017-01-20 08:43 | PROGRESS NOTE ---
DATE: 01/20/2017 SUBJECTIVE: A 61-year-old female with multiple comorbidities postop day #2 from a left knee replacement. She is doing well. She is a little bit more sore today, but very manageable. Therapy went remarkably well. Denies any chest pain or shortness of breath. Not feeling dizzy or lightheaded. OBJECTIVE: VITAL SIGNS: Temperature 36.4. Vital signs stable. GENERAL: Physical examination reveals a pleasant, middle-aged female. She is sitting up in her bedside chair and looks comfortable. EXTREMITIES: Examination of the left leg reveals the dressing to be in place. Little bit of bloody drainage. She can dorsiflex and plantarflex her foot appropriately. She is neurologically intact. LABORATORY DATA: Hemoglobin is stable at 8.2. Hematocrit 25.5. INR 1.2. Electrolytes are stable. Creatinine is still just slightly elevated. ASSESSMENT: A 61-year-old female postop day #2 from a left knee replacement, doing pretty well. Pain is controlled. She is anemic without symptoms, but her H&H is stable. Labs otherwise fairly stable. PLAN: 1. DVT prophylaxis including thigh high TEDs, SCDs, and she is back on Coumadin. We will resume her normal dose of Coumadin upon discharge. She also has an IVC filter in place. 2. PT/OT. Weightbear as tolerated. Left total knee protocol. 3. Pain control, doing pretty well with current pain regimen. 4. Medical management as per the medicine service. 5. Disposition: Plan to discharge to home with some home health. She is really getting around too well, but would likely go to rehab.
[2017-01-20 09:08] VITALS: BP 123/63; PULSE 85
[2017-01-20] MEDS: TAPENTADOL ER 50 MG TABCR PO SCH (09:10)
[2017-01-20] MEDS: ASPIRIN 81 MG ECTAB PO SCH (09:11)
[2017-01-20] MEDS: DOCUSATE SODIUM 100 MG CAP PO SCH (09:11)
[2017-01-20] MEDS: GABAPENTIN 400 MG CAP PO SCH (09:11)
[2017-01-20] MEDS: PANTOprazole SOD 40 MG TAB PO SCH (09:11)
[2017-01-20] MEDS: MULTIVITAMIN TAB PO SCH (09:11)
[2017-01-20] MEDS: ALLOPURINOL 300 MG TAB PO SCH (09:12)
[2017-01-20] MEDS: PAROXETINE 20 MG TAB PO SCH (09:12)
[2017-01-20] MEDS: CALCIUM 600MG + VIT D 400 IU TAB PO SCH (09:12)
[2017-01-20] MEDS: POTASSIUM CHLORIDE 20 MEQ TABCR PO SCH (09:13)
[2017-01-20] MEDS: FLUTICASONE PROPIONATE NA SPR 16 GM BTL NAE SCH (09:14)
[2017-01-20] MEDS: FERROUS GLUCONATE 324 MG TAB PO SCH ×2 (09:14→13:03)
[2017-01-20] MEDS: INSULIN GLARGINE SOLOSTAR 100 UNITS/ML 3 ML PEN SC SCH (09:17)
[2017-01-20] MEDS: INSULIN ASPART 100 UNITS/ML 3 ML PEN SC SCH ×2 (09:17→13:07)
[2017-01-20] MEDS: NYSTATIN SUSP 500,000 U/5 ML UDC PO SCH ×2 (10:19→13:16)
[2017-01-20] MEDS: DILTIAZEM HCL 180 MG CAPCR PO SCH (10:19)
[2017-01-20 10:59] VITALS: BP 123/63; PULSE 85; TEMP 36.4; O2SAT 91
[2017-01-20] MEDS ORDERED: WARFARIN SOD 10 MG TAB PO ONE (16:00)
[2017-01-23] MEDS ORDERED: ERGOCALCIFEROL 50,000 INTER.UNIT CAP PO SCH (09:00)
== END 2017-01-20 13:43 | disposition home health service (06) | DRG 470 ==
LOC: C.ACU 08:10 → C.3E 09:00 → ENRESERV 12:55 → EDBEDREQ 13:04
PROVIDERS: ADMIT Orthopaedic Surgery Sports Medicine; ATTEND Orthopaedic Surgery Sports Medicine
PROC: 0SRD0J9 Replacement of Left Knee Joint with Synthetic Substitute, Cemented, Open Approach (ICD-10-PCS; principal; 2017-01-18 10:40)
DX: M17.0 Bilateral primary osteoarthritis of knee (principal); I13.0 Hypertensive heart and chronic kidney disease with heart failure and stage 1 through stage 4 chronic kidney disease, or unspecified chronic kidney disease; I50.30 Unspecified diastolic (congestive) heart failure; Z68.43 Body mass index [BMI] 50.0-59.9, adult; B37.0 Candidal stomatitis; M25.462 Effusion, left knee; M85.862 Other specified disorders of bone density and structure, left lower leg; R94.4 Abnormal results of kidney function studies; E11.22 Type 2 diabetes mellitus with diabetic chronic kidney disease; N18.3 Chronic kidney disease, stage 3 (moderate); I48.0 Paroxysmal atrial fibrillation; I27.20 Pulmonary hypertension, unspecified; J44.9 Chronic obstructive pulmonary disease, unspecified; E11.42 Type 2 diabetes mellitus with diabetic polyneuropathy; E78.5 Hyperlipidemia, unspecified; E03.9 Hypothyroidism, unspecified; K21.9 Gastro-esophageal reflux disease without esophagitis; M06.4 Inflammatory polyarthropathy; M81.0 Age-related osteoporosis without current pathological fracture; M10.9 Gout, unspecified; G25.81 Restless legs syndrome; D50.9 Iron deficiency anemia, unspecified; G47.33 Obstructive sleep apnea (adult) (pediatric); F41.9 Anxiety disorder, unspecified; F32.9 Major depressive disorder, single episode, unspecified; E66.01 Morbid (severe) obesity due to excess calories; Z99.89 Dependence on other enabling machines and devices; Z95.828 Presence of other vascular implants and grafts; Z86.14 Personal history of Methicillin resistant Staphylococcus aureus infection; Z86.718 Personal history of other venous thrombosis and embolism; Z86.711 Personal history of pulmonary embolism; Z96.41 Presence of insulin pump (external) (internal); Z79.51 Long term (current) use of inhaled steroids; Z79.82 Long term (current) use of aspirin; Z79.4 Long term (current) use of insulin; Z79.891 Long term (current) use of opiate analgesic; Z79.01 Long term (current) use of anticoagulants; Z79.899 Other long term (current) drug therapy

== ENCOUNTER → 2017-02-06 | Outpatient (CLI) | payer BC, OTHER ==
[~2017-02-06] MED LIST changes: -ACETAMINOPHEN 500 MG TAB PO SCH; +ALL300 PO; -ALLO100T PO; -BUPIVACAINE 0.25% 30 ML VIAL ONE; -BUPIVACAINE 0.5 % 5 MG/1 ML PF 10ML VIAL ONE; -BUPIVACAINE LIPOSOME 266 MG, BUPIVACAINE/EPINEPHRINE INJ 50 ML, SODIUM CHLORIDE 0.9% PF... INFIL SCH; -DILT-115 PO; +DILT180C50 PO; -FAMOTIDINE 20 MG TAB PO SCH; +FERR325T18 PO; +FRRG PO; -GABAPENTIN 300 MG CAP PO SCH; +IPRA1AER2 INH; -LACTATED RINGER'S 1000ML 1,000 ML IV SCH; -LACTATED RINGER'S 1000ML 500 ML IV ONE; -LACTATED RINGER'S 1000ML IV SCH; -LISI40TA PO; +LOSA50TA54 PO; -METOCLOPRAMIDE HCL 10 MG TAB PO SCH; +MOME200A INH; +POTA-65 PO; -POTA-74 PO; -SCOPOLAMINE 1.5 MG TDSY TD SCH; -SPIR50TA2 PO; -VANCOMYCIN INJ 1,750 MG in SODIUM CHLORIDE 0.9% 500ML 500 ML IV SCH
[2017-02-06 12:53] LABS: BASO % 0.5 %; BASO ABS # 0.05 K/uL (0-0.2); COMPLETE YES; HEMATOCRIT 30.8 % (37-47); IG% 0.1 %; LYMPH ABS # 2.51 K/uL (1.2-3.4); MEAN CELL VOLUME 96.6 fL (80-100); MEAN CORPUSCULAR HEMOGLOBIN 29.2 pg (25-34); MEAN CORPUSCULAR HGB CONC 30.2 g/dl (32-36); MEAN PLATELET VOLUME 9.2 fL (7.4-10.4); MONO % 7.3 %; NEUT % 62.1 %; PLATELET COUNT 546 K/uL (130-400); RED BLOOD COUNT 3.19 M/uL (4.2-5.4); WHITE BLOOD COUNT 9.67 K/uL (4.8-10.8)
[2017-02-06 13:30] LABS: BLOOD UREA NITROGEN 13 mg/dl (7-18); BUN/CREATININE RATIO 14.2 (10-20); CALCIUM 9.2 mg/dl (8.5-10.1); CARBON DIOXIDE 31 mmol/L (21-32); CHLORIDE 101 mmol/L (98-107); CREATININE 0.89 mg/dl (0.60-1.20); GLUCOSE 130 mg/dl (70-99); SODIUM 139 mmol/L (136-145)
== END | disposition home or self-care (01) ==
LOC: C.LABMFLN 09:59
PROVIDERS: ATTEND Family Medicine
DX: Z51.81 Encounter for therapeutic drug level monitoring (principal); I80.209 Phlebitis and thrombophlebitis of unspecified deep vessels of unspecified lower extremity; Z79.01 Long term (current) use of anticoagulants; I26.99 Other pulmonary embolism without acute cor pulmonale

== ENCOUNTER → 2017-03-04 | Outpatient (CLI) | payer BC ==
[~2017-03-04] MED LIST changes: -FRRG PO
[2017-03-04 12:33] LABS: URINE APPEARANCE CLEAR (CLEAR); URINE BILIRUBIN NEG (NEG); URINE COLOR YELLOW; URINE NITRITE NEG (NEG); URINE SPECIFIC GRAVITY 1.016 (1.000-1.030); UROBILINOGEN NEG (NEG)
[2017-03-04 12:49] LABS: MANUAL MICROSCOPIC REQUIRED? NO; REVIEW REQ? NO
[2017-03-04 13:01] LABS: CREATININE, URINE 59.5 mg/dl; URINE PROTIEN/CREAT RATIO 0.1 (0-0.2); URINE TOTAL PROTEIN 8.6 mg/dl (0-11.9)
[2017-03-04 13:10] LABS: ESTIMATED AVERAGE GLUCOSE 114 mg/dl; HA1C FLAG Normal (Normal)
[2017-03-04 13:59] LABS: ALT/SGPT 32 U/L (12-78); BLOOD UREA NITROGEN 14 mg/dl (7-18); BUN/CREATININE RATIO 17.8 (10-20); CALCIUM 9.4 mg/dl (8.5-10.1); CARBON DIOXIDE 33 mmol/L (21-32); CHLORIDE 102 mmol/L (98-107); CREATININE 0.78 mg/dl (0.60-1.20); GLUCOSE 119 mg/dl (70-99); MAGNESIUM 1.9 mg/dl (1.8-2.4); POTASSIUM 3.7 mmol/L (3.5-5.1); SODIUM 141 mmol/L (136-145)
[2017-03-04 14:03] LABS: CHOLESTEROL 97 mg/dl (0-200); HDL CHOLESTEROL 49 mg/dl; LDL CHOLESTEROL CALCULATED 33 mg/dl; PHOSPHORUS 2.9 mg/dl (2.5-4.9); TRIGLYCERIDES 77 mg/dl (0-150); VERY LOW DENSITY LIPOPROT CALC 15 mg/dl
== END | disposition home or self-care (01) ==
LOC: C.LABMFLN 10:16
PROVIDERS: ATTEND Internal Medicine Nephrology
DX: E11.22 Type 2 diabetes mellitus with diabetic chronic kidney disease (principal); N18.3 Chronic kidney disease, stage 3 (moderate)

== ENCOUNTER → 2017-03-11 | Outpatient (CLI) | payer BC, OTHER ==
--- NOTE | 2017-03-12 15:09 | MAMMOGRAPHY REPORT ---
BILATERAL DIGITAL SCREENING MAMMOGRAM TOMOSYNTHESIS WITH CAD: 03/11/2017 CLINICAL HISTORY: Routine screening. Patient has no complaints. TECHNIQUE: Breast tomosynthesis in addition to standard 2D mammography was performed. Current study was also evaluated with a Computer Aided Detection (CAD) system. COMPARISON: Comparison is made to exams dated: 03/06/2016 mammogram, 08/02/2015 ultrasound, 07/22/2015 mammogram, 07/22/2015 ultrasound, 01/20/2015 mammogram - [facility], and 10/05/2013 [facility]. BREAST COMPOSITION: The tissue of both breasts is almost entirely fatty. FINDINGS: The hub of the Port-A-Cath projects over the superior left pectoralis muscle on the MLO vi ew. There are a few scattered benign rim calcifications in the breasts. Minimal vascular calcificat ion. No suspicious mass, architectural distortion or cluster of suspicious microcalcifications is se en. IMPRESSION: ACR BI-RADS CATEGORY 1: NEGATIVE There is no mammographic evidence of malignancy. A 1 year screening mammogram is recommended. The pa tient will receive written notification of the results. Approximately 10% of breast cancers are not detected with mammography. A negative mammographic report should not delay biopsy if a clinically suggestive mass is present. Naheed Jenkins M.D. ay/:03/11/2017 16:19:01 Sticker Hand: Sheri Rodriguez M, [facility] letter sent: Normal 1/2 BI-RADS Code: ACR BI-RADS Category 1: Negative
== END | disposition home or self-care (01) ==
LOC: C.MAMM 11:08
PROVIDERS: ATTEND Family Medicine
DX: Z12.31 Encounter for screening mammogram for malignant neoplasm of breast (principal)

== ENCOUNTER → 2017-04-16 | Outpatient (CLI) | payer BC ==
[~2017-04-16] MED LIST changes: +ACET-24 PO; +BECL80AE7 INH; +CHOL2000 PO; +GABA-1220 PO; +HYDR-5688 PO; +HYDR2TAB3 PO; +IPRA-64 INH; -IPRASOL4 INH; +LOSA100T65 PO; +METF500T5 PO; +OMEP20CA9 PO; +ONDA4TAB10 SL; -QVRINH80 INH; +RXC5 PO; +SPIR25TA PO; +WARF5TAB7 PO; +ZRX25 PO; +lovenox SQ
[2017-04-16 13:21] LABS: BLOOD UREA NITROGEN 30 mg/dl (7-18); CALCIUM 9.9 mg/dl (8.5-10.1); CARBON DIOXIDE 33 mmol/L (21-32); GLUCOSE 105 mg/dl (70-99); SODIUM 134 mmol/L (136-145)
== END | disposition home or self-care (01) ==
LOC: C.LABMFLN 09:48
PROVIDERS: ATTEND Family Medicine
DX: N18.3 Chronic kidney disease, stage 3 (moderate) (principal); I50.32 Chronic diastolic (congestive) heart failure; Z79.01 Long term (current) use of anticoagulants; I26.99 Other pulmonary embolism without acute cor pulmonale; Z51.81 Encounter for therapeutic drug level monitoring

== ENCOUNTER → 2017-04-25 | Outpatient (CLI) | payer BC ==
[~2017-04-25] MED LIST changes: -ACET-24 PO; -BECL80AE7 INH; -CHOL2000 PO; -GABA-1220 PO; -HYDR-5688 PO; -HYDR2TAB3 PO; -IPRA-64 INH; +IPRASOL4 INH; -LOSA100T65 PO; -METF500T5 PO; -OMEP20CA9 PO; -ONDA4TAB10 SL; +QVRINH80 INH; -RXC5 PO; -SPIR25TA PO; -WARF5TAB7 PO; -ZRX25 PO; -lovenox SQ
== END | disposition home or self-care (01) ==
LOC: C.LABMFLN 10:50
PROVIDERS: ATTEND Family Medicine
DX: L03.119 Cellulitis of unspecified part of limb (principal)

== ENCOUNTER → 2017-04-26 | Outpatient (CLI) | payer BC ==
[2017-04-26 13:05] LABS: HEMOGLOBIN A1C 6.7 % (4.5-5.6)
[2017-04-26 13:30] LABS: BLOOD UREA NITROGEN 49 mg/dl (7-18); CALCIUM 9.9 mg/dl (8.5-10.1); CARBON DIOXIDE 32 mmol/L (21-32); CREATININE 1.34 mg/dl (0.60-1.20); GLUCOSE 130 mg/dl (70-99); POTASSIUM 3.6 mmol/L (3.5-5.1); SODIUM 132 mmol/L (136-145)
== END | disposition home or self-care (01) ==
LOC: C.LABMFLN 08:59
PROVIDERS: ATTEND Family Medicine
DX: E11.22 Type 2 diabetes mellitus with diabetic chronic kidney disease (principal)

== ENCOUNTER → 2017-05-07 | Outpatient (CLI) | payer BC ==
[~2017-05-07] MED LIST changes: +CHOL2000 PO; +SPIR25TA PO
[2017-05-07 18:16] LABS: ALBUMIN 3.8 gm/dl (3.4-5.0); BLOOD UREA NITROGEN 40 mg/dl (7-18); CALCIUM 9.7 mg/dl (8.5-10.1); CARBON DIOXIDE 34 mmol/L (21-32); CREATININE 1.16 mg/dl (0.60-1.20); GLUCOSE 112 mg/dl (70-99); PHOSPHORUS 3.4 mg/dl (2.5-4.9); POTASSIUM 3.6 mmol/L (3.5-5.1); SODIUM 131 mmol/L (136-145)
== END | disposition home or self-care (01) ==
LOC: C.LABMFLN 10:50
PROVIDERS: ATTEND Internal Medicine Nephrology
DX: E87.1 Hypo-osmolality and hyponatremia (principal)

== ENCOUNTER → 2017-05-16 | Outpatient (CLI) | payer BC ==
[~2017-05-16] MED LIST changes: -OXYC-57 PO
--- NOTE | 2017-05-16 11:28 | DIAGNOSTIC IMAGING REPORT ---
TWO VIEW CHEST CLINICAL HISTORY: Preoperative examination. FINDINGS: PA and lateral chest radiographs are compared to study dated 06/17/2016 and correlated with chest CT dated 01/02/2016. The PA view is degraded by patient rotation. A left subclavian central venous infusion port is unchanged in position. The cardiomediastinal silhouette is unremarkable. Chronic interstitial thickening is similar to previous. No airspace consolidation or pleural effusion is identified. Calcified mediastinal and hilar lymph nodes are similar to previous. There is no pneumothorax. The skeletal structures are osteopenic. Degenerative changes noted in the thoracic spine. Surgical clips project over the upper abdomen. IMPRESSION: No active disease in the chest. Electronically signed by: Jono Sorto M.D. 05/16/2017 11:26 AM Dictated Date/Time: 05/16/2017 11:24 AM
[2017-05-16 13:42] LABS: BASO % 0.5 %; BASO ABS # 0.05 K/uL (0-0.2); EOS % 2.5 %; EOS ABS # 0.25 K/uL (0-0.5); HEMATOCRIT 31.1 % (37-47); HEMOGLOBIN 9.8 g/dL (12.0-16.0); IG# 0.03 K/uL (0.00-0.02); LYMPH % 30.5 %; LYMPH ABS # 3.03 K/uL (1.2-3.4); MEAN CELL VOLUME 90.4 fL (80-100); MEAN CORPUSCULAR HEMOGLOBIN 28.5 pg (25-34); MEAN CORPUSCULAR HGB CONC 31.5 g/dl (32-36); MEAN PLATELET VOLUME 10.2 fL (7.4-10.4); MONO % 5.2 %; MONO ABS # 0.52 K/uL (0.11-0.59); NEUT ABS # 6.07 K/uL (1.4-6.5); PLATELET COUNT 299 K/uL (130-400); RED CELL DISTRIBUTION WIDTH CV 16.4 % (11.5-14.5); RED CELL DISTRIBUTION WIDTH SD 53.9 fL (36.4-46.3); WHITE BLOOD COUNT 9.95 K/uL (4.8-10.8)
[2017-05-16 13:51] LABS: INR 1.5 (0.9-1.1); PTT PATIENT 34.3 SECONDS (21.0-31.0)
[2017-05-16 13:55] LABS: HEMOGLOBIN A1C 6.9 % (4.5-5.6)
[2017-05-16 14:05] LABS: BLOOD UREA NITROGEN 31 mg/dl (7-18); CALCIUM 9.3 mg/dl (8.5-10.1); CARBON DIOXIDE 32 mmol/L (21-32); CREATININE 1.05 mg/dl (0.60-1.20); GLUCOSE 126 mg/dl (70-99); POTASSIUM 4.1 mmol/L (3.5-5.1); SODIUM 135 mmol/L (136-145)
== END | disposition home or self-care (01) ==
LOC: C.LABBC 10:41
PROVIDERS: ATTEND Orthopaedic Surgery Sports Medicine
DX: Z01.818 Encounter for other preprocedural examination (principal); Z01.810 Encounter for preprocedural cardiovascular examination; Z01.812 Encounter for preprocedural laboratory examination

== ENCOUNTER → 2017-05-21 | Outpatient (CLI) | payer BC | END | disposition home or self-care (01) | LOC: C.LABMFLN 11:41 | PROVIDERS: ATTEND Family Medicine | DX: R82.90 Unspecified abnormal findings in urine (principal) ==

== ENCOUNTER → 2017-05-28 | Outpatient (CLI) | payer BC ==
[~2017-05-28] MED LIST changes: +ACET-24 PO; +RXC5 PO; +lovenox SQ
[2017-05-28 13:41] LABS: ALBUMIN 3.5 gm/dl (3.4-5.0); BLOOD UREA NITROGEN 22 mg/dl (7-18); CALCIUM 9.5 mg/dl (8.5-10.1); CARBON DIOXIDE 31 mmol/L (21-32); CREATININE 0.84 mg/dl (0.60-1.20); GLUCOSE 115 mg/dl (70-99); POTASSIUM 3.8 mmol/L (3.5-5.1); SODIUM 137 mmol/L (136-145)
[2017-05-28 13:42] LABS: PHOSPHORUS 3.1 mg/dl (2.5-4.9)
== END | disposition home or self-care (01) ==
LOC: C.LABMFLN 12:42
PROVIDERS: ATTEND Internal Medicine Nephrology
DX: E87.1 Hypo-osmolality and hyponatremia (principal)

== ENCOUNTER 2017-06-04 09:47 | Inpatient (IN) | payer BC, OTHER ==
[2017-05-09 08:34] VITALS: BMI 49.0
--- NOTE | 2017-06-01 09:39 | HISTORY & PHYSICAL EXAMINATION ---
DATE OF ADMISSION: 06/04/2017 CHIEF COMPLAINT: Persistent right knee pain and discomfort. HISTORY OF PRESENT ILLNESS: The patient is a 61-year-old female with multiple medical comorbidities who is now about 4 months out from a left knee replacement and would like her right knee replaced. The patient has got a long history of bilateral knee pain and discomfort, unresponsive to conservative treatment. Her left knee is doing well and she is debilitated by her right knee. She has got chronic pain. She uses a cane to get around. It is global pain in the right knee. PAST MEDICAL HISTORY: Significant for: 1. Hypertension. 2. Congestive heart failure. 3. Asthma and COPD. 4. 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 5. Sleep apnea. 6. Anxiety and depression. 7. Diabetes. 8. Anemia. 9. Obesity with a BMI of 49. 10. Gastroesophageal reflux disease. 11. Hiatal hernia. PAST SURGICAL HISTORY: Includes: 1. Hiatal hernia surgery. 2. Fistula/bowel surgery. 3. Herniorrhaphy. 4. Ankle ORIF. 5. Ankle arthrodesis. 6. Left knee replacement done on 01/18/2017. ALLERGIES: SULFA. CURRENT MEDICINES: Include: 1. Allopurinol 100 mg. 2. Aspirin 81 mg. 3. Atorvastatin 20 mg at bedtime. 4. Insulin. 5. Cyclobenzaprine 10 mg 3 times a day as needed. 6. Diltiazem ER 120 mg 2 capsules at night. 7. DuoNeb inhaler. 8. Ergocalciferol 50,000 units once a week. 9. Furosemide 20 mg twice a day. 10. Insulin pump. 11. Klor-Con 10 mEq twice a day. 12. Levothyroxine 15 mcg a day. 13. Lisinopril 20 mg twice a day. 14. Metformin 500 mg 2 tablets twice a day. 15. Nasal suspension. 16. Percocet. 17. Os-Mao 500 plus D. 18. Paroxetine 40 mg. 19. Prednisone 5 mg a day. SOCIAL HISTORY: A 61-year-old female patient from [facility]. FAMILY HISTORY: Noncontributory. REVIEW OF SYSTEMS: Significant for pulmonary problems managed by Dr. Hein. She has a history of PE with an IVC filter in place. She is diabetic. Denies any current chest pain or shortness of breath. She is on Coumadin. PHYSICAL EXAMINATION: GENERAL: Reveals a healthy pleasant, middle-aged female. She looks to be in reasonably good health. HEENT: Benign. NECK: Supple. No lymphadenopathy. LUNGS: Clear to auscultation. HEART: Regular rate and rhythm. ABDOMEN: Soft, nontender, nondistended. EXTREMITIES: Grossly neurovascularly intact except as follows. Examination of the left leg reveals incision to be healed nicely. Range of motion 0-110. No instability. Good straight leg raise. Examination of the right knee reveals varus alignment. [id number] soft tissue envelope. Range of motion is about 5-115. No instability. X-RAYS: X-rays of the right knee reviewed. It shows advanced right knee DJD. She has complete loss of her medial joint space. ASSESSMENT: A 61-year-old female status post left knee replacement 4 months ago with advanced right knee degenerative joint disease. She has got multiple comorbidities, which make surgery at increased risk, but she is happy with the left knee and really would like to proceed with her right. PLAN: We will take her to the operating room and do a right total knee replacement. The risks and benefits of this procedure were explained to the patient including but not limited to DVT, PE, , infection, neurological injury, vascular injury, bleeding, pain, limited range of motion, stiffness, failure to relieve symptoms, incomplete relief of symptoms, need for further surgery in the future, fracture, leg length inequality, nerve palsy, etc. The patient understands and desires to proceed. Informed consent was obtained. We did talk to her about stopping her Coumadin 5 days preoperatively and we will get a stat PT and INR in the morning of the surgery. She is hoping to be discharged to [facility] for a brief rehab stay. We will likely put some vancomycin in her cement. She has got multiple comorbidities. This is an increased risk and she is aware of that and would like to proceed.
[~2017-06-04] VITALS: Ht 154.9 cm; Wt 117.7 kg
[2017-06-04] VITALS (8 sets, daily range): BP systolic 120–143; BP diastolic 56–75; PULSE 66–79; TEMP 36.4–36.7; O2SAT 94–100; Ht 154.9 cm; Wt 117.7 kg
[~2017-06-04 09:47] MED LIST changes: -ACET-24 PO; +ACETAMINOPHEN 500 MG TAB PO SCH; +BUPIVACAINE 0.25% 30 ML VIAL ONE; +BUPIVACAINE 0.5 % 5 MG/1 ML PF 10ML VIAL ONE; +FAMOTIDINE 20 MG TAB PO SCH; +GABAPENTIN 600 MG PO SCH; +LACTATED RINGER'S 1000ML 1,000 ML IV SCH; +LACTATED RINGER'S 1000ML 500 ML IV SCH; +LACTATED RINGER'S 1000ML IV SCH; +METOCLOPRAMIDE HCL 10 MG TAB PO SCH; -RXC5 PO; +SCOPOLAMINE 1.5 MG TDSY TD SCH; +TRANEXAMIC ACID INJ 1,000 MG x 1 Bag Preop IV SCH; +VANCOMYCIN INJ 1,750 MG in SODIUM CHLORIDE 0.9% 500ML 500 ML IV SCH; -lovenox SQ
[2017-06-04] MEDS ORDERED: lovenox SQ (10:33)
[2017-06-04] MEDS ORDERED: EpHEDrine SULFATE 50MG/5ML SYR ONE (10:40)
[2017-06-04] MEDS ORDERED: LIDOCAINE HCL 2% 2 ML VIAL (20MG/ML) ONE (10:40)
[2017-06-04] MEDS ORDERED: PROPOFOL IV EMULSION 10 MG/ML 20 ML VIAL IV ONE ×2 (10:40→13:40)
[2017-06-04] MEDS ORDERED: MIDAZOLAM HCL 1 MG/ML 2ML VIAL ONE (10:41)
[2017-06-04] MEDS ORDERED: FENTANYL CITRATE INJ 50 MCG/1 ML 2 ML VIAL ONE (10:41)
[2017-06-04 11:08] LABS: PTT PATIENT 27.4 SECONDS (21.0-31.0)
[2017-06-04] MEDS ORDERED: SODIUM CHLORIDE 0.9% PF 50 ML VIAL ONE (11:12)
[2017-06-04] MEDS ORDERED: EpINEphrine INJ 1MG/ML AMP 1 MG/ML AMP ONE (11:13)
[2017-06-04] MEDS ORDERED: BUPIVACAINE LIPOSOME 1/3% 266 MG/20 ML VIAL INFIL ONE (11:13)
[2017-06-04] MEDS ORDERED: BACITRACIN 50000 UNIT VIAL ONE (11:13)
[2017-06-04] MEDS ORDERED: BUPIVACAINE 0.25% 30 ML VIAL ONE (11:25)
[2017-06-04] MEDS ORDERED: LABETALOL HCL IV 5 MG/ML 20ML IV PRN (11:45)
[2017-06-04] MEDS ORDERED: HYDROmorphone INJ 1 MG/ML SYR IV PRN (11:45)
[2017-06-04] MEDS ORDERED: ONDANSETRON INJ 2 MG/ML 2 ML VIAL IV PRN ×2 (11:45→14:45)
[2017-06-04] MEDS ORDERED: FENTANYL CITRATE INJ 50 MCG/1 ML 2 ML VIAL IV PRN (11:45)
[2017-06-04] MEDS ORDERED: EpHEDrine SULFATE INJ 50 MG/ML AMP IV PRN (11:45)
[2017-06-04] MEDS ORDERED: MEPERIDINE HCL 25 MG/ML CARP IV PRN (11:45)
[2017-06-04] MEDS ORDERED: ATROPINE SULFATE 0.1 MG/ML 5ML SYR IV PRN (11:45)
[2017-06-04] MEDS ORDERED: VANCOMYCIN HCL 1000MG/20ML VIAL ONE (12:49)
[2017-06-04] MEDS: BUPIVACAINE LIPOSOME 266 MG, BUPIVACAINE/EPINEPHRINE INJ 50 ML, SODIUM CHLORIDE 0.9% PF... INFIL SCH ×6 (13:46→14:32)
--- NOTE | 2017-06-04 14:36 | [facility] Post Operative Brief Note ---
Immediate Operative Summary Operative Date Jun 04, 2017. Pre-Operative Diagnosis Advanced right knee degenerative joint disease Post-Operative Diagnosis Advanced right knee degenerative joint disease Procedure(s) Performed Right Total Knee Arthroplasty Surgeon Dr. Cody Computer Network And Systems Engineer Surgeon(s) Florin Cortes PA-C Estimated Blood Loss 50 ml Findings Consistent with Post-Op Diagnosis Fluids (cc crystalloids) 1500 cc Specimens Permanent Specimen: A: Right knee bone and tissue Drains None Anesthesia Type MAC Spinal Regional Complication(s) none Disposition Accompanied Pt To Recover: no Disposition: Recovery Room / PACU
[2017-06-04] MEDS ORDERED: ALUMINUM/MAGNESIUM/SIMETH (MAALOX MAX) 30 ML UDC PO PRN (14:45)
[2017-06-04] MEDS ORDERED: MoRPHine SULFATE 2 MG/ML CARP IV PRN (14:45)
[2017-06-04] MEDS ORDERED: GLUCAGON FOR INJ 1 MG VIAL SQ PRN (14:45)
[2017-06-04] MEDS ORDERED: CYCLOBENZAPRINE HCL 10 MG TAB PO PRN (14:45)
[2017-06-04] MEDS ORDERED: GLUCOSE 40% GEL 15 GM TUBE PO PRN (14:45)
[2017-06-04] MEDS ORDERED: DEXTROSE 50% 50 ML SYR IV PRN (14:45)
[2017-06-04] MEDS ORDERED: GLUCOSE 10 TABS/TUBE PO PRN (14:45)
[2017-06-04] MEDS ORDERED: FORMOTEROL FUMA NEBULIZER SOLN 20 MCG/2 ML VIAL INH PRN (14:45)
[2017-06-04] MEDS ORDERED: BISACODYL 10 MG SUPP PR PRN (14:45)
[2017-06-04] MEDS ORDERED: METOCLOPRAMIDE HCL INJ 5 MG/ML 2 ML VIAL IV PRN (14:45)
[2017-06-04] MEDS ORDERED: BECLOMETHASONE DIP HFA 80 MCG 8.7G INH INH PRN (14:45)
[2017-06-04] MEDS ORDERED: ZOLPIDEM TARTRATE 5 MG TAB PO PRN (14:45)
[2017-06-04] MEDS ORDERED: DiphenhydrAMINE HCL 50 MG/ML VIAL IV PRN (14:45)
[2017-06-04] MEDS ORDERED: MAGNESIUM HYDROXIDE SUSP 30 ML UDC PO PRN (14:45)
[2017-06-04] MEDS ORDERED: NovoLOG INSULIN PUMP SCH (14:45)
[2017-06-04] MEDS ORDERED: VANCOMYCIN CONSULT ACTIVE PRN (14:45)
--- NOTE | 2017-06-04 15:38 | Anesthesiology Progress Note ---
Anesthesia Post Op Note Date & Time Jun 04, 2017 at 15:38 Vital Signs Pain Intensity: 0 Vital Signs Past 12 Hours Date Time Temp Pulse Resp B/P (MAP) Pulse Ox O2 Delivery O2 Flow Rate FiO2 06/04/17 15:30 77 16 129/64 98 Nasal Cannula 2 06/04/17 15:25 36.5 73 15 136/57 97 Nasal Cannula 2 06/04/17 15:15 74 16 142/67 99 Nasal Cannula 2 06/04/17 15:05 74 17 142/58 100 Oxymask 10 06/04/17 14:55 74 16 134/70 100 Oxymask 10 06/04/17 14:44 36.6 69 14 136/64 100 Oxymask 10 06/04/17 10:37 36.7 70 22 128/64 96 Room Air Notes Mental Status: alert / awake / arousable, participated in evaluation Pt Amnestic to Procedure: Yes Nausea / Vomiting: adequately controlled Pain: adequately controlled Airway Patency, RR, SpO2: stable & adequate BP & HR: stable & adequate Hydration State: stable & adequate Anesthetic Complications: no major complications apparent
--- NOTE | 2017-06-04 15:44 | DIAGNOSTIC IMAGING REPORT ---
RIGHT KNEE 2 VIEWS History: Right total knee arthroplasty. Degenerative arthritis. Postop. FINDINGS: The patient is status post a right total knee arthroplasty. The hardware is intact. No fracture or dislocation. Skin robert are in place. IMPRESSION: Right total knee arthroplasty. No evidence for hardware complication. Electronically signed by: Darrius Sanchez M.D. 06/04/2017 3:43 PM Dictated Date/Time: 06/04/2017 3:42 PM
[2017-06-04] MEDS: CHECK SCOPOLAMINE PATCH PLACEMENT SCH (16:00)
[2017-06-04] MEDS: SODIUM CHLORIDE 0.9% 1000ML 1,000 ML IV SCH (16:32)
[2017-06-04] MEDS: FUROSEMIDE 80 MG TAB PO SCH (17:46)
[2017-06-04] MEDS: KETOROLAC TROMETHAMINE 30 MG/ML VIAL IV. SCH (17:46)
[2017-06-04] MEDS: FERROUS GLUCONATE 324 MG TAB PO SCH (17:46)
[2017-06-04] MEDS: INSULIN HUMAN REGULAR SC SCH ×2 (17:51→20:51)
[2017-06-04] MEDS: IPRATROPIUM BROMIDE/ALBUTEROL respimat INH INH SCH ×2 (17:52→20:49)
[2017-06-04] MEDS ORDERED: WARFARIN SOD 2.5 MG TAB PO ONE (18:00)
--- NOTE | 2017-06-04 18:27 | PROGRESS NOTE ---
DATE: 06/04/2017 SUBJECTIVE: A 61-year-old female with multiple medical comorbidities, postop from a right knee replacement. She is doing pretty well. Really not having any pain yet. No chest pain or shortness of breath. Not feeling dizzy or lightheaded. OBJECTIVE: VITAL SIGNS: Temperature 36.5. Vital signs stable. PHYSICAL EXAMINATION: GENERAL: Reveals a healthy pleasant, middle-aged female. She is sitting up and talking to her . She looks comfortable. LUNGS: Clear to auscultation. HEART: Regular rate and rhythm. ABDOMEN: Soft, nontender, nondistended. EXTREMITIES: Grossly neurovascularly intact except as follows: Examination of the right leg reveals the leg to be well aligned. Dressing is clean, dry and intact. She can dorsiflex and plantarflex her foot appropriately. She is neurologically intact. X-RAYS: X-rays of her right knee from recovery room were reviewed. It shows a right cemented posterior stabilized total knee arthroplasty. Components look to be in good position. The AP film is fairly rotated. ASSESSMENT: A 61-year-old female with multiple medical comorbidities including COPD, history of DVT and PE with an IVC filter in place and diabetes doing quite well postoperatively. Her pain is controlled. She is neurologically intact. PLAN: 1. DVT prophylaxis including thigh-high TEDs, SCDs. We will start him back on her Coumadin on a loading dose tonight. She has an IVC filter in place. 2. PT/OT. Weightbearing as tolerated. Right total knee protocol. 3. Pain control, doing well with current pain regimen. 4. IV antibiotics x24 hours. 5. Pulmonary management. We have consulted Dr. Hein to help with her medical management. 6. Diabetes. She is on insulin scale diabetes coverage. 7. Disposition: She is hoping to be discharged to home with some home health once adequately recovered.
--- NOTE | 2017-06-04 19:41 | Pulmonary Consultation ---
History General Date of Service: Jun 04, 2017. Stated Complaint: Right Knee Degenerative Joint Disease HPI The patient is a 61 year old female who presents to [facility] with complaints of Right Knee Degenerative Joint Disease. The patient's primary care provider is Jose Roberto Tyler M.D.. Historian: patient Onset: other (patient had a history of COPD and obstructive sleep apnea, has been stable and not in exacerbation.) Review of Systems Constitutional: denies: no symptoms, as stated in HPI, chills, diaphoresis, fever, malaise, weakness, weight gain, weight loss, other Eyes: denies: no symptoms, as stated in HPI, eye pain, tearing, itching, redness, discharge, double vision, visual changes, blurred vision, photophobia, other ENT: denies: no symptoms, as stated in HPI, ear pain, ear discharge, loss of hearing, tinnitus, nasal pain, nasal congestion, rhinorrhea, epistaxis, sore throat, stridor, throat swelling, mouth pain, mouth swelling, dental pain, gum swelling, other Cardiovascular: denies: no symptoms, as stated in HPI, chest pain, chest pressure, chest tightness, diaphoresis, edema, intermittent claudication, orthopnea, palpitations, syncope, other Respiratory: reports: shortness of breath (on exertion only.) Gastrointestinal: denies: no symptoms, as stated in HPI, abdominal pain, constipation, diarrhea, nausea, vomiting, hematemesis, hematochezia, hemorrhoids , anorexia, appetite changes, stool changes, flatulence, belching, food intolerance, jaundice, other Musculoskeletal: reports: other (minimal right knee pain due to surgery.) Neurologic: denies: no symptoms, as stated in HPI, headache, dizziness, general weakness, focal weakness, numbness, tingling, paresthesia, pre-existing deficit, tremors, tics, vertigo, seizure, lethargy, memory loss, other Psychiatric: denies: no symptoms, as stated in HPI, anxiety, depression, suicidal ideation, homicidal ideation, visual hallucinations, auditory hallucinations, mood changes, alcohol abuse, drug abuse, other Past Medical History Past Medical History: Patient had a history of COPD, gold level II. Not on home oxygen. History of obstructive sleep apnea on home CPAP followed by Dr. Hein. Morbid obesity. Degenerative joint disease, status post total knee replacement on the right and she had total knee replacement on the left before. History of diabetes. Past Medical History: asthma, deep vein thrombosis, depression, diabetes, hypertension, osteoarthritis, osteoporosis, pulmonary embolism, other Past Surgical History: appendectomy, cholecystectomy, hysterectomy, orthopedic surgery, tonsillectomy, other Family History Depression FH: gallbladder disease FH: heart disease FH: lung disease Hypertension Kidney stones Social History Hx Tobacco Use In Past Year?: No Smoking Status: Never Smoker Alcohol: socially Marital status: Housing status: lives with family Occupational Status: retired Immunizations History of Influenza Vaccine: Yes Influenza Vaccine Date: Dec 26, 2012 History of Tetanus Vaccine?: Unknown History of Pneumococcal: Yes Pneumococcal Date: Aug 01, 2001 History of Hepatitis B Vaccine: Unknown History of MDRO History of MDRO: Yes Type of MDRO: MRSA Allergies Coded Allergies: Sulfa Antibiotics (Verified Allergy, Intermediate, HIVES, RASH, 05/09/17) Oxybutynin (Verified Allergy, Mild, HIVES, 05/09/17) Adhesives (Verified Allergy, Unknown, skin irritation, 05/09/17) Cephalosporins (Verified Allergy, Unknown, CEFOXITIN-HIVES, TOLERATED ROCEPHIN 09/11/07, 05/09/17) Current Medications Reported Home Medications Medications Dose Route/Sig Max Daily Dose Days Date Category Dose Instructions [lovenox] 1 SQ BID 06/04/17 Reported Vitamin D3 (Cholecalciferol) 2,000 Unit Cap 1 Cap PO QAM 90 05/09/17 Reported Aldactone (Spironolactone) 25 Mg Tab 25 Mg PO QAM 05/09/17 Reported Ferrous Gluconate 324 Mg Tab 324 Mg PO QAM 02/19/17 Reported Cozaar (Losartan Potassium) 50 Mg Tab 1 Tab PO QAM 30 01/18/17 Reported Combivent Respimat (Ipratropium-Albuterol) 1 Aer Aer 1 Puffs INH QID 01/18/17 Reported Dulera 200/5 Mcg (Mometasone Furoate-Formoterol) 1 Aer Aer 2 Puffs INH BID 30 01/18/17 Reported Cartia Xt (Diltiazem Hcl Coated Beads) 180 Mg Cap 180 Mg PO BID 01/18/17 Reported Potassium Chloride ER (Potassium Chloride) 20 Meq Tab 20 Meq PO TID 01/18/17 Reported Allopurinol 300 Mg Tab 300 Mg PO QAM 01/18/17 Reported novoLOG INSULIN PUMP (Insulin Aspart) 1 Ea Inj 1 Ea N/A UD 12/10/16 Reported 30-40 UNITS VIA PUMP SLIDING SCALE Gabapentin 400 Mg Cap 400 Mg PO TID 11/09/16 Reported Mometasone Furoate (Mometasone Furoate (Nasal)) 50 Mcg/Act Spr 1 [place] GEOFF QAM 11/09/16 Reported Vitamin D 55011 Unit (Ergocalciferol) 50,000 Unit Cap 50,000 Unit PO WK 11/09/16 Reported WEDNESDAYS Qvar (Beclomethasone Dip) 80 Mcg/Act Aer 2 Puffs INH BID PRN 11/09/16 Reported Perforomist (Formoterol Fumarate) 20 Mcg/2 Ml Neb 2 Ml INH Q12 PRN 06/17/16 Reported Lasix (Furosemide) 40 Mg Tab 80 Mg PO BID 06/17/16 Reported Jantoven (Warfarin Sodium) 7.5 Mg Tab 7.5 Mg PO UD 05/29/16 Reported Pt takes 7.5 mg //// and 5 mg /Sat Aspirin Ec (Aspirin) 81 Mg Tab 81 Mg PO QAM 05/29/16 Reported Flexeril (Cyclobenzaprine Hcl) 10 Mg Tab 1 Tab PO TID PRN 30 02/01/16 Reported Paxil (Paroxetine HCl) 40 Mg Tab 40 Mg PO QAM 08/17/15 Reported Oysco 500+D (Calcium Carbonate-Vitamin D) 1 Tab Tab 2 Tab PO QAM 08/17/15 Reported Glucophage (Metformin Hcl) 500 Mg Tab 1,000 Mg PO BIDM 08/17/15 Reported Levothyroxine Sodium 50 Mcg Tab 50 Mcg PO QAM 08/17/15 Reported Duoneb (Ipratropium-Albuterol) 3 Ml Nebu 1 Treatment INH Q4H PRN 08/17/15 Reported Lipitor (Atorvastatin Calcium) 20 Mg Tab 20 Mg PO HS 09/08/14 Reported Physical Physical Exam Vital Signs: Date Time Temp Pulse Resp B/P (MAP) Pulse Ox O2 Delivery O2 Flow Rate FiO2 06/04/17 17:45 36.5 71 18 121/56 (77) 100 Nasal Cannula 2.0 06/04/17 16:55 36.4 70 16 139/69 (92) 100 Nasal Cannula 2.0 06/04/17 16:30 Nasal Cannula 2.0 06/04/17 16:15 36.5 75 18 123/58 (79) 100 Nasal Cannula 2.0 06/04/17 15:48 100 Nasal Cannula 2.0 06/04/17 15:45 100 Nasal Cannula 2.0 06/04/17 15:44 36.4 79 17 143/65 (91) 100 Nasal Cannula 2.0 06/04/17 15:30 77 16 129/64 98 Nasal Cannula 2 06/04/17 15:25 36.5 73 15 136/57 97 Nasal Cannula 2 06/04/17 15:15 74 16 142/67 99 Nasal Cannula 2 06/04/17 15:05 74 17 142/58 100 Oxymask 10 06/04/17 14:55 74 16 134/70 100 Oxymask 10 06/04/17 14:44 36.6 69 14 136/64 100 Oxymask 10 06/04/17 10:37 36.7 70 22 128/64 96 Room Air General Appearance: WD/WN Eyes: PERRLA, EOMI ENT: NORMAL MOUTH EXAM Neck: NORMAL RANGE OF MOTION, NO TENDERNESS Respiratory: BREATH SOUNDS NORMAL, CLEAR TO AUSCULTATION Cardiovasular: REGULAR RATE/RHYTHM, NORMAL S1S2, NO M/G/R, NO MURMUR Abdomen: NON TENDER, NO REBOUND Upper Extremities: NO EDEMA Pulses: radial (R) Neuro: ALERT, ORIENTED x 3, NORMAL MOTOR EXAM Diagnostics Labs Results Past 24 Hours Test 06/04/17 10:41 06/04/17 14:44 06/04/17 17:40 Range/Units Prothrombin Time 10.2 9.0-12.0 SECONDS Prothromb Time International Ratio 1.0 0.9-1.1 Activated Partial Thromboplast Time 27.4 21.0-31.0 SECONDS Partial Thromboplastin Ratio 1.1 Hepatitis C Antibody Screen NEG NEG Bedside Glucose 124 155 70-90 mg/dl Diagnostic Radiology Chest x-ray is pending. Impression Assessment and Plan #1 COPD, gold level II, not home O2 dependent, last dose of prednisone used was last year. Most recent exacerbation was over 12 months ago. #2 degenerative joint disease status post total knee replacement on the right. #3 history of asthma, lifetime, exacerbated by secondhand exposure to smoking via her parents. She also worked in a [employer] company with exposure to industrial dust for 10 years. #4 morbid obesity. #5 obstructive sleep apnea on home CPAP. Plan: #1 continue with the Qvar. #2 change Perforomist to every 12 hours scheduled. #3 continue with Combivent 4 times daily on a scheduled basis in the perioperative period. #4 I advised the patient to bring her CPAP machine from home if she is still in the hospital to use it. #5 ambulation per orthopedic. #6 anticoagulation for DVT prophylaxis. #7 no further recommendations from poorly standpoint. #8 I would obtain a chest x-ray on her to evaluate her lung parenchyma. Thank you for your kind referral.
[2017-06-04] MEDS: DILTIAZEM HCL 180 MG ER CAP PO SCH (20:48)
[2017-06-04] MEDS: SENNA 8.6 MG TAB PO SCH (20:48)
[2017-06-04] MEDS: ATORVASTATIN 20 MG TAB PO SCH (20:48)
[2017-06-04] MEDS: POTASSIUM CHLORIDE 20 MEQ TABCR PO SCH (20:48)
[2017-06-04] MEDS: GABAPENTIN 400 MG CAP PO SCH (20:48)
[2017-06-04] MEDS: DOCUSATE SODIUM 100 MG CAP PO SCH (20:48)
[2017-06-04] MEDS: ACETAMINOPHEN 500 MG TAB PO SCH (20:49)
[2017-06-04] MEDS: TAPENTADOL ER 50 MG TABCR PO SCH (20:54)
[2017-06-04] MEDS ORDERED: PHARMACY GLYCEMIC MGMT CONSULT PRN (21:39)
[2017-06-04] MEDS ORDERED: INSULIN GLARGINE SOLOSTAR 100 UNITS/ML 3 ML PEN SC STA (21:54)
[2017-06-04] MEDS ORDERED: INSULIN ASPART 100 UNITS/ML 3 ML PEN SC STA (21:57)
[2017-06-04] MEDS ORDERED: INSULIN HUMAN REGULAR PER UNIT 4 UNITS in SYRINGE 3.96 ML IV SCH (22:00)
[2017-06-04] MEDS ORDERED: VANCOMYCIN INJ 1,750 MG in SODIUM CHLORIDE 0.9% 500ML 500 ML IV SCH (22:00)
[2017-06-04] MEDS: FORMOTEROL FUMA NEBULIZER SOLN 20 MCG/2 ML VIAL INH SCH (22:15)
[2017-06-05] VITALS (9 sets, daily range): BP systolic 89–153; BP diastolic 42–84; PULSE 15–90; TEMP 36.7–37.1; O2SAT 92–99
[2017-06-05] MEDS ORDERED: INSULIN ASPART 100 UNITS/ML 3 ML PEN SC SCH (02:00)
[2017-06-05] MEDS: LEVOTHYROXINE 50 MCG TAB PO SCH (06:05)
[2017-06-05] MEDS: KETOROLAC TROMETHAMINE 30 MG/ML VIAL IV. SCH ×3 (06:06→11:02)
[2017-06-05] MEDS: ACETAMINOPHEN 500 MG TAB PO SCH ×3 (06:06→21:05)
[2017-06-05 07:03] LABS: HEMATOCRIT 25.1 % (37-47); HEMOGLOBIN 8.1 g/dL (12.0-16.0); MEAN CELL VOLUME 90.6 fL (80-100); MEAN CORPUSCULAR HEMOGLOBIN 29.2 pg (25-34); MEAN CORPUSCULAR HGB CONC 32.3 g/dl (32-36); MEAN PLATELET VOLUME 9.5 fL (7.4-10.4); PLATELET COUNT 193 K/uL (130-400); RED CELL DISTRIBUTION WIDTH CV 17.6 % (11.5-14.5); RED CELL DISTRIBUTION WIDTH SD 59.3 fL (36.4-46.3); WHITE BLOOD COUNT 9.51 K/uL (4.8-10.8)
--- NOTE | 2017-06-05 07:03 | DIAGNOSTIC IMAGING REPORT ---
CHEST ONE VIEW PORTABLE CLINICAL HISTORY: COPD COMPARISON STUDY: May 16, 2017 FINDINGS: There is a left-sided A-Port catheter. The heart is normal in size. There are calcified AP window lymph nodes. There is no focal pulmonary consolidation. There are no pleural effusions.[ IMPRESSION: No active disease in the chest. Electronically signed by: Louis Dennis M.D. 06/05/2017 7:02 AM Dictated Date/Time: 06/05/2017 7:01 AM
[2017-06-05] MEDS: FORMOTEROL FUMA NEBULIZER SOLN 20 MCG/2 ML VIAL INH SCH ×2 (07:12→19:15)
[2017-06-05 07:31] LABS: CALCIUM 8.6 mg/dl (8.5-10.1); POTASSIUM 4.4 mmol/L (3.5-5.1)
[2017-06-05] MEDS: SODIUM CHLORIDE 0.9% 1000ML 1,000 ML IV SCH ×2 (07:55)
--- NOTE | 2017-06-05 07:57 | OPERATIVE REPORT ---
DATE OF OPERATION: 06/04/2017 SURGEON: Jorge Cody MD. FOOD AND BEVERAGE CONTROLLER: RENETTA Bautista. PREOPERATIVE DIAGNOSIS: Right knee degenerative joint disease. POSTOPERATIVE DIAGNOSIS: Same. PROCEDURE PERFORMED: Right cemented posterior stabilized total knee arthroplasty. COMPLICATIONS: None. ESTIMATED BLOOD LOSS: 50 mL FLUID REPLACEMENT: 1500 mL crystalloid fluid replacement. TOURNIQUET TIME: 54 minutes at 350 mmHg. ANESTHESIA: Spinal with adductor canal block. DRAINS: None. SPECIMENS: Right knee sent for pathology. OPERATIVE INDICATIONS: The patient is a 61-year-old obese female with multiple comorbidities, who has had a long history of bilateral knee pain and discomfort. She has been through extensive conservative care without adequate relief. She underwent left knee replacement 4 months ago and has done remarkably well from this. She continues to be debilitated by right knee pain and left total knee arthroplasty. OPERATIVE FINDINGS: Operative findings revealed advanced right knee DJD. She had pretty extensive grade 4 changes in medial femoral condyle but no eburnation, just worn cartilage. She had about 50% of the medial tibial plateau that was worn down to bone. Remainder of her knee was fairly well preserved with some spotty grade 4 changes. She had a moderate knee joint effusion. Large soft tissue envelope. OPERATIVE IMPLANTS: Operative implants consisted of: 1. Biomet Vanguard size 62.5 right posterior stabilized femoral component. 2. Biomet size 67 tibial tray. 3. A 10 mm posterior stabilized polyethylene insert. 4. A 31 x 8 all poly patella. OPERATIVE PROCEDURE: The patient taken to the operating room, identified and placed on the operating table in supine position. All contact areas were appropriately padded. IV antibiotics were provided by the anesthesia team. A spinal anesthetic and adductor canal block had been provided in the holding area. Lopez catheter was placed in sterile fashion. A right thigh tourniquet was then placed and the right lower extremity was then prepped and draped in usual sterile fashion. The right leg was elevated and exsanguinated with Esmarch and tourniquet was placed at 350 mmHg. An anterior approach to the right knee was then performed through a longitudinal incision centered over the patella. Sharp dissection was carried out through the subcutaneous tissues down to the level of the extensor mechanism. A medial parapatellar arthrotomy incision was made. Some subperiosteal dissection was carried out medially. The fat pad was resected from beneath the patellar tendon. The lateral patellofemoral ligament was released. Patella was everted and the knee was flexed. The osteophytes were taken off the distal femur. The ACL and PCL were then released from the distal femur and the tibia subluxated anteriorly. The external tibial alignment jig was then placed on the anterior face of the tibia and adjusted 14 mm medially. Proximal tibial cut was made to remove about 2 mm of bone from the most deficient aspect of the medial tibial plateau. Tibia was sized to a size 67. Attention was then drawn to the femur. The distal femur was entered with a sharp drill. Intramedullary guide was placed. A right 5-degree valgus cutting guide was placed. Distal femoral cutting block was pinned in place. Distal femoral cut was made to take an additional 3 mm bone off the distal femur. The femur was then sized to a size 62.5. We downsized this slightly. The AP cutting block was pinned parallel to the epicondylar axis, which was 4 degrees of external rotation. The anterior cut, anterior chamfer, posterior cut, posterior chamfer cuts were made. Box cutting guide was placed and adjusted slightly lateral and the box cut was made. The knee was flexed. The remnants of the lateral menisci were excised. Femoral component was placed. Tibial tray was pinned in maximum external rotation, and the drill and stem punch were used to create defect in the proximal tibia for the tibial tray. The knee was then trialed and a 10 mm insert fit most appropriately. Attention was then drawn to the patella. The patella was cleaned of all soft tissues. The patella thickness measured about 18 mm in thickness and was cut down to about 13. It was sized to a size 31 patella. Lug holes were drilled for a 31 patella. Lateral osteophyte was removed. Patella button was placed. Knee was taken through range of motion and patella tracked nicely with no thumbs test. Attention was then drawn toward placement of permanent components. All trial components were removed. A bone plug was placed in the distal femur to limit blood loss. A double batch of Palacos G cement was mixed. I did add an additional gram of vancomycin due to her medical comorbidities and her history of scabs on her extremities. Right Biomet size 62.5 posterior stabilized femoral component, size 67 tibial tray, 10 mm posterior stabilized polyethylene insert and a 31 x 8 all poly patella were then cemented in place. Knee was brought out into full extension until cement hardened. A final cement check was then performed. Pericapsular tissues were injected with a total of 100 mL of a combination of 20 mL of Exparel, 30 mL of normal saline, 50 mL of 0.25% Marcaine with epinephrine. The patient did receive 1 gram of tranexamic acid. The tourniquet was then let down for a tourniquet time of 54 minutes. Hemostasis was assured with use of electrocautery. The extensor mechanism was then closed with a combination of #1 PDS suture and #1 Vicryl suture in a [id number] fashion. Extensor mechanism was checked and found to be intact. Subcutaneous tissues were then closed with 2-0 Dexon suture in a buried interrupted fashion. Skin was closed with skin robert. Leg was then cleaned and dried, and a sterile dressing of Xeroform, 4 x 4's, sterile cast padding and Sam bandage was applied. The patient then transferred to the recovery room in stable condition. The patient tolerated the procedure with no complications. All needle, sponge and instrument counts were correct at the end of the operation. I attest to the content of the Intraoperative Record and any orders documented therein. Any exception s are noted below.
[2017-06-05] MEDS: CHECK SCOPOLAMINE PATCH PLACEMENT SCH ×4 (08:19→23:50)
[2017-06-05] MEDS ORDERED: ERGOCALCIFEROL 50,000 INTER.UNIT CAP PO SCH (09:00)
[2017-06-05] MEDS: FUROSEMIDE 80 MG TAB PO SCH ×2 (09:06→16:55)
[2017-06-05] MEDS: MULTIVITAMIN TAB PO SCH (09:06)
[2017-06-05] MEDS: POTASSIUM CHLORIDE 20 MEQ TABCR PO SCH ×3 (09:06→21:04)
[2017-06-05] MEDS: LOSARTAN POTASSIUM 50 MG TAB PO SCH (09:07)
[2017-06-05] MEDS: GABAPENTIN 400 MG CAP PO SCH ×3 (09:08→21:05)
[2017-06-05] MEDS: FERROUS GLUCONATE 324 MG TAB PO SCH ×3 (09:08→18:32)
[2017-06-05] MEDS: FLUTICASONE PROPIONATE NA SPR 16 GM BTL NAE SCH (09:09)
[2017-06-05] MEDS: IPRATROPIUM BROMIDE/ALBUTEROL respimat INH INH SCH ×4 (09:09→21:02)
[2017-06-05] MEDS: DOCUSATE SODIUM 100 MG CAP PO SCH ×2 (09:10→21:06)
[2017-06-05] MEDS: SPIRONOLACTONE 25 MG TAB PO SCH (09:12)
[2017-06-05] MEDS: ASPIRIN 81 MG ECTAB PO SCH (09:13)
[2017-06-05] MEDS: DILTIAZEM HCL 180 MG ER CAP PO SCH ×2 (09:13→21:02)
[2017-06-05] MEDS: PANTOprazole SOD 40 MG TAB PO SCH (09:14)
[2017-06-05] MEDS: CALCIUM 600MG + VIT D 400 IU TAB PO SCH (09:15)
[2017-06-05] MEDS: CHOLECALCIFEROL 1000 INTER.UNIT TAB PO SCH (09:16)
[2017-06-05] MEDS: PAROXETINE 20 MG TAB PO SCH (09:16)
[2017-06-05] MEDS: PSYLLIUM 58.6% PWD PACK S\\F PO SCH (09:17)
[2017-06-05] MEDS: ALLOPURINOL 300 MG TAB PO SCH (09:17)
[2017-06-05] MEDS: INSULIN ASPART 100 UNITS/ML 3 ML PEN SC SCH ×4 (09:26→20:57)
[2017-06-05] MEDS: INSULIN GLARGINE SOLOSTAR 100 UNITS/ML 3 ML PEN SC SCH ×2 (09:28→21:03)
[2017-06-05] MEDS: TAPENTADOL ER 50 MG TABCR PO SCH ×2 (09:29→21:00)
[2017-06-05] MEDS: OXYCODONE HCL IR 5 MG TAB (IMMEDIATE RELEASE) PO PRN ×2 (11:01→16:54)
--- NOTE | 2017-06-05 14:09 | Pharmacy Progress Note ---
Pharmacy Glycemic Short Note 2 Date of Service Jun 05, 2017. OUTPATIENT ANTIDIABETIC REGIMEN: * Novolog pump (~40-60 units/day?) * Metformin 1gm PO BID * HbA1c: 6.9% (05/16/17) ASSESSMENT: * Ms Torres is a 61yo diabetic female POD #1 s/p R TKA. * Patient manages diabetes with a Novolog insulin pump and metformin at home. * Pump was held and patient was initiated on basal/bolus regimen last evening. BSGs have been acceptable today. PLAN FOR INPATIENT GLYCEMIC CONTROL: * Hold outpatient oral diabetes medications * may consider resuming prior to discharge if renal function is appropriate and patient is tolerating meals * Basal insulin * Lantus 20 units SQ x1 dose last evening, then * Lantus 15 units SQ BID * Bolus insulin * NovoLog per scale ACHS or Q6hrs while NPO * Goal Range: Low 110 mg/dL - High 140 mg/dL * Correction Factor: 20 mg/dL/unit * Nutritional / Prandial insulin per carb ratio of 1 unit per 7 grams CHO consumed PLAN FOR DISCHARGE: * Recent A1c (6.9%) indicates acceptable glycemic control as an outpatient. * Expect that patient may resume home regimen on discharge. * Recommendations for transitioning back to insulin pump: * If patient receives AM dose of Lantus, patient may resume pump after discharge, but should use ONLY FOR CORRECTION AND CARB COVERAGE * Basal rate should not be resumed until PM/HS and only if BSG above 150mg/dL
--- NOTE | 2017-06-05 14:35 | Pulmonology Progress Note ---
Pulmonary Progress Note Date of Service Jun 05, 2017. Attending Dr. Silverio Subjective The patient has no events from pulmonary standpoint. She has been ambulatory. Minimal discomfort of the right knee. But she appeared to be doing well and progressing as expected post operation. Objective Physical exam on 06/05/2017, the patient vital signs remained stable, O2 saturation 95% at rest on room air, distant breath sounds bilaterally, S1-S2 regular rate and rhythm, abdomen is obese but benign, trace edema in the periphery. Assessment & Plan #1 postop total knee replacement, improving. #2 COPD, gold level II, changed now to Perforomist and Qvar. #3 obstructive sleep apnea, should be able to use her own CPAP. #4 continue bronchodilators as needed. #5 disposition plan per orthopedic. #6 follow-up with Dr. Hein as an outpatient in 1-2 weeks. #7 chest x-ray reviewed, no intraparenchymal disease. Thank you for your kind referral, will follow as needed as an inpatient. Data Medications: Current Inpatient Medications Medications (Trade) Dose Ordered Sig/Jesus Route Start Time Stop Time Status Last Admin Dose Admin Miscellaneous (Remove Transderm-Scop Patch) 1 ea Q72H N/A 06/07/17 06:00 06/07/17 06:01 Miscellaneous Information (Check Scopolamine Patch Placement) 1 ea QS N/A 06/04/17 16:00 06/07/17 05:59 06/05/17 08:19 1 EA Sodium Chloride 1,000 ml @ 125 mls/hr Q8H IV 06/04/17 16:15 06/05/17 16:14 06/05/17 07:55 125 MLS/HR Ketorolac Tromethamine (Toradol Inj) 30 mg Q6H IV. 06/04/17 18:00 06/05/17 17:59 06/05/17 11:02 30 MG Oxycodone HCl (Roxicodone Immediate Rel Tab) 1 TABLET FOR PAIN RATING... Q4H PRN PO 06/04/17 14:45 06/18/17 14:44 06/05/17 11:01 10 MG Morphine Sulfate (MoRPHine SULFATE INJ) 2 mg Q1H PRN IV 06/04/17 14:45 06/18/17 14:44 Acetaminophen (Tylenol Tab) 1,000 mg Q8 PO 06/04/17 20:00 07/04/17 19:59 06/05/17 14:28 1,000 MG Magnesium Hydroxide (Milk Of Magnesia Susp) 30 ml Q6H PRN PO 06/04/17 14:45 07/04/17 14:44 Bisacodyl (Dulcolax Supp) 10 mg DAILY PRN KS 06/04/17 14:45 07/04/17 14:44 Senna (Senokot Tab) 17.2 mg HS PO 06/04/17 21:00 07/04/17 20:59 06/04/17 20:48 17.2 MG Docusate Sodium (coLACE CAP) 100 mg BID PO 06/04/17 21:00 07/04/17 20:59 06/05/17 09:10 100 MG Diphenhydramine HCl (Benadryl Cap) 25 mg Q8H PRN PO 06/04/17 14:45 07/04/17 14:44 Diphenhydramine HCl (Benadryl Inj) 25 mg Q8H PRN IV 06/04/17 14:45 07/04/17 14:44 Al Hydrox/Mg Hydrox/Simethicone (Maalox Max Susp) 15 ml Q4H PRN PO 06/04/17 14:45 07/04/17 14:44 Zolpidem Tartrate (Ambien Tab) 5 mg HSZ PRN PO 06/04/17 14:45 07/04/17 14:44 Multivitamins (Multivitamin Tab) 1 tab QAM PO 06/05/17 09:00 07/05/17 08:59 06/05/17 09:06 1 TAB Ondansetron HCl (Zofran Inj) 4 mg Q6H PRN IV 06/04/17 14:45 07/04/17 14:44 Metoclopramide HCl (Reglan Inj) 10 mg Q6H PRN IV 06/04/17 14:45 07/04/17 14:44 Ferrous Gluconate (Ferrous Gluconate Tab) 324 mg TIDM PO 06/04/17 17:45 07/04/17 17:59 06/05/17 13:20 324 MG Pantoprazole Sodium (Protonix Tab) 40 mg QAM PO 06/05/17 09:00 07/05/17 08:59 06/05/17 09:14 40 MG Tapentadol (Nucynta Er Tab) 50 mg Q12 PO 06/04/17 21:00 07/04/17 20:59 06/05/17 09:29 50 MG Glucose (Glucose 40% Gel) 15-30 GRAMS 15 GRAMS... UD PRN PO 06/04/17 14:45 07/04/17 14:44 Glucose (Glucose Chew Tab) 4-8 Tablets 4 Tabl... UD PRN PO 06/04/17 14:45 07/04/17 14:44 Dextrose (Dextrose 50% 50ML Syringe) 25-50ML OF 50% DW IV FOR... UD PRN IV 06/04/17 14:45 07/04/17 14:44 Glucagon (Glucagon Inj) 1 mg UD PRN SQ 06/04/17 14:45 07/04/17 14:44 Allopurinol (Zyloprim Tab) 300 mg QAM PO 06/05/17 09:00 07/05/17 08:59 06/05/17 09:17 300 MG Aspirin (Ecotrin Tab) 81 mg QAM PO 06/05/17 09:00 07/05/17 08:59 06/05/17 09:13 81 MG Atorvastatin Calcium (Lipitor Tab) 20 mg HS PO 06/04/17 21:00 07/04/17 20:59 06/04/17 20:48 20 MG Beclomethasone Dipropionate (Qvar 80 Mcg Hfa Inhaler) 2 puffs BID PRN INH 06/04/17 14:45 07/04/17 14:44 Cyclobenzaprine HCl (Flexeril Tab) 10 mg TID PRN PO 06/04/17 14:45 07/04/17 14:44 06/05/17 13:19 10 MG Diltiazem HCl (Dilacor Xr Cap) 180 mg BID PO 06/04/17 21:00 07/04/17 20:59 06/05/17 09:13 180 MG Ergocalciferol (Vitamin D Cap) 50,000 interunit We@0900 PO 06/05/17 09:00 07/05/17 08:59 06/05/17 09:14 50,000 INTERUNIT Furosemide (Lasix Tab) 80 mg BID17 PO 06/04/17 17:00 07/04/17 16:59 06/05/17 09:06 80 MG Gabapentin (Neurontin Cap) 400 mg TID PO 06/04/17 21:00 07/04/17 20:59 06/05/17 14:28 400 MG Albuterol/ Ipratropium (Combivent Respimat Inh) 1 puffs QID INH 06/04/17 17:00 07/04/17 16:59 06/05/17 13:19 1 PUFFS Levothyroxine Sodium (Synthroid Tab) 50 mcg DAILYBB PO 06/05/17 06:00 07/05/17 05:59 06/05/17 06:05 50 MCG Losartan Potassium (coZAAR TAB) 50 mg QAM PO 06/05/17 09:00 07/05/17 08:59 06/05/17 09:07 50 MG Paroxetine HCl (pAXil TAB) 40 mg QAM PO 06/05/17 09:00 07/05/17 08:59 06/05/17 09:16 40 MG Spironolactone (Aldactone Tab) 25 mg QAM PO 06/05/17 09:00 07/05/17 08:59 06/05/17 09:12 25 MG Calcium/Vitamin D (Caltrate Plus Tab) 2 tab QAM PO 06/05/17 09:00 07/05/17 08:59 06/05/17 09:15 2 TAB Cholecalciferol (Vitamin D Tab) 2,000 inter.unit QAM PO 06/05/17 09:00 07/05/17 08:59 06/05/17 09:16 2,000 INTER.UNIT Fluticasone Propionate (Flonase Nasal [place]) 1 sprays DAILY GEOFF 06/05/17 09:00 07/05/17 08:59 06/05/17 09:09 1 SPRAYS Miscellaneous Information (Order Awaiting Action) 1 ea QS N/A 06/05/17 00:00 07/05/17 00:00 06/05/17 00:00 1 EA Potassium Chloride (Klor-Con Tab) 20 meq TID PO 06/04/17 21:00 07/04/17 20:59 06/05/17 14:27 20 MEQ Warfarin Sodium (Coumadin Tab) 10 mg DAILY@16 ONCE PO 06/05/17 18:00 06/05/17 18:01 Formoterol Fumarate (Perforomist 20MCG/2ML Neb Soln) 20 mcg Q12R INH 06/04/17 20:00 07/04/17 19:59 06/05/17 07:12 20 MCG Psyllium Hydrophilic Mucilloid (Metamucil Powder) 1 pkt DAILY PO 06/05/17 09:00 07/05/17 08:59 06/05/17 09:17 1 PKT Miscellaneous Information (Consult Glycemic Management Pharmacy) 1 ea DAILY PRN N/A 06/04/17 21:39 07/04/17 21:38 Insulin Aspart (novoLOG ASPART) SLIDING SCALE ACHS SC 06/05/17 08:00 07/05/17 07:59 06/05/17 13:39 6 UNITS Insulin Glargine (Lantus Solostar Pen) 15 units BID SC 06/05/17 09:00 07/05/17 08:59 06/05/17 09:28 15 UNITS I & O: 24-Hour Column 06/06/17 07:59 Intake Total 1719 ml Output Total 850 ml Balance 869 ml Vital Signs: Date Time Temp Pulse Resp B/P (MAP) Pulse Ox O2 Delivery O2 Flow Rate FiO2 06/05/17 12:10 36.8 72 16 149/84 (105) 99 Room Air 06/05/17 08:57 94 Room Air 06/05/17 08:23 36.7 76 18 121/82 (95) 97 Room Air 06/05/17 08:10 Room Air 06/05/17 07:12 72 16 95 Room Air 06/05/17 03:42 36.7 73 18 136/72 (93) 97 Room Air 06/05/17 00:11 Room Air 06/04/17 22:50 36.7 66 16 120/75 (90) 94 Room Air 06/04/17 19:15 36.5 73 18 129/73 (91) 95 Room Air 06/04/17 17:45 36.5 71 18 121/56 (77) 100 Nasal Cannula 2.0 06/04/17 16:55 36.4 70 16 139/69 (92) 100 Nasal Cannula 2.0 06/04/17 16:30 Nasal Cannula 2.0 06/04/17 16:15 36.5 75 18 123/58 (79) 100 Nasal Cannula 2.0 06/04/17 15:48 100 Nasal Cannula 2.0 06/04/17 15:45 100 Nasal Cannula 2.0 06/04/17 15:44 36.4 79 17 143/65 (91) 100 Nasal Cannula 2.0 06/04/17 15:30 77 16 129/64 98 Nasal Cannula 2 06/04/17 15:25 36.5 73 15 136/57 97 Nasal Cannula 2 06/04/17 15:15 74 16 142/67 99 Nasal Cannula 2 06/04/17 15:05 74 17 142/58 100 Oxymask 10 06/04/17 14:55 74 16 134/70 100 Oxymask 10 06/04/17 14:44 36.6 69 14 136/64 100 Oxymask 10 Laboratory Results: Last 24 Hours Test 06/04/17 14:44 06/04/17 17:40 06/04/17 20:44 06/05/17 02:00 Bedside Glucose 124 mg/dl 155 mg/dl 323 mg/dl 156 mg/dl Test 06/05/17 06:41 06/05/17 07:54 White Blood Count 9.51 K/uL Red Blood Count 2.77 M/uL Hemoglobin 8.1 g/dL Hematocrit 25.1 % Mean Corpuscular Volume 90.6 fL Mean Corpuscular Hemoglobin 29.2 pg Mean Corpuscular Hemoglobin Concent 32.3 g/dl RDW Standard Deviation 59.3 fL RDW Coefficient of Variation 17.6 % Platelet Count 193 K/uL Mean Platelet Volume 9.5 fL Prothrombin Time 10.1 SECONDS Prothromb Time International Ratio 1.0 Sodium Level 138 mmol/L Potassium Level 4.4 mmol/L Chloride Level 105 mmol/L Carbon Dioxide Level 29 mmol/L Anion Gap 4.0 mmol/L Blood Urea Nitrogen 20 mg/dl Creatinine 1.00 mg/dl Est Creatinine Clear Calc Drug Dose 69.7 ml/min Estimated GFR () 69.9 Estimated GFR (Non- 60.3 BUN/Creatinine Ratio 20.1 Random Glucose 139 mg/dl Calcium Level 8.6 mg/dl Bedside Glucose 153 mg/dl
--- NOTE | 2017-06-05 17:23 | PROGRESS NOTE ---
DATE: 06/05/2017 SUBJECTIVE: A 61-year-old female postop day #1 from a right knee replacement. She is doing pretty well. Pain is controlled. No chest pain or shortness of breath. She is staying in a pretty much regular state of comfort. She just came back from walking, so she does say she gets exertional shortness of breath, which is normal for her. OBJECTIVE: VITAL SIGNS: Temperature 36.9. Vital signs stable. GENERAL: Physical examination reveals a pleasant, middle-aged female. Sitting up in bed and talking to her family. She looks comfortable. Not looks short breath or painful. EXTREMITIES: Examination of the right leg reveals the leg to be well aligned. Dressing is clean, dry and intact. She can dorsiflex and plantarflex her foot appropriately. She is neurologically intact. LABORATORY DATA: Hemoglobin 8.1. Hematocrit 25.1. Electrolytes are stable. ASSESSMENT: A 61-year-old female postop day #1 from a right knee replacement, doing well. Pain is controlled. She is neurologically intact. Looks to be in about her baseline state of health. PLAN: 1. DVT prophylaxis including thigh-high TEDs, SCDs, and Coumadin. Our goal will be to keep her INR between 2 and 3. 2. PT/OT. Weightbear as tolerated. Right total knee protocol. 3. Pain control, doing pretty well with current pain regimen. 4. Disposition: She is planning to be discharged to home with some home health once adequately recovered.
[2017-06-05] MEDS ORDERED: WARFARIN SOD 2.5 MG TAB PO ONE (18:00)
[2017-06-05] MEDS ORDERED: WARFARIN SOD 5 MG TAB PO ONE (18:00)
[2017-06-05] MEDS: SENNA 8.6 MG TAB PO SCH (21:37)
[2017-06-05] MEDS: ATORVASTATIN 20 MG TAB PO SCH (21:55)
[2017-06-05] MEDS ORDERED: ACET-24 PO (22:07)
[2017-06-05] MEDS ORDERED: RXC5 PO (22:07)
[2017-06-06] MEDS: OXYCODONE HCL IR 5 MG TAB (IMMEDIATE RELEASE) PO PRN ×3 (02:56→13:24)
[2017-06-06] MEDS: LEVOTHYROXINE 50 MCG TAB PO SCH (05:27)
[2017-06-06] MEDS: ACETAMINOPHEN 500 MG TAB PO SCH (05:28)
[2017-06-06 05:44] LABS: HEMOGLOBIN 8.5 g/dL (12.0-16.0)
--- NOTE | 2017-06-06 07:25 | PROGRESS NOTE ---
DATE: 06/06/2017 SUBJECTIVE: A 61-year-old white female postop day 2 from a right knee replacement, doing pretty well. She had some anxiety and got pretty anxiously last evening when her blood pressure was just a little bit high. She was also a little dizzy. This seemed to have resolved. Denies any current chest pain or shortness of breath. Pain seems to be reasonably well controlled. OBJECTIVE: VITAL SIGNS: Temperature 36.9. Vital signs stable. Some mild hypertension. GENERAL: A pleasant, middle-aged female. She is lying in bed, seems to be resting and breathing comfortably. EXTREMITIES: Examination of the right leg reveals the dressing to be clean, dry and intact. She can dorsiflex and plantarflex her foot appropriately. She is neurologically intact. LABORATORY DATA: Hemoglobin improved at 8.5. Hematocrit 26.0. Her INR is 1.0. ASSESSMENT: A 61-year-old white female postop day 2 from right knee replacement, doing pretty well. A little bit of anxiety episode sounds like last evening but seems to be better. Blood pressure is a little bit high but not anything to worry about at this point postoperatively. Pain is reasonably well controlled. Her blood glucoses have been under decent control. She apparently did not get the initial first dose of 12.5 mg of Coumadin on the night of surgery and only got 2.5, therefore her INR is lagging. PLAN: 1. DVT prophylaxis including thigh high TEDs, SCDs, and Coumadin. We are hoping to get her INR between 2 and 3. We will start her on some prophylactic Lovenox in the meantime. 2. PT and OT. Weightbearing as tolerated. Right total knee protocol. 3. Pain control. Doing pretty well with current pain regimen. 4. Medical management as per the medicine service. 5. Disposition: She is hoping to be discharged to home with some home help. We will see how therapy goes today and her morning goes.
[2017-06-06] MEDS: FORMOTEROL FUMA NEBULIZER SOLN 20 MCG/2 ML VIAL INH SCH (07:33)
[2017-06-06 07:34] VITALS: PULSE 90; O2SAT 91
[2017-06-06] MEDS: CHECK SCOPOLAMINE PATCH PLACEMENT SCH (07:47)
[2017-06-06 08:05] VITALS: BP 153/90; PULSE 80; TEMP 36.8; O2SAT 93
[2017-06-06] MEDS ORDERED: ENOXAPARIN 30 MG/0.3 ML SYR SQ SCH (09:00)
[2017-06-06] MEDS: TAPENTADOL ER 50 MG TABCR PO SCH (09:00)
[2017-06-06] MEDS: PSYLLIUM 58.6% PWD PACK S\\F PO SCH (09:00)
[2017-06-06] MEDS: INSULIN GLARGINE SOLOSTAR 100 UNITS/ML 3 ML PEN SC SCH (10:17)
[2017-06-06] MEDS: INSULIN ASPART 100 UNITS/ML 3 ML PEN SC SCH ×2 (10:18→13:33)
[2017-06-06] MEDS: FERROUS GLUCONATE 324 MG TAB PO SCH ×2 (10:19→13:22)
[2017-06-06] MEDS: GABAPENTIN 400 MG CAP PO SCH (10:20)
[2017-06-06] MEDS: FLUTICASONE PROPIONATE NA SPR 16 GM BTL NAE SCH (10:20)
[2017-06-06] MEDS: IPRATROPIUM BROMIDE/ALBUTEROL respimat INH INH SCH ×2 (10:20→13:21)
[2017-06-06] MEDS: PANTOprazole SOD 40 MG TAB PO SCH (10:20)
[2017-06-06] MEDS: ALLOPURINOL 300 MG TAB PO SCH (10:21)
[2017-06-06] MEDS: LOSARTAN POTASSIUM 50 MG TAB PO SCH (10:21)
[2017-06-06] MEDS: MULTIVITAMIN TAB PO SCH (10:21)
[2017-06-06] MEDS: CHOLECALCIFEROL 1000 INTER.UNIT TAB PO SCH (10:22)
[2017-06-06] MEDS: CALCIUM 600MG + VIT D 400 IU TAB PO SCH (10:22)
[2017-06-06] MEDS: POTASSIUM CHLORIDE 20 MEQ TABCR PO SCH (10:24)
[2017-06-06] MEDS: SPIRONOLACTONE 25 MG TAB PO SCH (10:25)
[2017-06-06] MEDS: ASPIRIN 81 MG ECTAB PO SCH (10:25)
[2017-06-06] MEDS: PAROXETINE 20 MG TAB PO SCH (10:25)
[2017-06-06] MEDS: DOCUSATE SODIUM 100 MG CAP PO SCH (10:26)
--- NOTE | 2017-06-06 11:16 | Pharmacy Progress Note ---
Pharmacy Glycemic Short Note 2 Date of Service Jun 06, 2017. OUTPATIENT ANTIDIABETIC REGIMEN: * Novolog pump (~40-60 units/day?) * Metformin 1gm PO BID * HbA1c: 6.9% (05/16/17) ASSESSMENT: * Ms Torres is a 61yo diabetic female POD #1 s/p R TKA. * Patient manages diabetes with a Novolog insulin pump and metformin at home. * Pump was held and patient was initiated on basal/bolus regimen on admission. BSGs have been acceptable thus far. * Anticipate likely discharge later this afternoon. PLAN FOR INPATIENT GLYCEMIC CONTROL: * Resume patient's home dose of Metformin * Metformin ER 1000mg PO BID w/ meals * Basal insulin * Lantus 15 units SQ BID * Bolus insulin * NovoLog per scale ACHS or Q6hrs while NPO * Goal Range: Low 110 mg/dL - High 140 mg/dL * Correction Factor: 20 mg/dL/unit * Nutritional / Prandial insulin per carb ratio of 1 unit per 7 grams CHO consumed PLAN FOR DISCHARGE: * Recent A1c (6.9%) indicates acceptable glycemic control as an outpatient. * Expect that patient may resume home regimen on discharge. * Recommendations for transitioning back to insulin pump: * Patient received AM dose of Lantus, patient may resume pump after discharge, but should USE ONLY FOR CORRECTION AND CARB COVERAGE at first * Basal rate should not be resumed until PM/HS and only if BSG is above 150mg/ dL
--- NOTE | 2017-06-06 11:24 | Discharge Instructions ---
Discharge Instructions Date of Service Jun 06, 2017. Admission Reason for Admission: Right Knee Degenerative Joint Disease Discharge Discharge Diagnosis / Problem: Right Knee Replacement Discharge Goals Goal(s): Decrease discomfort, Improve function, Increase independence, Improve disease control, Therapeutic intervention Activity Recommendations Activity Limitations: per Instructions/Follow-up section Weightbearing Status: Right weightbearing . Instructions / Follow-Up Instructions / Follow-Up ACTIVITY RECOMMENDATIONS: Physical Therapy: * You will go to physical therapy three times each week for four to six weeks after your surgery in order to regain your knee range of motion and to retrain your knee to work properly. * It is just as important to make sure you are getting your knee perfectly straight as it is to regain your knee bend. * Taking a pain pill an hour before therapy can help you have a more productive and comfortable therapy session. Home Exercise: * You were shown a series of exercises (heel props, heel slides, etc.) in the hospital. Do these exercises three to four times each day including the exercises you were shown in physical therapy. Walking: * Get up and walk several times each day. For the first four weeks, try not to stand or walk for more than one hour at a time. If you do stand or walk for more than one hour, you will not hurt anything, but your knee and leg will likely swell. * As you feel comfortable, you may change from the walker or crutches to a cane and then to independent walking. MEDICATIONS: New Medicine: * You will likely be taking one or more of these medications: 1. Oxycodone - A quick and shorter-acting pain medication. Take one to two tablets every four to six hours to lessen your pain. 2. Iron Sulfate - Take two times each day for the month after surgery to help you replace the blood lost during surgery. 3. Coumadin - Thins your blood to lessen the chance of forming a blood clot. The dose of this is different for each person and is based on your blood tests that are done every Saturday and . . * The most common side effects of pain medicine and iron are nausea and constipation. If nausea or constipation is too much of a problem or if you have any questions about your new medicines or doses, call [facility] at . We will try to help you manage these issues. VERY IMPORTANT TO READ AND REVIEW" Pain: * The immediate post-operative period after knee replacement surgery is often quite painful. * You are given a prescription for pain medicine. You should take it, as directed, when you need it, especially before physical therapy and before going to bed. Pain that interferes with sleep is very common and can last several months. * You will likely need pain medicine for the first four to six weeks. It will not stop all of the pain. The pain will lessen and as you feel better, you may change to milder pain medicine such as Tylenol. * The most common side effects of pain medicine are nausea and constipation, so don't take more than you need. SPECIAL CARE INSTRUCTIONS: TEDs/Elastic Stockings: * The white elastic stockings help limit swelling and prevent blood clots from forming in your legs. The more you wear them, the more they work. * Wear them for six weeks after knee replacement surgery and four weeks after partial knee replacement. Prevention of Infection: * Take antibiotics one hour before any dental cleaning, dental work, urological procedure, gastrointestinal procedure or any invasive surgery in order to prevent your new joint from getting infected. * You may get the antibiotics from the doctor performing the procedure or you may call our office at before and we will call in a prescription to the pharmacy of your choice. Things to Watch For: * Drainage from the incision site that occurs more than one week after your surgery. * Severely increased knee/leg pain or swelling. * Increased redness at the incision site. * Fever above 102 degrees Fahrenheit. * Unusual chest pain or shortness of breath. * Unusual pain or burning with urination. Call [facility] at with any of the above problems or if you have any questions about your medicines or recovery. FOLLOW UP VISIT: Make an appointment to see your doctor for approximately two weeks after surgery for a progress check and staple removal by calling the office at . Current Hospital Diet Patient's current hospital diet: Diabetes Type 2 Diet Discharge Diet Recommended Diet: Diabetes Type 2 Diet Procedures Procedures Performed: Right Total Knee Arthroplasty Pending Studies Studies pending at discharge: no Laboratory Results Hemoglobin A1c Test 05/16/17 10:54 Range/Units Estimated Average Glucose 151 mg/dl Hemoglobin A1c 6.9 H 4.5-5.6 % Medical Emergencies . Who to Call and When: Medical Emergencies: If at any time you feel your situation is an emergency, please call 911 immediately. . Non-Emergent Contact Non-Emergency issues call your: Surgeon . "Provider Documentation" section prepared by Jorge Cody. . VTE Core Measure Inpt VTE Proph given/why not?: Warfarin (Coumadin), Adelso Giles, SCD's
[2017-06-06] MEDS: FUROSEMIDE 80 MG TAB PO SCH (11:28)
[2017-06-06] MEDS: DILTIAZEM HCL 180 MG ER CAP PO SCH (11:28)
[2017-06-06 12:47] VITALS: BP 153/90; PULSE 80; TEMP 36.8; O2SAT 93
[2017-06-06] MEDS ORDERED: WARFARIN SOD 5 MG TAB PO SCH (16:00)
[2017-06-06] MEDS ORDERED: METFORMIN HCL 500 MG TABCR PO SCH (17:45)
--- NOTE | 2017-06-10 15:32 | DISCHARGE SUMMARY ---
ADMITTING PHYSICIAN AND SURGEON: Dr. Cody. ADMITTING DIAGNOSIS: Right knee degenerative joint disease. SURGERY PERFORMED: Right total knee arthroplasty. SECONDARY DIAGNOSES: Hypertension, congestive heart failure, asthma, chronic obstructive pulmonary disease, deep venous thrombosis, pulmonary embolism, sleep apnea, anxiety, depression, diabetes, anemia, obesity, gastroesophageal reflux disease, hiatal hernia. CONSULTS: Dr. Hein, postoperative medical and pulmonary care. HISTORY AND PHYSICAL EXAMINATION: Well documented in the patient's chart. HOSPITAL COURSE: The patient was admitted on 06/04/2017, underwent total knee arthroplasty, tolerated the procedure well. There were no complications. She was given vancomycin for antibiotic prophylaxis, CURT stockings, SCDs, Coumadin and Lovenox for DVT prophylaxis. Her hemoglobin, hematocrit and vital signs were monitored during her hospital stay and remained stable. She developed some postoperative anemia with a hemoglobin down to 8.5 and did not require any blood transfusions. She had some anxiety postoperatively and some mild hypertension. There were no complications during her hospital stay. By postoperative day 2, she was tolerating a diabetic diet. Pain was controlled with oral pain medicine. She was participating in physical therapy. On postop day 2, she was discharged home and set up with home health services, given printed discharge instructions, including new prescriptions for extra strength Tylenol and oxycodone. Continue her home medications including warfarin. Lovenox was discontinued. She will continue physical therapy, weightbearing as tolerated and CURT stockings. Follow up in 10-12 days or sooner if there are any problems or concerns.
== END 2017-06-06 13:47 | disposition home health service (06) | DRG 470 ==
LOC: C.ACU 09:47 → C.3E 14:45 → ENRESERV 15:23
PROVIDERS: ADMIT Orthopaedic Surgery Sports Medicine; ATTEND Orthopaedic Surgery Sports Medicine
PROC: 0SRC0J9 Replacement of Right Knee Joint with Synthetic Substitute, Cemented, Open Approach (ICD-10-PCS; principal; 2017-06-04 12:50)
DX: M17.11 Unilateral primary osteoarthritis, right knee (principal); Z68.42 Body mass index [BMI] 45.0-49.9, adult; J44.9 Chronic obstructive pulmonary disease, unspecified; I11.0 Hypertensive heart disease with heart failure; I50.9 Heart failure, unspecified; E66.01 Morbid (severe) obesity due to excess calories; E11.9 Type 2 diabetes mellitus without complications; K21.9 Gastro-esophageal reflux disease without esophagitis; G47.33 Obstructive sleep apnea (adult) (pediatric); Z79.01 Long term (current) use of anticoagulants; Z79.4 Long term (current) use of insulin; Z79.52 Long term (current) use of systemic steroids; Z79.82 Long term (current) use of aspirin; Z79.84 Long term (current) use of oral hypoglycemic drugs; Z79.899 Other long term (current) drug therapy; Z86.711 Personal history of pulmonary embolism; Z96.41 Presence of insulin pump (external) (internal); Z96.652 Presence of left artificial knee joint; Z88.1 Allergy status to other antibiotic agents; Z88.2 Allergy status to sulfonamides

== ENCOUNTER → 2017-06-20 | Outpatient (CLI) | payer BC ==
[~2017-06-20] MED LIST changes: +ACET-24 PO; -ACETAMINOPHEN 500 MG TAB PO SCH; -BUPIVACAINE 0.25% 30 ML VIAL ONE; -BUPIVACAINE 0.5 % 5 MG/1 ML PF 10ML VIAL ONE; -FAMOTIDINE 20 MG TAB PO SCH; -GABAPENTIN 600 MG PO SCH; +HYDR2TAB3 PO; -LACTATED RINGER'S 1000ML 1,000 ML IV SCH; -LACTATED RINGER'S 1000ML 500 ML IV SCH; -LACTATED RINGER'S 1000ML IV SCH; -METOCLOPRAMIDE HCL 10 MG TAB PO SCH; +OMEP20CA9 PO; +RXC5 PO; -SCOPOLAMINE 1.5 MG TDSY TD SCH; -TRANEXAMIC ACID INJ 1,000 MG x 1 Bag Preop IV SCH; -VANCOMYCIN INJ 1,750 MG in SODIUM CHLORIDE 0.9% 500ML 500 ML IV SCH
== END | disposition home or self-care (01) ==
LOC: C.LABSPEC 10:10
PROVIDERS: ATTEND Physician Assistant
DX: E11.9 Type 2 diabetes mellitus without complications (principal)

== ENCOUNTER 2017-06-25 11:06 | Emergency (ER) | payer BC ==
[~2017-06-25] VITALS: Ht 154.9 cm; Wt 122.0 kg
[~2017-06-25 11:06] MED LIST changes: -HYDR2TAB3 PO; -OMEP20CA9 PO
[2017-06-25 11:13] VITALS: TEMP 36.4; Ht 154.9 cm; Wt 122.0 kg
[2017-06-25] MEDS ORDERED: OMEP20CA9 PO (11:42)
[2017-06-25] MEDS ORDERED: HYDR2TAB3 PO (11:42)
--- NOTE | 2017-06-25 11:46 | EMERGENCY ROOM VISIT NOTE ---
History First contact with patient: 11:34 Chief Complaint: OTHER COMPLAINT Stated Complaint: ILLNESS History of Present Illness The patient is a 61 year old female who presents to the Emergency Room via private vehicle accompanied by with complaints of "illness". The patient states that she had surgery performed here back on June 04, for a total right knee replacement performed by Dr. Cody. She states that during that time she was off of her Coumadin and had do Lovenox injections. She states that she was doing well however Saturday night around 1:30 AM she was at home using her BiPAP when she developed sudden onset of dyspnea. She also felt like she was going to vomit. She removed her BiPAP and felt very short of breath however this calm down. She notes again today around 1 AM the same thing happened while at home. She states that she called her family doctor and was sent here for evaluation. She also has pain behind her right leg. 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 The shortness of breath appears to be with rest and at night. No chest pain. Review of Systems A complete 10-point Review of Systems was discussed with the patient, with pertinent positives and negatives listed in the History of Present Illness. All remaining Review of Systems questions can be considered negative unless otherwise specified. 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 (14) SOB (shortness of breath) Family History Depression FH: gallbladder disease FH: heart disease FH: lung disease Hypertension Kidney stones Social History Smoking Status: Never Smoker Drug Use: none Marital Status: Housing Status: lives with significant other Occupation Status: retired Current/Historical Medications Scheduled Acetaminophen (Sb Non-Aspirin Extra Stre), 1,000 MG PO Q8 Allopurinol (Allopurinol), 300 MG PO QAM Aspirin (Aspirin Ec), 81 MG PO QAM Atorvastatin (Lipitor), 20 MG PO HS Calcium Carbonate-Vitamin D (Oysco 500+D), 2 TAB PO QAM Cholecalciferol (Vitamin D3), 1 CAP PO QAM Diltiazem Hcl Coated Beads (Cartia Xt), 180 MG PO BID Ergocalciferol (Vitamin D 99294 Unit), 50,000 UNIT PO WK Ferrous Gluconate (Ferrous Gluconate), 324 MG PO QAM Furosemide (Lasix), 80 MG PO BID Gabapentin (Gabapentin), 400 MG PO TID Insulin Aspart (novoLOG INSULIN PUMP ), 1 EA N/A UD Ipratropium-Albuterol (Combivent Respimat), 1 PUFFS INH QID Levothyroxine Sodium (Levothyroxine Sodium), 50 MCG PO QAM Losartan Potassium (Cozaar), 1 TAB PO QAM Metformin Hcl (Glucophage), 1,000 MG PO BIDM Mometasone Furoate (Nasal) (Mometasone Furoate), 1 SPRAY GEOFF QAM Mometasone Furoate-Formoterol (Dulera 200/5 Mcg), 2 PUFFS INH BID Omeprazole (Prilosec), 1 CAP PO BID Paroxetine (Paxil), 40 MG PO QAM Potassium Chloride (Potassium Chloride ER), 20 MEQ PO TID Spironolactone (Aldactone), 25 MG PO QAM Warfarin Sod (Jantoven), 7.5 MG PO UD Scheduled PRN Beclomethasone Dip (Qvar), 2 PUFFS INH BID PRN for PRN Cyclobenzaprine Hcl (Flexeril), 1 TAB PO TID PRN for Muscle Spasms Formoterol Fumarate (Perforomist), 2 ML INH Q12 PRN for SOB/Wheezing Hydromorphone HCl (Hydromorphone HCl), 1-2 TAB PO Q6H PRN for Pain Ipratropium-Albuterol (Duoneb), 1 TREATMENT INH Q4H PRN for Shortness of Breath Oxycodone HCl (Oxycodone HCl), 5-10 MG PO Q4H PRN for Pain Physical Exam Vital Signs Date Time Temp Pulse Resp B/P (MAP) Pulse Ox O2 Delivery O2 Flow Rate FiO2 06/25/17 15:34 81 142/74 99 06/25/17 14:23 82 33 134/71 98 Room Air 06/25/17 13:06 71 18 154/84 Room Air 06/25/17 12:14 97 Room Air 06/25/17 11:39 80 06/25/17 11:13 36.4 76 18 159/109 95 Room Air Physical Exam VITAL SIGNS - Vital signs and nursing notes were reviewed. Stable. Afebrile. Hypertensive. GENERAL -61-year-old female appearing her stated age who is in no acute distress. Communicates well with provider and answers questions appropriately. SKIN - Without rashes. Well-healed surgical wound overlying the right anterior knee. No erythema. Right lower extremity is edematous throughout. HEAD - NC/AT. EYES - Sclera anicteric. EARS - No deformities of external structures noted on gross examination bilaterally. NOSE - Midline and without cyanosis. No epistaxis or purulent drainage noted. MOUTH/OROPHARYNX - Without perioral cyanosis. LUNGS - Chest wall symmetric without accessory muscle use, intercostals retractions, or central cyanosis. Normal vesicular breath sounds CTA B/L. No wheezes, rales, or rhonchi appreciated. CARDIAC - RRR with S1/S2. No murmur, rubs, or gallops appreciated. ABDOMEN - Abdominal contour normal without pulsations or visible masses. BS normoactive all four quadrants. No tenderness, palpable masses, hepatosplenomegaly, or ascites noted. EXTREMITIES - No clubbing or peripheral cyanosis. Right lower extremity edema noted throughout, with tenderness at the posterior knee region. +5/5 strength noted in UE/LE bilaterally. NEUROLOGIC - Cranial nerves II through XII grossly intact. Medical Decision & Procedures ER Provider Diagnostic Interpretation: CHEST ONE VIEW PORTABLE CLINICAL HISTORY: dyspnea, recent surgery, hx DVT and PE pain. Dyspnea. COMPARISON STUDY: 06/05/2017 FINDINGS: Central catheter in superior vena cava. Lungs are clear. Diaphragms are smooth. IMPRESSION: No acute process. The above report was generated using voice recognition software. It may contain grammatical, syntax or spelling errors. Electronically signed by: Mitchell Wallace M.D. 06/25/2017 12:37 PM Dictated Date/Time: 06/25/2017 12:36 PM (CHEST FOR PE) ANGIO WITH CT DOSE: 649.19 mGy.cm HISTORY: 61 years-old Female presents with acute shortness of breath with recent knee arthroplasty placement on June 04 of this year. TECHNIQUE: Multiple CTA images of the chest were obtained after the intravenous administration of 94 ml Optiray 320. Coronal and sagittal MIPS were obtained from the axial data set and were submitted for review. A dose lowering technique was utilized adhering to the principles of ALARA. COMPARISON: Chest radiograph of same day, CTA chest 01/02/2016 FINDINGS: CTA: The heart is normal in size without pericardial effusion. The thoracic aorta is normal in both course and caliber without aneurysm or dissection. The imaged great vessels appear to be patent. There is reflux of intravenous contrast into the IVC and hepatic veins. The pulmonary arterial tree is opacified to the level of the segmental branches and demonstrates no focal filling defect to suggest pulmonary thromboembolic disease. CT CHEST: Thyroid is homogeneous without dominant nodule identified. There are multiple calcified mediastinal and hilar lymph nodes noted with large calcified lymph nodes within the AP window compatible with prior granulomatous disease. Calcification granulomas of the left upper lobe are also noted. There is no pneumothorax or pleural effusion. The inferior right lung base is not imaged. Linear subsegmental bibasilar opacities suggest areas of atelectasis/scarring. No lobar airspace consolidation to suggest pneumonia. Central airways appear patent. There is minimal bilateral bronchial wall thickening. Surgical clips of the right upper abdomen, partially obscured by motion artifact. Calcific granulomas are seen throughout the spleen. Surgical clips are also noted within the region of the gastroesophageal junction. Soft tissues are unremarkable. Left subclavian L[place]rbo-y-G[place] catheter is noted with distal tip terminating in the SVC. Degenerative changes are noted throughout the spine. Mild convex right curvature of the midthoracic spine. IMPRESSION: 1. No acute aortic pathology or evidence of pulmonary thromboembolic disease. 2. Minimal bilateral bronchial wall thickening may reflect bronchitis within the appropriate clinical setting. No lobar airspace consolidation to suggest pneumonia. 3. Prior granulomatous disease. The above report was generated using voice recognition software. It may contain grammatical, syntax or spelling errors. Electronically signed by: Jimbo Cristina M.D. 06/25/2017 1:44 PM Dictated Date/Time: 06/25/2017 1:34 PM [~ rep ct add3]] R VENOUS DOPP LOWER EXT UNILAT HISTORY: 61 years-old Female R leg pain s/p surgery, dyspnea, Hx DVT acute right leg pain and swelling COMPARISON: None available TECHNIQUE: Multiple real-time sonographic images of the right lower extremity deep venous structures were obtained assessing grayscale appearance, color and spectral flow FINDINGS: There is normal flow, compressibility, phasicity and augmentation of the right lower extremity deep venous structures. IMPRESSION: No sonographic evidence of deep venous thrombosis. The above report was generated using voice recognition software. It may contain grammatical, syntax or spelling errors. Electronically signed by: Jimbo Cristina M.D. 06/25/2017 3:03 PM Dictated Date/Time: 06/25/2017 3:03 PM Laboratory Results 06/25/17 12:10 Red Blood Count 2.95, Mean Corpuscular Volume 90.5, Mean Corpuscular Hemoglobin 29.2, Mean Corpuscular Hemoglobin Concent 32.2, Mean Platelet Volume 8.6, Neutrophils (%) (Auto) 63.2, Lymphocytes (%) (Auto) 25.9, Monocytes (%) (Auto) 6.1, Eosinophils (%) (Auto) 4.3, Basophils (%) (Auto) 0.5, Neutrophils # (Auto) 5.11, Lymphocytes # (Auto) 2.09, Monocytes # (Auto) 0.49, Eosinophils # (Auto) 0.35, Basophils # (Auto) 0.04 06/25/17 12:10 Test 06/25/17 12:10 06/25/17 12:59 White Blood Count 8.08 K/uL (4.8-10.8) Red Blood Count 2.95 M/uL (4.2-5.4) Hemoglobin 8.6 g/dL (12.0-16.0) Hematocrit 26.7 % (37-47) Mean Corpuscular Volume 90.5 fL (80-100) Mean Corpuscular Hemoglobin 29.2 pg (25-34) Mean Corpuscular Hemoglobin Concent 32.2 g/dl (32-36) Platelet Count 356 K/uL (130-400) Mean Platelet Volume 8.6 fL (7.4-10.4) Neutrophils (%) (Auto) 63.2 % Lymphocytes (%) (Auto) 25.9 % Monocytes (%) (Auto) 6.1 % Eosinophils (%) (Auto) 4.3 % Basophils (%) (Auto) 0.5 % Neutrophils # (Auto) 5.11 K/uL (1.4-6.5) Lymphocytes # (Auto) 2.09 K/uL (1.2-3.4) Monocytes # (Auto) 0.49 K/uL (0.11-0.59) Eosinophils # (Auto) 0.35 K/uL (0-0.5) Basophils # (Auto) 0.04 K/uL (0-0.2) RDW Standard Deviation 60.9 fL (36.4-46.3) RDW Coefficient of Variation 18.2 % (11.5-14.5) Immature Granulocyte % (Auto) 0.0 % Immature Granulocyte # (Auto) 0.00 K/uL (0.00-0.02) Polychromasia 1+ Ovalocytes 1+ Acanthocytes 1+ Prothrombin Time 39.5 SECONDS (9.0-12.0) Prothromb Time International Ratio 3.9 (0.9-1.1) Activated Partial Thromboplast Time 52.7 SECONDS (21.0-31.0) Partial Thromboplastin Ratio 2.0 Anion Gap 7.0 mmol/L (3-11) Est Creatinine Clear Calc Drug Dose 82.9 ml/min Estimated GFR () 83.9 Estimated GFR (Non- 72.4 BUN/Creatinine Ratio 22.4 (10-20) Calcium Level 9.1 mg/dl (8.5-10.1) Magnesium Level 1.9 mg/dl (1.8-2.4) Total Bilirubin 0.4 mg/dl (0.2-1) Aspartate Amino Transf (AST/SGOT) 26 U/L (15-37) Alanine Aminotransferase (ALT/SGPT) 37 U/L (12-78) Alkaline Phosphatase 152 U/L (45-117) Total Creatine Kinase 48 U/L (26-192) Creatine Kinase MB 1.8 ng/ml (0.5-3.6) Creatine Kinase MB Ratio 3.8 (0-3.0) Troponin I < 0.015 ng/ml (0-0.045) Pro-B-Type Natriuretic Peptide 93 pg/ml (0-900) Total Protein 7.0 gm/dl (6.4-8.2) Albumin 3.5 gm/dl (3.4-5.0) Globulin 3.5 gm/dl (2.5-4.0) Albumin/Globulin Ratio 1.0 (0.9-2) Thyroid Stimulating Hormone (TSH) 1.170 uIu/ml (0.300-4.500) Urine Color YELLOW Urine Appearance CLEAR (CLEAR) Urine pH 7.0 (4.5-7.5) Urine Specific [place] <= 1.005 (1.000-1.030) Urine Protein NEG (NEG) Urine Glucose (UA) NEG (NEG) Urine Ketones NEG (NEG) Urine Occult Blood NEG (NEG) Urine Nitrite NEG (NEG) Urine Bilirubin NEG (NEG) Urine Urobilinogen NEG (NEG) Urine Leukocyte Esterase NEG (NEG) Medications Administered Medications (Trade) Dose Ordered Sig/Jesus Route Start Time Stop Time Status Last Admin Dose Admin Oxycodone HCl (Roxicodone Immediate Rel Tab) 5 mg NOW STAT PO 06/25/17 13:55 06/25/17 13:56 DC 06/25/17 14:22 5 MG Medical Decision Patient was seen and evaluated as above. She presents to us today with dyspnea 2 episodes as well as right leg pain. There is history of PE and DVT. Recent surgery. Review was performed of nursing notes and vital signs. After obtaining a thorough history and physical examination the above work up was performed. Chest x-ray negative. Ultrasound of the right lower extremity negative. CTA was obtained secondary the patient's history of PE and her presentation. It was negative for PE but does reveal little bronchial irritation. Her INR is 3.9. CBC reveals no concerning leukocytosis. Hemoglobin is 8.6. This is actually improved compared to previous. Metabolic panel reveals no evidence of kidney or liver failure. CK-MB elevated at 3.8 with troponin being negative. Urine negative. EKG no acute process. Per my interpretation is normal sinus rhythm, rate of 76 bpm, without any ectopy or ischemic change. The patient was educated upon management, had questions answered prior to discharge, and was discharged home in good condition. I suspect she is likely experiencing postoperative pain in the right leg, with perhaps little bronchial irritation. I do not suspect HI or PE. Case was discussed with the attending physician. I attest that I have personally reviewed the patient medication list. I attest that I have reviewed the patient's blood pressure and it was found to be elevated likely secondary to situation. She is to follow with the family doctor. In the evaluation and treatment of this patient the following differential diagnoses were entertained: HI, PE, DVT, peritonitis, costochondritis, bronchitis, pneumonia, among others. Impression Primary Impression: SOB (shortness of breath) Additional Impression: Leg pain, right Departure Information Dispostion Home / Self-Care Condition GOOD Referrals Jose Roberto Tyler M.D. (PCP) Patient Instructions My [facility] Additional Instructions You were seen in the emergency department for right leg pain and shortness of breath. On CAT scan there is no blood clot in the lung. There is no blood clot on ultrasound in your leg. At this time recommend rest, continuing the instructions as set forth by the orthopedic doctor for your leg. Please call your family doctor scheduled follow-up. Please return with any new/concerning symptoms. Problem Qualifiers
[2017-06-25] MEDS ORDERED: OPTIRAY 320 IV PRN (12:00)
[2017-06-25 12:14] VITALS: O2SAT 97
[2017-06-25 12:21] LABS: BASO % 0.5 %; BASO ABS # 0.04 K/uL (0-0.2); EOS % 4.3 %; EOS ABS # 0.35 K/uL (0-0.5); HEMATOCRIT 26.7 % (37-47); HEMOGLOBIN 8.6 g/dL (12.0-16.0); LYMPH % 25.9 %; LYMPH ABS # 2.09 K/uL (1.2-3.4); MEAN CELL VOLUME 90.5 fL (80-100); MEAN CORPUSCULAR HEMOGLOBIN 29.2 pg (25-34); MEAN CORPUSCULAR HGB CONC 32.2 g/dl (32-36); MEAN PLATELET VOLUME 8.6 fL (7.4-10.4); MONO % 6.1 %; MONO ABS # 0.49 K/uL (0.11-0.59); NEUT % 63.2 %; NEUT ABS # 5.11 K/uL (1.4-6.5); PLATELET COUNT 356 K/uL (130-400); RED CELL DISTRIBUTION WIDTH CV 18.2 % (11.5-14.5); RED CELL DISTRIBUTION WIDTH SD 60.9 fL (36.4-46.3); WHITE BLOOD COUNT 8.08 K/uL (4.8-10.8)
--- NOTE | 2017-06-25 12:38 | DIAGNOSTIC IMAGING REPORT ---
CHEST ONE VIEW PORTABLE CLINICAL HISTORY: dyspnea, recent surgery, hx DVT and PE pain. Dyspnea. COMPARISON STUDY: 06/05/2017 FINDINGS: Central catheter in superior vena cava. Lungs are clear. Diaphragms are smooth. IMPRESSION: No acute process. The above report was generated using voice recognition software. It may contain grammatical, syntax or spelling errors. Electronically signed by: Mitchell Wallace M.D. 06/25/2017 12:37 PM Dictated Date/Time: 06/25/2017 12:36 PM
[2017-06-25 12:43] LABS: INR 3.9 (0.9-1.1)
[2017-06-25 12:47] LABS: ALBUMIN 3.5 gm/dl (3.4-5.0); BLOOD UREA NITROGEN 19 mg/dl (7-18); CALCIUM 9.1 mg/dl (8.5-10.1); CARBON DIOXIDE 28 mmol/L (21-32); CREATININE 0.86 mg/dl (0.60-1.20); GLUCOSE 124 mg/dl (70-99); POTASSIUM 3.7 mmol/L (3.5-5.1); PTT PATIENT 52.7 SECONDS (21.0-31.0); SODIUM 135 mmol/L (136-145)
[2017-06-25 13:01] LABS: ALKALINE PHOSPHATASE 152 U/L (45-117); ALT/SGPT 37 U/L (12-78); AST/SGOT 26 U/L (15-37); CKMB 1.8 ng/ml (0.5-3.6)
--- NOTE | 2017-06-25 13:45 | DIAGNOSTIC IMAGING REPORT ---
(CHEST FOR PE) ANGIO WITH CT DOSE: 649.19 mGy.cm HISTORY: 61 years-old Female presents with acute shortness of breath with recent knee arthroplasty placement on June 04 of this year. TECHNIQUE: Multiple CTA images of the chest were obtained after the intravenous administration of 94 ml Optiray 320. Coronal and sagittal MIPS were obtained from the axial data set and were submitted for review. A dose lowering technique was utilized adhering to the principles of ALARA. COMPARISON: Chest radiograph of same day, CTA chest 01/02/2016 FINDINGS: CTA: The heart is normal in size without pericardial effusion. The thoracic aorta is normal in both course and caliber without aneurysm or dissection. The imaged great vessels appear to be patent. There is reflux of intravenous contrast into the IVC and hepatic veins. The pulmonary arterial tree is opacified to the level of the segmental branches and demonstrates no focal filling defect to suggest pulmonary thromboembolic disease. CT CHEST: Thyroid is homogeneous without dominant nodule identified. There are multiple calcified mediastinal and hilar lymph nodes noted with large calcified lymph nodes within the AP window compatible with prior granulomatous disease. Calcification granulomas of the left upper lobe are also noted. There is no pneumothorax or pleural effusion. The inferior right lung base is not imaged. Linear subsegmental bibasilar opacities suggest areas of atelectasis/scarring. No lobar airspace consolidation to suggest pneumonia. Central airways appear patent. There is minimal bilateral bronchial wall thickening. Surgical clips of the right upper abdomen, partially obscured by motion artifact. Calcific granulomas are seen throughout the spleen. Surgical clips are also noted within the region of the gastroesophageal junction. Soft tissues are unremarkable. Left subclavian [id number]-l-Bcrw catheter is noted with distal tip terminating in the SVC. Degenerative changes are noted throughout the spine. Mild convex right curvature of the midthoracic spine. IMPRESSION: 1. No acute aortic pathology or evidence of pulmonary thromboembolic disease. 2. Minimal bilateral bronchial wall thickening may reflect bronchitis within the appropriate clinical setting. No lobar airspace consolidation to suggest pneumonia. 3. Prior granulomatous disease. The above report was generated using voice recognition software. It may contain grammatical, syntax or spelling errors. Electronically signed by: Jimbo Cristina M.D. 06/25/2017 1:44 PM Dictated Date/Time: 06/25/2017 1:34 PM
[2017-06-25] MEDS ORDERED: OXYCODONE HCL IR 5 MG TAB (IMMEDIATE RELEASE) PO STA (13:55)
--- NOTE | 2017-06-25 14:34 | EMERGENCY ROOM VISIT NOTE ---
ED Visit Note First contact with patient: 11:34 This Patient was discussed with the physician events assistant, Aureliano Jack PA-C. The pertinent historical and physical exam findings were confirmed. I agree with the studies ordered and with the interpretations of these studies. I agree with the disposition and care plan.
--- NOTE | 2017-06-25 15:05 | DIAGNOSTIC IMAGING REPORT ---
R VENOUS DOPP LOWER EXT UNILAT HISTORY: 61 years-old Female R leg pain s/p surgery, dyspnea, Hx DVT acute right leg pain and swelling COMPARISON: None available TECHNIQUE: Multiple real-time sonographic images of the right lower extremity deep venous structures were obtained assessing grayscale appearance, color and spectral flow FINDINGS: There is normal flow, compressibility, phasicity and augmentation of the right lower extremity deep venous structures. IMPRESSION: No sonographic evidence of deep venous thrombosis. The above report was generated using voice recognition software. It may contain grammatical, syntax or spelling errors. Electronically signed by: Jimbo Cristina M.D. 06/25/2017 3:03 PM Dictated Date/Time: 06/25/2017 3:03 PM
[2017-06-25 15:34] VITALS: BP 142/74; PULSE 81; O2SAT 99
== END 2017-06-25 15:34 | disposition home or self-care (01) ==
LOC: C.EDB 11:08 → C.EDC 15:34
DX: R06.02 Shortness of breath (principal); M79.604 Pain in right leg; R60.0 Localized edema; J45.909 Unspecified asthma, uncomplicated; I11.0 Hypertensive heart disease with heart failure; I50.9 Heart failure, unspecified; E11.9 Type 2 diabetes mellitus without complications; M17.12 Unilateral primary osteoarthritis, left knee; J43.9 Emphysema, unspecified; Z79.01 Long term (current) use of anticoagulants; Z79.82 Long term (current) use of aspirin; Z79.4 Long term (current) use of insulin; Z79.84 Long term (current) use of oral hypoglycemic drugs; Z86.711 Personal history of pulmonary embolism; Z86.718 Personal history of other venous thrombosis and embolism; Z96.651 Presence of right artificial knee joint

== ENCOUNTER → 2017-07-10 | Outpatient (CLI) | payer BC ==
[~2017-07-10] MED LIST changes: +HYDR2TAB3 PO; +OMEP20CA9 PO
[2017-07-10 12:38] LABS: BASO % 0.5 %; BASO ABS # 0.04 K/uL (0-0.2); EOS % 5.1 %; EOS ABS # 0.44 K/uL (0-0.5); HEMATOCRIT 28.5 % (37-47); IG# 0.03 K/uL (0.00-0.02); LYMPH % 31.4 %; LYMPH ABS # 2.72 K/uL (1.2-3.4); MEAN CELL VOLUME 93.4 fL (80-100); MEAN CORPUSCULAR HEMOGLOBIN 29.5 pg (25-34); MEAN CORPUSCULAR HGB CONC 31.6 g/dl (32-36); MEAN PLATELET VOLUME 9.5 fL (7.4-10.4); MONO % 6.3 %; MONO ABS # 0.55 K/uL (0.11-0.59); NEUT % 56.4 %; NEUT ABS # 4.89 K/uL (1.4-6.5); PLATELET COUNT 331 K/uL (130-400); RED CELL DISTRIBUTION WIDTH CV 17.8 % (11.5-14.5); RED CELL DISTRIBUTION WIDTH SD 61.5 fL (36.4-46.3); WHITE BLOOD COUNT 8.67 K/uL (4.8-10.8)
[2017-07-10 13:55] LABS: BLOOD UREA NITROGEN 21 mg/dl (7-18); CALCIUM 9.6 mg/dl (8.5-10.1); CARBON DIOXIDE 30 mmol/L (21-32); CREATININE 0.88 mg/dl (0.60-1.20); GLUCOSE 100 mg/dl (70-99); POTASSIUM 3.9 mmol/L (3.5-5.1); SODIUM 138 mmol/L (136-145)
== END | disposition home or self-care (01) ==
LOC: C.LABMFLN 14:14
PROVIDERS: ATTEND Family Medicine
DX: D64.9 Anemia, unspecified (principal); N17.9 Acute kidney failure, unspecified

== ENCOUNTER → 2017-07-22 | Outpatient (CLI) | payer BC ==
[2017-07-22 12:50] LABS: BASO % 0.4 %; BASO ABS # 0.02 K/uL (0-0.2); EOS % 5.8 %; HEMATOCRIT 28.6 % (37-47); HEMOGLOBIN 9.2 g/dL (12.0-16.0); IG# 0.01 K/uL (0.00-0.02); LYMPH % 38.6 %; LYMPH ABS # 1.98 K/uL (1.2-3.4); MEAN CELL VOLUME 92.9 fL (80-100); MEAN CORPUSCULAR HEMOGLOBIN 29.9 pg (25-34); MEAN CORPUSCULAR HGB CONC 32.2 g/dl (32-36); MEAN PLATELET VOLUME 9.4 fL (7.4-10.4); MONO % 12.7 %; MONO ABS # 0.65 K/uL (0.11-0.59); NEUT % 42.3 %; NEUT ABS # 2.17 K/uL (1.4-6.5); PLATELET COUNT 222 K/uL (130-400); RED CELL DISTRIBUTION WIDTH CV 17.3 % (11.5-14.5); RED CELL DISTRIBUTION WIDTH SD 59.1 fL (36.4-46.3); WHITE BLOOD COUNT 5.13 K/uL (4.8-10.8)
[2017-07-22 13:56] LABS: BLOOD UREA NITROGEN 32 mg/dl (7-18); CALCIUM 8.7 mg/dl (8.5-10.1); CARBON DIOXIDE 28 mmol/L (21-32); CREATININE 1.22 mg/dl (0.60-1.20); GLUCOSE 111 mg/dl (70-99); POTASSIUM 3.8 mmol/L (3.5-5.1); SODIUM 136 mmol/L (136-145)
== END | disposition home or self-care (01) ==
LOC: C.LABMFLN 10:29
PROVIDERS: ATTEND Family Medicine
DX: D64.9 Anemia, unspecified (principal); E11.22 Type 2 diabetes mellitus with diabetic chronic kidney disease

== ENCOUNTER → 2017-07-29 | Outpatient (CLI) | payer BC | END | disposition home or self-care (01) | LOC: C.LABMFLN 12:20 | PROVIDERS: ATTEND Family Medicine | DX: R35.0 Frequency of micturition (principal) ==

== ENCOUNTER 2017-08-23 18:18 | Inpatient (IN) | payer BC, OTHER ==
[~2017-08-23] VITALS: Ht 154.9 cm; Wt 112.0 kg
--- NOTE | 2017-08-23 18:32 | EMERGENCY ROOM VISIT NOTE ---
History Report prepared by Clarissa: Hernan Moore Under the Supervision of: Dr. Wesley Iqbal M.D. First contact with patient: 18:25 Chief Complaint: DEHYDRATION Stated Complaint: STOMACH HURTS, DEHYDRATED History of Present Illness The patient is a 61 year old female type 2 diabetic who presents to the Emergency Room with complaints of a persistent illness that started 3 days ago. She states that she has had abdominal pain with episodes of vomiting. The patient was seen at the [facility] 3 days ago, and had a CT scan and lab work done. She was told that she was dehydrated. She says that she was seen at her primary care physician's office earlier today. The patient notes that the last time she vomited was around 4 hours ago. She adds that she has had some chills with intermittent shortness of breath from the pain. She denies any chest pain, cough, congestion, diarrhea or urinary symptoms. The patient notes that her sugars were around 222 earlier today. She has a history of a cholecystectomy. The patient's CBC from today was 15.2/12.1/36.6/436. On July 22 she was 5.1/ 9.2/28.6/222. ESR today was 78. On May 16 it was 39. Her LFT's from today were 8.5/4.3/0.3/0.1/33/38/116. CRP today was 1.4, on May 16 it was 0.87. INR today was 2.4. Her last chemistry on July 22 was 136/3.8/101/28/32/1.22/ 111. Source of History: patient Onset: 3 days ago Position: other (global) Quality: other (illness) Timing: other (persistent) Associated Symptoms: + chills, + SOB, + nausea, + vomiting, + abdominal pain , No cough (or congestion), No chest pain, No urinary symptoms Note: No other associated symptoms noted. Review of Systems See HPI for pertinent positives and negatives. A total of ten systems were reviewed and were otherwise negative. Past Medical & Surgical Medical Problems: (1) abdominal wall hematoma (2) Asthma (3) Benign hypertension (4) Bronchitis (5) Chest pain (6) Congestive heart failure (7) Deep venous thrombosis (8) Diabetes mellitus (9) Left Knee DJD (10) Persistent vomiting (11) Pneumonia (12) Pulmonary embolism (13) Pulmonary emphysema (14) Right Knee DJD (15) SOB (shortness of breath) Family History Depression FH: gallbladder disease FH: heart disease FH: lung disease Hypertension Kidney stones Social History Smoking Status: Never Smoker Drug Use: none Marital Status: Housing Status: lives with significant other Occupation Status: retired Current/Historical Medications Scheduled Acetaminophen (Sb Non-Aspirin Extra Stre), 1,000 MG PO Q8 Allopurinol (Allopurinol), 300 MG PO QAM Aspirin (Aspirin Ec), 81 MG PO QAM Atorvastatin (Lipitor), 20 MG PO HS Calcium Carbonate-Vitamin D (Oysco 500+D), 2 TAB PO QAM Cholecalciferol (Vitamin D3), 1 CAP PO QAM Diltiazem Hcl Coated Beads (Cartia Xt), 180 MG PO BID Ergocalciferol (Vitamin D 88362 Unit), 50,000 UNIT PO WK Ferrous Gluconate (Ferrous Gluconate), 324 MG PO QAM Furosemide (Lasix), 80 MG PO BID Gabapentin (Gabapentin), 400 MG PO BID Gabapentin (Neurontin), 800 MG PO HS Insulin Aspart (novoLOG INSULIN PUMP ), 1 EA N/A UD Ipratropium-Albuterol (Combivent Respimat), 1 PUFFS INH QID Levothyroxine Sodium (Levothyroxine Sodium), 50 MCG PO QAM Losartan Potassium (Cozaar), 100 MG PO DAILY Metformin Hcl Er (Glucophage Er), 100 MG PO BID Metolazone (Metolazone), 2.5 MG PO MWF Mometasone Furoate (Nasal) (Mometasone Furoate), 1 SPRAY GEOFF QAM Mometasone Furoate-Formoterol (Dulera 200/5 Mcg), 2 PUFFS INH BID Omeprazole (Prilosec), 20 MG PO BID Paroxetine (Paxil), 40 MG PO QAM Potassium Chloride (Potassium Chloride ER), 20 MEQ PO DAILY Spironolactone (Aldactone), 25 MG PO QAM Warfarin Sod (Jantoven), 5 MG PO DIRECTED Scheduled PRN Beclomethasone Dip (Qvar), 2 PUFFS INH BID PRN for PRN Formoterol Fumarate (Perforomist), 2 ML INH Q12 PRN for SOB/Wheezing Ipratropium-Albuterol (Duoneb), 1 TREATMENT INH Q4H PRN for Shortness of Breath Allergies Coded Allergies: Sulfa Antibiotics (Verified Allergy, Intermediate, HIVES, RASH, 06/25/17) Oxybutynin (Verified Allergy, Mild, HIVES, 06/25/17) Adhesives (Verified Allergy, Unknown, skin irritation, 06/25/17) Cephalosporins (Verified Allergy, Unknown, CEFOXITIN-HIVES, TOLERATED ROCEPHIN 09/11/07, 06/25/17) Physical Exam Vital Signs Date Time Temp Pulse Resp B/P (MAP) Pulse Ox O2 Delivery O2 Flow Rate FiO2 08/23/17 21:28 92 08/23/17 21:27 96 20 125/54 95 Room Air 08/23/17 20:18 77 20 173/80 97 Room Air 08/23/17 18:21 36.9 103 20 175/98 94 Room Air Physical Exam GENERAL: Awake, alert, in no acute distress HENT: Normocephalic, atraumatic. Dry mucous membranes. EYES: Normal conjunctiva. Sclera non-icteric. NECK: Supple. No nuchal rigidity. FROM. No JVD. RESPIRATORY: Clear to auscultation. CARDIAC: Regular rate, normal rhythm. Extremities warm and well perfused. Pulses equal. ABDOMEN: Soft, non-distended. Mild lower abdominal pain. No rebound or guarding. No masses. RECTAL: Deferred. MUSCULOSKELETAL: Chest examination reveals no tenderness. The back is symmetrical on inspection without obvious abnormality. There is no CVA tenderness to palpation. No joint edema. LOWER EXTREMITIES: Calves are equal size bilaterally and non-tender. No edema. No discoloration. NEURO: Normal sensorium. No sensory or motor deficits noted. SKIN: No rash or jaundice noted. Medical Decision & Procedures Laboratory Results 08/23/17 19:17 Red Blood Count 4.09, Mean Corpuscular Volume 86.8, Mean Corpuscular Hemoglobin 29.1, Mean Corpuscular Hemoglobin Concent 33.5, Mean Platelet Volume 9.4, Neutrophils (%) (Auto) 72.2, Lymphocytes (%) (Auto) 19.5, Monocytes (%) (Auto) 7.5, Eosinophils (%) (Auto) 0.1, Basophils (%) (Auto) 0.2, Neutrophils # (Auto) 14.35, Lymphocytes # (Auto) 3.86, Monocytes # (Auto) 1.48, Eosinophils # (Auto) 0.02, Basophils # (Auto) 0.04 08/23/17 19:17 Test 08/23/17 19:17 White Blood Count 19.84 K/uL (4.8-10.8) Red Blood Count 4.09 M/uL (4.2-5.4) Hemoglobin 11.9 g/dL (12.0-16.0) Hematocrit 35.5 % (37-47) Mean Corpuscular Volume 86.8 fL (80-100) Mean Corpuscular Hemoglobin 29.1 pg (25-34) Mean Corpuscular Hemoglobin Concent 33.5 g/dl (32-36) Platelet Count 410 K/uL (130-400) Mean Platelet Volume 9.4 fL (7.4-10.4) Neutrophils (%) (Auto) 72.2 % Lymphocytes (%) (Auto) 19.5 % Monocytes (%) (Auto) 7.5 % Eosinophils (%) (Auto) 0.1 % Basophils (%) (Auto) 0.2 % Neutrophils # (Auto) 14.35 K/uL (1.4-6.5) Lymphocytes # (Auto) 3.86 K/uL (1.2-3.4) Monocytes # (Auto) 1.48 K/uL (0.11-0.59) Eosinophils # (Auto) 0.02 K/uL (0-0.5) Basophils # (Auto) 0.04 K/uL (0-0.2) RDW Standard Deviation 46.7 fL (36.4-46.3) RDW Coefficient of Variation 14.8 % (11.5-14.5) Immature Granulocyte % (Auto) 0.5 % Immature Granulocyte # (Auto) 0.09 K/uL (0.00-0.02) Prothrombin Time 28.5 SECONDS (9.0-12.0) Prothromb Time International Ratio 2.8 (0.9-1.1) Anion Gap 13.0 mmol/L (3-11) Est Creatinine Clear Calc Drug Dose 48.9 ml/min Estimated GFR () 46.2 Estimated GFR (Non- 39.8 BUN/Creatinine Ratio 21.9 (10-20) Osmolality 283 mOsm/kg (280-300) Calcium Level 9.3 mg/dl (8.5-10.1) Phosphorus Level 3.6 mg/dl (2.5-4.9) Magnesium Level 1.4 mg/dl (1.8-2.4) Total Bilirubin 0.4 mg/dl (0.2-1) Direct Bilirubin 0.1 mg/dl (0-0.2) Aspartate Amino Transf (AST/SGOT) 28 U/L (15-37) Alanine Aminotransferase (ALT/SGPT) 35 U/L (12-78) Alkaline Phosphatase 121 U/L (45-117) Troponin I < 0.015 ng/ml (0-0.045) Pro-B-Type Natriuretic Peptide 287 pg/ml (0-900) Total Protein 8.5 gm/dl (6.4-8.2) Albumin 4.1 gm/dl (3.4-5.0) Lipase 99 U/L (73-393) Laboratory results reviewed by me Medications Administered Medications (Trade) Dose Ordered Sig/Jesus Route Start Time Stop Time Status Last Admin Dose Admin Sodium Chloride 500 ml @ 999 mls/hr Q31M STAT IV 08/23/17 18:47 08/23/17 19:17 DC 08/23/17 18:47 999 MLS/HR Metoclopramide HCl (Reglan Inj) 10 mg NOW STAT IV 08/23/17 19:27 08/23/17 19:28 DC 08/23/17 19:39 10 MG Magnesium Citrate (Citrate Of Magnesia Soln) 296 ml NOW STAT PO 08/23/17 19:27 08/23/17 19:28 DC 08/23/17 19:40 296 ML Sodium Biphosphate/ Sodium Phosphate (Fleet Enema) 132 ml NOW STAT OK 08/23/17 19:27 08/23/17 19:28 DC 08/23/17 19:40 132 ML Magnesium Sulfate (Magnesium Sulfate 1gm / D5W) 2 gm NOW STAT IV 08/23/17 20:32 08/23/17 20:35 DC 08/23/17 21:26 2 GM Potassium Chloride 0 ml @ 50 mls/hr Q2H IV 08/23/17 21:14 08/23/17 23:15 DC 5/11/18 21:37 50 MLS/HR ECG Per My Interpretation Indication: abdominal pain Rate (beats per minute): 108 Rhythm: sinus tachycardia Findings: PAC, no acute ischemic change, other (normal axis) ED Course 1825: The patient was evaluated in room A3. A complete history and physical exam was performed. Medical Decision I reviewed the patient's past medical history, medications, and the nursing notes as described above. Differential diagnosis: Etiologies such as appendicitis, diverticulitis, PUD, biliary pathology, UTI, pancreatitis, obstruction, mesenteric ischemia, aortic pathology, infections, inflammatory bowel disease, renal colic, as well as others were entertained. 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 She was referred to emergency department for by her PCP concern for dehydration. Of note review of the outpatient labs in all scripts demonstrates a CBC which appears hemoconcentrated when compared to CBC and Margot. Otherwise there is no BMP resulted. CT scan of the patient's abdomen pelvis without contrast was unremarkable and demonstrates a nonobstructive bowel gas pattern with a large amount of stool throughout the colon most pronounced in the ascending colon. On arrival, the patient is in no acute distress, afebrile stable vital signs. Labs are notable for hyponatremia of 128. Hypermagnesemia 1.4. WBC 19 however in the setting of the patient's presumed hemoconcentration. She is afebrile here. EKG without evidence of ischemia. Troponin negative in the setting of several days of sx. Chest x-ray unremarkable. Patient feeling some improvement after IVF and bowel regimen including mag citrate, reglan, fleet enema. However , give the patient's multiple lab abnormalities in the setting of dehydration, reasonable to admit for further hydration and electrolyte supplementation. Case was discussed with Dr. Jordana Cody [facility] hospitalist, who will evaluate the patient for admission. Medication Reconcilliation Current Medication List: was personally reviewed by me Blood Pressure Screening Patient's blood pressure: Elevated blood pressure Blood pressure disposition: Elevated BP felt to be situational Consults Time Called: 2109 Consulting Physician: Dr. Jordana Cody [facility] hospitalist Returned Call: 2111 Will evaluated the patient for admission. Impression Primary Impression: Dehydration Additional Impressions: Hyponatremia Hypomagnesemia Constipation Scribe Attestation The scribe's documentation has been prepared under my direction and personally reviewed by me in its entirety. I confirm that the note above accurately reflects all work, treatment, procedures, and medical decision making performed by me. Departure Information Referrals Jose Roberto Tyler M.D. (PCP) Patient Instructions My [facility] Problem Qualifiers
[2017-08-23] MEDS ORDERED: SODIUM CHLORIDE 0.9% 500ML 500 ML IV STA (18:47)
[2017-08-23] MEDS ORDERED: METF500T5 PO (19:00)
[2017-08-23] MEDS ORDERED: LOSA100T65 PO (19:00)
[2017-08-23] MEDS ORDERED: WARF5TAB7 PO (19:00)
[2017-08-23] MEDS ORDERED: ZRX25 PO (19:00)
[2017-08-23] MEDS ORDERED: GABA-1220 PO (19:00)
[2017-08-23] MEDS ORDERED: HYDR-5688 PO (19:00)
[2017-08-23] MEDS ORDERED: METOCLOPRAMIDE HCL INJ 5 MG/ML 2 ML VIAL IV STA (19:27)
[2017-08-23] MEDS ORDERED: SOD PHOSPHATE/SOD BIPHOSPHATE ENEMA 132 ML BTL PR STA (19:27)
[2017-08-23] MEDS ORDERED: MAGNESIUM CITRATE 296 ML/BTL PO STA (19:27)
[2017-08-23 19:28] LABS: BASO % 0.2 %; BASO ABS # 0.04 K/uL (0-0.2); EOS % 0.1 %; EOS ABS # 0.02 K/uL (0-0.5); HEMATOCRIT 35.5 % (37-47); HEMOGLOBIN 11.9 g/dL (12.0-16.0); IG# 0.09 K/uL (0.00-0.02); LYMPH % 19.5 %; LYMPH ABS # 3.86 K/uL (1.2-3.4); MEAN CELL VOLUME 86.8 fL (80-100); MEAN CORPUSCULAR HEMOGLOBIN 29.1 pg (25-34); MEAN CORPUSCULAR HGB CONC 33.5 g/dl (32-36); MEAN PLATELET VOLUME 9.4 fL (7.4-10.4); MONO % 7.5 %; MONO ABS # 1.48 K/uL (0.11-0.59); NEUT % 72.2 %; NEUT ABS # 14.35 K/uL (1.4-6.5); PLATELET COUNT 410 K/uL (130-400); RED CELL DISTRIBUTION WIDTH CV 14.8 % (11.5-14.5); RED CELL DISTRIBUTION WIDTH SD 46.7 fL (36.4-46.3); WHITE BLOOD COUNT 19.84 K/uL (4.8-10.8)
[2017-08-23 19:46] LABS: ALBUMIN 4.1 gm/dl (3.4-5.0); ALT/SGPT 35 U/L (12-78); AST/SGOT 28 U/L (15-37); BLOOD UREA NITROGEN 31 mg/dl (7-18); CALCIUM 9.3 mg/dl (8.5-10.1); CARBON DIOXIDE 29 mmol/L (21-32); CREATININE 1.41 mg/dl (0.60-1.20); GLUCOSE 153 mg/dl (70-99); LIPASE 99 U/L (73-393); SODIUM 128 mmol/L (136-145)
--- NOTE | 2017-08-23 19:47 | DIAGNOSTIC IMAGING REPORT ---
CHEST ONE VIEW PORTABLE HISTORY: Generalized abdominal pain. COMPARISON: Chest 06/25/2017. FINDINGS: No pleural effusions. No pneumothorax. The heart is normal in size. Small linear density at the left lung base favor subsegmental atelectasis. The lungs are otherwise clear. Calcified AP window lymph nodes are again noted. Left subclavian Port-A-Cath terminates at the SVC. IMPRESSION: No acute process. Electronically signed by: Darrius Sanchez M.D. 08/23/2017 7:46 PM Dictated Date/Time: 08/23/2017 7:31 PM
[2017-08-23 19:49] LABS: ALKALINE PHOSPHATASE 121 U/L (45-117); PHOSPHORUS 3.6 mg/dl (2.5-4.9); TOTAL PROTEIN 8.5 gm/dl (6.4-8.2)
[2017-08-23] MEDS ORDERED: MAGNESIUM SULFATE 1GM / D5W 1 GM BAG IV STA (20:32)
[2017-08-23] MEDS ORDERED: POTASSIUM CHLORIDE 10 MEQ / 100ML WTR IV STA (20:32)
[2017-08-23] MEDS ORDERED: POTASSIUM CHLR 20 MEQ / WTR 20 MEQ IV STA (21:14)
[2017-08-23] MEDS: POTASSIUM CHLR 20 MEQ / WTR 20 MEQ IV SCH (21:37)
[2017-08-23] MEDS ORDERED: NovoLOG INSULIN PUMP SCH (22:00)
[2017-08-23] MEDS ORDERED: FORMOTEROL FUMA NEBULIZER SOLN 20 MCG/2 ML VIAL INH PRN (22:00)
[2017-08-23] MEDS ORDERED: WARFARIN SOD 5 MG TAB PO SCH (22:00)
[2017-08-23] MEDS ORDERED: BECLOMETHASONE DIP HFA 80 MCG 8.7G INH INH PRN (22:00)
[2017-08-23] MEDS ORDERED: ACETAMINOPHEN 325 MG TAB PO PRN (22:00)
--- NOTE | 2017-08-23 22:37 | History and Physical ---
History & Physical Date & Time of Service: August 23, 2017 at 22:02 Chief Complaint: Stomach Hurts, Dehydrated Primary Care Physician: Jose Roberto Tyler M.D. History of Present Illness Patient is a 61 year old female with a past medical history of HTN, DM, COPD, Afib, and Hypothyroidism that presents with a 4 day history of nausea and vomiting. The patient states that she initially started having vomiting on Saturday evening and has multiple episodes of vomiting daily since. She also started to developed abdominal discomfort described as burning on Saturday morning that has been constant. Her last episode of vomiting was this afternoon at 2pm. The patient was seen by her PCP Dr. Scott Lombardo this morning and told that she had dehydration but was also sent for an abdominal CT that showed constipation but no obstruction or other acute findings. The patient also had blood work that showed leukocytosis with some electrolyte abnormalities. The patient states that her symptoms have mildly improved but continues to have the abdominal pain and nausea. On Saturday the patient also began having left flank discomfort and thought she might have a kidney stone, and continues to have left sided discomfort. She denies any dysuria, frequency of urination, change in color or odor of urine. The patient also states that she has been having fevers and sweats. She denies any diarrhea, constipation, palpitations, or shortness of breath. Past Medical/Surgical History Medical Problems: (1) abdominal wall hematoma (2) ACUTE KIDNEY FAILURE WITH LESION OF TUBULAR NECROSIS (3) Acute on chronic kidney failure (4) Asthma (5) Asthma exacerbation (6) Benign hypertension (7) Bronchitis (8) Chest pain (9) Congestive heart failure (10) Contusion of multiple sites (11) COPD exacerbation (12) COPD exacerbation (13) Corneal abrasion (14) Deep venous thrombosis (15) Diabetes mellitus (16) Elevated partial thromboplastin time (PTT) (17) Fall (18) Foot pain (19) Headache (20) Hypernatremia (21) Hypertension (22) Hypokalemia (23) Hypotension (24) Left Knee DJD (25) Leg pain, right (26) Pneumonia (27) Pulmonary embolism (28) Pulmonary emphysema (29) Renal insufficiency, mild (30) Right Knee DJD (31) SOB (shortness of breath) (32) Staphylococcal pneumonia Family History Depression FH: gallbladder disease FH: heart disease FH: lung disease Hypertension Kidney stones Social History Smoking Status: Never Smoker Drug Use: none Marital Status: Housing status: lives with family Occupational Status: retired Immunizations History of Influenza Vaccine: Yes Influenza Vaccine Date: Dec 26, 2012 History of Tetanus Vaccine?: Unknown History of Pneumococcal: Yes Pneumococcal Date: Aug 01, 2001 History of Hepatitis B Vaccine: Unknown Allergies Coded Allergies: Sulfa Antibiotics (Verified Allergy, Intermediate, HIVES, RASH, 06/25/17) Oxybutynin (Verified Allergy, Mild, HIVES, 06/25/17) Adhesives (Verified Allergy, Unknown, skin irritation, 06/25/17) Cephalosporins (Verified Allergy, Unknown, CEFOXITIN-HIVES, TOLERATED ROCEPHIN 09/11/07, 06/25/17) Home Medications Scheduled Acetaminophen (Sb Non-Aspirin Extra Stre), 1,000 MG PO Q8 Allopurinol (Allopurinol), 300 MG PO QAM Aspirin (Aspirin Ec), 81 MG PO QAM Atorvastatin (Lipitor), 20 MG PO HS Calcium Carbonate-Vitamin D (Oysco 500+D), 2 TAB PO QAM Cholecalciferol (Vitamin D3), 1 CAP PO QAM Diltiazem Hcl Coated Beads (Cartia Xt), 180 MG PO BID Ergocalciferol (Vitamin D 56638 Unit), 50,000 UNIT PO WK Ferrous Gluconate (Ferrous Gluconate), 324 MG PO QAM Furosemide (Lasix), 80 MG PO BID Gabapentin (Gabapentin), 400 MG PO BID Gabapentin (Neurontin), 800 MG PO HS Insulin Aspart (novoLOG INSULIN PUMP ), 1 EA N/A UD Ipratropium-Albuterol (Combivent Respimat), 1 PUFFS INH QID Levothyroxine Sodium (Levothyroxine Sodium), 50 MCG PO QAM Losartan Potassium (Cozaar), 100 MG PO DAILY Metformin Hcl Er (Glucophage Er), 100 MG PO BID Metolazone (Metolazone), 2.5 MG PO MWF Mometasone Furoate (Nasal) (Mometasone Furoate), 1 SPRAY GEOFF QAM Mometasone Furoate-Formoterol (Dulera 200/5 Mcg), 2 PUFFS INH BID Omeprazole (Prilosec), 20 MG PO BID Paroxetine (Paxil), 40 MG PO QAM Potassium Chloride (Potassium Chloride ER), 20 MEQ PO DAILY Spironolactone (Aldactone), 25 MG PO QAM Warfarin Sod (Jantoven), 5 MG PO DIRECTED Scheduled PRN Beclomethasone Dip (Qvar), 2 PUFFS INH BID PRN for PRN Formoterol Fumarate (Perforomist), 2 ML INH Q12 PRN for SOB/Wheezing Ipratropium-Albuterol (Duoneb), 1 TREATMENT INH Q4H PRN for Shortness of Breath Review of Systems Constitutional: + fever, + sweats, + fatigue, No chills, No weight loss Respiratory: No cough, No sputum, No wheezing, No shortness of breath Cardiovascular: No chest pain, No orthopnea, No palpitations Abdomen: + pain, + nausea, + vomiting, No diarrhea, No constipation, No GI bleeding Genitourinary - Female: No dysuria, No urinary frequency Endocrine: No fatigue, No excessive thirst, No excessive urination Physical Exam Vital Signs Date Time Temp Pulse Resp B/P (MAP) Pulse Ox O2 Delivery O2 Flow Rate FiO2 08/23/17 21:28 92 08/23/17 21:27 96 20 125/54 95 Room Air 08/23/17 20:18 77 20 173/80 97 Room Air 08/23/17 18:21 36.9 103 20 175/98 94 Room Air General Appearance: WD/WN, no apparent distress Head: normocephalic, atraumatic Eyes: normal inspection, sclerae normal Neck: supple, no carotid bruits Respiratory/Chest: chest non-tender, lungs clear, normal breath sounds Cardiovascular: regular rate, rhythm, no murmur, + pertinent finding (multiple PACs) Abdomen/GI: normal bowel sounds, soft, + tenderness (mildly tender with deep palpation), + pertinent finding (No guarding or rebound) Extremities/Musculoskelatal: no calf tenderness, no pedal edema Neurologic/Psych: statistical reporting analyst II-XII nml as tested, alert, oriented x 3 Diagnostics Laboratory Results Results Past 24 Hours Test 08/23/17 19:17 Range/Units White Blood Count 19.84 4.8-10.8 K/uL Red Blood Count 4.09 4.2-5.4 M/uL Hemoglobin 11.9 12.0-16.0 g/dL Hematocrit 35.5 37-47 % Mean Corpuscular Volume 86.8 80-100 fL Mean Corpuscular Hemoglobin 29.1 25-34 pg Mean Corpuscular Hemoglobin Concent 33.5 32-36 g/dl Platelet Count 410 130-400 K/uL Mean Platelet Volume 9.4 7.4-10.4 fL Neutrophils (%) (Auto) 72.2 % Lymphocytes (%) (Auto) 19.5 % Monocytes (%) (Auto) 7.5 % Eosinophils (%) (Auto) 0.1 % Basophils (%) (Auto) 0.2 % Neutrophils # (Auto) 14.35 1.4-6.5 K/uL Lymphocytes # (Auto) 3.86 1.2-3.4 K/uL Monocytes # (Auto) 1.48 0.11-0.59 K/uL Eosinophils # (Auto) 0.02 0-0.5 K/uL Basophils # (Auto) 0.04 0-0.2 K/uL RDW Standard Deviation 46.7 36.4-46.3 fL RDW Coefficient of Variation 14.8 11.5-14.5 % Immature Granulocyte % (Auto) 0.5 % Immature Granulocyte # (Auto) 0.09 0.00-0.02 K/uL Sodium Level 128 136-145 mmol/L Potassium Level 3.0 3.5-5.1 mmol/L Chloride Level 86 98-107 mmol/L Carbon Dioxide Level 29 21-32 mmol/L Anion Gap 13.0 3-11 mmol/L Blood Urea Nitrogen 31 7-18 mg/dl Creatinine 1.41 0.60-1.20 mg/dl Est Creatinine Clear Calc Drug Dose 48.9 ml/min Estimated GFR () 46.2 Estimated GFR (Non- 39.8 BUN/Creatinine Ratio 21.9 10-20 Random Glucose 153 70-99 mg/dl Osmolality 283 280-300 mOsm/kg Calcium Level 9.3 8.5-10.1 mg/dl Phosphorus Level 3.6 2.5-4.9 mg/dl Magnesium Level 1.4 1.8-2.4 mg/dl Total Bilirubin 0.4 0.2-1 mg/dl Direct Bilirubin 0.1 0-0.2 mg/dl Aspartate Amino Transf (AST/SGOT) 28 15-37 U/L Alanine Aminotransferase (ALT/SGPT) 35 12-78 U/L Alkaline Phosphatase 121 45-117 U/L Troponin I < 0.015 0-0.045 ng/ml Pro-B-Type Natriuretic Peptide 287 0-900 pg/ml Total Protein 8.5 6.4-8.2 gm/dl Albumin 4.1 3.4-5.0 gm/dl Lipase 99 73-393 U/L Impression Assessment and Plan Patient is a 61 year old female with a past medical history of HTN, DM, COPD, Afib, and Hypothyroidism that presents with a 4 day history of nausea and vomiting Volume Contraction - Secondary to viral gastroenteritis - IV NS at 100 mls/hr - Admit to Telemetry Diabetes Mellitus - Continue Insulin Pump - Sugars currently well controlled - If Glucose > 200, consider adding sliding scale coverage - Hold home metformin Hypokalemia - Given 40meq Potassium IV in the ED - Give another 40meq PO now - 20 meq PO qAM - Daily BMP Constipation - CT Abdomen shows significant constipation - Received Enema in ED - Senna COPD - Continue home Combivent, QVAR, PerforomistArsh Diastolic CHF - Last EF 2016 60% - Hold home Metolazone, Lasix Paroxysmal Afib - Continue home Diltiazem - Coumadin HTN - Hold home Losartan and Aldactone SPARKLE - Baseline Cr of 0.8-1.0 - IV Fluids - Daily BMP Leukocytosis - WBC 19.84 - Secondary to viral gastroenteritis/ dehydration - UA, culture if necessary Chronic Anemia - Hgb 11.98, currently at baseline H/o DVT/PE - Continue home Coumadin GERD - Hold home Prilosec - Protonix 40mg PO BID Hypothyroidism - Continue home synthroid Hyperlipidemia - Continue home Lipitor DVT - Coumadin Code Status - Full Resuscitation Resuscitation Status Full Resuscitation VTE Prophylaxis Will order VTE Prophylaxis: Yes Resident Tracking Resident Involvement: Resident Care Provided Care Provided: Adult Hospital Medicine History Patient seen and examined, chart reviewed, case discussed with Dr. Chan and I agree with his assessment and plan as documented above. Briefly, patient is a 61yo C female with multiple medical comorbidities presenting with vomiting and abdominal pain since Saturday. Last episode of vomiting at 14:30 today, patient still reports abdominal pain and nausea. She was seen by her PCP and had labs drawn which prompted transfer to ER. CT Abdomen outpatient revealed large stool burden otherwise unremarkable. On physical exam she is afebrile, initially hypertensive but now 125/54, no respiratory distress. She appears mildly uncomfortable and nauseous. Skin intact, insulin pump in place. HEENT with dry oral mucosa. Heart +S1/S2, regular with occasional ectopy, Lungs CTA, abdomen mildly tender with deep palpation, no rebound/guarding. Labs and images reviewed patient with leukocytosis WBC=19, Pn=342, K=3, Cl=86, BUN=31 and Cr=1.14. Assessment: 61yo C female with multiple medical comorbidities presenting with 3 days of vomiting and po intolerance, labs significant for dehydration and multiple electrolyte derangements. Will place in observation on telemetry. IVF hydration and electrolyte repletion. Bowel regimen. Control of pain and nausea.
[2017-08-23 23:20] LABS: INR 2.8 (0.9-1.1)
[2017-08-23] MEDS ORDERED: IV FLUIDS COMPLETED PRN (23:30)
[2017-08-23 23:54] VITALS: BP 156/75; PULSE 57; TEMP 36.5; O2SAT 96; Ht 154.9 cm; Wt 112.0 kg
[2017-08-24] VITALS (8 sets, daily range): BP systolic 149–186; BP diastolic 67–98; PULSE 78–96; TEMP 36.4–37; O2SAT 92–97
[2017-08-24] MEDS ORDERED: GLUCOSE 40% GEL 15 GM TUBE PO PRN (00:30)
[2017-08-24] MEDS ORDERED: GLUCAGON FOR INJ 1 MG VIAL IM PRN (00:30)
[2017-08-24] MEDS ORDERED: GLUCOSE 10 TABS/TUBE PO PRN (00:30)
[2017-08-24] MEDS ORDERED: DEXTROSE 50% 50 ML SYR IV PRN (00:30)
[2017-08-24] MEDS ORDERED: INSULIN ASPART 100 UNITS/ML VIAL SC PRN (00:30)
[2017-08-24] MEDS: SODIUM CHLORIDE 0.9% 1000ML 1,000 ML IV SCH ×3 (00:30→21:36)
[2017-08-24] MEDS ORDERED: SENNA 8.6 MG TAB PO ONE (00:30)
[2017-08-24] MEDS ORDERED: POTASSIUM CHLORIDE 20 MEQ TABCR PO ONE (00:30)
[2017-08-24] MEDS ORDERED: CARBOHYDRATES FOR HYPOGLYCEMIA PO PRN (00:30)
[2017-08-24] MEDS: LEVOTHYROXINE 50 MCG TAB PO SCH (06:30)
[2017-08-24] MEDS: ONDANSETRON INJ 2 MG/ML 2 ML VIAL IV PRN ×2 (06:51→21:35)
--- NOTE | 2017-08-24 07:29 | Family Medicine Progress Note ---
Progress Note Date of Service August 24, 2017. Subjective Pt evaluation today including: conversation w/ patient Reports she still feels sick, feels she needs to vomit but is unable to. Has been passing stool frequently. Feels cramping in her abdomen but unable to localize pain. Constitutional: No fever, No chills Eyes: No worsening of vision Respiratory: No cough, No sputum Abdomen: + nausea All Other Systems: Reviewed and Negative Medications Current Inpatient Medications Medications (Trade) Dose Ordered Sig/Jesus Route Start Time Stop Time Status Last Admin Dose Admin Sodium Chloride 1,000 ml @ 100 mls/hr Q10H IV 08/24/17 00:15 09/23/17 00:14 08/24/17 00:30 100 MLS/HR Acetaminophen (Tylenol Tab) 650 mg Q4H PRN PO 08/23/17 22:00 09/22/17 21:59 Ondansetron HCl (Zofran Inj) 4 mg Q6H PRN IV 08/23/17 22:00 09/22/17 21:59 08/24/17 06:51 4 MG Allopurinol (Zyloprim Tab) 300 mg QAM PO 08/24/17 09:00 09/23/17 08:59 Aspirin (Ecotrin Tab) 81 mg QAM PO 08/24/17 09:00 09/23/17 08:59 Atorvastatin Calcium (Lipitor Tab) 20 mg HS PO 08/24/17 21:00 09/23/17 20:59 Beclomethasone Dipropionate (Qvar 80 Mcg Hfa Inhaler) 2 puffs BID PRN INH 08/23/17 22:00 09/22/17 21:59 Diltiazem HCl (Cardizem Cd Cap) 180 mg BID PO 08/24/17 09:00 09/23/17 08:59 Formoterol Fumarate (Perforomist 20MCG/2ML Neb Soln) 40 mcg Q12 PRN INH 08/23/17 22:00 09/22/17 21:59 Gabapentin (Neurontin Cap) 400 mg BID@0900,1400 PO 08/24/17 09:00 09/23/17 08:59 Gabapentin (Neurontin Cap) 800 mg HS PO 08/24/17 21:00 09/23/17 20:59 Albuterol/ Ipratropium (Combivent Respimat Inh) 1 puffs QID INH 08/24/17 09:00 09/23/17 08:59 Levothyroxine Sodium (Synthroid Tab) 50 mcg DAILYBB PO 08/24/17 06:00 09/23/17 05:59 08/24/17 06:30 50 MCG Paroxetine HCl (pAXil TAB) 40 mg QAM PO 08/24/17 09:00 09/23/17 08:59 Pantoprazole Sodium 40 mg/ Syringe 10 ml @ 5 mls/min DAILY@11 IV 08/24/17 11:00 08/27/17 11:01 Potassium Chloride (Klor-Con Tab) 20 meq QAM PO 08/24/17 09:00 09/23/17 08:59 Miscellaneous (Iv Fluids Completed) 1 ea PRN PRN N/A 08/23/17 23:30 08/23/18 23:29 Senna (Senokot Tab) 8.6 mg QAM PO 08/24/17 09:00 09/23/17 08:59 Warfarin Sodium (Coumadin Tab) 6 mg DAILY@16 PO 08/24/17 16:00 09/23/17 15:59 Insulin Aspart (novoLOG INSULIN PUMP) 1 ea ACHS N/A 08/24/17 07:00 09/23/17 06:59 Insulin Aspart (novoLOG ASPART) SLIDING SCALE PRN PRN SC 08/24/17 00:30 09/23/17 00:29 Glucose (Glucose 40% Gel) 15-30 GRAMS 15 GRAMS... UD PRN PO 08/24/17 00:30 09/23/17 00:29 Glucose (Glucose Chew Tab) 4-8 Tablets 4 Tabl... UD PRN PO 08/24/17 00:30 09/23/17 00:29 Glucagon (Glucagon Inj) 1 mg UD PRN IM 08/24/17 00:30 09/23/17 00:29 Dextrose (Dextrose 50% 50ML Syringe) 25-50ML 25ML FOR ... UD PRN IV 08/24/17 00:30 09/23/17 00:29 Carbohydrates (Carbohydrates For Hypoglycemia) 15-30 GRAMS 15 grams if BSG 54-69... UD PRN PO 08/24/17 00:30 09/23/17 00:29 Objective Vital Signs Date Time Temp Pulse Resp B/P (MAP) Pulse Ox O2 Delivery O2 Flow Rate FiO2 08/24/17 07:15 36.4 92 20 183/98 (126) 96 Room Air 08/24/17 04:00 95 Room Air 08/24/17 03:45 36.4 85 20 149/79 (102) 95 Room Air 08/23/17 23:54 36.5 57 18 156/75 96 Room Air 08/23/17 23:12 87 20 116/59 94 Room Air 08/23/17 21:28 92 08/23/17 21:27 96 20 125/54 95 Room Air 08/23/17 20:18 77 20 173/80 97 Room Air 08/23/17 18:21 36.9 103 20 175/98 94 Room Air Physical Exam General Appearance: WD/WN, no apparent distress, + pertinent finding (port a cath and insulin pump in place) Eyes: normal inspection, PERRL ENT: hearing grossly normal Neck: supple, no JVD Respiratory/Chest: lungs clear, normal breath sounds Cardiovascular: regular rate, rhythm, no murmur Abdomen: normal bowel sounds, non tender, soft Extremities: non-tender, no pedal edema Neurologic/Psychiatric: alert, normal mood/affect, oriented x 3 Laboratory Results Last 24 Hours Test 08/23/17 19:17 08/24/17 04:15 08/24/17 07:21 08/24/17 07:58 White Blood Count 19.84 K/uL 14.75 K/uL Red Blood Count 4.09 M/uL 3.99 M/uL Hemoglobin 11.9 g/dL 11.8 g/dL Hematocrit 35.5 % 34.4 % Mean Corpuscular Volume 86.8 fL 86.2 fL Mean Corpuscular Hemoglobin 29.1 pg 29.6 pg Mean Corpuscular Hemoglobin Concent 33.5 g/dl 34.3 g/dl Platelet Count 410 K/uL 393 K/uL Mean Platelet Volume 9.4 fL 9.2 fL Neutrophils (%) (Auto) 72.2 % 68.9 % Lymphocytes (%) (Auto) 19.5 % 22.1 % Monocytes (%) (Auto) 7.5 % 7.9 % Eosinophils (%) (Auto) 0.1 % 0.5 % Basophils (%) (Auto) 0.2 % 0.3 % Neutrophils # (Auto) 14.35 K/uL 10.17 K/uL Lymphocytes # (Auto) 3.86 K/uL 3.26 K/uL Monocytes # (Auto) 1.48 K/uL 1.16 K/uL Eosinophils # (Auto) 0.02 K/uL 0.08 K/uL Basophils # (Auto) 0.04 K/uL 0.04 K/uL RDW Standard Deviation 46.7 fL 46.2 fL RDW Coefficient of Variation 14.8 % 14.6 % Immature Granulocyte % (Auto) 0.5 % 0.3 % Immature Granulocyte # (Auto) 0.09 K/uL 0.04 K/uL Prothrombin Time 28.5 SECONDS 28.4 SECONDS Prothromb Time International Ratio 2.8 2.8 Sodium Level 128 mmol/L Potassium Level 3.0 mmol/L Chloride Level 86 mmol/L Carbon Dioxide Level 29 mmol/L Anion Gap 13.0 mmol/L Blood Urea Nitrogen 31 mg/dl Creatinine 1.41 mg/dl Est Creatinine Clear Calc Drug Dose 48.9 ml/min Estimated GFR () 46.2 Estimated GFR (Non- 39.8 BUN/Creatinine Ratio 21.9 Random Glucose 153 mg/dl Osmolality 283 mOsm/kg Calcium Level 9.3 mg/dl Phosphorus Level 3.6 mg/dl Magnesium Level 1.4 mg/dl Total Bilirubin 0.4 mg/dl Direct Bilirubin 0.1 mg/dl Aspartate Amino Transf (AST/SGOT) 28 U/L Alanine Aminotransferase (ALT/SGPT) 35 U/L Alkaline Phosphatase 121 U/L Troponin I < 0.015 ng/ml Pro-B-Type Natriuretic Peptide 287 pg/ml Total Protein 8.5 gm/dl Albumin 4.1 gm/dl Lipase 99 U/L Urine Color YELLOW Urine Appearance CLEAR Urine pH 5.0 Urine Specific [place] 1.014 Urine Protein NEG Urine Glucose (UA) NEG Urine Ketones NEG Urine Occult Blood NEG Urine Nitrite NEG Urine Bilirubin NEG Urine Urobilinogen NEG Urine Leukocyte Esterase SMALL Urine WBC (Auto) 5-10 /hpf Urine RBC (Auto) 0-4 /hpf Urine Hyaline Casts (Auto) 10-30 /lpf Urine Epithelial Cells (Auto) >30 /lpf Urine Bacteria (Auto) NEG Urine Crystals CALCIUM OXALATE Urine Pathogenic Casts 0-3 GRANULAR CASTS /lpf Urine Osmolality 319 mOms/kg Bedside Glucose 148 mg/dl Assessment and Plan 61 yo F admitted for intractable nausea/vomiting, likely secondary to viral gastroenteritis Viral gastroenteritis contributing to dehydration - Received IV fluids overnight - Will trial liquid diet and advance if tolerated CT abdomen done outside facility before admission was negative. Hypokalemia - K+ 3.0 on admission, received IV and PO supplementation - Monitor Diabetes mellitus on insulin pump - Continue insulin pump use - Home metformin on hold Constipation - CT Abdomen on admission shows significant constipation, has been passing stool since received enema and senna COPD - Continue home Combivent, QVAR, Perforomist, Duonebs Diastolic CHF - Last EF 2016 60% - Hold home Metolazone, Lasix Paroxysmal Afib - Continue home Diltiazem - Coumadin with INR therapeutic HTN - Hold home Losartan and Aldactone SPARKLE - Baseline Cr of 0.8-1.0 - IV Fluids - Daily BMP Leukocytosis - WBC 19.84 - Secondary to viral gastroenteritis/ dehydration - UA, culture if necessary Chronic Anemia - Hgb 11.98, currently at baseline 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 advanced diet to clears. Constitutional: denies: fever Respiratory: negative: short of breath Cardiovascular: denies chest pain General Appearance: mild distress (from nausea) Respiratory: lungs clear, no respiratory distress Cardiovascular: regular rate, rhythm Gastrointestinal: normal bowel sounds, non tender, soft Neurologic/Psychiatric: alert, oriented x 3 Skin Characteristics: warm/dry Assessment/Plan Resident Physician Supervision Note: I independently interviewed and examined the patient and verified the rojo history and physical, reviewed labs and image studies, discussed the case with the resident Dr. Delvalle and agree with the findings and care plan.
[2017-08-24 08:17] LABS: BASO % 0.3 %; BASO ABS # 0.04 K/uL (0-0.2); EOS % 0.5 %; EOS ABS # 0.08 K/uL (0-0.5); HEMATOCRIT 34.4 % (37-47); HEMOGLOBIN 11.8 g/dL (12.0-16.0); IG# 0.04 K/uL (0.00-0.02); LYMPH % 22.1 %; LYMPH ABS # 3.26 K/uL (1.2-3.4); MEAN CELL VOLUME 86.2 fL (80-100); MEAN CORPUSCULAR HEMOGLOBIN 29.6 pg (25-34); MEAN CORPUSCULAR HGB CONC 34.3 g/dl (32-36); MEAN PLATELET VOLUME 9.2 fL (7.4-10.4); MONO % 7.9 %; MONO ABS # 1.16 K/uL (0.11-0.59); NEUT % 68.9 %; NEUT ABS # 10.17 K/uL (1.4-6.5); PLATELET COUNT 393 K/uL (130-400); RED CELL DISTRIBUTION WIDTH CV 14.6 % (11.5-14.5); RED CELL DISTRIBUTION WIDTH SD 46.2 fL (36.4-46.3); WHITE BLOOD COUNT 14.75 K/uL (4.8-10.8)
[2017-08-24 08:27] LABS: INR 2.8 (0.9-1.1)
[2017-08-24] MEDS: NovoLOG INSULIN PUMP SCH ×4 (08:55→21:35)
[2017-08-24] MEDS: IPRATROPIUM BROMIDE/ALBUTEROL respimat INH INH SCH ×4 (08:59→21:39)
[2017-08-24] MEDS: DILTIAZEM HCL 180 MG CAPCR PO SCH ×2 (09:00→21:36)
[2017-08-24] MEDS: ASPIRIN 81 MG ECTAB PO SCH (09:00)
[2017-08-24] MEDS: PAROXETINE 20 MG TAB PO SCH (09:01)
[2017-08-24] MEDS: POTASSIUM CHLORIDE 20 MEQ TABCR PO SCH (09:01)
[2017-08-24] MEDS: GABAPENTIN 400 MG CAP PO SCH ×2 (09:01→14:00)
[2017-08-24] MEDS: SENNA 8.6 MG TAB PO SCH (09:02)
[2017-08-24] MEDS: ALLOPURINOL 300 MG TAB PO SCH (09:02)
[2017-08-24 09:12] LABS: CREATININE 1.28 mg/dl (0.60-1.20); POTASSIUM 3.5 mmol/L (3.5-5.1)
[2017-08-24] MEDS ORDERED: METOCLOPRAMIDE HCL INJ 5 MG/ML 2 ML VIAL IV. PRN (10:45)
[2017-08-24] MEDS: PANTOprazole INJ 40 MG in SYRINGE 0 ML IV SCH (12:00)
[2017-08-24] MEDS ORDERED: WARFARIN SOD 6 MG TAB PO SCH (16:00)
[2017-08-24] MEDS ORDERED: GABAPENTIN 400 MG CAP PO SCH (21:00)
[2017-08-24] MEDS ORDERED: ATORVASTATIN 20 MG TAB PO SCH (21:00)
[2017-08-25] VITALS: O2SAT 95
[2017-08-25 03:35] VITALS: BP 166/79; PULSE 80; TEMP 36.9; O2SAT 95
[2017-08-25 04:00] VITALS: O2SAT 95
[2017-08-25] MEDS: LEVOTHYROXINE 50 MCG TAB PO SCH (05:25)
[2017-08-25 06:45] VITALS: BP 173/70; PULSE 77; TEMP 36.6; O2SAT 96
[2017-08-25] MEDS: NovoLOG INSULIN PUMP SCH ×2 (07:00→11:00)
[2017-08-25 07:54] LABS: BASO % 0.3 %; BASO ABS # 0.03 K/uL (0-0.2); EOS % 2.3 %; EOS ABS # 0.24 K/uL (0-0.5); HEMATOCRIT 32.3 % (37-47); HEMOGLOBIN 10.7 g/dL (12.0-16.0); IG# 0.02 K/uL (0.00-0.02); LYMPH % 24.9 %; LYMPH ABS # 2.65 K/uL (1.2-3.4); MEAN CELL VOLUME 88.5 fL (80-100); MEAN CORPUSCULAR HEMOGLOBIN 29.3 pg (25-34); MEAN CORPUSCULAR HGB CONC 33.1 g/dl (32-36); MEAN PLATELET VOLUME 9.2 fL (7.4-10.4); MONO % 8.5 %; NEUT % 63.8 %; NEUT ABS # 6.79 K/uL (1.4-6.5); PLATELET COUNT 315 K/uL (130-400); RED CELL DISTRIBUTION WIDTH CV 14.7 % (11.5-14.5); RED CELL DISTRIBUTION WIDTH SD 47.7 fL (36.4-46.3); WHITE BLOOD COUNT 10.63 K/uL (4.8-10.8)
[2017-08-25 08:01] LABS: INR 3.2 (0.9-1.1)
[2017-08-25] MEDS: SODIUM CHLORIDE 0.9% 1000ML 1,000 ML IV SCH (08:09)
[2017-08-25] MEDS: IPRATROPIUM BROMIDE/ALBUTEROL respimat INH INH SCH ×2 (08:10→13:00)
[2017-08-25] MEDS: ASPIRIN 81 MG ECTAB PO SCH (08:12)
[2017-08-25] MEDS: DILTIAZEM HCL 180 MG CAPCR PO SCH (08:12)
[2017-08-25] MEDS: POTASSIUM CHLORIDE 20 MEQ TABCR PO SCH (08:13)
[2017-08-25] MEDS: GABAPENTIN 400 MG CAP PO SCH (08:13)
[2017-08-25] MEDS: PAROXETINE 20 MG TAB PO SCH (08:14)
[2017-08-25] MEDS: SENNA 8.6 MG TAB PO SCH (08:14)
[2017-08-25] MEDS: ALLOPURINOL 300 MG TAB PO SCH (08:15)
[2017-08-25] MEDS ORDERED: ONDA4TAB10 SL (08:50)
--- NOTE | 2017-08-25 08:55 | Discharge Instructions ---
Discharge Instructions Date of Service August 25, 2017. Admission Reason for Admission: Hyponatremia, Persistent Vomiting Discharge Discharge Diagnosis / Problem: Gastroenteritis Discharge Goals Goal(s): Improve disease control Activity Recommendations Activity Limitations: per Instructions/Follow-up section Exercise/Sports Limitations: as tolerated Shower/Bathe: no limitations . Instructions / Follow-Up Instructions / Follow-Up You were admitted for a persistent GI bug that was causing you to vomit significant amounts. Your CT scan showed there was lots of stool backed up in your colon. You should maintain a bland diet the next few days and avoid food that may be spicy or have dairy which can irritate the stomach. Slowly re- introduce these items back into your diet. Follow your blood sugars closely as you may not need as much insulin as usual. The medication Zofran was sent in to [facility] in [place]. This is for nausea. If you are finding you still need it after a few days, please seek medical attention. Follow up with your PCP next week as well. If you develop further vomiting, chills, fevers, chest pain, or other new concerns, please seek medical attention. Current Hospital Diet Patient's current hospital diet: Diabetes Type 2 Diet, Regular Diet Discharge Diet Recommended Diet: Diabetes Type 2 Diet Pending Studies Studies pending at discharge: no Laboratory Results Hemoglobin A1c Test 06/20/17 10:15 Range/Units Estimated Average Glucose 126 mg/dl Hemoglobin A1c 6.0 H 4.5-5.6 % Medical Emergencies . Who to Call and When: Medical Emergencies: If at any time you feel your situation is an emergency, please call 911 immediately. . Non-Emergent Contact Non-Emergency issues call your: Primary Care Provider . . "Provider Documentation" section prepared by María Delvalle. .
[2017-08-25 08:56] LABS: CALCIUM 8.9 mg/dl (8.5-10.1); CREATININE 0.89 mg/dl (0.60-1.20); POTASSIUM 3.8 mmol/L (3.5-5.1)
--- NOTE | 2017-08-25 08:56 | Discharge Summary ---
Discharge Summary Date of Service August 25, 2017. Discharge Summary Admission Date: August 23, 2017 at 22:58 Discharge Date: August 25, 2017 Discharge Disposition: Home Principal Diagnosis: Gastroenteritis Immunizations: Have You Had Influenza Vaccine: Yes Influenza Vaccine Date: Dec 26, 2012 History of Tetanus Vaccine?: Unknown History of Pneumococcal: Yes Pneumococcal Date: Aug 01, 2001 History of Hepatitis B Vaccine: Unknown Medication Reconciliation New Medications: Ondasetron Odt (Zofran Odt) 4 Mg Tab 4 MG SL Q6H for Nausea for 5 Days, #20 TAB Continued Medications: Acetaminophen (Sb Non-Aspirin Extra Stre) 500 Mg Tab 1000 MG PO Q8 for 30 Days, #180 TAB Take 3 times per day to lessen pain. Allopurinol (Allopurinol) 300 Mg Tab 300 MG PO QAM Aspirin (Aspirin Ec) 81 Mg Tab 81 MG PO QAM Atorvastatin (Lipitor) 20 Mg Tab 20 MG PO HS, TAB Beclomethasone Dip (Qvar) 80 Mcg/Act Aer 2 PUFFS INH BID PRN for PRN Calcium Carbonate-Vitamin D ([place] 500+D) 1 Tab Tab 2 TAB PO QAM Cholecalciferol (Vitamin D3) 2,000 Unit Cap 1 CAP PO QAM for 90 Days, #90 CAP 3 Refills Diltiazem Hcl Coated Beads (Cartia Xt) 180 Mg Cap 180 MG PO BID Ergocalciferol (Vitamin D 49250 Unit) 50,000 Unit Cap 65707 UNIT PO WK WEDNESDAYS Ferrous Gluconate (Ferrous Gluconate) 324 Mg Tab 324 MG PO QAM, TAB Formoterol Fumarate (Perforomist) 20 Mcg/2 Ml Neb 2 ML INH Q12 PRN for SOB/Wheezing Furosemide (Lasix) 40 Mg Tab 80 MG PO BID, TAB Gabapentin (Gabapentin) 400 Mg Cap 400 MG PO BID Gabapentin (Neurontin) 400 Mg Cap 800 MG PO HS Insulin Aspart (novoLOG INSULIN PUMP ) 1 Ea Inj 1 EA N/A UD, EA 60-80 UNITS VIA PUMP SLIDING SCALE Ipratropium-Albuterol (Duoneb) 3 Ml Nebu 1 TREATMENT INH Q4H PRN for Shortness of Breath, INHA Ipratropium-Albuterol (Combivent Respimat) 1 Aer Aer 1 PUFFS INH QID, INH Levothyroxine Sodium (Levothyroxine Sodium) 50 Mcg Tab 50 MCG PO QAM Losartan Potassium (Cozaar) 100 Mg Tab 100 MG PO DAILY Metformin Hcl Er (Glucophage Er) 500 Mg Tab 100 MG PO BID Metolazone (Metolazone) 2.5 Mg Tab 2.5 MG PO MWF TAKE 30 MINS BEFORE FUROSEMIDE Mometasone Furoate (Nasal) (Mometasone Furoate) 50 Mcg/Act Spr 1 SPRAY GEOFF QAM Mometasone Furoate-Formoterol (Dulera 200/5 Mcg) 1 Aer Aer 2 PUFFS INH BID for 30 Days, #13 GM 5 Refills Omeprazole (Prilosec) 20 Mg Cap 20 MG PO BID Paroxetine (Paxil) 40 Mg Tab 40 MG PO QAM, TAB Potassium Chloride (Potassium Chloride ER) 20 Meq Tab 20 MEQ PO DAILY Spironolactone (Aldactone) 25 Mg Tab 25 MG PO QAM, TAB Warfarin Sod (Jantoven) 5 Mg Tab 5 MG PO DIRECTED TAKES 7.5MG X2 DAYS 5MG X1 DAY THEN ALTERNATES 7.5MG AND 5MG Discharge Exam Review of Systems: Constitutional: No fever, No chills, No sweats Eyes: No worsening of vision ENT: No hearing loss Respiratory: No cough, No sputum, No wheezing Cardiovascular: No chest pain Abdomen: + nausea, No pain, No vomiting, No diarrhea, No constipation Musculoskeletal: No joint pain, No muscle pain Genitourinary - Female: No dysuria, No urinary frequency, No urinary urgency , No hematuria Neurologic: No memory loss, No weakness Psychiatric: No depression symptoms Endocrine: No fatigue Integumentary: No rash Physical Exam: General Appearance: WD/WN, no apparent distress Eyes: normal inspection, PERRL ENT: hearing grossly normal Neck: supple, no JVD Respiratory/Chest: lungs clear, normal breath sounds, no respiratory distress Cardiovascular: regular rate, rhythm, no murmur, normal peripheral pulses Abdomen / GI: normal bowel sounds, non tender, soft Extremities: no calf tenderness, no pedal edema Neurologic/Psychiatric: alert, normal mood/affect, oriented x 3 Hospital Course HPI: Patient is a 61 year old female with a past medical history of HTN, DM, COPD, Afib, and Hypothyroidism that presents with a 4 day history of nausea and vomiting. The patient states that she initially started having vomiting on Saturday evening and has multiple episodes of vomiting daily since. She also started to developed abdominal discomfort described as burning on Saturday morning that has been constant. Her last episode of vomiting was this afternoon at 2pm. The patient was seen by her PCP Dr. Scott Lombardo this morning and told that she had dehydration but was also sent for an abdominal CT that showed constipation but no obstruction or other acute findings. The patient also had blood work that showed leukocytosis with some electrolyte abnormalities. The patient states that her symptoms have mildly improved but continues to have the abdominal pain and nausea. On Saturday the patient also began having left flank discomfort and thought she might have a kidney stone, and continues to have left sided discomfort. She denies any dysuria, frequency of urination, change in color or odor of urine. The patient also states that she has been having fevers and sweats. She denies any diarrhea, constipation, palpitations, or shortness of breath. HOSPITAL COURSE: 61 yo F admitted for intractable nausea/vomiting, likely secondary to viral gastroenteritis Viral gastroenteritis contributing to dehydration - Received IV fluids overnight - Advanced to liquid then solid diet - CT abdomen done outside facility before admission was negative. Hypokalemia - K+ 3.0 on admission, received IV and PO supplementation - K+ 3.8 on discharge Diabetes mellitus on insulin pump - Continue insulin pump use - Home metformin on hold during admission Constipation - CT Abdomen on admission shows significant constipation, has been passing stool since received enema and senna COPD - Continue home Combivent, QVAR, Perforomist, Duonebs Diastolic CHF - Last EF 2016 60% - Hold home Metolazone, Lasix, restarted when DC'd Paroxysmal Afib - Continue home Diltiazem - Coumadin with INR therapeutic HTN - Hold home Losartan and Aldactone SPARKLE - Baseline Cr of 0.8-1.0 - IV Fluids Leukocytosis - WBC 19.84 - Secondary to viral gastroenteritis/ dehydration - UA, culture if necessary Chronic Anemia - Hgb 11.98, currently at baseline 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 FOLLOW UP: Within a week with PCP. Total Time Spent: Greater than 30 minutes This includes examination of the patient, discharge planning, medication reconciliation, and communication with other providers. Discharge Instructions Please refer to the electronic Patient Visit Report (Discharge Instructions) for additional information. Additional Copies To Jose Roberto Tyler M.D. Resident Tracking Resident Involvement: Resident Care Provided Care Provided: Adult [facility] Medicine Reviewed: Pt Seen/Exam by Me History had a large bowel movement yesterday. no vomiting felt nauseous with eggs this morning Constitutional: denies: fever Respiratory: negative: short of breath Cardiovascular: denies chest pain General Appearance: no apparent distress Respiratory: lungs clear, no respiratory distress Cardiovascular: regular rate, rhythm Gastrointestinal: normal bowel sounds, non tender, soft Neurologic/Psychiatric: alert, oriented x 3 Skin Characteristics: warm/dry Assessment/Plan Resident Physician Supervision Note: I independently interviewed and examined the patient and verified the rojo history and physical, reviewed labs and image studies, discussed the case with the resident Dr. Delvalle and agree with the findings and care plan. Time spent in discharge 35 min
[2017-08-25] MEDS ORDERED: LOSARTAN POTASSIUM 50 MG TAB PO SCH (09:00)
[2017-08-25 11:35] VITALS: BP 213/79; PULSE 89; TEMP 36.7; O2SAT 95
[2017-08-25] MEDS: PANTOprazole INJ 40 MG in SYRINGE 0 ML IV SCH (11:35)
[2017-08-25 13:00] VITALS: BP 213/79; PULSE 89; TEMP 36.7; O2SAT 95
== END 2017-08-25 15:06 | disposition home or self-care (01) | DRG 392 ==
LOC: C.EDB 18:20 → EDBEDREQ 22:57 → C.2T 22:58 → ENRESERV 22:59
PROVIDERS: ADMIT Student in an Organized Health Care Education/Training Program; ATTEND Family Medicine
DX: A08.4 Viral intestinal infection, unspecified (principal); I50.40 Unspecified combined systolic (congestive) and diastolic (congestive) heart failure; N17.9 Acute kidney failure, unspecified; I10 Essential (primary) hypertension; E11.9 Type 2 diabetes mellitus without complications; J44.9 Chronic obstructive pulmonary disease, unspecified; I48.0 Paroxysmal atrial fibrillation; E03.9 Hypothyroidism, unspecified; Z79.82 Long term (current) use of aspirin; Z79.4 Long term (current) use of insulin; Z79.01 Long term (current) use of anticoagulants; E87.6 Hypokalemia; Z96.41 Presence of insulin pump (external) (internal); D72.829 Elevated white blood cell count, unspecified; D64.9 Anemia, unspecified; K21.9 Gastro-esophageal reflux disease without esophagitis; E78.5 Hyperlipidemia, unspecified; Z82.49 Family history of ischemic heart disease and other diseases of the circulatory system; Z81.8 Family history of other mental and behavioral disorders; Z88.5 Allergy status to narcotic agent; Z88.1 Allergy status to other antibiotic agents; Z88.2 Allergy status to sulfonamides

== ENCOUNTER → 2017-08-29 | Outpatient (CLI) | payer BC, OTHER ==
[2017-08-27 18:12] LABS: BASO % 0.3 %; BASO ABS # 0.04 K/uL (0-0.2); EOS % 1.1 %; EOS ABS # 0.15 K/uL (0-0.5); HEMATOCRIT 34.6 % (37-47); HEMOGLOBIN 11.4 g/dL (12.0-16.0); IG# 0.04 K/uL (0.00-0.02); LYMPH % 21.6 %; LYMPH ABS # 3.03 K/uL (1.2-3.4); MEAN CELL VOLUME 88.5 fL (80-100); MEAN CORPUSCULAR HEMOGLOBIN 29.2 pg (25-34); MEAN CORPUSCULAR HGB CONC 32.9 g/dl (32-36); MEAN PLATELET VOLUME 10.1 fL (7.4-10.4); MONO % 6.6 %; MONO ABS # 0.93 K/uL (0.11-0.59); NEUT % 70.1 %; NEUT ABS # 9.85 K/uL (1.4-6.5); PLATELET COUNT 371 K/uL (130-400); RED CELL DISTRIBUTION WIDTH CV 14.8 % (11.5-14.5); RED CELL DISTRIBUTION WIDTH SD 48.4 fL (36.4-46.3); WHITE BLOOD COUNT 14.04 K/uL (4.8-10.8)
[2017-08-27 18:43] LABS: BLOOD UREA NITROGEN 15 mg/dl (7-18); CALCIUM 9.2 mg/dl (8.5-10.1); CARBON DIOXIDE 31 mmol/L (21-32); CREATININE 1.12 mg/dl (0.60-1.20); GLUCOSE 163 mg/dl (70-99); POTASSIUM 3.4 mmol/L (3.5-5.1); SODIUM 128 mmol/L (136-145)
[~2017-08-29] MED LIST changes: -CYCL10TA6 PO; +GABA-1220 PO; -GLC/500 PO; -HYDR2TAB3 PO; +LOSA100T65 PO; -LOSA50TA54 PO; +METF500T5 PO; +ONDA4TAB10 SL; -RXC5 PO; +WARF5TAB7 PO; -WARF7.5T4 PO; +ZRX25 PO
== END | disposition home or self-care (01) ==
LOC: C.LABMFLN 08:35
PROVIDERS: ATTEND Family Medicine
DX: R10.9 Unspecified abdominal pain (principal)

== ENCOUNTER 2018-11-21 19:42 | Observation (INO) ==
[2018-11-21 20:51] LABS: Basophils # (auto) 0.05 K/uL (0-0.2); Basophils % (auto) 0.4 %; Eosinophils # (auto) 0.26 K/uL (0-0.5); Eosinophils % (auto) 1.9 %; Hematocrit (blood only) 33.5 % (37-47); Hemoglobin 11.2 g/dL (12.0-16.0); Immature Granulocytes # (auto) 0.03 K/uL (0.00-0.02); Immature Granulocytes % (auto) 0.2 %; Lymphocytes # (auto) 4.01 K/uL (1.2-3.4); Lymphocytes % (auto) 28.6 %; Mean Corpuscular Hgb Conc 33.4 g/dL (32-36); Mean Corpuscular Volume 90.3 fL (80-100); Mean Platelet Volume 9.9 fL (7.4-10.4); Monocytes # (auto) 1.13 K/uL (0.11-0.59); Monocytes % (auto) 8.1 %; Neutrophils # (auto) 8.53 K/uL (1.4-6.5); Neutrophils % (auto) 60.8 %; Platelet Count 284 K/uL (130-400); RDW Standard Deviation 52.5 fL (36.4-46.3); Red Blood Count 3.71 M/uL (4.2-5.4); White Blood Count 14.01 K/uL (4.8-10.8)
[2018-11-21 21:06] LABS: Albumin Level 4.1 gm/dl (3.4-5.0); BUN Creatinine Ratio 26.5 (10-20); Calcium 9.6 mg/dl (8.5-10.1); Creatinine Clr Calc Pharmacy 46.4 ml/min; Est GFR (African American) 40.3; Est GFR (Non-African American) 34.8; Potassium 4.2 mmol/L (3.5-5.1)
[2018-11-21 21:09] LABS: Albumin Globulin Ratio 1.1 (0.9-2); Bilirubin,Total 0.3 mg/dl (0.2-1); Globulin 3.8 gm/dl (2.5-4.0); Total Protein 7.9 gm/dl (6.4-8.2)
[2018-11-21 21:11] LABS: Partial Thromboplastin Ratio 2.9; Prothrombin Time 71.3 Seconds (9.0-12.0)
--- NOTE | 2018-11-21 21:31 | CT Scan Report ---
CT head/brain wo con CLINICAL HISTORY: 63 years-old Female presenting with headache on coumadin. TECHNIQUE: Multidetector CT imaging of the head was performed without the use of intravenous contrast . IV contrast: None. One or more dose lowering techniques were used consistent with the principles of ALARA (as low as reasonably achievable), including automatic exposure control, mA or kV adjustment t o individual patient size, and/or use of iterative reconstruction. COMPARISON: 11/09/2016. CT DOSE (mGy.cm): The estimated cumulative dose is 773.57 mGy.cm. FINDINGS: Religious Activities Director topogram: Unremarkable. Ventricles and sulci normal in size. No hemorrhage. Brain parenchyma normal in appearance with preser kelly brand-white differentiation. No acute territorial infarct. No mass effect or midline shift. No ext ra-axial fluid collection. Paranasal sinuses and mastoid air cells clear. Calvarium intact. IMPRESSION: 1. No acute intracranial abnormality. Electronically signed by: Jani Gomez M.D. 11/21/2018 9:30 PM
[2018-11-21 21:45] LABS: INR 8.1 (0.9-1.1); Partial Thromboplastin Time 77.8 Seconds (21.0-31.0)
[2018-11-21] MEDS ORDERED: PHYTONADIONE 5 MG TAB PO STA (21:55)
[2018-11-21] MEDS ORDERED: MoRPHine SULFATE 4 MG/ML 1 ML CARP\\VIAL IV STA ×2 (21:55→22:46)
[2018-11-22] MEDS ORDERED: [UNRECOGNIZED DRUG - OTHER] SQ SCH (02:04)
[2018-11-22] MEDS ORDERED: GLUCOSE 10 TABS/TUBE PO PRN (02:04)
[2018-11-22] MEDS ORDERED: GLUCAGON FOR INJ 1 MG VIAL SQ PRN (02:04)
[2018-11-22] MEDS ORDERED: ONDANSETRON INJ 2 MG/ML 2 ML VIAL IV PRN (02:04)
[2018-11-22] MEDS ORDERED: CARBOHYDRATES FOR HYPOGLYCEMIA PO PRN (02:04)
[2018-11-22] MEDS ORDERED: POLYETHYLENE (MIRALAX) 17 GM PACK PO PRN (02:04)
[2018-11-22] MEDS ORDERED: ALUMINUM/MAGNESIUM SUSP 30 ML UDC PO PRN (02:04)
[2018-11-22] MEDS ORDERED: GLUCOSE 40% GEL 15 GM TUBE PO PRN (02:04)
[2018-11-22] MEDS ORDERED: ALBUTEROL HFA 8 GM INHALER INH PRN (02:04)
[2018-11-22] MEDS ORDERED: TIZANIDINE HCL 4 MG TABLET PO PRN (02:04)
[2018-11-22] MEDS ORDERED: MAGNESIUM HYDROXIDE SUSP 30 ML UDC PO PRN (02:04)
[2018-11-22] MEDS ORDERED: DEXTROSE 50% 50 ML SYRINGE IV PRN (02:04)
--- NOTE | 2018-11-22 02:36 | Emergency Department Note ---
Entered by Antoni Granado acting as a scribe for Rigo Morales MD History of Present Illness General Chief complaint: Referred by Doctor Stated complaint: Referred by Doctor Time Seen by Provider: 11/21/18 20:10 Source: patient History of Present Illness Onset (ago): week(s) 2 Location: head Severity: severe Pain Consistency: + intermittent Maximum Pain Intensity: 10 Quality: + aching Associated symptoms: + denies other symptoms (fevers) and + other (elevated INR); no chest pain and no shortness of breath The patient is a 63 y/o female who presents to the ED w/ CC of intermittent, severe, headaches beginning two weeks ago. The patient states she has been having terrible pain in her head for two week and had an MRI of the neck earlier today. She notes her pain radiates down the right side of her neck and does not radiate into her arm. She reports she was also referred to the ED by physician because she had an INR level of 8. The patient notes she was shaving her legs earlier today and cut herself. She states she would not stop bleeding. The patient reports she was placed on the Coumadin because she had a blood clot in her legs and lungs a few years ago. She denies chest pain, fevers, and shortness of breath. The patient notes she was sent her by Dr. Ha. Home Medications Home Medications Medication Instructions Recorded Confirmed Type Calcium 600 + D(3) 1 cap PO BID 07/07/18 11/21/18 History Combivent Respimat 1 puff INHALATION QID 07/07/18 11/21/18 History Novolog PenFill U-100 Insulin 1 sliding scale dose SUBCUT 07/07/18 11/21/18 History USEASDIRECTD Qvar RediHaler 2 puff INHALATION BID 07/07/18 11/21/18 History albuterol sulfate 1.25 mg INHALATION QID PRN 07/07/18 11/21/18 History albuterol sulfate 2 puff INHALATION Q6H PRN 07/07/18 11/21/18 History allopurinol 300 mg PO QAM 07/07/18 11/21/18 History aspirin [Aspirin Low Dose] 81 mg PO QAM 07/07/18 11/21/18 History atorvastatin 20 mg PO HS 07/07/18 11/21/18 History cholecalciferol (vitamin D3) 1,000 unit PO DAILY 07/07/18 11/21/18 History [Vitamin D3] diltiazem HCl 180 mg PO Q12H 07/07/18 11/21/18 History ferrous sulfate 325 mg PO DAILY 07/07/18 11/21/18 History fluticasone propionate [Flonase 1 spray INTRANASAL BID 07/07/18 11/21/18 History Allergy Relief] furosemide 40 - 80 mg PO DAILY PRN 07/07/18 11/21/18 History furosemide 120 mg PO QAM 07/07/18 11/21/18 History gabapentin 400 mg PO 0800,1500 07/07/18 11/21/18 History gabapentin 800 mg PO HS 07/07/18 11/21/18 History levothyroxine 50 mcg PO QAM 07/07/18 11/21/18 History losartan 100 mg PO QAM 07/07/18 11/21/18 History metformin 1,000 mg PO BID 07/07/18 11/21/18 History paroxetine HCl 40 mg PO QAM 07/07/18 11/21/18 History polyethylene glycol 3350 [Miralax] 17 g PO DAILY 07/07/18 11/21/18 History potassium chloride 20 meq PO DAILY 07/07/18 11/21/18 History spironolactone 25 mg PO QAM 07/07/18 11/21/18 History warfarin 7.5 mg PO 4XWK 07/07/18 11/21/18 History tramadol 50 - 100 mg PO Q6H PRN #15 tab 07/16/18 11/21/18 Rx omeprazole 20 mg capsule,delayed 20 mg PO BID #180 cap 11/03/18 11/21/18 Rx release tizanidine 2 mg capsule 2 mg PO Q8H PRN #30 cap 11/10/18 11/21/18 Rx warfarin [Coumadin] 10 mg PO 3XWK 11/21/18 11/21/18 History Allergies Allergy/AdvReac Type Severity Reaction Status Date / Time Sulfa (Sulfonamide Allergy Intermediate HIVES, RASH Verified 11/21/18 21:20 Antibiotics) oxybutynin Allergy Mild HIVES Verified 11/21/18 21:20 adhesive Allergy Unknown skin Verified 11/21/18 21:20 irritation Cephalosporins Allergy Unknown CEFOXITIN-HIVES, Verified 11/21/18 21:20 TOLERATED ROCEPHIN 09/11/07 butabarbital AdvReac Unknown Verified 11/21/18 21:20 cefoxitin AdvReac Unknown Verified 11/21/18 21:20 hydrochlorothiazide AdvReac Unknown Verified 11/21/18 21:20 hydromorphone AdvReac Unknown Verified 11/21/18 21:20 tioconazole AdvReac Unknown Verified 11/21/18 21:20 Past Med/Surg History Medical History Anemia CHRONIC; BASELINE HGB 10-11 RANGE PER CHART REVIEW Anxiety Asthma STABLE Atrial fibrillation PAROXYSMAL; ON WARFARIN Chronic obstructive pulmonary disease STABLE Congestive heart failure DIASTOLIC; LAST EXACERBATION "FEW YEARS AGO" Deep vein thrombosis ~5 YEARS AGO; HAS IVC FILTER Depression Diabetes mellitus, type 2 IDDM GERD (gastroesophageal reflux disease) CONTROLLED Gout Hearing deficit NO HEARING AIDES Hiatal hernia History of cor pulmonale PER CARDIO RECORDS Hyperlipidemia Hypertension Hypothyroidism Morbid obesity Osteoarthritis Peptic ulcer disease H/O GASTRIC BLEED 2/2 PUD (8+ YEARS AGO) Pulmonary embolism ~5 YEARS AGO; HAS IVC FILTER Sleep apnea BIPAP Surgical History History of [place] fundoplication History of adenoidectomy History of appendectomy History of bowel resection 2/2 ANAL FISSURE COMPLICATIONS History of bronchoscopy History of cardiac cath 2015 History of carpal tunnel surgery of right wrist History of cholecystectomy History of colonoscopy History of cystoscopy History of dilatation and curettage History of herniorrhaphy UMBILICAL History of hysterectomy MATTHEW & BSO History of repair of rotator cuff Left shoulder arthroscopic subacromial decompression= 09/24/14= Grade view 1, MAC#3, ETT 7.5 at [facility] History of tonsillectomy History of total knee replacement B/L; Right TKA= 06/04/17= SAB + PNB at [facility] Port-A-Cath in place RIGHT CHEST WALL FOR BLOOD DRAWS (2/2 POOR VENOUS ACCESS) Family History Other No pertinent family history Social History Preferred Language: Egyptian Communication Ability: Effective 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 and A total of 10 systems reviewed and were otherwise negative Physical Exam Vital Signs Vital Signs - 24 hr 11/21/18 19:55 11/21/18 22:14 Temperature 36.5 C Temperature Source Oral Sepsis Recent Fever Within 48 Hours No Sepsis Action Taken by Nursing No Action Required Pulse Rate 72 Pulse Rate [Finger] 71 Respiratory Rate 20 20 Blood Pressure 199/82 H Blood Pressure [Right Arm] 161/93 H Blood Pressure Mean 121 Blood Pressure Mean [Right Arm] 115 Blood Pressure Position Sitting Blood Pressure Position [Right Arm] Sitting Pulse Oximetry 96 98 Oxygen Delivery Method Room Air Room Air General: Non-ill appearing older female complaining of right sided neck pain. HEENT: Normal cephalic atraumatic. Pupils are equal round and reactive to light. Extraocular movements are intact. Oropharynx is pink with moist mucous membranes. No swelling of the mouth lips or tongue. Neck: Supple with a midline trachea. No meningeal signs or stiffness, no JVD or bruits. No Stridor. Exquisitely tender on the right side of neck only. Chest: Clear to auscultation bilaterally. No wheezes or rhonchi. No increased work of breathing. Heart: regular rate and rhythm. Abdomen: Soft nontender, nondistended without rebound guarding or rigidity. Extremities: No cyanosis clubbing or edema. No calf tenderness or asymmetry. Bruise on the left arm. Spine/Back. Non tender to palpation. No CVA tenderness Skin: Good turgor without rashes. Neurologic exam: Cranial nerves two through 12 are intact. Motor and sensation are intact and symmetrical throughout. Course 2011: Past medical records reviewed. The patient was evaluated in room B12B. A complete history and physical exam was performed. 2042: I discussed the patient's case with Dr. Tyler, Family Medicine. He agrees with the treatment plan. 2156: I reevaluated the patient, and she is still having discomfort. I ordered IV morphine for her headache and PO vitamin K. 2245: Upon reevaluation, I discussed findings and results with the patient. She verbalized agreement of the treatment plan. 2356: I discussed the patient's case with Dr. Meadows, [facility] Hospitalist. The patient will be evaluated for further management and care. Administered Medications Discontinued Medications Morphine Sulfate (Morphine Sulfate) 4 mg IV NOW STA Stop: 11/21/18 21:56 Last Admin: 11/21/18 21:59 Dose: 4 mg Documented by: [id number] Morphine Sulfate (Morphine Sulfate) 4 mg IV NOW STA Stop: 11/21/18 22:47 Last Admin: 11/21/18 22:56 Dose: 4 mg Documented by: [id number] Phytonadione (Mephyton) 5 mg PO NOW STA Stop: 11/21/18 21:56 Last Admin: 11/21/18 21:59 Dose: 5 mg Documented by: [id number] Medical Decision Making Differential Diagnosis Differential diagnosis includes: intracranial hemorrhage, cervical disk disease, cervical disk strain, infection, meningitis, supratherapeutic anticoagulation. Medical Records Attestation: I reviewed the patient's medical records. Home Medications Current Medication List: was personally reviewed by me Laboratory Data Attestation: I reviewed the patient's lab results. Result diagrams: 11/21/18 20:42 11/21/18 20:42 Lab Results 11/21/18 11/21/18 11/21/18 Range/Units 20:42 20:42 20:42 WBC 14.01 H (4.8-10.8) K/uL RBC 3.71 L (4.2-5.4) M/uL Hgb 11.2 L (12.0-16.0) g/dL Hct 33.5 L (37-47) % MCV 90.3 (80-100) fL MCH 30.2 (25-34) pg MCHC 33.4 (32-36) g/dL RDW Std Deviation 52.5 H (36.4-46.3) fL RDW Coeff of Sil 16.0 H (11.5-14.5) % Plt Count 284 (130-400) K/uL MPV 9.9 (7.4-10.4) fL Immature Gran % (Auto) 0.2 % Neut % (Auto) 60.8 % Lymph % (Auto) 28.6 % [place] % (Auto) 8.1 % Eos % (Auto) 1.9 % Baso % (Auto) 0.4 % Immature Gran # (Auto) 0.03 H (0.00-0.02) K/uL Neut # (Auto) 8.53 H (1.4-6.5) K/uL Lymph # (Auto) 4.01 H (1.2-3.4) K/uL [place] # (Auto) 1.13 H (0.11-0.59) K/uL Eos # (Auto) 0.26 (0-0.5) K/uL Baso # (Auto) 0.05 (0-0.2) K/uL PT 71.3 H (9.0-12.0) Seconds INR 8.1 H* (0.9-1.1) APTT 77.8 H* (21.0-31.0) Seconds PTT Ratio 2.9 Sodium 138 (136-145) mmol/L Potassium 4.2 (3.5-5.1) mmol/L Chloride 101 (98-107) mmol/L Carbon Dioxide 29 (21-32) mmol/L Anion Gap 8.0 (3-11) BUN 41 H (7-18) mg/dl Creatinine 1.56 H (0.6-1.2) mg/dl Est Cr Clr Drug Dosing 46.4 ml/min Est GFR ( Amer) 40.3 Est GFR (Non-Af Amer) 34.8 BUN/Creatinine Ratio 26.5 H (10-20) Glucose 76 (70-99) mg/dl Calcium 9.6 (8.5-10.1) mg/dl Total Bilirubin 0.3 (0.2-1) mg/dl AST 18 (15-37) U/L ALT 30 (12-78) U/L Alkaline Phosphatase 128 H (45-117) U/L Troponin I (0-0.045) ng/ml Total Protein 7.9 (6.4-8.2) gm/dl Albumin 4.1 (3.4-5.0) gm/dl Globulin 3.8 (2.5-4.0) gm/dl Albumin/Globulin Ratio 1.1 (0.9-2) Lipase 128 (73-393) U/L 11/21/18 Range/Units 20:42 WBC (4.8-10.8) K/uL RBC (4.2-5.4) M/uL Hgb (12.0-16.0) g/dL Hct (37-47) % MCV (80-100) fL MCH (25-34) pg MCHC (32-36) g/dL RDW Std Deviation (36.4-46.3) fL RDW Coeff of Sil (11.5-14.5) % Plt Count (130-400) K/uL MPV (7.4-10.4) fL Immature Gran % (Auto) % Neut % (Auto) % Lymph % (Auto) % [place] % (Auto) % Eos % (Auto) % Baso % (Auto) % Immature Gran # (Auto) (0.00-0.02) K/uL Neut # (Auto) (1.4-6.5) K/uL Lymph # (Auto) (1.2-3.4) K/uL [place] # (Auto) (0.11-0.59) K/uL Eos # (Auto) (0-0.5) K/uL Baso # (Auto) (0-0.2) K/uL PT (9.0-12.0) Seconds INR (0.9-1.1) APTT (21.0-31.0) Seconds PTT Ratio Sodium (136-145) mmol/L Potassium (3.5-5.1) mmol/L Chloride (98-107) mmol/L Carbon Dioxide (21-32) mmol/L Anion Gap (3-11) BUN (7-18) mg/dl Creatinine (0.6-1.2) mg/dl Est Cr Clr Drug Dosing ml/min Est GFR ( Amer) Est GFR (Non-Af Amer) BUN/Creatinine Ratio (10-20) Glucose (70-99) mg/dl Calcium (8.5-10.1) mg/dl Total Bilirubin (0.2-1) mg/dl AST (15-37) U/L ALT (12-78) U/L Alkaline Phosphatase (45-117) U/L Troponin I < 0.015 (0-0.045) ng/ml Total Protein (6.4-8.2) gm/dl Albumin (3.4-5.0) gm/dl Globulin (2.5-4.0) gm/dl Albumin/Globulin Ratio (0.9-2) Lipase (73-393) U/L Imaging Data Radiologist's Impression: Radiology results as stated below per my review and the radiologist's interpretation: CT head/brain wo con CLINICAL HISTORY: 63 years-old Female presenting with headache on coumadin. TECHNIQUE: Multidetector CT imaging of the head was performed without the use of intravenous contrast. IV contrast: None. One or more dose lowering techniques were used consistent with the principles of ALARA (as low as reasonably achievable), including automatic exposure control, mA or kV adjustment to individual patient size, and/or use of iterative reconstruction. COMPARISON: 11/09/2016. CT DOSE (mGy.cm): The estimated cumulative dose is 773.57 mGy.cm. FINDINGS: Trapeze Artist topogram: Unremarkable. Ventricles and sulci normal in size. No hemorrhage. Brain parenchyma normal in appearance with preserved brand-white differentiation. No acute territorial infarct. No mass effect or midline shift. No extra-axial fluid collection. Paranasal sinuses and mastoid air cells clear. Calvarium intact. IMPRESSION: 1. No acute intracranial abnormality. Electronically signed by: Jani Gomez M.D. 11/21/2018 9:30 PM ECG Data Attestation: I personally reviewed and interpreted this ECG as follows: Indication: other (headache) Rate (beats per minute): 66 Rhythm: normal sinus Findings: no PAC, no PVC, no ST depression, no ST elevation, no acute ischemic change and no ectopy Comparison ECG Date: from (07/07/18) Change: no significant change Blood Pressure Blood Pressure Findings: Normal blood pressure Blood Pressure Disposition: did not require urgent referral MDM Narrative This patient comes in as described above. She was placed in room B12. She was sent over by primary care physician after having an elevated INR of 8. Her doctor sent her over for an MRI and the labs came back. She had a MRI of the cervical spine which showed no acute abnormalities. The patient has been ongoing right-sided neck pain for several weeks. No fever or chills. she has no enrique rologic deficits. She does have multiple medical problems. she had no chest pain or shortness of breath. I did do a CAT scan of her head it was negative her INR was confirmed above 8. she has no significant electrolyte or metabolic abnormalities. She was given IV morphine and said it did not help I gave her second dose of IV morphine and the pain came down to about a 6. she did also have an episode of chest pain then EKG was obtained which shows no acute ischemic changes. I did add a troponin and it was negative. With her ongoing pain, I do think she needs to be admitted/observe for pain management and also rule out cardiac events given her complicated history. I do not suspect meningitis. She has had no fever is focally tender in the right side of the neck and with an INR of 8 would be contraindicated to do an LP at this point any ways. She will be admitted for pain management and observation. Impression & Plan Chest pain, Neck pain on right side, Supratherapeutic INR, Anticoagulant long- term use Discharge Plan Visit Data *Final* Discharge Date/Time: 11/22/18 01:42 Chief Complaint: Referred by Doctor Stated Complaint: Referred by Doctor ED Provider: Rigo Morales Discharge Problem: Chest pain, Neck pain on right side, Supratherapeutic INR, Anticoagulant long- term use Patient Disposition: Admitted As Inpatient Discharge Instructions Interventions: ED Discharge Assessment Last Done: 11/22/18 01:42 The scribe's documentation has been prepared under my direction and personally reviewed by me in its entirety. I confirm that the note above accurately reflects all work, treatment, procedures, and medical decision making performed by me.
[2018-11-22] MEDS: ACETAMINOPHEN 325 MG TAB PO PRN ×2 (02:57→18:18)
[2018-11-22] MEDS: BECLOMETHASONE DIP HFA 80 MCG 8.7G INH INH SCH ×3 (02:58→20:54)
[2018-11-22] MEDS: dilTIAZem ER 180 MG CAPCR PO SCH ×3 (02:59→20:54)
[2018-11-22] MEDS: MoRPHine SULFATE 2 MG/ML CARP IV PRN ×3 (04:03→23:47)
--- NOTE | 2018-11-22 04:40 | History & Physical Report ---
Date of Service November 22, 2018 Assessment & Plan (1) Supratherapeutic INR: INR as outpatient was 8.5. Confirmed INR in ED was 8.1. Patient was given vitamin K 5 mg p.o. by the ED. Repeat PT/INR in the a.m. Patient does not show any signs of bleeding. Present on Admission?: Yes (2) Neck pain on right side: Patient's main complaint is that of neck stiffness on the right side and decreased ability to turn the head to the right. MRI of the neck shows altered level mild to moderate cervical degenerative disc disease. May possibly benefit from PT and/or pain management consult. This appears to be more of a chronic issue. Present on Admission?: Yes (3) Anticoagulant long-term use: Hold warfarin due to supratherapeutic INR level. Present on Admission?: Yes (4) Chronic diastolic heart failure: Continue usual dosing of Lasix, spironolactone as noted. Present on Admission?: Yes (5) Diabetes mellitus: Hold metformin until creatinine is less than 1.3. Placed on Accu-Cheks before meals and at bedtime with NovoLog coverage for scale Present on Admission?: Yes (6) Diabetic peripheral neuropathy associated with type 2 diabetes mellitus: Continue gabapentin as outpatient Present on Admission?: Yes (7) Dyslipidemia: Continue atorvastatin 20 mg at bedtime. Present on Admission?: Yes (8) AF (paroxysmal atrial fibrillation): Paroxysmal atrial fibrillation/hypertension- Continue aspirin 81 mg daily, diltiazem 180 mg p.o. every 12 hours, losartan 100 mg p.o. every morning, spironolactone 25 mg p.o. every morning and furosemide 20 mg p.o. every morning. Holding warfarin as noted above. Present on Admission?: Yes (9) Pulmonary emphysema: Continue inhalers and nebulizers as needed. Present on Admission?: Yes (10) Obstructive sleep apnea: Wears CPAP in the outpatient setting, will prescribe inpatient as needed. Present on Admission?: Yes (11) Restless legs syndrome: History of Present Illness Chief Complaint: The patient underwent routine laboratories in the outpatient setting, was found to have an INR of 8.5, and she was advised to come to the emergency department for assessment. Primary Care Provider: Jose Roberto Tyler DO The patient is a 63-year-old female with a past medical history including atrial fibrillation on warfarin, COPD, diastolic CHF, insulin requiring diabetes mellitus, anemia, anxiety with depression, who underwent routine anticoagulation testing at the hospital outpatient lab, was found to have an INR of 8.5, and was called to come into the emergency department for assessment. During her ED assessment, she had complained of chronic right-sided neck and head pain, and underwent a CT scan of the head which was negative. She then began to report other generalized pains, felt there was discomfort over bruising areas, and ultimately was referred for evaluation for admission. Allergies Allergy/AdvReac Type Severity Reaction Status Date / Time Sulfa (Sulfonamide Allergy Intermediate HIVES, RASH Verified 11/21/18 21:20 Antibiotics) oxybutynin Allergy Mild HIVES Verified 11/21/18 21:20 adhesive Allergy Unknown skin Verified 11/21/18 21:20 irritation Cephalosporins Allergy Unknown CEFOXITIN-HIVES, Verified 11/21/18 21:20 TOLERATED ROCEPHIN 09/11/07 butabarbital AdvReac Unknown Verified 11/21/18 21:20 cefoxitin AdvReac Unknown Verified 11/21/18 21:20 hydrochlorothiazide AdvReac Unknown Verified 11/21/18 21:20 hydromorphone AdvReac Unknown Verified 11/21/18 21:20 tioconazole AdvReac Unknown Verified 11/21/18 21:20 Home Medications Home Medications Medication Instructions Recorded Confirmed Type Calcium 600 + D(3) 1 cap PO BID 07/07/18 11/21/18 History Combivent Respimat 1 puff INHALATION QID 07/07/18 11/21/18 History Novolog PenFill U-100 Insulin 1 sliding scale dose SUBCUT 07/07/18 11/21/18 History USEASDIRECTD Qvar RediHaler 2 puff INHALATION BID 07/07/18 11/21/18 History albuterol sulfate 1.25 mg INHALATION QID PRN 07/07/18 11/21/18 History albuterol sulfate 2 puff INHALATION Q6H PRN 07/07/18 11/21/18 History allopurinol 300 mg PO QAM 07/07/18 11/21/18 History aspirin [Aspirin Low Dose] 81 mg PO QAM 07/07/18 11/21/18 History atorvastatin 20 mg PO HS 07/07/18 11/21/18 History cholecalciferol (vitamin D3) 1,000 unit PO DAILY 07/07/18 11/21/18 History [Vitamin D3] diltiazem HCl 180 mg PO Q12H 07/07/18 11/21/18 History ferrous sulfate 325 mg PO DAILY 07/07/18 11/21/18 History fluticasone propionate [Flonase 1 spray INTRANASAL BID 07/07/18 11/21/18 History Allergy Relief] furosemide 40 - 80 mg PO DAILY PRN 07/07/18 11/21/18 History furosemide 120 mg PO QAM 07/07/18 11/21/18 History gabapentin 400 mg PO 0800,1500 07/07/18 11/21/18 History gabapentin 800 mg PO HS 07/07/18 11/21/18 History levothyroxine 50 mcg PO QAM 07/07/18 11/21/18 History losartan 100 mg PO QAM 07/07/18 11/21/18 History metformin 1,000 mg PO BID 07/07/18 11/21/18 History paroxetine HCl 40 mg PO QAM 07/07/18 11/21/18 History polyethylene glycol 3350 [Miralax] 17 g PO DAILY 07/07/18 11/21/18 History potassium chloride 20 meq PO DAILY 07/07/18 11/21/18 History spironolactone 25 mg PO QAM 07/07/18 11/21/18 History warfarin 7.5 mg PO 4XWK 07/07/18 11/21/18 History tramadol 50 - 100 mg PO Q6H PRN #15 tab 07/16/18 11/21/18 Rx omeprazole 20 mg capsule,delayed 20 mg PO BID #180 cap 11/03/18 11/21/18 Rx release tizanidine 2 mg capsule 2 mg PO Q8H PRN #30 cap 11/10/18 11/21/18 Rx warfarin [Coumadin] 10 mg PO 3XWK 11/21/18 11/21/18 History Past Med/Surg History Medical History Anemia CHRONIC; BASELINE HGB 10-11 RANGE PER CHART REVIEW Anxiety Asthma STABLE Atrial fibrillation PAROXYSMAL; ON WARFARIN Chronic obstructive pulmonary disease STABLE Congestive heart failure DIASTOLIC; LAST EXACERBATION "FEW YEARS AGO" Deep vein thrombosis ~5 YEARS AGO; HAS IVC FILTER Depression Diabetes mellitus, type 2 IDDM GERD (gastroesophageal reflux disease) CONTROLLED Gout Hearing deficit NO HEARING AIDES Hiatal hernia History of cor pulmonale PER CARDIO RECORDS Hyperlipidemia Hypertension Hypothyroidism Morbid obesity Osteoarthritis Peptic ulcer disease H/O GASTRIC BLEED 2/2 PUD (8+ YEARS AGO) Pulmonary embolism ~5 YEARS AGO; HAS IVC FILTER Sleep apnea BIPAP Surgical History History of [place] fundoplication History of adenoidectomy History of appendectomy History of bowel resection 2/2 ANAL FISSURE COMPLICATIONS History of bronchoscopy History of cardiac cath 2015 History of carpal tunnel surgery of right wrist History of cholecystectomy History of colonoscopy History of cystoscopy History of dilatation and curettage History of herniorrhaphy UMBILICAL History of hysterectomy MATTHEW & BSO History of repair of rotator cuff Left shoulder arthroscopic subacromial decompression= 09/24/14= Grade view 1, MAC#3, ETT 7.5 at [facility] History of tonsillectomy History of total knee replacement B/L; Right TKA= 06/04/17= SAB + PNB at [facility] Port-A-Cath in place RIGHT CHEST WALL FOR BLOOD DRAWS (2/2 POOR VENOUS ACCESS) Family History Other No pertinent family history Social History Preferred Language: [place] Citizen Communication Ability: Effective E Commerce Developer Required: No Beliefs That Will Affect Care: None Current Living Situation: Spouse Other Information That Helps Us Care for You: No Feels Safe at Home: Yes Smoking Status: Never smoker Do You Dip or Chew Tobacco: No ; Second Hand Exposure: No ; Tobacco Cessation Education Requested by Patient: No Hx Alcohol Use: No Hx Substance Use: No Review of Systems Review of Systems: The patient denies chest pain, palpitations, shortness of breath, dyspnea on exertion, cough, lower extremity swelling, sore throat, fevers, chills, sweats, nausea, vomiting, diarrhea , constipation, abdominal pain, pelvic pain, blood in urine or stool, dysuria, urinary frequency or urgency, lightheadedness, dizziness, memory loss, loss of consciousness, imbalance, focal or generalized weakness, numbness or tingling in arms or legs, or night sweats. The review of systems is otherwise negative other than for that already noted above, and at least 10 systems have been reviewed. Physical Exam Physical Exam: The patient is awake, alert and oriented 3, normocephalic and atraumatic, lying in bed and in no acute distress. HEENT--PERRL, EOMI, mucous membranes and oropharynx normal. Neck--supple. No JVD. No bruits. Thyroid normal, trachea midline, no adenopathy. Heart--normal S1 and S2. No murmurs, rubs or gallops. Lungs--clear bilaterally, no respiratory distress, no accessory muscle use. Abdomen--normal bowel sounds and soft. Nontender. Nondistended. Morbidly obese. Extremities--no cyanosis or clubbing. No edema. There are good distal pulses b/l. Dermatologic--scattered ecchymoses, primarily on arms and legs, but she reports is tender. Neurologic--cranial nerves II through XII grossly intact. Rheumatologic--normal range of motion. Psychiatric--normal affect. Results & Data Vital Signs (Past 12 Hours) Vital Signs Temp Pulse Pulse Resp BP BP BP 11/22/18 04:13 97.7 F 70 20 124/82 11/22/18 02:52 71 163/82 H 11/22/18 02:47 72 11/22/18 01:45 97.5 F L 71 14 199/92 H 11/22/18 01:42 69 18 123/71 11/21/18 22:14 71 20 161/93 H 11/21/18 19:55 97.7 F 72 20 199/82 H Pulse Ox 11/22/18 04:13 11/22/18 02:52 11/22/18 02:47 11/22/18 01:45 95 11/22/18 01:42 97 11/21/18 22:14 98 11/21/18 19:55 96 Laboratory Results Laboratory Results WBC 14.01 K/uL (4.8-10.8) H 11/21/18 20:42 RBC 3.71 M/uL (4.2-5.4) L 11/21/18 20:42 Hgb 11.2 g/dL (12.0-16.0) L 11/21/18 20:42 Hct 33.5 % (37-47) L 11/21/18 20:42 MCV 90.3 fL (80-100) 11/21/18 20:42 MCH 30.2 pg (25-34) 11/21/18 20:42 MCHC 33.4 g/dL (32-36) 11/21/18 20:42 RDW Std Deviation 52.5 fL (36.4-46.3) H 11/21/18 20:42 RDW Coeff of Sil 16.0 % (11.5-14.5) H 11/21/18 20:42 Plt Count 284 K/uL (130-400) 11/21/18 20:42 MPV 9.9 fL (7.4-10.4) 11/21/18 20:42 Immature Gran % (Auto) 0.2 % 11/21/18 20:42 Neut % (Auto) 60.8 % 11/21/18 20:42 Lymph % (Auto) 28.6 % 11/21/18 20:42 Gonzales % (Auto) 8.1 % 11/21/18 20:42 Eos % (Auto) 1.9 % 11/21/18 20:42 Baso % (Auto) 0.4 % 11/21/18 20:42 Immature Gran # (Auto) 0.03 K/uL (0.00-0.02) H 11/21/18 20:42 Neut # (Auto) 8.53 K/uL (1.4-6.5) H 11/21/18 20:42 Lymph # (Auto) 4.01 K/uL (1.2-3.4) H 11/21/18 20:42 Gonzales # (Auto) 1.13 K/uL (0.11-0.59) H 11/21/18 20:42 Eos # (Auto) 0.26 K/uL (0-0.5) 11/21/18 20:42 Baso # (Auto) 0.05 K/uL (0-0.2) 11/21/18 20:42 PT 71.3 Seconds (9.0-12.0) H 11/21/18 20:42 INR 8.1 (0.9-1.1) H* 11/21/18 20:42 APTT 77.8 Seconds (21.0-31.0) H* 11/21/18 20:42 PTT Ratio 2.9 11/21/18 20:42 Sodium 138 mmol/L (136-145) 11/21/18 20:42 Potassium 4.2 mmol/L (3.5-5.1) 11/21/18 20:42 Chloride 101 mmol/L (98-107) 11/21/18 20:42 Carbon Dioxide 29 mmol/L (21-32) 11/21/18 20:42 Anion Gap 8.0 (3-11) 11/21/18 20:42 BUN 41 mg/dl (7-18) H 11/21/18 20:42 Creatinine 1.56 mg/dl (0.6-1.2) H 11/21/18 20:42 Est Cr Clr Drug Dosing 46.4 ml/min 11/21/18 20:42 Est GFR ( Amer) 40.3 11/21/18 20:42 Est GFR (Non-Af Amer) 34.8 11/21/18 20:42 BUN/Creatinine Ratio 26.5 (10-20) H 11/21/18 20:42 Glucose 76 mg/dl (70-99) 11/21/18 20:42 Calcium 9.6 mg/dl (8.5-10.1) 11/21/18 20:42 Total Bilirubin 0.3 mg/dl (0.2-1) 11/21/18 20:42 AST 18 U/L (15-37) 11/21/18 20:42 ALT 30 U/L (12-78) 11/21/18 20:42 Alkaline Phosphatase 128 U/L (45-117) H 11/21/18 20:42 Troponin I < 0.015 ng/ml (0-0.045) 11/21/18 20:42 Total Protein 7.9 gm/dl (6.4-8.2) 11/21/18 20:42 Albumin 4.1 gm/dl (3.4-5.0) 11/21/18 20:42 Globulin 3.8 gm/dl (2.5-4.0) 11/21/18 20:42 Albumin/Globulin Ratio 1.1 (0.9-2) 11/21/18 20:42 Lipase 128 U/L (73-393) 11/21/18 20:42 Diagnostic Findings [facility], [place] [phone] CT Scan Report Patient: MARGARET WONG Date: 11/21/18 MR#: [id number]: [address] Acct ID:[id number]: [address] Date: [address] [place] [address] Zip: [place] [address] Age: 63Location: ED Sex: F Room/Bed: Att Phy: Diagnosis: Referred by Doctor Maria Del Rosario Phy: Jose Roberto Tyler Date: 11/21/18 Fam Phy: Interpreting Phy: Jani Gomez MD Admit Phy: Ordering Phy: Rigo Morales M.D. cc: ~ CT head/brain wo con CLINICAL HISTORY: 63 years-old Female presenting with headache on coumadin. TECHNIQUE: Multidetector CT imaging of the head was performed without the use of intravenous contrast. IV contrast: None. One or more dose lowering techniques were used consistent with the principles of ALARA (as low as reasonably achievable), including automatic exposure control, mA or kV adjustment to individual patient size, and/or use of iterative reconstruction. COMPARISON: 11/09/2016. CT DOSE (mGy.cm): The estimated cumulative dose is 773.57 mGy.cm. FINDINGS: Butter Printer topogram: Unremarkable. Ventricles and sulci normal in size. No hemorrhage. Brain parenchyma normal in appearance with preserved brand-white differentiation. No acute territorial infarct. No mass effect or midline shift. No extra-axial fluid collection. Paranasal sinuses and mastoid air cells clear. Calvarium intact. IMPRESSION: 1. No acute intracranial abnormality. Electronically signed by: Jani Gomez M.D. 11/21/2018 9:30 PM Dictated: 11/21/182127 Transcribed: 11/21/182127 [facility], [place] [phone] Magnetic Resonance Report Patient: MARGARET WONG Date: 11/21/18 MR#: [id number]: [address] Acct ID:[id number] [address] Date: [address] [place] [address] [facility]: [facility] [address] Age: 63Location: MRI Sex: F Room/Bed: Att Phy: Jose Roberto Tyler MDDiagnosis: NECK PAIN Maria Del Rosario Phy: Jose Roberto Tyler MDService Date: 11/21/18 [facility] Phy: Interpreting Phy: Jani Gomez MD Admit Phy: Ordering Phy: Jose Roberto Tyler MD cc: ~ MR cervical spine wo con CLINICAL HISTORY: 63 years-old Female presenting with extreme pain at the back of the head in radiating down the neck, pain for 6 weeks. TECHNIQUE: Multisequence, multiplanar MR imaging of the cervical spine was performed without the use of intravenous contrast. IV contrast: None. COMPARISON: None. FINDINGS: Localizer images: Unremarkable. Slight reversal of normal cervical lordosis likely due to multilevel degenerative changes. Vertebral bodies maintain normal height and bone marrow signal intensity. Trace anterolisthesis of C3 on C4 and C4 on C5. Diffuse intervertebral disc desiccation with mild height loss at C4-5 through C6-7. Additional multilevel degenerative changes further detail below: C2-3: Uncovertebral hypertrophy on the right results in mild right neural foraminal narrowing. No significant spinal canal narrowing. C3-4: Uncovertebral hypertrophy on the left results in mild left neural foraminal narrowing. No significant spinal canal narrowing. C4-5: Small disc osteophyte complex results in mild to moderate effacement of the ventral thecal sac. Uncovertebral hypertrophy results in mild right neural foraminal narrowing. C5-6: Disc osteophyte complex mildly effaces the ventral thecal sac. No significant neural foraminal narrowing. C6-7: Trace disc osteophyte complex with minimal effacement of the ventral thecal sac. No significant neural foraminal narrowing. C7-T1: No significant spinal canal or neural foraminal narrowing. Cervical spinal cord maintains normal morphology and signal intensity throughout. Craniocervical junction normal. No epidural collection no paraspinal muscle edema. Possible wall thickening of the upper esophagus at the level of C7-T1. IMPRESSION: 1. Possible wall thickening of the cervical esophagus at the level of C7-T1. Correlate for symptomatology. 2. Multilevel degenerative changes with mild to moderate spinal canal stenosis. No convincing evidence of spinal cord impingement. Mild multilevel neural foraminal narrowing. Electronically signed by: Jani Gomez M.D. 11/21/2018 7:58 PM Dictated: 08/09/19 1954 Transcribed: 11/21/181953 Code Status & VTE Plan Code Status Full code VTE Prophylaxis Plan VTE Prophylaxis will be ordered: Yes PG Care Time/CCT Total # of Minutes Spent Total Time Spent with Patient: Total time spent is greater than 50% in coordination of care (as documented) at patient's floor/unit and/or counseling patient:
[2018-11-22 04:58] LABS: Basophils # (auto) 0.02 K/uL (0-0.2); Basophils % (auto) 0.2 %; Eosinophils % (auto) 0.9 %; Hematocrit (blood only) 30.3 % (37-47); Hemoglobin 9.7 g/dL (12.0-16.0); Immature Granulocytes # (auto) 0.03 K/uL (0.00-0.02); Immature Granulocytes % (auto) 0.3 %; Lymphocytes # (auto) 2.16 K/uL (1.2-3.4); Lymphocytes % (auto) 19.5 %; Mean Corpuscular Volume 90.2 fL (80-100); Mean Platelet Volume 10.1 fL (7.4-10.4); Monocytes # (auto) 0.92 K/uL (0.11-0.59); Monocytes % (auto) 8.3 %; Neutrophils # (auto) 7.84 K/uL (1.4-6.5); Neutrophils % (auto) 70.8 %; Platelet Count 234 K/uL (130-400); RDW Coefficient of Variation 16.1 % (11.5-14.5); RDW Standard Deviation 53.6 fL (36.4-46.3); Red Blood Count 3.36 M/uL (4.2-5.4); White Blood Count 11.07 K/uL (4.8-10.8)
[2018-11-22 05:01] LABS: Appearance Urine Clear (Clear); Bacteria Urine Automated Negative (Negative); Bilirubin Urine Negative (Negative); Blood Urine Negative (Negative); Color Urine Yellow; Epithelial Cell Urine Auto >30 /lpf (0-5); Glucose Urine UA Negative (Negative); Ketones Urine Negative (Negative); Leukocyte Esterase Urine 3+ (Negative); Nitrite Urine Negative (Negative); Protein Urine Negative (Negative); RBC Urine Automated 0-4 /hpf (0-4); Specific Gravity Urine 1.014 (1.000-1.030); Urobilinogen Urine Negative (Negative); WBC Urine Automated >30 /hpf (0-5)
[2018-11-22 05:15] LABS: Albumin Level 3.6 gm/dl (3.4-5.0); BUN Creatinine Ratio 29.5 (10-20); Calcium 8.9 mg/dl (8.5-10.1); Creatinine Clr Calc Pharmacy 51.3 ml/min; Est GFR (African American) 45.1; Est GFR (Non-African American) 38.9; Potassium 4.4 mmol/L (3.5-5.1)
[2018-11-22 05:19] LABS: Partial Thromboplastin Ratio 2.5; Prothrombin Time 63.9 Seconds (9.0-12.0)
[2018-11-22] MEDS ORDERED: PHARMACY GLYCEMIC MGMT CONSULT PRN (05:20)
[2018-11-22 05:23] LABS: Albumin Globulin Ratio 1.1 (0.9-2); Bilirubin,Total 0.4 mg/dl (0.2-1); Globulin 3.4 gm/dl (2.5-4.0)
--- NOTE | 2018-11-22 05:37 | Pharmacy Report ---
PHA: Glycemic Control AP - Date of Service November 22, 2018 - Assessment & Plan Laboratory Tests 11/21/18 11/22/18 11/22/18 20:42 04:30 04:44 Glucose 76 153 H POC Glucose 163 H HbA1c from 09/05/18 = 6.6% HbA1c from 11/22/18: pending Home Diabetes Regimen: * metformin 1g po BID (on hold during this ADM) * Novolog medtronic insulin pump (on hold during this ADM per patient--no one able to bring her insulin pump supplies to refill her pump) * Goal BSG 100-150mg/dL * CF: 35mg/dL/unit * CR: 11 * Basal settings: 4213-1078 1.1 units/hr, 2684-3166 2 units/hr = TOTAL 37.2 basal units per day. In-patient regimen: * Basal insulin: Will give Lantus 20 units sq this am, pharmacy glucemic service to provide additional f/u later today * Correctional Insulin: Novolog Correction per scale ACHS Goal Range: Low 100 mg/dL - High 150 mg/dL Correction Factor: 25 mg/dL/unit * Prandial insulin: Per carb ratio of 1 unit per 10 grams CHO consumed Pharmacy will continue to monitor patient daily and write [facility] Thanks. * Please note that the plan above was derived based on current level of insulin resistance and hospital stress. These recommendations are appropriate for inpatient admission only. Plan of care upon discharge will need to be reassessed to avoid potential outpatient hypo/hyperglycemia.
[2018-11-22 06:20] LABS: INR 7.2 (0.9-1.1)
[2018-11-22 06:21] LABS: Partial Thromboplastin Time 68.5 Seconds (21.0-31.0)
[2018-11-22] MEDS: LEVOTHYROXINE SODIUM 50 MCG TABLET PO SCH (06:34)
[2018-11-22] MEDS ORDERED: INSULIN GLARGINE SOLOSTAR 100 UNITS/ML 3 ML PEN SC ONE ×2 (07:00→08:00)
[2018-11-22 07:32] LABS: Estimated Average Glucose 143 mg/dl; Hemoglobin A1C 6.6 % (4.5-5.6)
[2018-11-22] MEDS ORDERED: METFORMIN HCL 500 MG TAB PO SCH (08:00)
[2018-11-22] MEDS: PANTOprazole 40 MG TAB PO SCH ×2 (08:17→20:53)
[2018-11-22] MEDS: SPIRONOLACTONE 25 MG TAB PO SCH (08:17)
[2018-11-22] MEDS: GABAPENTIN 400 MG CAP PO SCH ×2 (08:17→18:14)
[2018-11-22] MEDS: PARoxetine HCl 20 MG TAB PO SCH (08:17)
[2018-11-22] MEDS: FERROUS SULFATE 325 MG TAB PO SCH (08:19)
[2018-11-22] MEDS: CALCIUM 600MG + VIT D 400 IU TAB PO SCH ×2 (08:19→20:49)
[2018-11-22] MEDS: ASPIRIN 81 MG ECTAB PO SCH ×2 (08:19→08:36)
[2018-11-22] MEDS: CHOLECALCIFEROL 1,000 UNITS TAB PO SCH (08:19)
[2018-11-22] MEDS: INSULIN ASPART 100 UNITS/ML 3 ML PEN SC SCH ×4 (08:21→20:53)
[2018-11-22] MEDS: IPRATROPIUM BROMIDE/ALBUTEROL respimat INH INH SCH ×4 (08:28→20:49)
[2018-11-22] MEDS: FUROSEMIDE 40 MG TAB PO SCH (08:29)
[2018-11-22] MEDS: ALLOPURINOL 300 MG TAB PO SCH (08:30)
[2018-11-22] MEDS: LOSARTAN POTASSIUM 50 MG TAB PO SCH (08:30)
[2018-11-22] MEDS: POTASSIUM CHLORIDE 20 MEQ TABCR PO SCH (08:30)
[2018-11-22] MEDS: POLYETHYLENE (MIRALAX) 17 GM PACK PO SCH (08:31)
[2018-11-22] MEDS ORDERED: PHYTONADIONE 5 MG TAB PO ONE (09:45)
--- NOTE | 2018-11-22 15:12 | Pharmacy Report ---
Glycemic Control Progress Note - Date of Service November 22, 2018 - Scope Glycemic Pharmacist consulted for glycemic control to write orders per [facility] inpatient glycemic control protocol. - Objective Accuchecks BSG(last 24 hours):: 11/21/18 11/22/18 11/22/18 20:42 04:30 04:44 Glucose 76 153 H POC Glucose 163 H 11/22/18 11/22/18 11/22/18 06:44 07:53 11:03 Glucose POC Glucose 151 H 153 H 159 H HbA1c:: Hemoglobin A1c 6.6 % (4.5-5.6) H 11/22/18 04:45 - Recent Pertinent Medications The patient is currently receiving: * Basal insulin: Lantus 20 units SQ x 1 * Correctional Insulin: Novolog Correction per scale ACHS Goal Range: Low 100 mg/dL - High 150 mg/dL Correction Factor: 25 mg/dL/unit * Prandial insulin: Per carb ratio of 1 unit per 10 grams CHO consumed - Outpatient Anti-Diabetic Meds Novolog pump basal rate of 37.2 units/day CF 35 CR 11 - Assessment & Plan ASSESSMENT: * See progress note from 11/22/18 for more background info, in short: * Pt receiving SQ basal bolus insulin regimen for hyperglycemia secondary to baseline DM (outpatient regimen on hold), * Patient is currently receiving an average of ? units of insulin per day * 30 units of basal insulin * 0 units of prandial/correctional insulin * BSGs ranging 159-163 mg/dl over the past 24hrs * Changes needed to insulin regimen: * AM Fasting BSG = 153 mg/dl. This is slightly above goal range for patient based on inpatient targets and co-morbidities. Provided additional 10 units of Lantus this morning to more closely match the patient's outpatient basal rate. Will schedule a scale for tomorrow morning as uncertain how patient will react. * Post-prandial BSGs are in range therefore no changes needed to CF/CR. * Total daily dose = ~60 units. PLAN FOR INPATIENT GLYCEMIC CONTROL: * Starting Lantus 20-30 units SQ qAM * 20 units if blood sugar less than 100 mg/dl * 25 units if blood sugar 100-140 mg/dL * 30 units if blood sugar over 140 mg/dL * Continuing correction factor of 25 mg/dl/unit * Continuing carb ratio of 1 unit per 10 grams CHO consumed * Continuing goal range of Low 100 mg/dL - High 150 mg/dL RECOMMENDATIONS FOR DISCHARGE: * Patient's HbA1C indicates excellent control. Continue. * Please note that the plan above was derived based on current level of insulin resistance and hospital stress. These recommendations are appropriate for inpatient admission only. Plan of care upon discharge will need to be reassessed to avoid potential outpatient hypo/hyperglycemia. Thank you.
--- NOTE | 2018-11-22 15:29 | Hospitalist Progress Note ---
Date of Service November 22, 2018 Assessment & Plan (1) Supratherapeutic INR: INR as outpatient was 8.5. Confirmed INR in ED was 8.1. Patient was given vitamin K 5 mg p.o. by the ED, will give another 5 mg po as patient is having pain and petechiae in lower extremities and repeat INR is 7.2. Hgb is stable (2) Transaminitis: AST, ALT - 253, 168 on 11/22, normal on admission, bili wnl Abd ltd US repeat LFTs am (3) Neck pain on right side: Patient's main complaint is that of neck stiffness on the right side and decreased ability to turn the head to the right. MRI of the neck shows altered level mild to moderate cervical degenerative disc disease. May possibly benefit from PT and/or pain management consult. This appears to be more of a chronic issue Kpad (4) Anticoagulant long-term use: Hold warfarin due to supratherapeutic INR level. (5) Chronic diastolic heart failure: Continue usual dosing of Lasix, spironolactone as noted. (6) Diabetes mellitus: Hold metformin until creatinine is less than 1.3. Placed on Accu-Cheks before meals and at bedtime with NovoLog coverage for scale (7) Diabetic peripheral neuropathy associated with type 2 diabetes mellitus: Continue gabapentin as outpatient (8) Dyslipidemia: Continue atorvastatin 20 mg at bedtime. (9) AF (paroxysmal atrial fibrillation): Paroxysmal atrial fibrillation/hypertension- Hold aspirin 81 mg daily, continue diltiazem 180 mg p.o. every 12 hours, losartan 100 mg p.o. every morning, spironolactone 25 mg p.o. every morning and furosemide 20 mg p.o. every morning. Holding warfarin as noted above. (10) Pulmonary emphysema: Continue inhalers and nebulizers as needed. (11) Obstructive sleep apnea: Wears CPAP in the outpatient setting, will prescribe inpatient as needed. (12) Restless legs syndrome: Supervising Physician Co-Signing Physician Notes I supervised Karla Saab NP on this patient's care. I examined the patient today independently of her. I discussed the plan of care with her with the plan being as written in her note except for any following changes/exceptions: None. 63-year-old lady with a history of DVT on anticoagulation with warfarin who presents with a supratherapeutic INR. Patient was given 1 round of IV vitamin K in the emergency department and another today. Most recent INR remains elevated at 7.2. She has no stigmata of bleeding apart from petechiae on the lower extremities. Her main complaint is her right sided neck pain which has been worsening over the course of the last 3 to 4 weeks. X-rays and MRI are both negative for acute disease. The patient's LFTs have elevated in the 12 hours that she has been here without clear cause. We have a right upper quadrant ultrasound pending and will trend her LFTs. Subjective Ms. Torres reports right sided neck pain and stiffness that has been ongoing for some weeks. No radiculopathy. She has tenderness in her lower extremities. Review of Systems Review of Systems: All systems reviewed & are unremarkable except as noted in HPI & below Physical Exam Physical Exam: General: no distress Eyes: normal inspection, PERLL Respiratory: chest non tender, clear to auscultation, normal breath sounds, no respiratory distress, no accessory muscle use Cardiac: regular rate and rhythm, no rub or gallop, no murmur, no edema, no jvd GI/: active bowel sounds, no abd pain or tenderness, soft, non distended Extremities: normal range of motion, normal strength, very tender right posterior neck to palpation Neuro/Psych:drowsy and oriented x 3, normal mood and affect Skin: normal color, dry, lower extremity petechiae bilaterally Results & Data Vital Signs (Past 12 Hours) Vital Signs Temp Pulse Pulse Resp BP Pulse Ox 11/22/18 14:45 36.5 C 62 18 148/84 H 97 11/22/18 11:56 36.7 C 71 20 134/77 96 11/22/18 07:26 36.8 C 73 18 137/79 92 11/22/18 07:18 76 11/22/18 04:13 36.5 C 70 20 124/82 PG Care Time/CCT Total # of Minutes Spent Total Time Spent with Patient: Total time spent is greater than 50% in coordination of care (as documented) at patient's floor/unit and/or counseling patient:
[2018-11-22] MEDS ORDERED: Nursing to Pharmacy Communication ONE (16:46)
--- NOTE | 2018-11-22 18:02 | Ultrasound Report ---
ULTRASOUND RIGHT UPPER QUADRANT ABDOMEN CLINICAL HISTORY: Elevated hepatic transaminases. COMPARISON STUDY: Abdominal CT dated 07/21/2012. TECHNIQUE: Real-time, grayscale, and color flow sonography of the right upper quadrant of the abdomen was performed. Images are reviewed in the transverse and longitudinal planes. FINDINGS: Liver: The liver is mildly enlarged measuring over 19 cm in length. Hepatic echotexture is slightly h eterogeneous. There is minimal central intrahepatic biliary ductal dilatation. The main portal vein i s patent. Gallbladder: The gallbladder is surgically absent. The common bile duct measures up to 0.7 cm in diam eter. Pancreas: Visualized portions of the pancreatic head are normal in appearance. The majority of the pa ncreas was not well visualized. Right kidney: Survey images of the right kidney demonstrate normal size and echotexture. There is no hydronephrosis. Ascites: Survey imaging of all 4 quadrants of the abdomen was performed. No intraperitoneal fluid was identified. IMPRESSION: 1. The liver is mildly enlarged and slightly heterogeneous in echotexture. 2. Status post cholecystectomy. 3. There is no sonographic evidence of intraperitoneal free fluid as clinically queried. Electronically signed by: Jono Sorto M.D. 11/22/2018 6:01 PM
[2018-11-22] MEDS: DICLOFENAC SOD 1% GEL 100 GM TUBE EXT SCH ×2 (19:23→20:54)
[2018-11-22] MEDS ORDERED: ATORVASTATIN 20 MG TAB PO SCH (21:00)
[2018-11-22] MEDS ORDERED: INSULIN GLARGINE SOLOSTAR 100 UNITS/ML 3 ML PEN SC SCH (21:00)
[2018-11-22] MEDS ORDERED: GABAPENTIN 400 MG CAP PO SCH (21:00)
[2018-11-23] MEDS ORDERED: COUGH DROP (SUGAR FREE) LOZ 24 LOZ/1 BOX BUCCAL ONE (01:51)
[2018-11-23] MEDS: LEVOTHYROXINE SODIUM 50 MCG TABLET PO SCH (05:24)
[2018-11-23] MEDS: ACETAMINOPHEN 325 MG TAB PO PRN ×2 (05:30→15:48)
[2018-11-23 07:05] LABS: Hemoglobin 9.5 g/dL (12.0-16.0); Mean Corpuscular Hgb Conc 32.8 g/dL (32-36); Mean Corpuscular Volume 90.3 fL (80-100); Mean Platelet Volume 9.2 fL (7.4-10.4); Platelet Count 239 K/uL (130-400); RDW Coefficient of Variation 15.9 % (11.5-14.5); RDW Standard Deviation 52.8 fL (36.4-46.3); Red Blood Count 3.21 M/uL (4.2-5.4); White Blood Count 10.85 K/uL (4.8-10.8)
[2018-11-23 07:39] LABS: Albumin Level 3.4 gm/dl (3.4-5.0); BUN Creatinine Ratio 34.2 (10-20); Creatinine Clr Calc Pharmacy 64.6 ml/min; Est GFR (African American) 60.8; Est GFR (Non-African American) 52.4; Potassium 4.3 mmol/L (3.5-5.1)
[2018-11-23 07:41] LABS: Bilirubin,Total 0.8 mg/dl (0.2-1); Globulin 3.4 gm/dl (2.5-4.0); Total Protein 6.8 gm/dl (6.4-8.2)
[2018-11-23] MEDS: PARoxetine HCl 20 MG TAB PO SCH (08:11)
[2018-11-23] MEDS: PANTOprazole 40 MG TAB PO SCH (08:11)
[2018-11-23] MEDS: POTASSIUM CHLORIDE 20 MEQ TABCR PO SCH (08:12)
[2018-11-23] MEDS: FUROSEMIDE 40 MG TAB PO SCH (08:12)
[2018-11-23] MEDS: SPIRONOLACTONE 25 MG TAB PO SCH (08:12)
[2018-11-23] MEDS: GABAPENTIN 400 MG CAP PO SCH ×2 (08:12→14:46)
[2018-11-23] MEDS: FERROUS SULFATE 325 MG TAB PO SCH (08:13)
[2018-11-23] MEDS: LOSARTAN POTASSIUM 50 MG TAB PO SCH (08:13)
[2018-11-23] MEDS: CHOLECALCIFEROL 1,000 UNITS TAB PO SCH (08:13)
[2018-11-23] MEDS: ALLOPURINOL 300 MG TAB PO SCH (08:13)
[2018-11-23] MEDS: dilTIAZem ER 180 MG CAPCR PO SCH (08:13)
[2018-11-23] MEDS: BECLOMETHASONE DIP HFA 80 MCG 8.7G INH INH SCH (08:14)
[2018-11-23] MEDS: IPRATROPIUM BROMIDE/ALBUTEROL respimat INH INH SCH ×2 (08:14→14:30)
[2018-11-23] MEDS: POLYETHYLENE (MIRALAX) 17 GM PACK PO SCH (08:14)
[2018-11-23] MEDS: CALCIUM 600MG + VIT D 400 IU TAB PO SCH (08:15)
[2018-11-23] MEDS: INSULIN ASPART 100 UNITS/ML 3 ML PEN SC SCH ×2 (08:15→12:13)
[2018-11-23] MEDS: DICLOFENAC SOD 1% GEL 100 GM TUBE EXT SCH ×2 (08:18→14:31)
[2018-11-23 08:58] LABS: INR 1.4 (0.9-1.1); Prothrombin Time 13.9 Seconds (9.0-12.0)
[2018-11-23 09:57] LABS: INR 1.3 (0.9-1.1); Prothrombin Time 13.5 Seconds (9.0-12.0)
--- NOTE | 2018-11-23 10:44 | Pharmacy Report ---
Pharmacy Glycemic Short Note 2 - Date of Service November 23, 2018 - Glycemic Short BSG Results (Last 24 hours): 11/22/18 11/22/18 11/22/18 11:03 16:29 20:40 Glucose POC Glucose 159 H 132 H 159 H 11/23/18 11/23/18 06:54 07:48 Glucose 127 H POC Glucose 145 H OUTPATIENT ANTIDIABETIC REGIMEN: * metformin 1g po BID (on hold during this ADM) * Novolog medtronic insulin pump (on hold during this ADM per patient--no one able to bring her insulin pump supplies to refill her pump) * Goal BSG 100-150mg/dL * CF: 35mg/dL/unit * CR: 11 * Basal settings: 0544-4735 1.1 units/hr, 4236-9538 2 units/hr = TOTAL 37.2 basal units per day. ASSESSMENT: * Blood sugars at goal, patient had 60 units of basal insulin yesterday (30 AM and PM). Will continue just at HS at this time, as home basal dose = 37.2 unist/day with slight increase in dose. PLAN FOR INPATIENT GLYCEMIC CONTROL: * Hold outpatient oral diabetes medications * Lantus 20-30 units SQ qAM * 20 units if blood sugar less than 100 mg/dl * 30 units if blood sugar 100-140 mg/dL * 35 units if blood sugar over 140 mg/dL * Bolus insulin * NovoLog per scale ACHS or Q6hrs while NPO * Goal Range: Low 100 mg/dL - High 150 mg/dL * Correction Factor: 25 mg/dL/unit * Nutritional / Prandial insulin per carb ratio of 1 unit per 10 grams CHO consumed PLAN FOR DISCHARGE: * continue insulin pump with outpatient follow-up, A1c 6.6%
[2018-11-23] MEDS ORDERED: ENOXAPARIN 1 MG/KG SQ SCH (13:00)
[2018-11-23] MEDS ORDERED: ENOXAPARIN INJ 120 MG/0.8 ML SYR SQ SCH (14:30)
--- NOTE | 2018-11-23 15:39 | Hospitalist Progress Note ---
Date of Service November 23, 2018 Assessment & Plan (1) Supratherapeutic INR: INR as outpatient was 8.5. Confirmed INR in ED was 8.1. Head CT on admission was normal. Patient was given a total of 10 mg po vitamin K which surprisingly reversed her INR completely which points to a more nutritional source of her INR increase as she was perfectly capable of synthesizing clotting factors with a moderate amount of vitamin K. I did ask her about her diet but she reports she never eats green vegetables so as far as that goes there has been no change. We discussed starting a NOAC instead but unfortunately she is just over the recommended weight - if she drops below 120 kgs could consider starting. INR is 1.3 today. Will start enoxaparin and warfarin 7.5 mg (home dose went between 7.5 mg and 10 mg during the week). Her pcp manages her INR. Hgb is stable (2) Transaminitis: AST, ALT - 253, 168 on 11/22, normal on admission, bili wnl, ALT continues to rise today to 199 today. Unclear etiology, viral infection? Patient also presented with leukocytosis which is resolving. Abd ltd US did not show any acute changes: The liver is mildly enlarged and slightly heterogeneous in echotexture. repeat LFTs am (3) Neck pain on right side: Patient's main complaint is that of neck stiffness on the right side and decreased ability to turn the head to the right. MRI of the neck shows altered level mild to moderate cervical degenerative disc disease. May possibly benefit from PT and/or pain management consult. This appears to be more of a chronic issue Kpad, voltaren gel providing some relief (4) Anticoagulant long-term use: as abpve (5) Chronic diastolic heart failure: Continue usual dosing of Lasix, spironolactone as noted. (6) Diabetes mellitus: Hold metformin while inpatient Placed on Accu-Cheks before meals and at bedtime with NovoLog coverage for scale (7) Diabetic peripheral neuropathy associated with type 2 diabetes mellitus: Continue gabapentin as outpatient (8) Dyslipidemia: Continue atorvastatin 20 mg at bedtime. (9) AF (paroxysmal atrial fibrillation): Paroxysmal atrial fibrillation/hypertension- Resume aspirin 81 mg daily, continue diltiazem 180 mg p.o. every 12 hours, losartan 100 mg p.o. every morning, spironolactone 25 mg p.o. every morning and furosemide 20 mg p.o. every morning. Resume warfarin (10) Pulmonary emphysema: Continue inhalers and nebulizers as needed. (11) Obstructive sleep apnea: Wears CPAP in the outpatient setting, will prescribe inpatient as needed. (12) Restless legs syndrome: (13) History of pulmonary embolism: with IVC Will bridge with lovenox which patient has done in the past (14) SPARKLE (acute kidney injury): INR 1.5 on admission, now wnl Subjective Ms. Torres is much improved today. She was awake and up to a chair this morning. She continues to have pain in her neck on the right side. Her daughter was bedside and I did spend time answering her questions. She reports that her mother does have a history of falls. Review of Systems Review of Systems: All systems reviewed & are unremarkable except as noted in HPI & below Physical Exam Physical Exam: General: no distress Eyes: normal inspection, PERLL Respiratory: chest non tender, clear to auscultation, normal breath sounds, no respiratory distress, no accessory muscle use Cardiac: regular rate and rhythm, no rub or gallop, no murmur, no edema, no jvd GI/: active bowel sounds, no abd pain or tenderness, soft, non distended Extremities: normal range of motion, normal strength, non tender Neuro/Psych: alert and oriented x 3, normal mood and affect Skin: normal color, dry Results & Data Vital Signs (Past 12 Hours) Vital Signs Temp Pulse Pulse Resp BP BP Pulse Ox 11/23/18 11:24 36.5 C 60 16 152/67 H 96 11/23/18 07:15 56 L 11/23/18 07:00 36.6 C 65 20 160/78 H 94 11/23/18 05:13 36.7 C 61 16 140/73 95 PG Care Time/CCT Total # of Minutes Spent Total Time Spent with Patient: Total time spent is greater than 50% in c oordination of care (as documented) at patient's floor/unit and/or counseling patient:
[2018-11-23] MEDS ORDERED: WARFARIN SOD 7.5 MG TAB PO SCH (16:00)
--- NOTE | 2018-11-23 16:53 | Discharge Summary ---
Date of Service November 23, 2018 Admission HPI Per Admitting Provider The patient is a 63-year-old female with a past medical history including atrial fibrillation on warfarin, COPD, diastolic CHF, insulin requiring diabetes mellitus, anemia, anxiety with depression, who underwent routine anticoagulation testing at the hospital outpatient lab, was found to have an INR of 8.5, and was called to come into the emergency department for assessment. During her ED assessment, she had complained of chronic right-sided neck and head pain, and underwent a CT scan of the head which was negative. She then began to report other generalized pains, felt there was discomfort over bruising areas, and ultimately was referred for evaluation for admission. Principal Diagnosis Supratherapeutic INR Discharge Exam Constitutional WD/WN, vitals as above Respiratory normal respiratory effort, lungs clear to auscultation Cardiovascular RRR, no murmur, no edema Gastrointestinal (Abdomen) normal bowel sounds, soft, nontender, no hepatosplenomegaly Musculoskeletal no cyanosis or clubbing, extremities motor strength 5/5 Skin no rashes, warm and dry Neurologic moves all extremities and awake Psychiatric A+Ox3, euthymic affect Discharge Data Allergies Allergy/AdvReac Type Severity Reaction Status Date / Time Sulfa (Sulfonamide Allergy Intermediate HIVES, RASH Verified 11/21/18 21:20 Antibiotics) oxybutynin Allergy Mild HIVES Verified 11/21/18 21:20 adhesive Allergy Unknown skin Verified 11/21/18 21:20 irritation Cephalosporins Allergy Unknown CEFOXITIN-HIVES, Verified 11/21/18 21:20 TOLERATED ROCEPHIN 09/11/07 butabarbital AdvReac Unknown Verified 11/21/18 21:20 cefoxitin AdvReac Unknown Verified 11/21/18 21:20 hydrochlorothiazide AdvReac Unknown Verified 11/21/18 21:20 hydromorphone AdvReac Unknown Verified 11/21/18 21:20 tioconazole AdvReac Unknown Verified 11/21/18 21:20 Consultations 11/21/18 23:56 ED Decision to Admit Stat 11/22/18 02:04 Consult Case Management - Discharge Planning Routine Ordered Studies 11/21/18 20:31 CT head/brain wo con Stat 11/22/18 08:13 US abdomen limited Routine Hospital Course (1) Supratherapeutic INR: INR as outpatient was 8.5. Confirmed INR in ED was 8.1. Patient was given a total of 10 mg po vitamin K which surprisingly reversed her INR completely which points to a more nutritional source of her INR increase as she was perfectly capable of synthesizing clotting factors with a moderate amount of vitamin K. I did ask her about her diet but she reports she never eats green vegetables so there has not been a change in vitamin K containing foods. We discussed starting a NOAC instead but unfortunately she is just over the recommended weight - if she drops below 120 kgs could consider starting which we did discuss and she is interested in weight loss generally. INR is 1.3 today. Will start enoxaparin and warfarin 7.5 mg (home dose went between 7.5 mg and 10 mg during the week). Her pcp manages her INR. Hgb is stable (2) Transaminitis: AST, ALT - 253, 168 on 11/22, normal on admission, bili wnl, ALT continues to rise today to 199 today. No right upper quadrant pain or otherwise any symptoms. Unclear etiology, viral infection? Patient also presented with leukocytosis which is resolving. Abd ltd US did not show any acute changes: The liver is mildly enlarged and slightly heterogeneous in echotexture. repeat LFTs on Saturday outpatient (3) Neck pain on right side: Patient's main complaint is that of neck stiffness on the right side and decreased ability to turn the head to the right. No radiculopathy. Skin is acutely sensitive and right neck is tender. MRI performed outpatient on same day of admission of the neck shows altered level mild to moderate cervical degenerative disc disease. - Multilevel degenerative changes with mild to moderate spinal canal stenosis. No convincing evidence of spinal cord impingement. Mild multilevel neural foraminal narrowing. Will order PT/OT for discharge This appears to be more of a chronic issue Kpad, voltaren gel providing some relief (4) Anticoagulant long-term use: as above (5) SPARKLE (acute kidney injury): INR 1.5 on admission, now wnl Will have repeat kidney function labs on Saturday - may need to reevaluate losartan/diuretic regimen at that time given her history of creatinine eleva tions. May also need to reevaluate appropriateness of metformin if her kidney function is chronically decreased with the use of necessary diuretics. (6) Chronic diastolic heart failure: Continue usual dosing of Lasix, spironolactone as noted. (7) Diabetes mellitus: Hold metformin while inpatient - resume for outpatient as creatinine has normalized and CC is above 60 Placed on Accu-Cheks before meals and at bedtime with NovoLog coverage for scale Resume home insulin regimen for discharge (8) Diabetic peripheral neuropathy associated with type 2 diabetes mellitus: Continue gabapentin as outpatient (9) Dyslipidemia: Continue atorvastatin 20 mg at bedtime. (10) AF (paroxysmal atrial fibrillation): Paroxysmal atrial fibrillation/hypertension- Resume aspirin 81 mg daily, continue diltiazem 180 mg p.o. every 12 hours, losartan 100 mg p.o. every morning, spironolactone 25 mg p.o. every morning and furosemide 20 mg p.o. every morning. Resume warfarin (11) Pulmonary emphysema: Continue inhalers and nebulizers as needed. (12) Obstructive sleep apnea: Wears CPAP in the outpatient setting, will prescribe inpatient as needed. (13) Restless legs syndrome: (14) History of pulmonary embolism: with IVC Will bridge with Lovenox which patient has done in the past. RN providing teaching Repeat INR on Saturday outpatient (15) Esophageal thickening: Cervical esophageal thickening seen incidentally on MRI 11/21 Patient has been having swallowing issues and is scheduled for a swallow eval outpatient through her pcp this month. I did discuss the findings with her and that she will need to follow up and possibly obtain an EGD to discover the source of thickening. Dispo: home with outpatient PT/OT. I walked with the patient in the halls and she tolerated well, steady on her feet with her cane. She feels she is at her baseline. Total Time Total Time Spent Total Time Spent (In Minutes): greater than 30 minutes Discharge Plan Discharge Items Patient Disposition: Home - Self-Care Reason For Visit: SUPRATHERAPEUTIC INR,HEADACHE Discharge Diagnosis: Supratherapeutic INR Discharge Goals: Decrease discomfort and Diagnostic testing Activity: Resume your previous activity Non-emergency contact: Primary Care Provider Call non-emergency contact if: you have any medication questions and your symptoms worsen Follow-up/Referrals: Jose Roberto Tyler DO [Primary Care Provider] - Diet: Carb Consistent or DM2 Other Ambulatory Orders: Comprehensive Metabolic Panel (Routine) Timeframe: 20181125 Location: Determined by Patient Ordered By: Karla Saab Prothrombin Time INR (Routine) Timeframe: 20181125 Location: Determined by Patient Ordered By: Karla Solomon Provider Instructions: Please keep your appointment with your primary care provider this week. You should take your next dose of Lovenox at 10:00 -11:00 pm tonight and then you can resume morning dosing between 8 and 9 am tomorrow. Take your evening d ose 12 hours after the morning dose You will need to have your INR and kidney panel drawn on Saturday. Results will go to your primary care provider. Please make sure you get in touch with her concerning further instruction on warfarin. You will be given a script for PT/OT. You can take this to the facility of your choice. Please discuss appropriate follow up for the esophageal thickening seen incidentally on your MRI with your pcp. Prescriptions: New enoxaparin [Lovenox] 120 mg/0.8 mL Syringe 120 mg subcut Q12 Qty: 7 RF: 1 diclofenac sodium [Voltaren] 1 % Gel 1 applic EXT QID Qty: 1 RF: 0 Continued omeprazole 20 mg capsule,delayed release(DR/EC) 20 mg PO BID Qty: 180 RF: 1 tizanidine 2 mg capsule 2 mg PO Q8H PRN (Reason: muscle spasticity) Qty: 30 RF: 0 Botox 100 unit recon soln 100 units intravesical Q3MO PRN (Reason: URINARY INCONTINENCE) Qty: 1 RF: 0 ipratropium-albuterol 0.5 mg-3 mg(2.5 mg base)/3 mL solution for nebulization 3 ml inhalation Q4H PRN (Reason: shortness of breath or wheezing) Qty: 2 RF: 0 metaxalone 400 mg tablet 400 mg PO QID PRN (Reason: muscle pain) Qty: 40 RF: 0 ferrous gluconate 324 mg (38 mg iron) tablet 324 mg PO DAILY Qty: 90 RF: 0 metformin 500 mg tablet extended release 24 hr 1,000 mg PO BID Qty: 28 RF: 0 Perforomist 20 mcg/2 mL solution for nebulization 20 mcg inhalation BID Qty: 1 RF: 0 ondansetron 4 mg tablet,disintegrating 4 mg PO BID Qty: 10 RF: 0 MiniMed Syringe [place] 3 mL misc .ROUTE .MEDSUPPLY Qty: 10 RF: 0 Contour Next Test Strips strip .ROUTE .MEDSUPPLY Qty: 10 RF: 0 insulin syringe-needle U-100 [BD Insulin Syringe Ultra-Fine] 0.5 mL 31 gauge x 5/16" syringe .ROUTE .MEDSUPPLY Qty: 10 RF: 0 Quick-Set Paradigm infusion set .ROUTE .MEDSUPPLY Qty: 2 RF: 0 furosemide 40 mg Tablet 120 mg PO QAM RF: 0 furosemide 40 mg Tablet 40 - 80 mg PO DAILY PRN (Reason: Weight Gain) RF: 0 atorvastatin 20 mg Tablet 20 mg PO HS RF: 0 diltiazem HCl 180 mg Capsule,Extended Release 24 Hr 180 mg PO Q12H RF: 0 albuterol sulfate 1.25 mg/3 mL Solution For Nebulization 1.25 mg INHALATION QID PRN (Reason: SOB) RF: 0 gabapentin 400 mg Capsule 800 mg PO HS RF: 0 aspirin [Aspirin Low Dose] 81 mg Tablet,Delayed Release (Dr/Ec) 81 mg PO QAM RF: 0 spironolactone 25 mg Tablet 25 mg PO QAM RF: 0 levothyroxine 50 mcg Tablet 50 mcg PO QAM RF: 0 allopurinol 300 mg Tablet 300 mg PO QAM RF: 0 polyethylene glycol 3350 [Miralax] 17 gram/dose Powder 17 g PO DAILY RF: 0 albuterol sulfate 90 mcg/actuation Hfa Aerosol Inhaler 2 puff INHALATION Q6H PRN (Reason: SOB) RF: 0 paroxetine HCl 40 mg Tablet 40 mg PO QAM RF: 0 losartan 100 mg Tablet 100 mg PO QAM RF: 0 fluticasone propionate [Flonase Allergy Relief] 50 mcg/actuation [place],Suspension 1 spray INTRANASAL BID RF: 0 Novolog PenFill U-100 Insulin 100 unit/mL Cartridge 1 sliding scale dose SUBCUT USEASDIRECTD RF: 0 Calcium 600 + D(3) 600 mg calcium- 200 unit Capsule 1 cap PO BID RF: 0 potassium chloride 20 mEq Tablet Extended Release 20 meq PO DAILY RF: 0 Combivent Respimat 20-100 mcg/actuation Mist 1 puff INHALATION QID RF: 0 Qvar RediHaler 80 mcg/actuation Hfa Aerosol Breath Activated 2 puff INHALATION BID RF: 0 tramadol 50 mg tablet 50 - 100 mg PO Q6H PRN (Reason: pain) Qty: 15 RF: 0 cholecalciferol (vitamin D3) [Vitamin D3] 1,000 unit capsule 2,000 units PO DAILY RF: 0 gabapentin 400 mg capsule 400 mg PO BID RF: 0 subcutaneous insulin pump Misc RF: 0 Changed warfarin 5 mg Tablet 7.5 mg PO DAILY Qty: 0 RF: 0 Discontinued warfarin [Coumadin] 5 mg tablet 10 mg PO 3XWK RF: 0 Stand-Alone Forms: [facility] Discharge Orders: Discharge Order (Routine); Ordered 11/23/18 Ordered By: Karla Saab Admission Data Admit Date/Time: 11/22/18 00:39 Attending Provider: Cj Carter Admit Provider: Jurgen Meadows Primary Care Provider: Jose Roberto Tyler Other Providers: Cj Carter Service: Telemetry Medical
[2018-11-23] MEDS ORDERED: ENOXAPARIN INJ 120 MG/0.8 ML SYR SQ STA (17:22)
== END 2018-11-23 19:10 | disposition home or self-care (01) ==
LOC: 2N 19:42 → ED 19:42 → SUATTDRO 11-22 00:39 → 2N 11-22 01:42